=== PATIENT | female | born 1980 | race Caucasian/White ===

== ENCOUNTER 2024-12-14 20:30 | Observation (INO) | payer MEDICAID, SELFPAY ==
[2024-12-14 20:31] VITALS: BP 222/116; PULSE 112; RESP 24; TEMP 36.4; O2SAT 99; BMI 48.9
[2024-12-14 20:44] VITALS: O2SAT 98
--- NOTE | 2024-12-14 20:44 | EKG12_ITS ---
Test Reason : CP ADMIT Blood Pressure : */* mmHG Vent. Rate : 88 BPM Atrial Rate : 88 BPM P-R Int : 128 ms QRS Dur : 82 ms QT Int : 388 ms P-R-T Axes : 55 12 20 degrees QTcB Int : 469 ms Normal sinus rhythm Normal ECG Confirmed by VARUN PALACIOS, SUE ([id number]), film and video editor ARRON SALAS ([id number]) on 12/15/2024 8:29:03 AM Referred By: Confirmed By: SUE BOND MD
[2024-12-14 21:04] VITALS: BP 204/120; PULSE 107; RESP 35; O2SAT 98
[2024-12-14 21:05] LABS: Absolute Lymphocyte Count 2.71 X10^3/uL (0.83-4.51); Absolute Neutrophil Count 7.7 X10^3/uL (2.0-7.7); Basophil# 0.09 X10^3/uL; Basophil% 0.8 % (0-1); Eosinophil# 0.06 X10^3/uL; Eosinophils% 0.5 % (0-5); Hematocrit 43.5 % (37-47); Hemoglobin 14.9 g/dL (12.0-15.0); Lymphocyte # 2.71 X10^3/ul (0.83-4.51); Lymphocyte % 24.3 % (19-41); Mean Corp Hgb Conc 34.3 g/dL (32-36); Mean Corpuscular Hgb 29.3 pg (27.0-32.0); Mean Corpuscular Volume 85.6 fL (81-99); Monocyte# 0.56 X10^3/uL; NRBC Flagged by Analyzer 0 % (0-5); Neutrophil # 7.66 X10^3/uL (2.7-7.7); Neutrophil % 68.9 % (47-70); Platelet Count 264 K/mm3 (150-450); RBC Distribution Width CV 13.5 % (11.6-14.6); RBC Distribution Width SD 41.9 fl (35.1-43.9); Red Blood Count 5.08 M/mm3 (4.2-5.4); White Blood Count 11.1 K/mm3 (4.4-11.0)
--- NOTE | 2024-12-14 21:11 | RAD_ITS ---
PROCEDURE: CHEST PA AND LATERAL 12/14/2024 REASON FOR EXAM: CHEST PAIN TECHNIQUE: CHEST PA AND LATERAL COMPARISON: None FINDINGS: No focal consolidations. No pleural effusion or pneumothorax. Cardiac silhouette is within normal limits in size. No acute fractures. RAD/Chest PA and Lateral IMPRESSION: No focal consolidations. Reading Location: [id number]
[2024-12-14 21:45] LABS: Anion Gap 14 (5-15); BUN 10 mg/dL (4-19); BUN/Creat Ratio 13.7 RATIO (10-20); Carbon Dioxide 21.3 mmol/L (21.0-32.0); Chloride 94 mmol/L (98-108); Creatinine, Serum 0.71 mg/dL (0.70-1.20); EST Glomerular Filtration Rate 108 (>60); Glucose 532 mg/dL (70-99); Potassium 4.2 mmol/L (3.3-5.1); Pro- Brain NATRIURETIC PEPTIDE < 36 pg/mL (<=450); Sodium Level 130 mmol/L (133-145); Troponin T High Sensitivity < 6 ng/L (<=14)
[2024-12-14 22:00] VITALS: BP 167/103; PULSE 104; RESP 32; O2SAT 95
--- NOTE | 2024-12-14 22:20 | CM.ED ---
Social work Reason for referral: no PCP Referral source: case find SW recognized patient's lack of PCP and need for resources. SW entered patient's room, introducing self and role at [facility]. Patient confirmed not having a PCP due to just moving back into the area and receiving names of doctors in [place]. Patient gladly accepted resources of PCPs within [place] and stated willingness to reach out. Patient denied further needs at this time. Sherrie Thomas, WOOD ROUTER, WATER TAXI CAPTAIN
[2024-12-14] MEDS: Insulin Lispro 100 UNIT/ML INSULN.PEN 15 UNIT SC (22:23)
--- NOTE | 2024-12-14 22:43 | EX.ED.DYSGE1 ---
HPI History of Present Illness Chief Complaint: Chest Pain Narrative Narrative: Patient is a 44-year-old female with past medical history of prediabetes, hypertension who presents to the emergency department chief complaint of chest pain. Patient states that she has had chest pain that has been progressive worsening for the last 3 days. States that her pain is worse with exertion and gets better with rest. Patient states that she has been out of her blood pressure medication for several months according to triage this was 10 months and this is secondary to insurance reasons. Patient denies any recent sick contacts denies any recent travel history denies any history of blood clots. [facility] Medical History Prediabetes Hypertension Home Medications ?Medication ?Instructions ?Recorded ?Last Taken ?Type NK 12/14/24 Unknown History Allergy/AdvReac Type Severity Reaction Status Date / Time No Known Allergies Allergy Verified 12/14/24 20:32 Family History no significant family his Social History Smoking Status: Never smoker ROS ROS ED ROS Narrative Constitutional: Denies headache, lightness, dizziness, fevers, chills Eyes: Denies change in vision double vision blurry vision Cardiovascular: Claims chest pain as noted above denies palpitations Respiratory: Denies coughing wheezing shortness of breath Abdomen: Denies abdominal pain nausea vomit diarrhea : Denies urinary symptoms Neurological: Denies numbness, wheeze, tingling Musculoskeletal: Denies back pain Skin: Denies rashes or lesions EXAM Physical Exam Narrative Exam Narrative: General: Patient lying in bed rest comfortably did not appear to be acute distress Head: Atraumatic, normocephalic Eyes: PERRL bilaterally, EOMI bilateral, no conjunctival injection noted Neck: Supple, trach midline Cardiovascular: Patient tachycardic with regular rhythm no murmurs gallops rubs noted Respiratory: There are auscultation bilaterally Abdomen: Soft, nondistended, no tenderness to palpation Extremities: +5/5 strength noted in the bilateral upper and lower EXTR, radial pulses +2/4 in the bilateral extremities, no pedal edema on exam Neurological: Commands and that she was at [facility] year is 2024 Skin: Warm, dry, intact no rashes or lesions noted Const Vital Signs: 12/14/24 20:31 12/14/24 20:44 12/14/24 21:03 Temperature 97.5 F L Temperature Source Temporal Pulse Rate 112 H Respiratory Rate 24 H Respiratory Effort Short of Breath Blood Pressure 222/116 H Blood Pressure Mean 151 Pulse Ox 99 98 Oxygen Delivery Method Room Air Room Air 12/14/24 21:04 12/14/24 22:00 12/14/24 23:00 Temperature Temperature Source Pulse Rate 107 H 104 H 105 H Respiratory Rate 35 H 32 H 35 H Respiratory Effort Blood Pressure 204/120 H 167/103 H 140/96 H Blood Pressure Mean 148 124 110 Pulse Ox 98 95 97 Oxygen Delivery Method Room Air Room Air 12/14/24 23:13 Temperature Temperature Source Pulse Rate Respiratory Rate Respiratory Effort Blood Pressure 140/96 H Blood Pressure Mean Pulse Ox Oxygen Delivery Method MDM MDM MDM Narrative Medical decision making narrative: Patient is a 44-year-old female who presented to the emergency department chief complaint chest pain. On the differential diagnose includes but limited to stable angina, ACS, pneumonia, pneumothorax, hypertensive emergency, pulmonary embolism. Once workup is obtained reviewed she will be reevaluated. Patient CBC was reviewed which showed white blood count 11,000, hemoglobin 14.9, platelet count of 264. Patient sodium is 130, potassium normal 4.2, creatinine was 0.71. Patient's glucose was 532 she will be given 15 units of subcutaneous insulin, troponin was less than 6, delta troponin pending, proBNP was less than 36. Patient's EKG was reviewed showed sinus tachycardia with a rate of 109 beats per minutes. Patient's chest x-ray reviewed by myself and by radiology showed no acute cardiopulmonary processes. Given the patient's abnormal vital signs with tachycardia and tachypnea with a largely unremarkable workup will add on a D-dimer as well. Patient case will be signed out to overnight provider to follow-up on results and make ultimate disposition see addendum for further details. Lab Data Labs: Laboratory Results - last 24 hr 12/14/24 20:58 WBC 11.1 H RBC 5.08 Hgb 14.9 Hct 43.5 MCV 85.6 MCH 29.3 MCHC 34.3 RDW Std Deviation 41.9 RDW Coeff of [place] 13.5 Plt Count 264 MPV 10.0 Immature Gran % (Auto) 0.500 Neut % (Auto) 68.9 Lymph % (Auto) 24.3 [place] % (Auto) 5.0 Eos % (Auto) 0.5 Baso % (Auto) 0.8 Absolute Neuts (auto) 7.7 Absolute Lymphs (auto) 2.71 Nucleated RBC % 0 Sodium 130 L Potassium 4.2 Chloride 94 L Carbon Dioxide 21.3 Anion Gap 14 BUN 10 Creatinine 0.71 Estim Creat Clear Calc 139.80 Est GFR (MDRD) Non-Af 108 BUN/Creatinine Ratio 13.7 Glucose 532 H* Calcium 9.0 Troponin T High Sens < 6 NT pro BNP II < 36 Radiography Diagnostic Testing: Clinical Impression(s) from Imaging Studies Chest X-Ray 12/14/24 21:11 IMPRESSION: No focal consolidations. Reading Location: [facility] Discharge Plan Triage Chief Complaint: Chest Pain ED Provider: Richard Dan Dx/Rx/DC Orders Prescriptions: No Action NK Primary Care Provider: Care Physician,No Primary Referrals: Care Physician,No Primary [Primary Care Provider] - Print Language: Kyrgyz
[2024-12-14 23:00] VITALS: BP 140/96; PULSE 105; RESP 35; O2SAT 97
[2024-12-14 23:13] VITALS: BP 140/96
[2024-12-14] MEDS: Nitroglycerin SL (ED/IMG/CATH) 0.4 MG TABLET SL (23:13)
[2024-12-14 23:36] LABS: D-Dimer Quantitative (DVT/PE) 0.27 FEU/ug/m (0.27-0.49)
[2024-12-14] MEDS: 0.9% Normal Saline (1000mL) 1,000 ML 999 ML IV (23:50)
[2024-12-14 23:51] LABS: Troponin T High Sens 2 HR < 6 ng/L (<=14)
[2024-12-15] VITALS (8 sets, daily range): BP systolic 132–164; BP diastolic 77–94; PULSE 78–103; RESP 16–35; TEMP 36.5–36.6; O2SAT 93–99; BMI 49.1
[2024-12-15 00:37] LABS: Bedside Glucose 345 mg/dL (74-106)
--- NOTE | 2024-12-15 01:09 | PCM.HP.STD ---
[facility] - General General Date of Admission: 12/15/24 Date of Service: 12/15/24 Chief Complaint: Chest Pain and Elevated Blood Pressure. HPI Narrative JACOB CELIS, is a 44 F with a past medical history of essential hypertension; currently untreated, DM-2; uncontrolled with hyperglycemia and morbid obesity; with BMI of 49 this admission who presents to [facility] ER complaining of chest pain and elevated blood pressure. Ms. Celis reports her symptoms began ~3 days prior to admission with chest pain that began with exertion and improved with rest. She states she ran out of her blood pressure medication ~10 months ago due to insurance reasons - but she states she now has insurance. She also informed the ER physician that she has not seen her doctor in approximately 8 months. She denies any recent sick contacts, significant travel history or history of blood clots. There was no reported fever, chills, changes in vision, discharge from eyes, shortness of breath, cough, wheezing, abdominal pain, nausea, vomiting, diarrhea, constipation, dysuria, hematuria, headache, paresthesias, focal neurologic deficits or rash. In the ER she was noted to have a highly elevated blood pressure of 222/116 mmHg present on admission consistent with suspected Hypertensive Emergency complicated by complaints of Chest Pain; made worse with exertion that improved after sublingual nitroglycerin compounded by Hyperglycemia of 532 mg/dL present on admission consistent with uncontrolled DM-2 and she was then admitted to the PCU under observation status for ongoing care for stay that is expected to be less than 2 midnights. [facility] Medical History Prediabetes Hypertension Home Medications ?Medication ?Instructions ?Recorded ?Last Taken ?Type NK 12/14/24 Unknown History Allergy/AdvReac Type Severity Reaction Status Date / Time No Known Allergies Allergy Verified 12/14/24 20:32 Family History no significant family his Social History Smoking Status: Never smoker ROS ROS Narrative Review of Systems: Constitutional: Patient denies fever or chills. Eyes: Patient denies changes in vision or discharge from eyes. ENT: Patient denies runny nose, sore throat or ear pain. Resp: Patient denies shortness of breath, cough or wheezing. CV: Patient admits to chest pain that is substernal and nonradiating. She also admits to elevated blood pressure as per HPI. She denies palpitations, heart racing or lower extremity edema. GI: Patient denies abdominal pain, nausea, vomiting, diarrhea or constipation. : Patient denies dysuria, hematuria or urinary frequency. MSK: Patient denies arthralgias or myalgias. Skin: Patient denies rash, abscess, wounds or jaundice. Psych: Patient denies symptoms of uncontrolled depression or anxiety. Neuro: Patient denies headache, paresthesias or focal neurologic deficits. Allergy: Patient denies lip swelling, tongue swelling or urticaria. Hematology: Patient denies easy bleeding or easy bruisability. Endocrinology: Patient admits to hyperglycemia with polyuria and polydipsia but she denies polyphagia or heat/cold intolerance. 14 point ROS otherwise negative except for positives noted above in HPI. Vital Signs Vital Signs Vital Signs: 12/14/24 20:31 12/14/24 20:44 12/14/24 21:03 Temperature 97.5 F L Temperature Source Temporal Pulse Rate 112 H Respiratory Rate 24 H Respiratory Effort Short of Breath Blood Pressure 222/116 H Blood Pressure Mean 151 Pulse Ox 99 98 Oxygen Delivery Method Room Air Room Air 12/14/24 21:04 12/14/24 22:00 12/14/24 23:00 Temperature Temperature Source Pulse Rate 107 H 104 H 105 H Respiratory Rate 35 H 32 H 35 H Respiratory Effort Blood Pressure 204/120 H 167/103 H 140/96 H Blood Pressure Mean 148 124 110 Pulse Ox 98 95 97 Oxygen Delivery Method Room Air Room Air 12/14/24 23:13 12/15/24 00:00 12/15/24 00:00 Temperature Temperature Source Pulse Rate 94 102 H Respiratory Rate 29 H 35 H Respiratory Effort Blood Pressure 140/96 H 132/77 H 132/77 H Blood Pressure Mean 90 95 Pulse Ox 94 96 Oxygen Delivery Method Room Air 12/15/24 00:49 12/15/24 01:00 Temperature 97.8 F Temperature Source Pulse Rate 103 H 102 H Respiratory Rate 30 H 35 H Respiratory Effort Blood Pressure 143/93 H 150/86 H Blood Pressure Mean 109 107 Pulse Ox 97 97 Oxygen Delivery Method Weight Weight: 294 lb 3.2 oz Body Mass Index (BMI) 48.9 Physical Exam Const alert, oriented x3, no apparent distress and healthy appearing Constitutional Narrative: Patient is morbidly obese. General Appearance: cooperative HEENT normocephalic, head/scalp atraumatic, hearing grossly normal bilaterally and moist oral mucous membranes HEENT Narrative: Patient has several missing teeth including both central incisors, lateral incisor, canine and 1st and 2nd premolars of the Right maxilla. Eyes PERRL, EOMs intact bilaterally and conjunctivae normal Neck no lymphadenopathy and supple Resp normal respiratory effort, no retractions, no use of accessory muscles and clear to auscultation bilaterally Cardio regular rate and regular rhythm GI normal to inspection, nondistended, normoactive bowel sounds, soft to palpation, non-tender and non-distended GI Narrative: Morbidly obese. Extremity normal to inspection, full ROM and no clubbing, cyanosis or edema Skin Skin Narrative: Patient has evidence of rash, abscess, wounds or jaundice. Neuro oriented x3, CN's II-XII intact bilaterally, moves all extremities and no focal motor deficits Sensorium / Orientation: awake, alert, oriented to person, oriented to place and oriented to time Speech: speech normal Psych affect normal Results Medical Records Data Attestation: I reviewed the patient's medical records Lab / Micro Data Attestation: I reviewed the patient's lab results. 12/14/24 20:58 12/14/24 20:58 Labs: Laboratory Results - last 24 hr 12/14/24 20:58: WBC 11.1 H, RBC 5.08, Hgb 14.9, Hct 43.5, MCV 85.6, MCH 29.3, MCHC 34.3, RDW Std Deviation 41.9, RDW Coeff of [place] 13.5, Plt Count 264, MPV 10.0, Immature Gran % (Auto) 0.500, Neut % (Auto) 68.9, Lymph % (Auto) 24.3, [place] % (Auto) 5.0, Eos % (Auto) 0.5, Baso % (Auto) 0.8, Absolute Neuts (auto) 7.7, Absolute Lymphs (auto) 2.71, Nucleated RBC % 0, Sodium 130 L, Potassium 4.2, Chloride 94 L, Carbon Dioxide 21.3, Anion Gap 14, BUN 10, Creatinine 0.71, Estim Creat Clear Calc 139.80, Est GFR (MDRD) Non-Af 108, BUN/Creatinine Ratio 13.7, Glucose 532 H*, Calcium 9.0, Troponin T High Sens < 6, NT pro BNP II < 36 12/14/24 23:15: D-Dimer Quant (PE/DVT) 0.27, Troponin T Hi Sens 2 Hr < 6 12/15/24 00:19: POC Glucose 345 H Imaging Radiology Impression Chest X-Ray 12/14/24 21:11 IMPRESSION: No focal consolidations. Reading Location: [facility] Assessment & Plan Assessment/Plan (1) Hypertensive emergency without congestive heart failure: (2) Chest pain on exertion: (3) Hyperglycemia due to type 2 diabetes mellitus: QUALIFIERS: Diabetes mellitus buttermaker continuous churn insulin use: without buttermaker continuous churn use Qualified Code(s): E11.65 - Type 2 diabetes mellitus with hyperglycemia (4) Medical non-compliance: (5) Morbid obesity with BMI of 45.0-49.9, adult: PLAN: Plan 1. Highly elevated blood pressure of 222/116 mmHg present on admission consistent with suspected Hypertensive Emergency - Admit to PCU under observation status. Blood pressure in the ~150 mmHg systolic range after SL NTG. Give hydralazine IV prn for systolic blood pressure > 160 mmHg. 2. Chest Pain made worse with exertion that improved after sublingual nitroglycerin complicating #1 - Serialize troponin. Check Lexiscan NST to evaluate for ischemia. Check echocardiogram to evaluate LVEF. D-dimer in normal range at 0.27 present on admission. 3. Hyperglycemia of 532 mg/dL present on admission consistent with uncontrolled DM-2 compounding #1 & #2 - Check HgbA1c to confirm suspicion. ADA/cardiac diet after NST. FSBS q. AC/HS plus SSI. Finally, we will consult clinical dietitian sees patient on rounds in a.m. to help augment diabetic education and insulin training with help appreciated in advance. 4. Medical noncompliance adding to the medical complexity of #1 - #3 - Patient will be encouraged take her medications keep her follow-up appointments as recommended. We will consult case management to help with discharge planning and also to help patient obtain her medications to prevent serial readmission without appreciated in advance. 5. Morbid (class III) Obesity; with BMI of 49 this admission adding to the burden of disease outlined from #1 - #4 - Weight loss will be recommended. Check TSH. This complicates her case and may hamper recovery. 6. DVT prophylaxis - Enoxaparin 40 mg sq BID. Total time: Approximately (but not less than) 70 minutes. Charges/Coding Visit Charges OBSV E&M: 39039 Observ/hosp same date L2
[2024-12-15 01:25] LABS: Troponin T High Sens 4 HR < 6 ng/L (<=14)
--- NOTE | 2024-12-15 01:38 | ECHOD_ITS ---
Reason For Study Reason For Study: CHEST PAIN Procedure This was a 2D Doppler, Color Flow transthoracic echocardiogram. Exam performed in department. Left Ventricle Normal LV size. Left ventricular systolic function is normal. The left ventricular ejection fraction is 60 %. No regional wall motion abnormalities noted. Right Ventricle Normal RV size. Normal systolic function. Atria The left and right atria are normal. Normal right atrium. Mitral Valve Normal mitral valve. Tricuspid Valve Normal tricuspid valve. Mild (1+) tricuspid valve insufficiency. Pulmonary artery systolic pressure is 30 mmHg. Aortic Valve The aortic valve is not well visualized. Pulmonic Valve Normal pulmonic valve. Great Vessels Normal aortic root. The pulmonary artery is normal size. Inferior vena cava collapse with respiration. Pericardium/Pleural No pericardial effusion. MMode/2D Measurements & Calculations LVIDd: 4.4 cm IVSd: 0.90 cm Ao root diam: 3.2 cm LVIDs: 3.2 cm LVPWd: 0.91 cm RVDd: 3.5 cm FS: 27.8 % LAV(MOD-bp): 36.2 ml LVAd ap4: 30.4 cm2 SV(MOD-sp4): 56.8 ml LAV(MOD-bp) Indexed: 15.5 ml/m2 LVLd ap4: 8.0 cm SI(MOD-sp4): 24.4 ml/m2 LAV(MOD-sp2): 34.5 ml EDV(MOD-sp4): 94.9 ml LAV(MOD-sp4): 36.6 ml EDV(sp4-el): 97.8 ml LVAs ap4: 16.6 cm2 LVLs ap4: 6.3 cm ESV(MOD-sp4): 38.0 ml ESV(sp4-el): 37.1 ml EF(MOD-sp4): 59.9 % EF(sp4-el): 62.1 % SV(sp4-el): 60.7 ml LA A4 area: 15.4 cm2 LA dimension(2D): 3.9 cm RA A4 area: 12.7 cm2 TAPSE: 1.9 cm Time Measurements MV dec time: 0.23 sec Doppler Measurements & Calculations MV E max omega: 92.5 cm/sec Lat Peak E' Omega: 14.5 cm/sec Med Peak E' Omega: 12.7 cm/sec MV A max omega: 76.4 cm/sec E/E' lat: 6.4 E/E' med: 7.3 MV E/A: 1.2 Ao V2 max: 173.9 cm/sec LV V1 max: 139.0 cm/sec PA V2 max: 128.4 cm/sec Ao max P.1 mmHg LV V1 max P.7 mmHg TR max omega: 261.0 cm/sec TR max P.2 mmHg ECHO/Echo Complete Interpretation Summary Normal LV size. Left ventricular systolic function is normal. The left ventricular ejection fraction is 60 %. Pulmonary artery systolic pressure is 30 mmHg. Ordering Physician: Martín Kilgore Performed By: Peggy Noel RDCS
[2024-12-15 03:08] LABS: Hemoglobin A1c 11.6 % (<=5.6)
--- NOTE | 2024-12-15 03:15 | EKG12_ITS ---
Test Reason : CP Blood Pressure : */* mmHG Vent. Rate : 109 BPM Atrial Rate : 109 BPM P-R Int : 118 ms QRS Dur : 82 ms QT Int : 344 ms P-R-T Axes : 50 7 15 degrees QTcB Int : 463 ms Sinus tachycardia Right atrial enlargement Minimal voltage criteria for LVH, may be normal variant ( R in aVL ) Borderline ECG No previous ECGs available Confirmed by VARUN PALACIOS, SUE ([id number]), editor in chief newspaper LINA FRITZ ([id number]) on 12/16/2024 5:36:59 AM Referred By: TB Confirmed By: SUE BOND MD
[2024-12-15] MEDS: Aspirin 81 MG TAB.CHEW 324 MG PO (03:49)
[2024-12-15] MEDS: 0.9% Saline Lock 10 ML Syringe IV (03:54)
[2024-12-15] MEDS: Insulin Lispro 100 UNIT/ML INSULN.PEN SC ×2 (06:52→11:39)
[2024-12-15 07:13] LABS: Bedside Glucose 313 mg/dL (74-106)
[2024-12-15 08:48] LABS: Cholesterol 246 mg/dL (<=200); High Density Lipoprotein 44 mg/dL; Low Density Lipoprotein Calc. 156 mg/dL; Triglycerides 229 mg/dL; Very Low Density Lipoprotein 46 mg/dL (5-40); cholesterol:hdl ratio screen 5.55
--- NOTE | 2024-12-15 11:50 | PCM.DC ---
Discharge Instructions Diet Discharge Diet: Low fat / Low cholesterol, 1600 Calorie Control Diet and Carb Control Diet DC O2, CPAP, BIPAP needs Home O2 Discharge instructions: No Dressing / Incision Discharge Activity: Return to Normal Activity Dressing / Incision Call your doctor if you observe: Fever of 101 or Higher, Shortness of breath, Dizziness, Fainting spells, Swelling in the ankles, Chest pain and Increased palpitations (irregular heartbeat) Follow Up Care Test Results: Test results from this visit will be discussed in further detail at your follow-up appointment, if applicable. Discharge Plan Admission Admit Date/Time: 12/15/24 01:31 Attending Provider: Seun Cullen Primary Care Provider: Care Physician,No Primary Consulting Providers: Martín Kilgore Discharge Orders/Prescriptions Prescriptions: New metformin 500 mg Tablet Extended Release 24 Hr 500 mg PO BID 30 Days Qty: 60 0RF losartan 50 mg tablet 50 mg PO DAILY Qty: 30 0RF atorvastatin [Lipitor] 20 mg tablet 20 mg PO DAILY Qty: 30 0RF Referrals / Follow Up: Care Physician,No Primary [Primary Care Provider] - Raffy Bonds DO [Med Staff - Meters Superintendent] - Within 1 Week Disposition Disposition (needs filled in before D/C Order can be placed): Home, Self Care
[2024-12-15 12:43] LABS: Bedside Glucose 300 mg/dL (74-106)
--- NOTE | 2024-12-15 12:55 | STRESSREP ---
Stress Test Report Pharmacologic myocardial perfusion stress test. 44-year-old lady with a history of chest pain Resting EKG demonstrates sinus tachycardia with a rate of 104 bpm. Resting blood pressure is 144/98 mmHg. 0.4 mg of regadenoson was infused per usual protocol followed by rapid intravenous saline flush injection. Continuous EKG monitoring was performed. The maximum heart rate was 116 bpm which was 65% of max impacted heart rate the maximum workload was 1 metabolic equivalent. At rest there were no ST or T wave changes noted to suggest ischemia and at peak infusion nonspecific ST changes were noted which did not meet the criteria for ischemia. No clinical angina is noted. The final blood pressure was 140/100 mmHg. Myocardial perfusion protocol. 15 mCi of technetium 99m sestamibi was injected at rest. 0.4 mg of regadenoson was infused per usual protocol. At peak infusion 44.8 mCi of technetium 99m sestamibi was injected stress images were obtained stress and rest images were reconstructed and compared in the short axis vertical long and horizontal long axis. Gated images were also obtained. Perfusion SPECT analysis: Review of the stress images demonstrate normal uptake of tracer noted in all areas of the myocardium. The resting images similar demonstrated normal uptake of tracer noted in all areas of the myocardium. No areas of reversibility are noted to suggest ischemia and no previous infarct is noted. Gated SPECT analysis: The gated ejection fraction is 70%. Conclusion: Normal pharmacologic myocardial perfusion stress test. Preserved ejection fraction.
--- NOTE | 2024-12-15 15:03 | CASEMGMT ---
Patient has order for discharge. RN CM into discuss needs at discharge. Patient needs glucometer at discharge. Patient denies further need or consider. Patient had no further questions or concerns. Script received for glucometer and placed in discharge packet.
--- NOTE | 2024-12-15 17:05 | DS.PCM_ITS ---
Providers Date of Admission: 12/15/24 Primary Care Physician: No Primary Care Phys Reason For Visit: HYPERTENSIVE EMERGENCY CHEST PAIN WITH EXERTION Diagnosis Discharge Diagnosis (1) Hypertensive emergency without congestive heart failure: Status: Acute Code(s): I16.1 - Hypertensive emergency (2) Chest pain on exertion: Status: Acute Code(s): R07.9 - Chest pain, unspecified (3) Hyperglycemia due to type 2 diabetes mellitus: Status: Acute Code(s): E11.65 - Type 2 diabetes mellitus with hyperglycemia Qualifiers: Diabetes mellitus fci insulin use: without termite control service representative use Q ualified Code(s): E11.65 - Type 2 diabetes mellitus with hyperglycemia (4) Medical non-compliance: Status: Acute Code(s): Z91.199 - Patient's noncompliance with other medical treatment and regimen due to unspecified reason (5) Morbid obesity with BMI of 45.0-49.9, adult: Status: Acute Code(s): E66.01 - Morbid (severe) obesity due to excess calories; Z68.42 - Body mass index [BMI] 45.0-49.9, adult Medications at Discharge Home Medications atorvastatin 20 mg tablet (Lipitor) 20 mg PO DAILY #30 tabs 12/15/24 losartan 50 mg tablet 50 mg PO DAILY #30 tabs 12/15/24 metformin 500 mg tablet,extended release 24 hr 500 mg PO BID 30 days #60 tabs 12/15/24 Hospital Course Operations None Procedures 2-D Echocardiogram and Nuclear stress test Summary of Care Provided Minutes Spent on Discharge: 32 Hospital Course: Per HPI: JACOB CELIS, is a 44 F with a past medical history of essential hypertension; currently untreated, DM-2; uncontrolled with hyperglycemia and morbid obesity; with BMI of 49 this admission who presents to [facility] ER complaining of chest pain and elevated blood pressure. Ms. Celis reports her symptoms began ~3 days prior to admission with chest pain that began with exertion and improved with rest. She states she ran out of her blood pressure medication ~10 months ago due to insurance reasons - but she states she now has insurance. She also informed the ER physician that she has not seen her doctor in approximately 8 months. She denies any recent sick contacts, significant travel history or history of blood clots. There was no reported fever, chills, changes in vision, discharge from eyes, shortness of breath, cough, wheezing, abdominal pain, nausea, vomiting, diarrhea, constipation, dysuria, hematuria, headache, paresthesias, focal neurologic deficits or rash. In the ER she was noted to have a highly elevated blood pressure of 222/116 mmHg present on admission consistent with suspected Hypertensive Emergency complicated by complaints of Chest Pain; made worse with exertion that improved after sublingual nitroglycerin compounded by Hyperglycemia of 532 mg/dL present on admission consistent with uncontrolled DM-2 and she was then admitted to the PCU under observation status for ongoing care for stay that is expected to be less than 2 midnights. Hospital Course: 1. Hypertensive urgency with chest pain/type 2 diabetes?41-year-old female presented to the hospital with hypertension and chest pain. She was concerned because of the chest pain when she found that her blood pressure was in the 200s which presented to the hospital. No signs of emergency as she has no evidence of endorgan damage. Initially elected to give her lisinopril however she has a history of a rash to lisinopril therefore we transition to losartan 50 mg. Stress test and echocardiogram are unremarkable and normal, EF was 60% with PASP of 30 mmHg and the stress test was nonischemic. She was also found to have an A1c of 11 and states that she used to be on multiple diabetic medications however she discontinued these when she lost Medicaid coverage because she makes too much but she was not making enough to afford her medications over the month. Given that her lipid panel was also elevated will start her on Lipitor 20 mg p.o. daily as well as metformin 500 mg extended release twice daily and I will have her follow-up with her primary care doctor as an outpatient. I discussed with her that all 3 medications that I gave her are on the $[address] [facility]. She will likely need more diabetic medication however I am afraid that by overloading her on discharge with pills that it we will just exacerbate noncompliant tendencies. I recommend she follow-up with the PCP in 3 to 5 days. Blood pressure on discharge was 142/89 and her blood sugar on discharge was 300 and she did receive insulin coverage. Physical Exam Narrative General: Alert, Oriented x3, Cooperative, No apparent distress, morbidly obese HEENT: Atraumatic, PERRLA, EOMI, Normocephalic Oral: Moist Mucosa Neck: Supple, No JVD Lungs: Clear to auscultation, Normal air movement, No rhonchi, No wheeze, No rales Cardiovascular: Regular rate, Regular Rhythm, Normal S1, Normal S2, No murmurs Abdomen: Soft, Non Tender, Non-Distended, No Hepato-splenomegaly Extremities: No edema, Capillary Refill Less than 3 Seconds Skin: No rashes, No breakdown Musculoskeletal: No Tenderness to Palpation of Joints or Extremities Neurological: No focal neurological deficits, Motor Exam 5/5 strength throughout, Sensory exam intact to light touch and pain Psych/Mental Status: Normal Affect, Appropriate Weight / BMI Weight Weight: 295 lb 3.183 oz Body Mass Index (BMI) 49.1 ABG / Lab / Microbiology Data 12/14/24 20:58 12/14/24 20:58 Laboratory: Laboratory Results - last 24 hr 12/14/24 20:58: WBC 11.1 H, RBC 5.08, Hgb 14.9, Hct 43.5, MCV 85.6, MCH 29.3, MCHC 34.3, RDW Std Deviation 41.9, RDW Coeff of [place] 13.5, Plt Count 264, MPV 10.0, Immature Gran % (Auto) 0.500, Neut % (Auto) 68.9, Lymph % (Auto) 24.3, Bulloch % (Auto) 5.0, Eos % (Auto) 0.5, Baso % (Auto) 0.8, Absolute Neuts (auto) 7.7, Absolute Lymphs (auto) 2.71, Nucleated RBC % 0, Sodium 130 L, Potassium 4.2, Chloride 94 L, Carbon Dioxide 21.3, Anion Gap 14, BUN 10, Creatinine 0.71, Estim Creat Clear Calc 139.80, Est GFR (MDRD) Non-Af 108, BUN/Creatinine Ratio 13.7, Glucose 532 H*, Hemoglobin A1c 11.6 H, Calcium 9.0, Troponin T High Sens < 6, NT pro BNP II < 36 12/14/24 23:15: D-Dimer Quant (PE/DVT) 0.27, Troponin T Hi Sens 2 Hr < 6 12/15/24 00:19: POC Glucose 345 H 12/15/24 01:03: Troponin T Hi Sens 4Hr < 6, TSH 2.130 12/15/24 01:54: Triglycerides 229 H, Cholesterol 246 H, LDL Cholesterol, Calc 156, VLDL Cholesterol 46 H, HDL Cholesterol 44, Cholesterol/HDL Ratio 5.55 12/15/24 06:45: POC Glucose 313 H 12/15/24 11:36: POC Glucose 300 H Radiography Diagnostic Testing: Radiology Impression Chest X-Ray 12/14/24 21:11 IMPRESSION: No focal consolidations. Reading Location: [facility] Echocardiogram 12/15/24 01:38 Interpretation Summary Normal LV size. Left ventricular systolic function is normal. The left ventricular ejection fraction is 60 %. Pulmonary artery systolic pressure is 30 mmHg. Ordering Physician: Martín Kilgore Performed By: Peggy Noel RDCS D/C Instructions Discharge Diet: Low fat / Low cholesterol, 1600 Calorie Control Diet and Carb Control Diet Call your doctor if you observe: Fever of 101 or Higher, Shortness of breath, Dizziness, Fainting spells, Swelling in the ankles, Chest pain and Increased palpitations (irregular heartbeat) DC O2, CPAP, BIPAP Needs Home O2 Discharge instructions: No Meaningful Use Info Meaningful Use Meaningful Use Diagnoses (Choose all that apply): None applicable Ischemic Stroke Statin Dosing Therapy Reference: STATIN DOSE THERAPY REFERENCE: * Patients > 75 years receive moderate or high dose statin therapy. * Patients 75 years or YOUNGER should receive HIGH intensity statin dose unless contraindicated. You will be required to document reason for non-treatment if statin daily dose does not meet guidelines. HIGH DOSE STATIN THERAPY DAILY Atorvastatin > than or = to 40 mg Rosuvastatin > than or = to 20 mg Amlodipine + Atorvastatin > than or = to 2.5/40 mg Ezetimibe + Simvastatin 10/80 mg Simvastatin 80mg Discharge Plan Admission Admit Date/Time: 12/15/24 01:31 Attending Provider: Seun Cullen Primary Care Provider: Care Physician,No Primary Consulting Providers: Martín Kilgore Instructions Forms: Work Excuse, Work / School Excuse Discharge Orders/Prescriptions Prescriptions: New metformin 500 mg Tablet Extended Release 24 Hr 500 mg PO BID 30 Days Qty: 60 0RF losartan 50 mg tablet 50 mg PO DAILY Qty: 30 0RF atorvastatin [Lipitor] 20 mg tablet 20 mg PO DAILY Qty: 30 0RF Referrals / Follow Up: Raffy Bonds DO [Med Staff - Materials Supervisor] - Within 1 Week Care Physician,No Primary [Primary Care Provider] - Disposition Disposition (needs filled in before D/C Order can be placed): Home, Self Care Charges/Coding Visit Charges Inpatient E&M: 34311 Disch Hosp >30min
== END 2024-12-15 11:52 | disposition home or self-care (01) ==
LOC: ED 21:49 → PCU 12-15 02:50
PROVIDERS: Admitting Provider Internal Medicine; Emergency Provider Emergency Medicine; Visit Provider Family Medicine
DX: I16.1 Hypertensive emergency (principal); E66.01 Morbid (severe) obesity due to excess calories; Z68.42 Body mass index [BMI] 45.0-49.9, adult; E11.65 Type 2 diabetes mellitus with hyperglycemia; I10 Essential (primary) hypertension; Z91.199 Patient's noncompliance with other medical treatment and regimen due to unspecified reason; R07.89 Other chest pain; I07.1 Rheumatic tricuspid insufficiency; R00.0 Tachycardia, unspecified
CPT/HCPCS: 71046; 78452; 80048; 80061; 82962; 83036; 83880; 84443; 84484; 85025; 85379; 93005; 93017; 93306; 96360; 99221; 99285; A9500; A4216; G0378; J2785

== ENCOUNTER 2025-02-19 12:27 | Emergency (ER) | payer MEDICAID, SELFPAY ==
[2025-02-19 12:29] VITALS: BP 157/89; PULSE 86; RESP 18; TEMP 36.6; O2SAT 99; BMI 49.1
--- NOTE | 2025-02-19 12:45 | EDS_ITS ---
HPI History of Present Illness Chief Complaint: Lower Extremity Injury Informant: patient Narrative Narrative: 44-year-old female with diabetic neuropathy both of her feet states that the painful numbness in both of her feet is worse today to the point where she can barely stand. She woke up this way this morning. She has had neuropathic pain and numbness in her feet for maybe a couple of months and as a result was found out that she has a diabetic and is now on medication. She denies any injuries that she knows of. The pain radiates up the back of her legs to her calves on both sides. She denies any swelling. No history of DVT, pain similar in both sides simultaneously. Denies any dyspnea, fevers or chills, redness that she has noticed. Prior similar symptoms: Yes PFSH PFSH Medical History Prediabetes Hypertension Home Medications ?Medication ?Instructions ?Recorded ?Last Taken ?Type atorvastatin 20 mg tablet (Lipitor) 20 mg PO DAILY #30 tabs 12/15/24 Unknown Rx losartan 50 mg tablet 50 mg PO DAILY #30 tabs 11/28 02/21 Unknown Rx metformin 500 mg tablet,extended 500 mg PO BID 30 days #60 tabs 12/15/24 Unknown Rx release 24 hr tramadol 50 mg tablet 50 mg PO Q6H PRN pain 2 days #8 02/19/25 Unknown Rx tabs Allergy/AdvReac Type Severity Reaction Status Date / Time No Known Allergies Allergy Verified 12/14/24 20:32 Family History no significant family his Social History Smoking Status: Never smoker ROS ROS ED Constitutional Constitutional ED: Denies chills or fever(s) Cardiovascular Cardiovascular: Denies chest pain Respiratory/Chest Respiratory/Chest: Denies dyspnea Gastrointestinal Gastrointestinal: Denies abdominal pain, nausea or vomiting Musculoskeletal Musculoskeletal: Reports extremity pain; Denies neck pain Integumentary Denies Abrasions, rash or wounds Neurologic Neurologic: Reports paresthesias RLE and LLE; Denies weakness EXAM Physical Exam Const Vital Signs: 02/19/25 12:29 Temperature 98 F Temperature Source Oral Pulse Rate 86 Respiratory Rate 18 Blood Pressure 157/89 H Blood Pressure Mean 111 Pulse Ox 99 Oxygen Delivery Method Room Air Positive well nourished and well developed General Appearance ED: well developed and NAD HEENT Reports moist mucous membranes Eyes Eyes Narrative: Disconjugate gaze Neck full ROM and supple Resp normal respiratory effort GI GI Narrative: Obese Back/Spine normal ROM and normal to inspection Extremity normal to inspection and full ROM Extremity Narrative: Mild tenderness superficial palpation of the skin plantar aspect which is normal-appearing both feet. Tenderness and symptoms are symmetric. She has tenderness in the dorsal left midfoot but not on the right. It is normal on inspection. Full range of motion in ankles and knees without difficulty, reflexes are abnormal downgoing toes. Both of her calf muscles are mildly tender distally, Achilles appear to be intact. All compartments are soft and nondistended. Pulses are intact both feet. Brisk cap refill all toes bilaterally. Neuro oriented x3, no focal motor deficits and no sensory deficits noted Neuro Narrative: No clonus Sensorium / Orientation: alert Deep Tendon Reflexes: Rt Patellar (L4): 2+, Lt Patellar (L4): 2+, Rt Ankle (S1): 2+ and Lt Ankle (S1): 2+ Deep Tendon Reflexes Back: Rt Patellar (L4): 2+, Lt Patellar (L4): 2+, Rt Ankle (S1): 2+ and Lt Ankle (S1): 2+ Plantar Reflex: Downgoing: bilateral Psych mental status grossly normal and thought process normal Skin no wounds Rashes: no rashes MDM MDM MDM Narrative Medical decision making narrative: Patient states she is already on gabapentin. I discussed with her that reasonable to obtain x-rays of both feet given her acute pain to rule out stress fractures or other injury, I see no evidence of an infection or any other obvious problem here, she does not have compartment syndrome on my clinical evaluation, and her symptoms are simultaneously symmetric bilaterally, making DVT very unlikely especially since she has no objective findings suggestive of that, nor risk factors. I discussed all that with her, she states that she mainly is expecting that all of this is going to put her on disability and she wanted to have her symptoms documented. Three-view x-ray series of each foot, both negative on my interpretation for anything acute. Radiology in agreement. Patient will be prescribed a few tramadol to take when she gets home as she is driving. Continue gabapentin follow-up. Radiography Diagnostic Testing: Clinical Impression(s) from Imaging Studies Foot X-Ray 02/19/25 12:47 IMPRESSION: No acute osseous abnormalities. Reading Location: [facility] Foot X-Ray 02/19/25 12:47 IMPRESSION: No acute osseous abnormalities. Reading Location: [facility] Discharge Plan Triage Chief Complaint: Lower Extremity Injury ED Provider: Eduardo Granados Dx/Rx/DC Orders Clinical Impression: Bilateral foot pain, Diabetic peripheral neuropathy Instructions: Treating Peripheral Neuropathy Prescriptions: New tramadol 50 mg tablet 50 mg PO Q6H PRN (Reason: pain) 2 Days Qty: 8 0RF No Action metformin 500 mg Tablet Extended Release 24 Hr 500 mg PO BID 30 Days Qty: 60 0RF losartan 50 mg tablet 50 mg PO DAILY Qty: 30 0RF atorvastatin [Lipitor] 20 mg tablet 20 mg PO DAILY Qty: 30 0RF Primary Care Provider: Allison Soto Referrals: Allison Soto BENCH TECHNICIAN-C [Primary Care Provider] - 3-5 Days if not improving Print Language: Albanian Disposition Disposition: Home, Self Care
--- NOTE | 2025-02-19 12:47 | RAD_ITS ---
PROCEDURE: FOOT MIN 3 VIEWS 02/19/2025 REASON FOR EXAM: PAIN, ?INJURY TECHNIQUE: FOOT MIN 3 VIEWS Laterality: Right COMPARISON: None. FINDINGS: Bones: No acute bony abnormalities. Joints: No dislocations. Soft tissues: Unremarkable. RAD/Foot min 3 Views IMPRESSION: No acute osseous abnormalities. Reading Location: [id number]
--- NOTE | 2025-02-19 12:47 | RAD_ITS ---
PROCEDURE: FOOT MIN 3 VIEWS 02/19/2025 REASON FOR EXAM: PAIN, ? INJURY TECHNIQUE: FOOT MIN 3 VIEWS Laterality: Left COMPARISON: None FINDINGS: Bones: No acute bony abnormalities. Joints: Unremarkable. Soft tissues: No soft tissue abnormalities. Other: RAD/Foot min 3 Views IMPRESSION: No acute osseous abnormalities. Reading Location: [id number]
--- OUTSIDE RECORDS SUMMARY | 2025-02-19 13:00 | XMS RPT_ITS | CCD ---
Author Organization [facility] Care Team Providers Care Curriculum Advisory Teacher Name Role Phone Alexander Bocanegra Unavailable Unavailable Juliet Nix Unavailable Unavailable Post, Sangeetha Unavailable Unavailable Marlene Hui Unavailable Unavailable Cercone, Martín Unavailable Unavailable Randhawa, Geraldo Unavailable Unavailable Randhawa, Geraldo Unavailable Unavailable Beth, Deandre Unavailable Unavailable Artemio, Kenyon Unavailable Unavailable Bc Gannon Unavailable Unavailable Andronic, Sofia Unavailable Unavailable Zia, Oneil Unavailable Unavailable Murty, Roe Unavailable Unavailable Sydnee, Geraldo Unavailable Unavailable Marlene Hui Primary Care Provider [phone] Marlene Hui Primary Care Provider Dedrick Weston Unavailable UnavaSteph Abbott Unavailable Unavailable Steph Bautista Unavailable Unavailable Marlene Hui Unavailable Unavailable Phoenix Irving Unavailable Unavailable Chi Sandhu T Unavailable Unavaila ble Dedrick Weston Unavailable Unav ailable Steph Bautista Unavailable Unavailabl e Loewit, Alva Unavailable Unavailable Marlene Hui Primary Care Provider Steph Bautista Unavailable Unavailable Unavailable Marlene Hui DO Primary Care Provider Melly Rosario Unavailable Lois Alberts Unavailable Marlene Hui DO Primary Care Provider Melly Rosario MD Primary Care Provider [phone] Unavailable Unavailable Melly Rosario MD Primary Care Provider DEDRICK WESTON Referring Unavailable Dr. Leeann Mcwilliams Attending Unavailabl e Jamie Cheres, Dedrick Referring Unavai lable Jamie Chersuzy, Dedrick Attending Unavai lable Taliwal, Dr. Abreu Referring Unavailable Taliwal, Dr. Abreu Attending Unavailable Taliwal , [facility] Primary Care Provider Taliwal , [facility] Primary Care Provider Taliwaquiles PALACIOS, Lois Unavailable Aristeo PALACIOS, Lois Unavailable Taliwal, Dr. Abreu Attending Unavailable Taliwal, Dr. Abreu Attending Unavailable Taliwal, Dr. Abreu Referring Unavailable Jamie Cheres, Dr. Dedrick Osborne Referring Unavailable Dearing Cheres, Dr. Dedrick Osborne Attending Unavailable Taliwal, Dr. Abreu Attending Unavailable Taliwal, Dr. Abreu Referring Unavailable Taliwal, Dr. Abreu Attending Unavailable Taliwal, Dr. Abreu Referring Unavailable Taliwal , [facility] Primary Care Provider TALLAMARALAKIKOLOIS Referring Unavailable TALIWAL, LOIS Primary Care Unavailable MTALAKIKOLOIS Attending Unavailable TALIWAL, LOIS Primary Care Unavailable LOIS ALBERTS Attending Unavailable TALIWAL, LOIS Referring Unavailable TALIWAL, LOIS Primary Care Unavailable TALIWALAKIKOLOIS Attending Unavailable TALIWAL, LOIS Primary Care Unavailable TALIWALAKIKOLOIS Attending Unavailable TALIWAL, LOIS Primary Care Unavailable Steph Villalba MD Primary Care Provider TALIWAL, LOIS Primary Care Unavailable TALIWAL, LOIS Primary Care Unavailable Erwin Dominguez MD Unavailable RANDOLPH VILLALBA Attending Unavailable TALIWAL, LOIS Referring Unavailable RICHIE LEGER Attending Unavailable STEPH VILLALBA Referring Unavailable RICHIE LEGER Attending Unavailable RICHIE LEGER Attending Unavailable STEPH VILLALBA Referring Unavailable GUTIERREZ, MADELAINE Referring Unavailable TALIWAL, LOIS Primary Care Unavailable GLENN LR Referring Unavailable TALIWAL, LOIS Primary Care Unavailable ERWIN DOMINGUEZ Attending Unavailable ERWIN DOMINGUEZ Referring Unavailable TALIWAL, LOIS Primary Care Unavailable GUTIERREZ, MADELAINE Referring Unavailable TALIWAL, LOIS Primary Care Unavailable GLENN LR Attending Unavailable TALIWAL, LOIS Primary Care Unavailable GUTIERREZ, MADELAINE Attending Unavailable TALIWAL, LOIS Primary Care Unavailable GLENN GARRETT Attending Unavailable TALIWAL, LOIS Primary Care Unavailable ERWIN DOMINGUEZ Attending Unavailable TALIWAL, LOIS Primary Care Unavailable Taliwal V, Butch Primary Care Provider DEBBIE CORDOVA Referring Unavailable TALIWAL, BUTCH Primary Care Unavailable TALIWAL, BUTCH Primary Care Unavailable MELLY ROSARIO Primary Care Unavailable Ni CAVAZOS, Dr. Ramos Emergency Provider [phone] Care Physician, No Primary Primary Care Provider Unavailable Kilgore DO, Dr. Resendiz Admit Provider Unavail able de Iggy CAVAZOS, Dr. Resendiz Attending Provider Unav ailable Kilgore DO, Dr. Resendiz Other Provider Unavail able Alyse PALACIOS, Dr. Seun Watt Attending Provider Tania PALACIOS, Dr. Camilo Attending Provider [phone] Care Physician, No Primary Primary Care Unava ilable Ton Marin Attending Unavailable Martín Kilgore Admitting Unavailable Care Physician, No Primary Primary Care Unava ilable Martín Kilgore Attending Unavailable Martín Kilgore Consulting Unavailable Seun Cullen Attending Unavailable Care Physician, No Primary Primary Care Unava ilable Martín Kilgore Consulting Unavailable Martín Kilgore Admitting Unavailable Allergies Allergy Classification Reported Allergen(s) Allergy Type Date of Onset Reaction(s) Facility (20 sources) Onions Allergy to substance (finding) [facility] Work Phone: (20 sources) Lisinopril; Translations: [LISINOPRIL] Drug Allergy 2 Cough -[facility] Work Phone: (15 sources) semaglutide; Translations: [Rybelsus TABS] Drug Allergy 3 Unknown -[facility] Work Phone: (11 sources) SITagliptin; Translations: [Januvia TABS] Drug Allergy 3 Unknown [facility] (10 sources) Onion extract; Translations: [ONION] Drug Allergy 3 Unknown [facility] Work Phone: (3 sources) SITagliptin; Translations: [SITAGLIPTIN] Drug Allergy 3 [facility] 1 Repository (3 sources) SEMAGLUTIDE; Translations: [SEMAGLUTIDE] Propensity to adverse reactions to drug (disorder) 3 [facility] 1 Repository (14 sources) Onion extract Drug Allergy 3 [facility] (4 sources) atorvastatin Drug Allergy 4 [facility] (2 sources) atorvastatin Drug Allergy 4 [facility] Medications Current Medications Medication Drug Class(es) Dates Sig (Normalized) Sig (Original) acetaminophen 325 mg / butalbital 50 mg / caffeine 40 mg oral capsule (17 sources) Barbiturate, Central Nervous System Stimulant, Methylxanthine Start: 02-03-2020 End: 03-07-2021 take 1-2 capsules by mouth every four hours as needed Butalbital-APAP- Caffeine 50-325-40 MG Oral Capsule TAKE 1 TO 2 CAPSULES EVERY 4 HOURS NEEDED Quantity: 36 Refills: 0 Ordered: 02-Mar-2020 Steph Natarajan MD Start : 03-Feb-2020 End : 07-Mar-2021 Complete Start: 02-03-2020 take 1 capsule by mo [facility] once daily as needed Adabosktpu-ACRI-Xnhljpvy 50-325-40 MG Oral Capsule TAKE 1 CAPSULE DAILY as needed Refills: 0 Start : 03-Feb-2020 Active Start: 01-29-2020 take 1 tablet by fay every six hours as needed for headache ldfznzzndo-gnwynzqntwqyc-xlqfvkmt (FIORICET, ESGIC) 50-325-40 MG per tablet Take 1 tablet by mouth every 6 hours as needed for Headaches 30 tablet 0 01/29/2020 Active acetaminophen 325 mg / HYDROcodone bitartrate 5 mg oral tablet (6 sources) Opioid Agonist Start: 08-29-2023 End: 09-03-2023 take 1 tablet by mouth every six hours as needed for pain HYDROcodone-acetaminophen (Rainelle) 5-325 MG tablet Indications: Ureteral stone with hydronephrosis Take 1 tablet by mouth every 6 hours as needed (pain) for up to 5 days. 20 tablet 0 08/29/2023 09/03/2023 Active albuterol 0.83 mg/ml inhalation solution (20 sources) beta2-Adrene rgic Agonist Start: 02-27-2021 albuterol (PROVENTIL) nebulizer solution 2.5 mg take 1-2 puff(s) by inhalation every four to six hours as needed albuterol 90 mcg/actuation inhaler INHAL E 1 TO 2 PUFFS EVERY 4 TO 6 HOURS NEEDED. 0 Active take 1-2 puff(s) by inhalation every four to six hours as needed Albuterol Sulfate HFA 108 (90 Base) MCG/ ACT Inhalation Aerosol Solution INHALE 1 TO 2 PUFFS EVERY 4 TO 6 HOURS NEEDED. Quantity: 3 Refills: 0 Ordered: 27-Sep-2021 Lois Alberts MD Active take 1-2 puff(s) by inhalation every four to six hours as needed Albuterol Sulfate HFA 108 (90 Base) MCG/ ACT Inhalation Aerosol Solution INHALE 1 TO 2 PUFFS EVERY 4 TO 6 HOURS NEEDED. Quantity: 3 Refills: 0 Ordered: 27-Sep-2021 Lois Alberts MD Active take 1-2 puff(s) by inhalation every four to six hours as needed Albuterol Sulfate HFA 108 (90 Base) MCG/ ACT Inhalation Aerosol Solution INHALE 1 TO 2 PUFFS EVERY 4 TO 6 HOURS NEEDED. Quantity: 1 Refills: 2 Steph Villalba MD Active 8.5 GM Inhaler Ventolin HFA 108 (90 Base) MCG/ACT Inhalation Aerosol Solution Refills: 0 Active Albuterol Sulfat e (PROAIR HFA IN) Inhale into the lungs 0 Active allopurinol 100 mg oral tablet (20 sources) Xanthine Oxidase Inhibitor Start: 07-25-2022 End: 04-02-2023 take 1 tablet by mouth in the morning allopurinol (Zyloprim) 100 MG tablet Take 100 mg by mouth in the morning. 07/25/2022 Active atorvastatin 20 mg oral tablet (20 sources) HMG-CoA Reductase Inhibitor Start: 12-15-2024 take 1 tablet by mouth once daily Atorvastatin (Lipitor) 20 mg tablet Active 20 mg PO DAILY December 15, 2024 12:00am Start: 09-18-2020 take 1 tablet by fay th once daily atorvastatin (Lipitor) 20 MG tablet Take 20 mg by mouth daily. 10/08/2022 Active Comment on above: Take 20 mg by mouth daily at bedtime. azithromycin 250 mg oral tablet (5 sources) Macrolide Antimicrobial Start: 06-04-2024 End: 06-09-2024 azithromycin (Zithromax Z-Kristin) 250 MG tablet Take 1 tablet (250 mg) by mouth daily for 5 days. Take 500 mg day 1 and then 250 mg day 2 through 5 6 tablet 06/04/2024 06/09/2024 Active Start: 06-04-2024 End: 06-04-2024 take 1 capsule by mouth once 500 mg, Oral, Once, On Fr i 06/04/24 at 0435, For 1 dose, Suspected Indication (Select all that apply): Pneumonia (CAP) Start: 07-03-2023 End: 07-08-2023 azithromycin (Zithromax) 250 mg tablet Indications: Acute cough , SOB (shortness of breath) Take 2 tablets (500 mg) by mouth once daily for 1 day, THEN 1 tablet (250 mg) once daily for 4 days. Take 2 tabs (500 mg) by mouth today, than 1 daily for 4 days.. 6 tablet 0 07/03/2023 07/08/2023 Active benzonatate 100 mg oral capsule (3 sources) Non-narcotic Antitussive Start: 02-19-2024 End: 02-29-2024 take 2 capsules by mouth every eight hours as needed for cough and cough benzonatate (TESSALON PERLE) 100 mg capsule Indications: Acute cough Take 2 capsules by mouth three times a day as needed for up to 10 days. 60 capsule 02/19/2024 02/29/2024 Active Start: 04-29-2022 End: 02-19-2024 take 1 capsule by mouth three times daily as needed benzonatate (TESSALON PERLE) 100 mg capsule Indications: URI with cough and congestion Take 1 capsule by mouth three times daily as needed. 30 capsule 04/29/2022 02/19/2024 Discontinued brompheniramine maleate 0.4 mg/ml / dextromethorphan hydrobromide 2 mg/ml / pseudoephedrine hydrochloride 6 mg/ml oral solution (3 sources) alpha-Adrenergic Agonist, Uncompetitive H-aizlps-E-aspartate Receptor Antagonist, Sigma-1 Agonist Start: 06-21-2023 take 5-10 mL by mouth four times daily as needed Fqqnehcopozfzme-Axvknfdwr-YM (BROMFED DM) 2-30-10 mg/5 mL syrup Indications: Bronchitis Take 5-10 mL by mouth four times a day as needed. 118 mL 06/21/2023 Active Start: 05-29-2021 Pseudoeph-Brom phen-DM 30-2-10 MG/5ML Oral Syrup Quantity: 240 Refills: 0 Ordered: 29-May-2021 DO Start : 29-May-2021 Complete 60 actuat budesonide 0.16 mg/actuat / formoterol fumarate 0.0045 mg/actuat metered dose inhaler (20 sources) Corticosteroid, beta2-Adrenergic Agonist take 2 puff(s) by inhalation once daily budesonide-formoterol (Symbicort) 160-4.5 MCG/ACT inhaler Inhale 2 puffs daily. Active take 2 puff(s) by mouth twice da kedar Symbicort 160-4.5 MCG/ACT Inhalation Aerosol INHALE 2 PUFFS TWICE DAILY. RINSE MOUTH AFTER USE. Quantity: 1 Refills: 1 Ordered: 30-Oct-2021 Lois Alberts MD Active take 2 puff(s) by mouth twice da kedar Symbicort 80-4.5 MCG/ACT Inhalation Aerosol INHALE TWO PUFFS BY MOUTH TWO TIMES A DAY. RINSE MOUTH AFTER USE. Quantity: 3 Refills: 1 Ordered: 27-Sep-2021 Lois Alberts MD Active take 2 puff(s) by mouth twice da kedar Symbicort 80-4.5 MCG/ACT Inhalation Aerosol INHALE TWO PUFFS BY MOUTH TWO TIMES A DAY. RINSE MOUTH AFTER USE. Quantity: 3 Refills: 1 Steph Villalba MD Active 10.2 GM Inhaler Symbicort 80-4.5 MCG/ACT Inhalation Aerosol Refills: 0 Active 120 actuat budesonide 0.16 mg/actuat / formoterol fumarate 0.0048 mg/actuat / glycopyrrolate 0.009 mg/actuat metered dose inhaler (3 sources) Corticosteroid, beta2-Adrenergic Agonist Start: 07-03-2023 take 2 puff(s) by inhalation twice daily ifmcbcnpma-dalmdbib-lnulkbxrex (Breztri Aerosphere) 160-9-4.8 mcg/actuation HFA aerosol inhaler Indications: Acute cough , SOB (shortness of breath) Inhale 2 puffs 2 times a day. 10.7 g 0 07/03/2023 Active Budesonide-Form oterol Fumarate (SYMBICORT IN) (7 sources) Budesonide-Formo terol Fumarate (SYMBICORT IN) Inhale into the lungs 0 Active busPIRone hydrochloride 10 mg oral tablet (20 sources) Start: 03-06-2023 take 1 tablet by mouth twice daily busPIRone (Buspar) 10 MG tablet Take 10 mg by mouth 2 times daily. 04/07/2023 Active Start: 05-23-2020 End: 04-02-2023 take 1 tablet by mouth twice daily busPIRone (BUSPAR) 5 mg tablet Take 5 mg by mouth twice daily. 01/21/2021 Active take 2 tablets by mo [facility] in the morning busPIRone (Buspar) 5 MG tablet Take 10 mg by mouth in the morning and 10 mg before bedtime. 0 Active Comment on above: Take 5 mg by mouth t wice daily. cariprazine 1.5 mg oral capsule (20 sources) Atypical Antipsychotic Start: 1 VRAYLAR 1.5 mg capsule 02/15/2021 Active carvedilol 3.125 mg oral tablet (20 sources) alpha-Adrenergic Juan C, beta-Adrenergic Juan C Start: take 1 tablet by mouth twice daily at mealtime carvedilol (COREG) 3.125 mg tablet Take 3.125 mg by mouth twice daily with meals. 02/02/2021 Active take 1 tablet by fay th twice daily at mealtime carvedilol (COREG) 3.125 MG tablet Take 3.125 mg by mouth 2 times daily (with meals) 0 Active Comment on above: Take 3.125 mg by fay th twice daily with meals. cephalexin 500 mg oral capsule (6 sources) Cephalosporin Antibacterial Start: End: cephalexin (Keflex) 500 MG capsule Take 1 capsule (500 mg) by mouth in the morning and 1 capsule (500 mg) at noon and 1 capsule (500 mg) in the evening and 1 capsule (500 mg) before bedtime. Do all this for 5 days. 20 capsule 0 08/29/2023 09/03/2023 Active cholecalciferol 0.05 mg oral capsule (20 sources) Vitamin D Start: 023 take 1 capsule by mouth once daily cholecalciferol (Vitamin D-3) 50 MCG (2000 UT) capsule Take 1 capsule by mouth daily. 10/08/2022 Active Start: 10-29-2021 End: 04-02-2023 take 1 capsule by mouth once daily cholecalciferol (Vitamin D3) 50 mcg (2,000 unit) capsule Indications: Vitamin D deficiency take 1 capsule by mouth once daily 90 capsule 1 10/08/2022 04/02/2023 Discontinued (Reorder) take 1 tablet by fay th once daily vitamin D (CHOLECALCIFEROL) 1000 UNIT TABS tablet Take 1,000 Units by mouth daily 0 Active take 1 tablet by fay th every week Vitamin D-3 125 MCG (5000 UT) Oral Tablet TAKE 1 TABLET Weekly Refills: 0 Active 24 hr dapagliflozin 10 mg / metFORMIN hydrochloride 500 mg extended release oral tablet (20 sources) Biguanide, Sodium-Glucose Cotransporter 2 Inhibitor Start: 07-25-2022 End: 01-06-2023 take 1 tablet by mouth in the morning dapagliflozin-metFORMIN ER (Xigduo XR) 10-500 MG Take 1 tablet by mouth in the morning. 07/25/2022 Active Start: 07-25-2022 End: 09-29-2023 take 1 tablet by mouth once daily dapaglifloz propaned-metformin (Xigduo XR) 10-500 mg Indications: type 2 diabetes mellitus Take 1 tablet by mouth once daily. 90 tablet 1 04/02/2023 07/03/2023 Discontinued (Therapy completed) diclofenac sodium 75 mg delayed release oral tablet (12 sources) Nonsteroidal Anti-inflammatory Drug Start: 08-29-2023 take 1 tablet by mouth twice daily as needed for pain diclofenac (Voltaren) 75 MG EC tablet Take 1 tablet (75 mg) by mouth 2 times daily as needed (pain). Do not crush, chew, or split. 28 tablet 08/29/2023 Active 1 ml erenumab-aooe 70 mg/ml auto-injector (6 sources) Start: 08-12-2023 inject 1 mL by subcutaneous injection once erenumab (Aimovig) 70 MG/ML injection Indications: Migraine with aura and without status migrainosus, not intractable (CMS/HCC) Inject 1 mL (70 mg) under the skin every 28 (twenty-eight) days 1 each 08/12/2023 Active Start: 08-12-2023 inject 1 mL by subcu taneous injection once erenumab (Aimovig) 70 MG/ML injection Indications: Migraine with aura and without status migrainosus, not intractable (CMS/HCC) Inject 1 mL (70 mg) under the skin every 28 (twenty-eight) days 1 each 1 08/12/2023 Active Start: 08-12-2023 inject 1 mL by subcu taneous injection once erenumab (Aimovig) 70 MG/ML injection Indications: Migraine with aura and without status migrainosus, not intractable (CMS/HCC) Inject 1 mL (70 mg) under the skin every 28 (twenty-eight) days 1 each 1 08/12/2023 Active Start: 08-04-2023 End: 08-12-2023 inject 1 mL by subcutaneous injection once erenumab (Aimovig) 70 MG/ML injection Indications: Migraine with aura and without status migrainosus, not intractable (CMS/HCC) Inject 1 mL (70 mg) under the skin every 28 (twenty-eight) days 1 each 1 08/04/2023 08/12/2023 Discontinued ergocalciferol 1.25 mg oral capsule (20 sources) Provitamin D2 Compound Start: 11-06-2020 take 1 capsule by mouth every week VITAMIN D2 1,250 mcg (50,000 unit) capsule Take 1 capsule by mouth one time a week. 02/02/2021 Active Start: 11-06-2020 End: 06-06-2022 take 1 capsule by mouth once daily Vitamin D (Ergocalciferol) 50 MCG (2000 UT) Oral Capsule TAKE 1 CAPSULE Daily Quantity: 30 Refills: 0 Ordered: 23-Apr-2022 Liya Chamberlain DO Start : 06-Nov-2020 End : 06-Jun-2022 Complete Vitamin D2 TABS 1.25 mg (5000 units) once a week Refills: 0 Active Comment on above: Take 1 capsule by mo [facility] one time a week. gabapentin 100 mg oral capsule (20 sources) Anti-epileptic Agent Start: 09-27-2021 End: 04-02-2023 take 1 capsule by mouth in the morning, then take 1 capsule by mouth in the evening, then take 1 capsule by mouth in the morning, then take 3 capsules by mouth in the evening gabapentin (Neurontin) 100 MG capsule Take 1 capsule by mouth in the morning and 1 capsule in the evening. 1 in the AM, 3 in the PM. 09/27/2021 Active Start: 09-27-2021 take 1 capsule by mo [facility] once daily Gabapentin 300 MG Oral Capsule TAKE 1 CAPSULE Daily Quantity: 90 Refills: 0 Ordered: 06-Jun-2022 Lois Alberts MD Start : 27-Sep-2021 Active hydroCHLOROthiazide 12.5 mg / valsartan 160 mg oral tablet (20 sources) Thiazide Diuretic, Angiotensin 2 Receptor Juan C Start: 12-25-2021 take 1 tablet by mouth in the morning valsartan-hydroCHLOROthiazide (Diovan-HCT) 160-12.5 MG tablet Take 1 tablet by mouth in the morning. 12/25/2021 Active Start: 12-25-2021 End: 04-02-2023 take 1 tablet by mouth once daily valsartan-hydrochlorothiazide (Diovan-HC T) 160-12.5 mg tablet Indications: HTN (hypertension), benign Take 1 tablet by mouth once daily. 90 tablet 1 04/02/2023 Active hydrOXYzine pamoate 25 mg oral capsule (20 sources) Antihistamine Start: 08-01-2020 take 1 capsule by mouth once daily in the morning, then take 2 capsules by mouth once daily in the evening hydrOXYzine pamoate (VISTARIL) 25 mg capsule take 1 capsule by mouth every morning and take 2 capsules by mouth every evening 02/02/2021 Active Start: 02-03-2020 [facility] then take 2 tablets by mouth once daily in the evening hydrOXYzine HCl - 25 MG Oral Tablet Take 1 tablet every AM and 2 qpm Quantity: 270 Refills: 1 Steph Villalba MD Start : 03-Feb-2020 Active Start: 02-03-2020 take 1 tablet by fay th every eight hours as needed hydrOXYzine HCl - 25 MG Oral Tablet Take 1 tablet every 8 hours as needed Refills: 0 Start : 03-Feb-2020 Active take 1 capsule by mo [facility] twice daily hydrOXYzine (VISTARIL) 25 MG capsule Take 25 mg by mouth 2 times daily 0 Active Comment on above: take 1 capsule by mo [facility] every morning and take 2 capsules by mouth every evening ibuprofen 800 mg oral tablet (20 sources) Nonsteroidal Anti-inflammatory Drug Start: 06-28-2020 take 1 tablet by mouth every eight hours as needed ibuprofen (MOTRIN) 800 mg tablet Take 800 mg by mouth three times daily as needed. 02/02/2021 Active Start: 06-28-2020 take 1 tablet by fay th twice daily for pain Ibuprofen 800 MG Oral Tablet 1 po BID for back pain Quantity: 60 Refills: 5 Ordered: 07-Mar-2021 Melly Rosario MD Start : 28-Jun-2020 Active Start: 04-01-2019 End: 11-16-2019 take 1 tablet by mouth every six hours as needed for pain ibuprofen (ADVIL;MOTRIN) 600 MG tablet Take 1 tablet by mouth every 6 hours as needed for Pain 30 tablet 1 04/01/2019 11/16/2019 Discontinued take 1 tablet by fay three times daily as needed Ibuprofen 800 MG Oral Tablet TAKE 1 TABLET THREE TIMES A DAY NEEDED Quantity: 90 Refills: 1 Nicholas PALACIOS, Steph Active End: 11-16-2019 ibuprofen (ADVIL;MOTRIN) 100 MG/5ML suspension Take by mouth every 4 hours as needed for Fever 0 11/16/2019 Discontinued Comment on above: Take 800 mg by mouth three times daily as needed. loperamide hydrochloride 2 mg oral capsule (3 sources) Opioid Agonist Start: 2 take 1 capsule by mouth every six hours as needed for diarrhea and diarrhea loperamide (IMODIUM A-D) 2 mg cap(s) Indications: Diarrhea, unspecified type Take 1 capsule by mouth four times daily as needed. 30 capsule 04/16/2022 Active Comment on above: Take 1 capsule by mo [facility] four times daily as needed. loratadine 10 mg oral tablet (20 sources) Start: 3 take 1 tablet by mouth once daily loratadine (Claritin) 10 MG tablet Take 10 mg by mouth daily. 04/03/2023 Active Start: 02-03-2020 End: 04-02-2023 take 1 tablet by mouth once daily loratadine (CLARITIN) 10 mg tablet Take 10 mg by mouth once daily. 01/06/2021 Active Comment on above: Take 10 mg by mouth once daily. losartan potassium 50 mg oral tablet (1 source) Angiotensin 2 Receptor Juan C Start: 5 take 1 tablet by mouth once daily Losartan 50 mg tablet Active 50 mg PO DAILY December 15, 2024 12:00am meloxicam 15 mg oral tablet (20 sources) Nonsteroidal Anti-inflammatory Drug Start: 3 End: 3 take 1 tablet by mouth once daily at mealtime meloxicam (Mobic) 15 mg tablet Take 1 tablet (15 mg) by mouth once daily. TAKE WITH FOOD AND 8 OZ OF WATER 90 tablet 0 10/08/2022 12/30/2022 Discontinued (Therapy completed) Start: 09-27-2021 take 1 tablet by fay th once daily at mealtime Meloxicam 15 MG Oral Tablet take 1 tablet by mouth once daily TAKE WITH FOOD AND 8 OZ OF WATER Quantity: 30 Refills: 0 Ordered: 31-Oct-2021 Lois Alberts MD Start : 27-Sep-2021 Active 24 hr metFORMIN hydrochloride 500 mg extended release oral tablet (19 sources) Biguanide Start: 12-15-2024 take 1 tablet by mouth twice daily Metformin 500 mg Tablet Extended Release 24 Hr Active 500 mg PO TWICE A DAY 60 December 15, 2024 12:00am Start: 12-25-2021 take 1 tablet by fay th once daily metFORMIN HCl ER 500 MG Oral Tablet Extended Release 24 Hour take 1 tablet by mouth once daily as directed Quantity: 90 Refills: 0 Ordered: 06-Jun-2022 Lois Alberts MD Start : 25-Dec-2021 Active methylPREDNISolone (1 source) Corticosteroid Start: 07-03-2023 End: 07-10-2023 methylPREDNISolone (Medrol Dospak) 4 mg tablets Indications: Acute cough , SOB (shortness of breath) Take as directed on package. 21 tablet 0 07/03/2023 07/10/2023 Active 24 hr metoprolol succinate 100 mg extended release oral tablet (20 sources) beta-Adrenergic Juan C Start: 10-08-2022 take 1 tablet by mouth every twenty-fou r hours in the morning metoprolol succinate XL (Toprol-XL) 100 MG 24 hr tablet Take 100 mg by mouth in the morning. 10/08/2022 Active Start: 01-24-2022 End: 04-02-2023 take 1 tablet by mouth once daily metoprolol succinate XL (Toprol-XL) 100 mg 24 hr tablet Indications: HTN (hypertension), benign Take 1 tablet (100 mg) by mouth once daily. 90 tablet 1 04/02/2023 Active Start: 01-24-2022 take 1 tablet by fay th once daily Metoprolol Succinate ER 50 MG Oral Tablet Extended Release 24 Hour TAKE 1 TABLET EVERY DAY Quantity: 90 Refills: 0 Ordered: 21-Mar-2022 Lois Alberts MD Start : 24-Jan-2022 Active Start: 01-24-2022 take 1 tablet by fay th once daily Metoprolol Succinate ER 25 MG Oral Tablet Extended Release 24 Hour TAKE 1 TABLET BY MOUTH EVERY DAY Quantity: 30 Refills: 1 Ordered: 24-Jan-2022 Lois Alberts MD Start : 24-Jan-2022 Active montelukast 10 mg oral tablet (20 sources) Leukotriene Receptor Antagonist Start: 09-18-2020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 Reference Range Facility 12 Lead EKGon 12-15-2024 12 Lead EKG [facility] Cardiovascular Services [address] [place] [address] 12 Lead EKG 12/14/242040 MR#: [id number] Acct: [id number] Name: JACOB CELIS Rep #: [id number] : 1980 44 From: Ton Marin MD Attending Dr: Dr. Seun Cullen MD Status : DIS JERI Ordering Dr: Martín Kilgore DO Date: 12/15/24 Location: [facility] Sex: F C Admitted: 12/15/24 Test Reason : CP Blood Pressure : */* mmHG Vent. Rate : 109 BPM Atrial Rate : 109 BPM P-R Int : 118 ms QRS Dur : 82 ms QT Int : 344 ms P-R-T Axes : 50 7 15 degrees QTcB Int : 463 ms Sinus tachycardia Right atrial enlargement Minimal voltage criteria for LVH, may be normal variant ( R in aVL ) Borderline ECG No previous ECGs available Confirmed by TON MARIN MD ([id number]), editor city LINA FRITZ ([id number]) on 12/16/2024 5:36:59 AM Referred By: TB Confirmed By: TON MARIN MD 12/16/24 0537 Date Ton Marin MD CC: Dr. Martín Kilgore DO; Dr. Seun Cullen MD; No Primary Care Physician Signed Normal [facility] Bedside Glucoseon 12-15-2024 FINGERSTICK GLU 300 mg/dL High 74-106 [facility] Comment on above: Result Comment: RAYMOND DALTON OF PATIENT CARE PER NURSING PROTOCOL Performed By: #### L 501.080 #### [facility] [address] [place], [address] FINGERSTICK GLU 313 mg/dL High 74-106 [facility] Comment on above: Result Comment: RAYMOND GEMENT OF PATIENT CARE PER NURSING PROTOCOL Performed By: #### L 501.080 ####[facility] [address] [place], [address] FINGERSTICK GLU 345 mg/dL High 74-106 [facility] Comment on above: Result Comment: RAYMOND GEMENT OF PATIENT CARE PER NURSING PROTOCOL Performed By: #### L 501.080 ####[facility] [address] [place], [address] Calculated very low density lipoprotein (VLDL) cholesterol measurementOrdered By: Martín Parkinson on 12-15-2024 Calculated very low density lipoprotein (VLDL) cholesterol measurement 46 mg/dL High 5-40 [facility] Cardiovascular stress test r eportOrdered By: Ton Marin on 12-15-2024 Study report [facility] Cardiovascular Services [address] [place] [address] MR#: [id number] Acct: [id number] Name: JACOB CELIS Rep #: [id number] : 1980 44 From: Ton Marin MD Primary Care: Care Physician,No Primary Status: ADM JERI Referring Dr: Sex: F C Stress Test Report Pharmacologic myocardial perfusion stress test. 44-year-old lady with a history of chest pain Resting EKG demonstrates sinus tachycardia with a rate of 104 bpm. Resting blood pressure is 144/98 mmHg. 0.4 mg of regadenoson was infused per usual protocol followed by rapid intravenous saline flush injection. Continuous EKG monitoring was performed. The maximum heart rate was 116 bpm which was 65% of max impacted heart rate the maximum workload was 1 metabolic equivalent. At rest there were no ST or T wave changes noted to suggest ischemia and at peak infusion nonspecific ST changes were noted which did not meet the criteria for ischemia. No clinical angina is noted. The final blood pressure was 140/100 mmHg. Myocardial perfusion protocol. 15 mCi of technetium 99m sestamibi was injected at rest. 0.4 mg of regadenoson was infused per usual protocol. At peak infusion 44.8 mCi of technetium 99m sestamibi was injected stress images were obtained stress and rest images were reconstructed and compared in the short axis vertical long and horizontal long axis. Gated images were also obtained. Perfusion SPECT analysis: Review of the stress images demonstrate normal uptake of tracer noted in all areas of the myocardium. The resting images similar demonstrated normal uptake of tracer noted in all areas of the myocardium. No areas of reversibility are noted to suggest ischemia and no previous infarct is noted. Gated SPECT analysis: The gated ejection fraction is 70%. Conclusion: Normal pharmacologic myocardial perfusion stress test. Preserved ejection fraction. 12/15/24 1256 Date _ Ton Marin MD CC: Dr. Martín Kilgore DO; Dr. Seun Cullen MD; Dr. Richard Dan DO; No Primary Care Physician ~ Date Dictated: 12/15/24 1255 Date Transcribed: 12/15/241254 Mobile Ui/Ux Designer: CO Signed [facility] Work Phone: Discharge Instructionon 11-28 Discharge Instruction [facility] Medical Records Department [address] [place] [address] Instructions for Home/Discharge Instructions 12/15/24 1150 MR#: [id number] Acct: [id number] Name: JACOB CELIS Rep #: [id number] : 1980 44 From: Seun Cullen MD PCP: Care Physician,No Primary Status:ADM JERI Discharge Instructions Diet Discharge Diet: Low fat / Low cholesterol, 1600 Calorie Control Diet and Carb Control Diet DC O2, CPAP, BIPAP needs Home O2 Discharge instructions: No Dressing / Incision Discharge Activity: Return to Normal Activity Dressing / Incision Call your doctor if you observe: Fever of 101 or Higher, Shortness of breath, Dizziness, Fainting spells, Swelling in the ankles, Chest pain and Increased palpitations (irregular heartbeat) Follow Up Care Test Results: Test results from this visit will be discussed in further detail at your follow-up appointment, if applicable. Discharge Plan Admission Admit Date/Time: 12/15/24 01:31 Attending Provider: Seun Cullen Primary Care Provider: Sonido Physician,No Primary Consulting Providers: Martín Kilgore Discharge Orders/Prescriptions Prescriptions: New metformin 500 mg Tablet Extended Release 24 Hr 500 mg PO BID 30 Days Qty: 60 0RF losartan 50 mg tablet 50 mg PO DAILY Qty: 30 0RF atorvastatin [Lipitor] 20 mg tablet 20 mg PO DAILY Qty: 30 0RF Referrals / Follow Up: Care Physician,No Primary [Primary Care Provider] - Marlene Bonds DO [Med Staff - Sanitation Director] - Within 1 Week Disposition Disposition (needs filled in before D/C Order can be placed): Home, Self Care 12/15/24 1443 Seun Cullen MD CC: Dr. Martín Kilgore DO; No Primary Care Physician Signed Normal [facility] Echo Completeon 12-15-2024 Echo Complete [facility] Cardiovascular Services [address] [place] [address] Echo Complete 12/15/24 1030 MR#: [id number] Acct: [id number] Name: JACOB CELIS Rep #: [id number] : 1980 44 From: Ton Marin MD Attending Dr: Dr. Seun Cullen MD Status : ADM JERI Ordering Dr: Martín Kilgore DO Date: 12/15/24 Location: [facility] Sex: F C Admitted: 12/15/24 Reason For Study Reason For Study: CHEST PAIN Procedure This was a 2D Doppler, Color Flow transthoracic echocardiogram. Exam performed in department. Left Ventricle Normal LV size. Left ventricular systolic function is normal. The left ventricular ejection fraction is 60 %. No regional wall motion abnormalities noted. Right Ventricle Normal RV size. Normal systolic function. Atria The left and right atria are normal. Normal right atrium. Mitral Valve Normal mitral valve. Tricuspid Valve Normal tricuspid valve. Mild (1+) tricuspid valve insufficiency. Pulmonary artery systolic pressure is 30 mmHg. Aortic Valve The aortic valve is not well visualized. Pulmonic Valve Normal pulmonic valve. Great Vessels Normal aortic root. The pulmonary artery is normal size. Inferior vena cava collapse with respiration. Pericardium/Pleural No pericardial effusion. MMode/2D Measurements Calculations LVIDd: 4.4 cm IVSd: 0.90 cm Ao root diam: 3.2 cm LVIDs: 3.2 cm LVPWd: 0.91 cm RVDd: 3.5 cm FS: 27.8 % _ LAV(MOD-bp): 36.2 ml LVAd ap4: 30.4 cm2 SV(MOD-sp4): 56.8 ml LAV(MOD-bp) Indexed: 15.5 ml/m2 LVLd ap4: 8.0 cm SI(MOD-sp4): 24.4 ml/m2 LAV(MOD-sp2): 34.5 ml EDV(MOD-sp4): 94.9 ml LAV(MOD-sp4): 36.6 ml EDV(sp4-el): 97.8 ml LVAs ap4: 16.6 cm2 LVLs ap4: 6.3 cm ESV(MOD-sp4): 38.0 ml ESV(sp4-el): 37.1 ml EF(MOD-sp4): 59.9 % EF(sp4-el): 62.1 % _ SV(sp4-el): 60.7 ml LA A4 area: 15.4 cm2 LA dimension(2D): 3.9 cm _ RA A4 area: 12.7 cm2 TAPSE: 1.9 cm Time Measurements MV dec time: 0.23 sec Doppler Measurements Calculations MV E max asia: 92.5 cm/sec Lat Peak E' Asia: 14.5 cm/sec Med Peak E' Asia: 12.7 cm/sec MV A max asia: 76.4 cm/sec E/E' lat: 6.4 E/E' med: 7.3 MV E/A: 1.2 _ Ao V2 max: 173.9 cm/sec LV V1 max: 139.0 cm/sec PA V2 max: 128.4 cm/sec Ao max P.1 mmHg LV V1 max P.7 mmHg _ TR max asia: 261.0 cm/sec TR max P.2 mmHg ECHO/Echo Complete Interpretation Summary Normal LV size. Left ventricular systolic function is normal. The left ventricular ejection fraction is 60 %. Pulmonary artery systolic pressure is 30 mmHg. Ordering Physician: Martín Kilgore Performed By: Peggy Noel RDCS 12/15/24 1124 Date Ton Marin MD CC: Dr. Martín Kilgore DO; Dr. Seun Cullen MD; No Primary Care Physician Date Dictated: 12/15/24 1030 Date Transcribed: 12/15/24 1124 Mobile Ui/Ux Designer: Signed Normal [facility] Echocardiogram study reportO rdered By: Ton Marin on 12-15-2024 Study report [facility] Cardiovascular Services [address] [place] [address] Echo Complete 12/15/24 1030 MR#: [id number] Acct: [id number] Name: JACOB CELIS Rep #:[id number] : 1980 44 From: Ton Boss Attending Dr: Dr. Seun Cullen MD Status: ADM JERI Ordering Dr: Martín Kilgore DO Date: 12/15/24 Location: [facility] Sex: F C Admitted: 12/15/24 Reason For Study Reason For Study: CHEST PAIN Procedure This was a 2D Doppler, Color Flow transthoracic echocardiogram. Exam performed in department. Left Ventricle Normal LV size. Left ventricular systolic function is normal. The left ventricular ejection fraction is 60 %. No regional wall motion abnormalities noted. Right Ventricle Normal RV size. Normal systolic function. Atria The left and right atria are normal. Normal right atrium. Mitral Valve Normal mitral valve. Tricuspid Valve Normal tricuspid valve. Mild (1+) tricuspid valve insufficiency. Pulmonary artery systolic pressure is 30 mmHg. Aortic Valve The aortic valve is not well visualized. Pulmonic Valve Normal pulmonic valve. Great Vessels Normal aortic root. The pulmonary artery is normal size. Inferior vena cava collapse with respiration. Pericardium/Pleural No pericardial effusion. MMode/2D Measurements & Calculations LVIDd: 4.4 cm IVSd: 0.90 cm Ao root diam: 3.2 cm LVIDs: 3.2 cm LVPWd: 0.91 cm RVDd: 3.5 cm FS: 27.8 % LAV(MOD-bp): 36.2 ml LVAd ap4: 30.4 cm2 SV(MOD-sp4): 56.8 ml LAV(MOD-bp) Indexed: 15.5 ml/m2 LVLd ap4: 8.0 cm SI(MOD-sp4): 24.4 ml/m2 LAV(MOD-sp2): 34.5 ml EDV(MOD-sp4): 94.9 ml LAV(MOD-sp4): 36.6 ml EDV(sp4-el): 97.8 ml LVAs ap4: 16.6 cm2 LVLs ap4: 6.3 cm ESV(MOD-sp4): 38.0 ml ESV(sp4-el): 37.1 ml EF(MOD-sp4): 59.9 % EF(sp4-el): 62.1 % _ SV(sp4-el): 60.7 ml LA A4 area: 15.4 cm2 LA dimension(2D): 3.9 cm _ RA A4 area: 12.7 cm2 TAPSE: 1.9 cm Time Measurements MV dec time: 0.23 sec Doppler Measurements & Calculations MV E max asia: 92.5 cm/sec Lat Peak E' Asia: 14.5 cm/sec Med Peak E' Asia: 12.7 cm/sec MV A max asia: 76.4 cm/sec E/E' lat: 6.4 E/E' med: 7.3 MV E/A: 1.2 Ao V2 max: 173.9 cm/sec LV V1 max: 139.0 cm/sec PA V2 max: 128.4 cm/sec Ao max P.1 mmHg LV V1 max P.7 mmHg TR max asia: 261.0 cm/sec TR max P.2 mmHg ECHO/Echo Complete Interpretation Summary Normal LV size. Left ventricular systolic function is normal. The left ventricular ejection fraction is 60 %. Pulmonary artery systolic pressure is 30 mmHg. Ordering Physician: Martín Kilgore Performed By: Peggy Noel RDCS 12/15/24 1124 Date _ Ton Marin MD CC: Dr. Martín Kilgore DO; Dr. Seun Cullen MD; No Primary Care Physician ~ Date Dictated: 12/15/24 1030 Date Transcribed: 12/15/24 112 Mobile Ui/Ux Designer: Signed [facility] Work Phone: Electrocardiogram reportOrde red By: Ton Marin on 12-15-2024 EKG study [facility] Cardiovascular Services [address] [place] [address] 12 Lead EKG 12/15/24 0341 MR#: [id number] Acct: [id number] Name: JACOB CELIS Rep #:[id number] : 1980 44 From: Ton Marin MD Attending Dr: Dr. Seun Cullen MD Status: ADM JERI Ordering Dr: Richard Dan DO Date: Location: [facility] Sex: F C Admitted: 12/15/24 Test Reason : CP ADMIT Blood Pressure : */* mmHG Vent. Rate : 88 BPM Atrial Rate : 88 BPM P-R Int : 128 ms QRS Dur : 82 ms QT Int : 388 ms P-R-T Axes : 55 12 20 degrees QTcB Int : 469 ms Normal sinus rhythm Normal ECG Confirmed by TANIA PALACIOS, TON ([id number]), editor city ARRON SALAS ([id number]) on 12/15/2024 8:29:03 AM Referred By: Confirmed By: TON MARIN MD 12/15/24 0829 Date _ Ton Marin MD CC: Dr. Seun Cullen MD; Dr. Richard Dan DO; No Primary Care Physician ~ Signed [facility] Work Phone: Glucose measurement at [facility] deOrdered By: Seun Cullen on 12-15-2024 Glucose [Mass/Vol] 300 mg/dL High 74-106 [facility] Comment on above: MANAGEMENT OF PATIEN T CARE PER NURSING PROTOCOL Glucose measurement at [facility] deOrdered By: Richard Dan on 12-15-2024 Glucose [Mass/Vol] 345 mg/dL High 74-106 [facility] Comment on above: MANAGEMENT OF PATIEN T CARE PER NURSING PROTOCOL H AND P Exam - Hospitaliston 12-15-2024 H&P Exam - Hospitalist [facility] Medical Records Department [address] [place] [address] H P Exam - Hospitalist 12/15/24 0109 MR#: [id number] Acct: [id number] Name: JACOB CELIS Rep #: [id number] : 1980 44 From: Martín Kilgore DO PCP: Care Physician,No Primary Status:ADM JERI Location: [place] [address] HPI - General General Date of Admission: 12/15/24 Date of Service: 12/15/24 Chief Complaint: Chest Pain and Elevated Blood Pressure. HPI Narrative JACOB CELIS, is a 44 F with a past medical history of essential hypertension; currently untreated, DM-2; uncontrolled with hyperglycemia and morbid obesity; with BMI of 49 this admission who presents to [facility] ER complaining of chest pain and elevated blood pressure. Ms. Celis reports her symptoms began 3 days prior to admission with chest pain that began with exertion and improved with rest. She states she ran out of her blood pressure medication 10 months ago due to insurance reasons - but she states she now has insurance. She also informed the ER physician that she has not seen her doctor in approximately 8 months. She denies any recent sick contacts, significant travel history or history of blood clots. There was no reported fever, chills, changes in vision, discharge from eyes, shortness of breath, cough, wheezing, abdominal pain, nausea, vomiting, diarrhea, constipation, dysuria, hematuria, headache, paresthesias, focal neurologic deficits or rash. In the ER she was noted to have a highly elevated blood pressure of 222/116 mmHg present on admission consistent with suspected Hypertensive Emergency complicated by complaints of Chest Pain; made worse with exertion that improved after sublingual nitroglycerin compounded by Hyperglycemia of 532 mg/dL present on admission consistent with uncontrolled DM-2 and she was then admitted to the PCU under observation status for ongoing care for stay that is expected to be less than 2 midnights. [facility] Medical History Prediabetes Hypertension Home Medications ???Medication ???Instructions ???Recorded ???Last Taken ???Type NK 12/14/24 Unknown History Allergy/AdvReac Type Severity Reaction Status Date / Time No Known Allergies Allergy Verified 12/14/24 20:32 Family History no significant family his Social History Smoking Status: Never smoker ROS ROS Narrative Review of Systems: Constitutional: Patient denies fever or chills. Eyes: Patient denies changes in vision or discharge from eyes. ENT: Patient denies runny nose, sore throat or ear pain. Resp: Patient denies shortness of breath, cough or wheezing. CV: Patient admits to chest pain that is substernal and nonradiating. She also admits to elevated blood pressure as per HPI. She denies palpitations, heart racing or lower extremity edema. GI: Patient denies abdominal pain, nausea, vomiting, diarrhea or constipation. : Patient denies dysuria, hematuria or urinary frequency. MSK: Patient denies arthralgias or myalgias. Skin: Patient denies rash, abscess, wounds or jaundice. Psych: Patient denies symptoms of uncontrolled depression or anxiety. Neuro: Patient denies headache, paresthesias or focal neurologic deficits. Allergy: Patient denies lip swelling, tongue swelling or urticaria. Hematology: Patient denies easy bleeding or easy bruisability. Endocrinology: Patient admits to hyperglycemia with polyuria and polydipsia but she denies polyphagia or heat/cold intolerance. 14 point ROS otherwise negative except for positives noted above in HPI. Vital Signs Vital Signs Vital Signs: 12/14/24 20:31 12/14/24 20:44 12/14/24 21:03 Temperature 97.5 F L Temperature Source Temporal Pulse Rate 112 H Respiratory Rate 24 H Respiratory Effort Short of Breath Blood Pressure 222/116 H Blood Pressure Mean 151 Pulse Ox 99 98 Oxygen Delivery Method Room Air Room Air 12/14/24 21:04 12/14/24 22:00 12/14/24 23:00 Temperature Temperature Source Pulse Rate 107 H 104 H 105 H Respiratory Rate 35 H 32 H 35 H Respiratory Effort Blood Pressure 204/120 H 167/103 H 140/96 H Blood Pressure Mean 148 124 110 Pulse Ox 98 95 97 Oxygen Delivery Method Room Air Room Air 12/14/24 23:13 12/15/24 00:00 12/15/24 00:00 Temperature Temperature Source Pulse Rate 94 102 H Respiratory Rate 29 H 35 H Respiratory Effort Blood Pressure 140/96 H 132/77 H 132/77 H Blood Pressure Mean 90 95 Pulse Ox 94 96 Oxygen Delivery Method Room Air 12/15/24 00:49 12/15/24 01:00 Temperature 97.8 F Temperature Source Pulse Rate 103 H 102 H Respiratory Rate 30 H 35 H Respiratory Effort Blood Pre (more content not included)... Normal [facility] Hemoglobin A1con 12-15-2024 HbA1c (Bld) [Mass fraction] 11.6 % High <=5.6 [facility] Comment on above: Result Comment: Norm al < 5.7 % Prediabetic 5.7 - 6.4 % Diabetic >or= 6.5 % Please note range changes. Performed By: #### L 505.5000, L501.4253, L501.2820 #### [facility] [address] [place], [address] L499.0043on 12-15-2024 Trop T High Sen < 6 Normal <=14 [facility] Comment on above: Performed By: #### L 499.0043 ####[facility] [address] [place], [place], [id number] LDL calc ser/plasOrdered By: Martín Parkinson on 12-15-2024 Cholesterol in LDL [Mass/Vol] 156 mg/dL [facility] Comment on above: Zfcjmytwrf=287-544 m g/dL & Higher Pcvm=170 mg/dL or greater Lipid Profileon 12-15-2024 CHOL:HDL 5.55 Normal [facility] Comment on above: Performed By: #### L 500.4100 #### [facility] [address] [place], [place], [id number] (525) Cholesterol [Mass/Vol] 246 mg/dL High <=200 [facility] Comment on above: Result Comment: Chol esterol level, Desirable <200 mg/dL Borderline high cholesterol 200-239 mg/dL High cholesterol >=240 mg/dL Recommendations of the NCEP Adult Treatment Panel for the following risk-cutoff thresholds for the [place] population. Performed By: #### L 500.4100 #### [facility] [address] [place], [place], [id number] (697) Cholesterol in HDL [Mass/Vol] 44 mg/dL Normal [facility] Comment on above: Result Comment: Linda onal Cholesterol Education Program (NCEP) guidelines: <40 mg/dL: Low HDL-cholesterol (major risk factor for CHD) >= 60 mg/dL: High HDL-cholesterol (negative risk factor for CHD) HDL-cholesterol is affected by a number of factors, e.g. smoking, exercise, hormones, sex and age. Performed By: #### L 500.4100 #### [facility] [address] [place], [address] Cholesterol in LDL [Mass/Vol] 156 mg/dL Normal [facility] Comment on above: Result Comment: Bord nklevy=497-211 mg/dL Higher Mlfz=221 mg/dL or greater Performed By: #### L 500.4100 #### [facility] [address] [place], [place], [id number] (091) Cholesterol in VLDL [Mass/Vol] 46 mg/dL High 5-40 [facility] Comment on above: Performed By: #### L 500.4100 #### [facility] [address] [place], [place], [address] Triglyceride [Mass/Vol] 229 mg/dL High [facility] Comment on above: Result Comment: The drugs N-Acetylcysteine and Metamizole may falsely depress this assay. Normal range: <150 mg/dL Borderline High: 150-199 mg/dL High: 200-499 mg/dL Very High: >500 mg/dL Performed By: #### L 500.4100 #### [facility] [address] [place], [place], [address] Screening total cholesterol/ high density lipoprotein (HDL) cholesterol ratioOrdered By: Martín Parkinson on 12-15-2024 Cholesterol.total/Cho lesterol in HDL [Mass ratio] 5.55 {ratio} [facility] Serum or plasma cholesterol in HDL measurement (mass/volume)Ordered By: Martín Parkinson on 12-15-2024 Cholesterol in HDL [Mass/Vol] 44 mg/dL >40 [facility] Comment on above: National Cholesterol Education Program (NCEP) guidelines:<40 mg/dL: Low HDL-cholesterol (major risk factor for CHD)>= 60 mg/dL: High HDL-cholesterol (negative risk factor for CHD)HDL-cholesterol is affected by a number of factors, e.g. smoking, exercise, hormones, sex and age. Serum or plasma cholesterol measurement (mass/volume)Ordered By: Martín Parkinson on 12-15-2024 Cholesterol [Mass/Vol] 246 mg/dL High <201 [facility] Comment on above: Cholesterol level, D esirable <200 mg/dLBorderline high cholesterol 200-239 mg/dLHigh cholesterol >=240 mg/dLRecommendations of the NCEP Adult Treatment Panel for the following risk-cutoff thresholds for the [place] population. Stress Reporton 12-15-2024 Stress Report [facility] Cardiovascular Services [address] [place] [address] MR#: [id number] Acct: [id number] Name: VIMALJACOBADRIEN ARMSTRONG Rep #: [id number] : 1980 44 From: Ton Marin MD Primary Care: Care Physician,No Primary Status: ADM JERI Referring Dr: Sex: F C Stress Test Report Pharmacologic myocardial perfusion stress test. 44-year-old lady with a history of chest pain Resting EKG demonstrates sinus tachycardia with a rate of 104 bpm. Resting blood pressure is 144/98 mmHg. 0.4 mg of regadenoson was infused per usual protocol followed by rapid intravenous saline flush injection. Continuous EKG monitoring was performed. The maximum heart rate was 116 bpm which was 65% of max impacted heart rate the maximum workload was 1 metabolic equivalent. At rest there were no ST or T wave changes noted to suggest ischemia and at peak infusion nonspecific ST changes were noted which did not meet the criteria for ischemia. No clinical angina is noted. The final blood pressure was 140/100 mmHg. Myocardial perfusion protocol. 15 mCi of technetium 99m sestamibi was injected at rest. 0.4 mg of regadenoson was infused per usual protocol. At peak infusion 44.8 mCi of technetium 99m sestamibi was injected stress images were obtained stress and rest images were reconstructed and compared in the short axis vertical long and horizontal long axis. Gated images were also obtained. Perfusion SPECT analysis: Review of the stress images demonstrate normal uptake of tracer noted in all areas of the myocardium. The resting images similar demonstrated normal uptake of tracer noted in all areas of the myocardium. No areas of reversibility are noted to suggest ischemia and no previous infarct is noted. Gated SPECT analysis: The gated ejection fraction is 70%. Conclusion: Normal pharmacologic myocardial perfusion stress test. Preserved ejection fraction. 12/15/24 1256 Date Ton Marin MD CC: Dr. Martín Kilgore DO; Dr. Seun Cullen MD; Dr. Richard Dan DO; No Primary Care Physician Date Dictated: 12/15/24 1255 Date Transcribed: 12/15/241254 Mobile Ui/Ux Designer: [place] Signed Normal [facility] TSH DL <= 0.005 mIU/L QnOrde red By: Martín Parkinson on 12-15-2024 TSH Qn 2.130 uIU/mL 0.300-4.200 [facility] Thyroid Stim Hormone (TSH)on 12-15-2024 TSH 2.130 uIU/mL Normal 0.300-4.200 [facility] Comment on above: Performed By: #### L 505.5000, L501.9985, L501.9520 #### [facility] [address] [place], [place], [id number] Triglycerides measurementOrd ered By: Martín Iggy on 12-15-2024 Triglyceride [Mass/Vol] 229 mg/dL High <199 [facility] Comment on above: The drugs N-Acetylcy steine and Metamizole may falsely depress this assay. Normal range: <150 mg/dLBorderline High: 150-199 mg/dLHigh: 200-499 mg/dLVery High: >500 mg/dL Troponin T.cardiac [Mass/vol ume] in Serum or Plasma by High sensitivity methodOrdered By: Richard Dan on 12-15-2024 Troponin T.cardiac High sensitivity method [Mass/Vol] < 6 ng/L <14 [facility] Urine Drug Screen (VISTA)on 12-15-2024 AMPHETAMINES Normal <1000 ng/mL [facility] Comment on above: Result Comment: GAIL ENT DISCHARGED. SPECIMEN NOT RECEIVED. Performed By: #### L 505.5000, L501.9985, L501.9520 #### [facility] [address] [place], [place], [id number] BARBITIURATES Normal < 200 ng/mL [facility] Comment on above: Result Comment: GAIL ENT DISCHARGED. SPECIMEN NOT RECEIVED. Performed By: #### L 505.5000, L501.9985, L501.9520 #### [facility] [address] [place], [place], [id number] BENZODIAZIPINE Normal < 200 ng/mL [facility] Comment on above: Result Comment: GAIL ENT DISCHARGED. SPECIMEN NOT RECEIVED. Performed By: #### L 505.5000, L501.9985, L501.9520 #### [facility] [address] [place], [address] BUP Ur Drug Scr Normal < 200 ng/mL [facility] Comment on above: Result Comment: GAIL ENT DISCHARGED. SPECIMEN NOT RECEIVED. Performed By: #### L 505.5000, L501.9985, L501.9520 #### [facility] [address] [place], [address] COCAINE Normal < 300 ng/mL [facility] Comment on above: Result Comment: GAIL ENT DISCHARGED. SPECIMEN NOT RECEIVED. Performed By: #### L 505.5000, L501.9985, L501.9520 #### [facility] [address] [place], [address] Fentanyl Normal [facility] Comment on above: Result Comment: GAIL ENT DISCHARGED. SPECIMEN NOT RECEIVED. Performed By: #### L 505.5000, L501.9985, L501.9520 #### [facility] [address] [place], [address] METHADONE Normal < 300 ng/mL [facility] Comment on above: Result Comment: GAIL ENT DISCHARGED. SPECIMEN NOT RECEIVED. Performed By: #### L 505.5000, L501.9985, L501.9520 #### [facility] [address] [place], [address] OPIATES Normal < 300 ng/mL [facility] Comment on above: Result Comment: GAIL ENT DISCHARGED. SPECIMEN NOT RECEIVED. Performed By: #### L 505.5000, L501.9985, L501.9520 #### [facility] [address] [place], [address] OXYCODONE Normal < 100 ng/mL [facility] Comment on above: Result Comment: GAIL ENT DISCHARGED. SPECIMEN NOT RECEIVED. Performed By: #### L 505.5000, L501.9985, L501.9520 #### [facility] [address] [place], [address] PCP Normal < 25 ng/mL [facility] Comment on above: Result Comment: GAIL ENT DISCHARGED. SPECIMEN NOT RECEIVED. Performed By: #### L 505.5000, L501.9985, L501.9520 #### [facility] [address] [place], [address] THC Normal < 50 ng/mL [facility] Comment on above: Result Comment: GAIL ENT DISCHARGED. SPECIMEN NOT RECEIVED. Performed By: #### L 505.5000, L501.9985, L501.9520 #### [facility] [address] [place], [address] 12 Lead EKGon 12-14-2024 12 Lead EKG [facility] Cardiovascular Services [address] [place] [address] 12 Lead EKG 12/15/24 0341 MR#: [id number] Acct: [id number] Name: JACOB CELIS Rep #: [id number] : 1980 44 From: Ton Marin MD Attending Dr: Dr. Seun Cullen MD Status : ADM JERI Ordering Dr: Richard Dan DO Date: 12/14/24 Location: [facility] Sex: F C Admitted: 12/15/24 Test Reason : CP ADMIT Blood Pressure : */* mmHG Vent. Rate : 88 BPM Atrial Rate : 88 BPM P-R Int : 128 ms QRS Dur : 82 ms QT Int : 388 ms P-R-T Axes : 55 12 20 degrees QTcB Int : 469 ms Normal sinus rhythm Normal ECG Confirmed by TANIA PALACIOS, TON ([id number]), editor city ARRON SALAS ([id number]) on 12/15/2024 8:29:03 AM Referred By: Confirmed By: TON MARIN MD 12/15/24 0829 Date Ton Marin MD CC: Dr. Seun Cullen MD; Dr. Richard Dan DO; No Primary Care Physician Signed Normal [facility] Absolute lymphocyte countOrd ered By: Richard Dan on 12-14-2024 Lymphocytes Auto (Unsp spec) [#/Vol] 2.71 10*3/uL 0.83-4.51 [facility] Absolute neutrophil countOrd ered By: Richard Dan on 12-14-2024 Neutrophils (Bld) [#/Vol] 7.7 10*3/uL 2.0-7.7 [facility] Anion gap in Serum or Plasma Ordered By: Richard Dan on 12-14-2024 Anion gap [Moles/Vol] 14 mmol/L 5-15 [facility] Automated lymphocyte count a s percentage of total leukocytesOrdered By: Richard Dan on 12-14-2024 Lymphocytes/100 WBC Auto (Unsp spec) 24.3 % 19-41 [facility] BUN/creatinine ratioOrdered By: Richard Dan on 12-14-2024 Urea nitrogen/Creatinine [Mass ratio] 13.7 mg/mg 10- [facility] Basic Metabolic Profile (BMP )on 12-14-2024 BUN/CRE 13.7 RATIO Normal - [facility] Comment on above: Performed By: #### L 503.7505, L500.2500, L501.4021, L100.0100 ####[facility] [address] [place], [address] Calcium [Mass/Vol] 9.0 mg/dL Normal 7.6-11.0 [facility] Comment on above: Performed By: #### L 503.7505, L500.2500, L501.4021, L100.0100 ####[facility] [address] [place], [address] Chloride [Moles/Vol] 94 mmol/L Low 98-108 [facility] Comment on above: Performed By: #### L 503.7505, L500.2500, L501.4021, L100.0100 ####[facility] [address] [place], [address] CO2 [Moles/Vol] 21.3 mmol/L Normal 21.0-32.0 [facility] Comment on above: Performed By: #### L 503.7505, L500.2500, L501.4021, L100.0100 ####[facility] [address] [place], [address] Creatinine [Mass/Vol] 0.71 mg/dL Normal 0.70-1.20 [facility] Comment on above: Performed By: #### L 503.7505, L500.2500, L501.4021, L100.0100 ####[facility] [address] [place], [address] ECRCL 139.80 ml/min Normal 50-250 [facility] Comment on above: Performed By: #### L 503.7505, L500.2500, L501.4021, L100.0100 ####[facility] [address] [place], [address] GAP 14 Normal 5-15 [facility] Comment on above: Performed By: #### L 503.7505, L500.2500, L501.4021, L100.0100 ####[facility] [address] [place], [address] GFR/1.73 sq M.predicted among non-blacks MDRD (S/P/Bld) [Vol rate/Area] 108 mL/min/{1.73_m2} Normal >60 [facility] Comment on above: Result Comment: mL/m in/1.73m2 CKD-EPI Creatinine Equation (2020) Performed By: #### L 503.7505, L500.2500, L501.4021, L100.0100 ####[facility] [address] [place], [address] Glucose [Mass/Vol] 532 mg/dL Invalid Interpretation Code 70-99 [facility] Comment on above: Result Comment: Crit ical Result(s) Called at 0945: by:??NBURNS TO MMARTIAN Results read back by same. Performed By: #### L 503.7505, L500.2500, L501.4021, L100.0100 ####[facility] [address] [place], [address] Potassium [Moles/Vol] 4.2 mmol/L Normal 3.3-5.1 [facility] Comment on above: Result Comment: Hemo lysis present, Results??could be affected. ?? Performed By: #### L 503.7505, L500.2500, L501.4021, L100.0100 ####[facility] [address] [place], [address] Sodium [Moles/Vol] 130 mmol/L Low 133-145 [facility] Comment on above: Performed By: #### L 503.7505, L500.2500, L501.4021, L100.0100 ####[facility] [address] [place], [address] Urea nitrogen [Mass/Vol] 10 mg/dL Normal 4-19 [facility] Comment on above: Performed By: #### L 503.7505, L500.2500, L501.4021, L100.0100 ####[facility] [address] [place], [address] Basophil percentageOrdered B y: Richard Dan on 12-14-2024 Basophils/100 WBC (Bld) 0.8 % 0-1 [facility] CBC W/Diff, Automatedon 11-28 Absolute Lymph 2.71 X10 3/uL Normal 0.83-4.51 [facility] Comment on above: Performed By: #### L 503.7505, L500.2500, L501.4021, L100.0100 ####[facility] [address] [place], [address] Absolute Neut 7.7 X10 3/uL Normal 2.0-7.7 [facility] Comment on above: Performed By: #### L 503.7505, L500.2500, L501.4021, L100.0100 ####[facility] [address] [place], [address] Basophils/100 WBC (Bld) 0.8 % Normal 0-1 [facility] Comment on above: Performed By: #### L 503.7505, L500.2500, L501.4021, L100.0100 ####[facility] [address] [place], [address] Eosinophils/100 WBC (Bld) 0.5 % Normal 0-5 [facility] Comment on above: Performed By: #### L 503.7505, L500.2500, L501.4021, L100.0100 ####[facility] [address] [place], [address] Erythrocyte distribution width (RBC) [Ratio] 13.5 % Normal 11.6-14.6 [facility] Comment on above: Performed By: #### L 503.7505, L500.2500, L501.4021, L100.0100 ####[facility] [address] [place], [address] Hematocrit (Bld) [Volume fraction] 43.5 % Normal 37-47 [facility] Comment on above: Performed By: #### L 503.7505, L500.2500, L501.4021, L100.0100 ####[facility] [address] [place], [address] Hemoglobin (Bld) [Mass/Vol] 14.9 g/dL Normal 12.0-15.0 [facility] Comment on above: Performed By: #### L 503.7505, L500.2500, L501.4021, L100.0100 ####[facility] [address] [place], [address] IG% 0.500 Normal 0.0-0.9 [facility] Comment on above: Result Comment: IG% - Immature Granulocytes (promyelocytes, myelocytes and metamyelocytes) > 1% indicates that a LEFT SHIFT is Present. Performed By: #### L 503.7505, L500.2500, L501.4021, L100.0100 ####[facility] [address] [place], [address] Lymphocytes/100 WBC (Bld) 24.3 % Normal 19-41 [facility] Comment on above: Performed By: #### L 503.7505, L500.2500, L501.4021, L100.0100 ####[facility] [address] [place], [address] MCH (RBC) [Entitic mass] 29.3 pg Normal 27.0-32.0 [facility] Comment on above: Performed By: #### L 503.7505, L500.2500, L501.4021, L100.0100 ####[facility] [address] [place], [address] MCHC (RBC) [Mass/Vol] 34.3 g/dL Normal 32-36 [facility] Comment on above: Performed By: #### L 503.7505, L500.2500, L501.4021, L100.0100 ####[facility] [address] [place], [address] MCV (RBC) [Entitic vol] 85.6 fL Normal 81-99 [facility] Comment on above: Performed By: #### L 503.7505, L500.2500, L501.4021, L100.0100 ####[facility] [address] [place], [address] Monocytes/100 WBC (Bld) 5.0 % Normal 0-10 [facility] Comment on above: Performed By: #### L 503.7505, L500.2500, L501.4021, L100.0100 ####[facility] [address] [place], [address] Neutrophils/100 WBC (Bld) 68.9 % Normal 47-70 [facility] Comment on above: Performed By: #### L 503.7505, L500.2500, L501.4021, L100.0100 ####[facility] [address] [place], [address] Nucleated RBC (Bld) [#/Vol] 0 10*3/uL Normal 0-5 [facility] Comment on above: Performed By: #### L 503.7505, L500.2500, L501.4021, L100.0100 ####[facility] [address] [place], [address] Platelet mean volume (Bld) [Entitic vol] 10.0 fL Normal 6.2-12.0 [facility] Comment on above: Performed By: #### L 503.7505, L500.2500, L501.4021, L100.0100 ####[facility] [address] [place], [address] Platelets (Bld) [#/Vol] 264 10*3/uL Normal 150-450 [facility] Comment on above: Performed By: #### L 503.7505, L500.2500, L501.4021, L100.0100 ####[facility] [address] [place], [address] RBC (Bld) [#/Vol] 5.08 10*6/uL Normal 4.2-5.4 [facility] Comment on above: Performed By: #### L 503.7505, L500.2500, L501.4021, L100.0100 ####[facility] [address] [place], [address] RDW SD 41.9 fl Normal 35.1-43.9 [facility] Comment on above: Performed By: #### L 503.7505, L500.2500, L501.4021, L100.0100 ####[facility] [address] [place], [address] WBC (Bld) [#/Vol] 11.1 10*3/uL High 4.4-11.0 [facility] Comment on above: Performed By: #### L 503.7505, L500.2500, L501.4021, L100.0100 ####[facility] [address] [place], [address] Carbon dioxide, total [Moles /volume] in Central venous bloodOrdered By: Richard Dan on 12-14-2024 CO2 [Moles/Vol] 21.3 mmol/L 21.0-32.0 [facility] Chest PA and Lateralon 12-14 Chest PA and Lateral [facility] Imaging Services [address] [place] [address] Chest PA and Lateral MR#: [id number] Acct: [id number] Name: JACOB CELIS Rep #: [id number] : 1980 F 44 From: Kayleen Boss PCP: Care Physician,No Primary Status: [facility] ER Study: Chest PA and Lateral Date of Exam: 12/14/24 Exam# [id number] Ordering Dr: Richard Dan DO PROCEDURE: CHEST PA AND LATERAL 12/14/2024 REASON FOR EXAM: CHEST PAIN TECHNIQUE: CHEST PA AND LATERAL COMPARISON: None FINDINGS: No focal consolidations. No pleural effusion or pneumothorax. Cardiac silhouette is within normal limits in size. No acute fractures. RAD/Chest PA and Lateral IMPRESSION: No focal consolidations. Reading Location: [id number] CC: Dr. Richard Dan DO; No Primary Care Physician Mobile Ui/Ux Designer: Signed Normal [facility] Chloride assayOrdered By: Pito Dan on 12-14-2024 Chloride [Moles/Vol] 94 mmol/L Low 98-108 [facility] D-Dimer Quantitative (DVT/PE )on 12-14-2024 D-DIMER QUANT 0.27 FEU/ug/m Normal 0.27-0.49 [facility] Comment on above: Result Comment: NORM AL D-Dimer level (<0.50) indicates no DVT or PE. Performed By: #### L 300.8000 #### [facility] [address] [facility] [place], [address] Emergency Department Summary on 12-14-2024 Emergency Department Summary [facility] Medical Records Department [address] [place] [address] Emergency Department Summary 12/14/24 MR#: [id number] Acct: [id number] Name: JACOB CELIS Rep #: [id number] : 1980 44 From: Richard Dan DO PCP: Care Physician,No Primary Status:REG ER Location: ED ADDENDUM by Dr. Marian Arriaga DO on 12/15/24 at 0215 Patient signed out to me pending delta high-sensitivity troponin and D-dimer. Patient's vital signs improved on the emergency room. She did receive 1 sublingual nitroglycerin with resolution of her chest pain. Delta high-sensitivity troponin continues to be negative and her D-dimer is normal so low suspicion for PE. She did walk to the bathroom and states her chest pain returned a little bit but then when she sat back down that resolved. Given her hyperglycemia, hypertension upon arrival and exertional chest pain relieved with rest/nitroglycerin I do think she would benefit from admission. Case discussed with hospitalist, Dr. Cooper for admission. Patient agreeable. 12/15/24214 Cosigner Signature (if applicable): cc: No Primary Care Physician * Signed ADDENDUM by Dr. Richard Dan DO on 12/14/24 at 2331 Went back and reevaluate the patient after nitroglycerin and she states that this significantly helped her chest pain. 12/14/24 2331 Cosigner Signature (if applicable): cc: No Primary Care Physician * Signed HPI History of Present Illness Chief Complaint: Chest Pain Narrative Narrative: Patient is a 44-year-old female with past medical history of prediabetes, hypertension who presents to the emergency department chief complaint of chest pain. Patient states that she has had chest pain that has been progressive worsening for the last 3 days. States that her pain is worse with exertion and gets better with rest. Patient states that she has been out of her blood pressure medication for several months according to triage this was 10 months and this is secondary to insurance reasons. Patient denies any recent sick contacts denies any recent travel history denies any history of blood clots. [facility] Medical History Prediabetes Hypertension Home Medications ???Medication ???Instructions ???Recorded ???Last Taken ???Type NK 12/14/24 Unknown History Allergy/AdvReac Type Severity Reaction Status Date / Time No Known Allergies Allergy Verified 12/14/24 20:32 Family History no significant family his Social History Smoking Status: Never smoker ROS ROS ED ROS Narrative Constitutional: Denies headache, lightness, dizziness, fevers, chills Eyes: Denies change in vision double vision blurry vision Cardiovascular: Claims chest pain as noted above denies palpitations Respiratory: Denies coughing wheezing shortness of breath Abdomen: Denies abdominal pain nausea vomit diarrhea : Denies urinary symptoms Neurological: Denies numbness, wheeze, tingling Musculoskeletal: Denies back pain Skin: Denies rashes or lesions EXAM Physical Exam Narrative Exam Narrative: General: Patient lying in bed rest comfortably did not appear to be acute distress Head: Atraumatic, normocephalic Eyes: PERRL bilaterally, EOMI bilateral, no conjunctival injection noted Neck: Supple, trach midline Cardiovascular: Patient tachycardic with regular rhythm no murmurs gallops rubs noted Respiratory: There are auscultation bilaterally Abdomen: Soft, nondistended, no tenderness to palpation Extremities: +5/5 strength noted in the bilateral upper and lower EXTR, radial pulses +2/4 in the bilateral extremities, no pedal edema on exam Neurological: Commands and that she was at [facility] year is 2024 Skin: Warm, dry, intact no rashes or lesions noted Const Vital Signs: 12/14/24 20:31 12/14/24 20:44 12/14/24 21:03 Temperature 97.5 F L Temperature Source Temporal Pulse Rate 112 H Respiratory Rate 24 H Respiratory Effort Short of Breath Blood Pressure 222/116 H Blood Pressure Mean 151 Pulse Ox 99 98 Oxygen Delivery Method Room Air Room Air 12/14/24 21:04 12/14/24 22:00 12/14/24 23:00 Temperature Temperature Source Pulse Rate 107 H 104 H 105 H Respiratory Rate 35 H 32 H 35 H Respiratory Effort Blood Pressure 204/120 H 167/103 H 140/96 H Blood Pressure Mean 148 124 110 Pulse Ox 98 95 97 Oxygen Delivery Method Room Air Room Air 12/14/24 23:13 Temperature Temperature Source Pulse Rate Respiratory Rate Respiratory Effort Blood Pressure 140/96 H Blood Pressure Mean Pulse Ox Oxygen Delivery Method MDM MDM MDM Narrative Medical decision making narrativ (more content not included)... Normal [facility] Eosinophil percentageOrdered By: Richard Dan on 12-14-2024 Eosinophils/100 WBC (Bld) 0.5 % 0-5 [facility] Erythrocyte distribution wid th ratioOrdered By: Richard Dan on 12-14-2024 Erythrocyte distribution width (RBC) [Ratio] 13.5 % 11.6-14.6 [facility] Erythrocyte distribution wid th standard deviationOrdered By: Richard Dan on 12-14-2024 Erythrocyte distribution width (RBC) [Ratio] 41.9 fl 35.1-43.9 [facility] Glomerular filtration rate ( GFR) estimation/1.73 sq m using serum, plasma, or whole bOrdered By: Richard Dan on 12-14-2024 GFR/1.73 sq M.predicted among non-blacks MDRD (S/P/Bld) [Vol rate/Area] 108 mL/min/{1.73_m2} >60 [facility] Comment on above: mL/min/1.73m2 CKD-EP I Creatinine Equation (2020) Hematocrit Auto (Bld) [Volum e fraction]Ordered By: Richard Dan on 12-14-2024 Hematocrit (Bld) [Volume fraction] 43.5 % 37-47 [facility] Hemoglobin A1c percentageOrd ered By: Martín Parkinson on 12-14-2024 HbA1c (Bld) [Mass fraction] 11.6 % High <5.7 [facility] Comment on above: Normal < 5.7 % Predi abetic 5.7 - 6.4 % Diabetic >or= 6.5 % Please note range changes. Hemoglobin measurementOrdere d By: Richard Dan on 12-14-2024 Hemoglobin (Bld) [Mass/Vol] 14.9 g/dL 12.0-15.0 [facility] Immature granulocytes/100 WB C Auto (Bld)Ordered By: Richard Dan on 12-14-2024 Immature granulocytes/100 WBC (Bld) 0.500 % 0.0-0.9 [facility] Comment on above: IG% - Immature Granu locytes (promyelocytes, myelocytes and metamyelocytes) > 1% indicates that a LEFT SHIFT is Present. L499.0042on 12-14-2024 Trop T High Sen < 6 Normal <=14 [facility] Comment on above: Performed By: #### L 499.0042 #### [facility] [address] [place], [address] L501.4021on 12-14-2024 Trop T High Sen < 6 Normal <=14 [facility] Comment on above: Performed By: #### L 503.7505, L500.2500, L501.4021, L100.0100 ####[facility] [address] [place], [address] L503.7505on 12-14-2024 proBNP < 36 Normal <=450 [facility] Comment on above: Result Comment: Hear t Failure Unlikely: < 300 pg/mL Heart Failure Likely < 50 Years: > 450 pg/mL 50-75 Years: > 900 pg/mL >75 Years: > 1800 pg/mL Performed By: #### L 503.7505, L500.2500, L501.4021, L100.0100 ####[facility] [address] [place], [address] MCV (mean corpuscular volume ) determinationOrdered By: Richard Dan on 12-14-2024 MCV (RBC) [Entitic vol] 85.6 fL 81-99 [facility] Mean corpuscular hemoglobin (MCH) determinationOrdered By: Richard Dan on 12-14-2024 MCH (RBC) [Entitic mass] 29.3 pg 27.0-32.0 [facility] Mean corpuscular hemoglobin concentration (MCHC) determinationOrdered By: Richard Dan on 12-14-2024 MCHC (RBC) [Mass/Vol] 34.3 g/dL 32-36 [facility] Mean platelet volume determi nationOrdered By: Richard Dan on 12-14-2024 Platelet mean volume (Bld) [Entitic vol] 10.0 fL 6.2-12.0 [facility] Monocyte percentageOrdered B y: Richard Dan on 12-14-2024 Monocytes/100 WBC (Bld) 5.0 % 0-10 [facility] Natriuretic peptide.B prohor gaetano N-Terminal [Mass/volume] in Serum or PlasmaOrdered By: Richard Dan on 12-14-2024 Natriuretic peptide.B prohormone N-Terminal [Mass/Vol] < 36 pg/mL <450 [facility] Comment on above: Heart Failure Unlike ly: < 300 pg/mLHeart Failure Likely< 50 Years: > 450 pg/mL50-75 Years: > 900 pg/mL>75 Years: > 1800 pg/mL Neutrophil percentageOrdered By: Richard Dan on 12-14-2024 Neutrophils/100 WBC (Bld) 68.9 % 47-70 [facility] Nucleated red blood cell per centageOrdered By: Richard Dan on 12-14-2024 Nucleated RBC/100 WBC (Bld) [Ratio] 0 % 0-5 [facility] Platelet countOrdered By: Pito Dan on 12-14-2024 Platelets (Bld) [#/Vol] 264 10*3/uL 150-450 [facility] Potassium measurement (mass/ volume)Ordered By: Richard Dan on 12-14-2024 Potassium (Unsp spec) [Mass/Vol] 4.2 mmol/L 3.3-5.1 [facility] Comment on above: Hemolysis present, R esults could be affected. RBC Auto (Bld) [#/Vol]Ordere d By: Richard Dan on 12-14-2024 RBC (Bld) [#/Vol] 5.08 10*6/uL 4.2-5.4 [facility] Serum creatinine measurement (mass/volume)Ordered By: Richard Dan on 12-14-2024 Creatinine [Mass/Vol] 0.71 mg/dL 0.70-1.20 [facility] Serum glucose measurement (m ass/volume)Ordered By: Richard Dan on 12-14-2024 Glucose [Mass/Vol] 532 mg/dL High 70-99 [facility] Comment on above: Critical Result(s) C alled at 0945: by: [facility] Results read back by same. Serum or plasma calcium leonid urement (mass/volume)Ordered By: Richard Dan on 12-14-2024 Calcium [Mass/Vol] 9.0 mg/dL 7.6-11.0 [facility] Serum or plasma urea nitroge n measurement (mass/volume)Ordered By: Richard Dan on 12-14-2024 Urea nitrogen [Mass/Vol] 10 mg/dL 4-19 [facility] Sodium levelOrdered By: Flex Dan on 12-14-2024 Sodium [Moles/Vol] 130 mmol/L Low 133-145 [facility] Troponin T.cardiac [Mass/vol ume] in Serum or Plasma by High sensitivity methodOrdered By: Richard Dan on 12-14-2024 Troponin T.cardiac High sensitivity method [Mass/Vol] < 6 ng/L <14 [facility] Troponin T.cardiac High sensitivity method [Mass/Vol] < 6 ng/L <14 [facility] White blood cell (WBC) count Ordered By: Richard Dan on 12-14-2024 WBC (Bld) [#/Vol] 11.1 10*3/uL High 4.4-11.0 [facility] CNOVon 02-19-2024 CNOV Office Visit (UCWSTR ) -------- JACOB CELIS ([id number]) 1980 F Date Time Provider Department 02/19/24 3:30 PM DEBBIE CORDOVA [facility] During your visit today, we recorded the following information about you: Temperature Pulse Respiration Blood pressure 100.3 degrees 120/minute 24/minute 143/99 Weight 134.9 kg Debbie Cordova, [employer].[facility] 02/19/2024 4:37 PM Signed Subjective Cough Associated symptoms include chills, headaches, sore throat and myalgias. Jacob Celis is a 43 year old female who presents with cough and chest congestion for the past 10 days and yesterday developed fever, chills, body aches and headache. She has been taking Delsym and Tylenol severe cold and flu. She has been having burning in her chest with coughing. She denies any known sick contacts. Review of Systems Constitutional: Positive for chills, fever and malaise/fatigue. HENT: Positive for congestion and sore throat. Respiratory: Positive for cough and sputum production. Cardiovascular: Negative. Gastrointestinal: Negative for abdominal pain, diarrhea, nausea and vomiting. Musculoskeletal: Positive for myalgias. Neurological: Positive for headaches. BP 143/99 Pulse 120 Temp 37.9 ?C (100.3 ?F) Resp 24 Wt 134.9 kg (297 lb 6.4 oz) SpO2 97% BMI 49.49 kg/m? PAST MEDICAL HISTORY No date: Asthma No date: Bipolar 1 disorder ([facility]) No date: CHF (congestive heart failure) ([facility]) No date: Depression No date: GERD (gastroesophageal reflux disease) No date: HTN (hypertension) No date: Thyroid cancer ([facility]) PAST SURGICAL HISTORY 2019: THYROIDECTOMY TOTAL/COMPLETE ALLERGIES Lisinopril MEDICATIONS spironolactone (ALDACTONE) 25 mg tablet Take 25 mg by mouth once daily. topiramate (TOPAMAX) 50 mg tablet Take 50 mg by mouth twice daily. omeprazole (PRILOSEC) 20 mg capsule Take 20 mg by mouth once daily. atorvastatin (LIPITOR) 20 mg tablet Take 20 mg by mouth daily at bedtime. orphenadrine ER (NORFLEX) 100 mg tablet Take 100 mg by mouth twice daily as needed. busPIRone (BUSPAR) 5 mg tablet Take 5 mg by mouth twice daily. VRAYLAR 1.5 mg capsule VITAMIN D2 1,250 mcg (50,000 unit) capsule Take 1 capsule by mouth one time a week. loratadine (CLARITIN) 10 mg tablet Take 10 mg by mouth once daily. hydrOXYzine pamoate (VISTARIL) 25 mg capsule take 1 capsule by mouth every morning and take 2 capsules by mouth every evening carvedilol (COREG) 3.125 mg tablet Take 3.125 mg by mouth twice daily with meals. montelukast (SINGULAIR) 10 mg tablet Take 10 mg by mouth daily at bedtime. rOPINIRole (REQUIP) 0.5 mg tablet take 1 tablet by mouth 1 TO 3 HOURS BEFORE BEDTIME Brompheniramine-Pseudoep h-DM (BROMFED DM) 2-30-10 mg/5 mL syrup Take 5-10 mL by mouth four times a day as needed. (Patient not taking: Reported on 02/19/2024) benzonatate (TESSALON PERLE) 100 mg capsule Take 1 capsule by mouth three times daily as needed. (Patient not taking: Reported on 02/19/2024) loperamide (IMODIUM A-D) 2 mg cap(s) Take 1 capsule by mouth four times daily as needed. (Patient not taking: Reported on 02/19/2024) ibuprofen (MOTRIN) 800 mg tablet Take 800 mg by mouth three times daily as needed. (Patient not taking: Reported on 02/19/2024) FAMILY HISTORY Problem Relation Age of Onset Colon Cancer No Family History Social History Tobacco Use Smoking status: Never Smokeless tobacco: Never Vaping Use Vaping status: Never Used Substance Use Topics Alcohol use: Never Drug use: Never Objective Physical Exam Vitals and nursing note reviewed. Constitutional: General: She is not in acute distress. Appearance: Normal appearance. She is obese. HENT: Nose: Nose normal. Mouth/Throat: Mouth: Mucous membranes are moist. Pharynx: Oropharynx is clear. Uvula midline. No oropharyngeal exudate or posterior oropharyngeal erythema. Cardiovascular: Rate and Rhythm: Normal rate and regular rhythm. Heart sounds: Normal heart sounds. Pulmonary: Effort: Pulmonary effort is normal. No respiratory distress. Breath sounds: Normal breath sounds. No wheezing or rales. Musculoskeletal: Cervical back: Neck supple. Lymphadenopathy: Cervical: No cervical adenopathy. Skin: General: Skin is warm and dry. Findings: No erythema or rash. Neurological: Mental Status: She is alert. ASSESSMENT/PLAN: 1. Acute cough - ICD9: 786.2, ICD10: R05.1 (primary diagnosis) - XR CHEST 2V FRONTAL/LAT RESULT: Lines, tubes, and devices: None. Lungs and pleura: Low lung volumes. No consolidation. No pleural effusion or pneumothorax. Cardiomediastinal silhouette: Normal cardiomediastinal silhouette. Bones and soft tissues: Unremarkable. IMPRESSION: Low lung volumes. No acute radiographic abnormality. Mobile Ui/Ux Designer: MIGUEL Transcribe Date/Time: Feb 19 2024 4:23P Dictated by : BLAINE MURRIETA, DO - BENZONATATE 100 MG CAPSULE (more content not included)... Normal [facility] COVID AND INFLUENZA A/B AND RSV NAAT, ROUTINEon 02-19-2024 SARS-CoV-2 (COVID-19) RNA JOSE+probe Ql (Unsp spec) COVID 19 RESULT: Detected The method used is RT-PCR or an equivalent NAAT method. Reference Range (the expected result in uninfected individuals): Not detected INFLUENZA A PCR: Not detected INFLUENZA B PCR: Not detected RSV PCR: Not detected Abnormal [facility] Comment on above: Performed By: #### C VFLRS #### [facility] CLIA [id number] [address] [place] [address] [place] XR CHEST 2V FRONTAL/LATon XR CHEST 2V FRONTAL/LAT * * *Final Report* * * DATE OF EXAM: Feb 19 2024 4:22PM WOX 5291 - XR CHEST 2V FRONTAL/LAT / PROCEDURE REASON: Acute cough * * * * Physician Interpretation * * * * EXAMINATION: CHEST RADIOGRAPH (2 VIEW FRONTAL and LATERAL) PATIENT/TECHNOLOGIST PROVIDED HISTORY: Acute cough CLINICAL HISTORY: 43 years old Female with Acute cough MQ: XC2_6 EXAM DATE/TIME: 02/19/2024 4:22 PM COMPARISON: No relevant prior studies available. RESULT: Lines, tubes, and devices: None. Lungs and pleura: Low lung volumes. No consolidation. No pleural effusion or pneumothorax. Cardiomediastinal silhouette: Normal cardiomediastinal silhouette. Bones and soft tissues: Unremarkable. IMPRESSION: Low lung volumes. No acute radiographic abnormality. Mobile Ui/Ux Designer: MIGUEL Transcribe Date/Time: Feb 19 2024 4:23P Dictated by : BLAINE MURRIETA DO This examination was interpreted and the report reviewed and electronically signed by: BLAINE MURRIETA DO on Feb 19 2024 4:24PM EST [id number] Normal [facility] XR Chest PA and Lateralon IMPRESSION: Low lung volumes. No acute radiographic abnormality. Mobile Ui/Ux Designer: MIGUEL Transcribe Date/Time: Feb 19 2024 4:23P Dictated by : BLAINE MURRIETA DO This examination was interpreted and the report reviewed and electronically signed by: BLAINE MURRIETA DO on Feb 19 2024 4:24PM EST DIVISION OF RADIOLOGY * * *Final Report* * * DATE OF EXAM: Feb 19 2024 4:22PM WOX 5291 - XR CHEST 2V FRONTAL/LAT / PROCEDURE REASON: Acute cough * * * * Physician Interpretation * * * * EXAMINATION: CHEST RADIOGRAPH (2 VIEW FRONTAL & LATERAL) PATIENT/TECHNOLOGIST PROVIDED HISTORY: Acute cough CLINICAL HISTORY: 43 years old Female with Acute cough MQ: XC2_6 EXAM DATE/TIME: 02/19/2024 4:22 PM COMPARISON: No relevant prior studies available. RESULT: Lines, tubes, and devices: None. Lungs and pleura: Low lung volumes. No consolidation. No pleural effusion or pneumothorax. Cardiomediastinal silhouette: Normal cardiomediastinal silhouette. Bones and soft tissues: Unremarkable. DIVISION OF RADIOLOGY Provider, [facility] Bret [facility] - 02/19/2024 * * *Final Report* * * DATE OF EXAM: Feb 19 2024 4:22PM WOX 5291 - XR CHEST 2V FRONTAL/LAT / PROCEDURE REASON: Acute cough * * * * Physician Interpretation * * * * EXAMINATION: CHEST RADIOGRAPH (2 VIEW FRONTAL & LATERAL) PATIENT/TECHNOLOGIST PROVIDED HISTORY: Acute cough CLINICAL HISTORY: 43 years old Female with Acute cough MQ: XC2_6 EXAM DATE/TIME: 02/19/2024 4:22 PM COMPARISON: No relevant prior studies available. RESULT: Lines, tubes, and devices: None. Lungs and pleura: Low lung volumes. No consolidation. No pleural effusion or pneumothorax. Cardiomediastinal silhouette: Normal cardiomediastinal silhouette. Bones and soft tissues: Unremarkable. IMPRESSION IMPRESSION: Low lung volumes. No acute radiographic abnormality. Mobile Ui/Ux Designer: MIGUEL Transcribe Date/Time: Feb 19 2024 4:23P Dictated by : BLAINE MURRIETA DO This examination was interpreted and the report reviewed and electronically signed by: BLAINE MURRIETA DO on Feb 19 2024 4:24PM EST [facility] Radiology Study observation (narrative) [facility] XR Chest PA and LateralOrder ed By: Ccf Provider on 02-19-2024 [facility] 36on 02-05-2024 36 LVM that upcoming appointment will need to be canceled or rescheduled if she would like to be seen. Previously did not want to follow up. Appointment canceled. Notified patient to call office if she would like to reschedule. Normal [facility] 36on 11-21-2023 36 Patient given Wilbert rashid's message verbatim. Patient verbalized understanding and have no further questions or concerns at this time. Normal [facility] 36 Patient was supposed to have US / KUB for follow-up of kidney stones. If she does not wish to proceed with imaging that would be within her right. Normal [facility] 36on 11-20-2023 36 We have been unable to reach your patient to schedule their testing. Test Name: US retroperitoneum and XR of abdomen 1st Attempt: 10/14/23, cancelled 2nd Attempt: 11/15/23, via Exec message 3rd Attempt: 11/20/23, spoke with patient and she is not longer having symptoms since the stone passed and declines test. She will call office to make sure she does not need it. Patient is also declining the XR of the abdomen Normal [facility] MR BRAIN WO IV CONTRASTon MR BRAIN WO IV CONTRAST Interpreted By: Eric Harper, STUDY: MR BRAIN WO IV CONTRAST; 09/03/2023 8:37 am INDICATION: Signs/Symptoms:MIGRAINE. COMPARISON: None. ACCESSION NUMBER(S): [id number] ORDERING CLINICIAN: RICHIE LEGER TECHNIQUE: The brain was studied in the sagittal, axial and coronal planes utilizing FLAIR, T1 and T2 weighted images. FINDINGS: There is a normal-size ventricular system. There is no evidence of intracranial mass or extra-axial collection. The skull base, paranasal sinuses and orbital structures are unremarkable. Diffusion weighted images and associated ADC maps of the brain were unremarkable. There is no evidence of diffusion restriction to suggest the presence of acute infarction. Gradient echo T2 weighted images fail to demonstrate hemosiderin deposition or other evidence of hemorrhage. There are abundant dural plaques with calcification. IMPRESSION: * There is no evidence of mass, infarction or hemorrhage. MACRO: none Signed by: Eric Harper 09/03/2023 8:40 AM Dictation workstation: [id number] [facility] MR Brain WO contraston 09-02 * There is no eviden ce of mass, infarction or hemorrhage. MACRO: none Signed by: Eric Harper 09/03/2023 8:40 AM Dictation workstation: [id number] [facility] Interpreted By: Eric Harper, STUDY: MR BRAIN WO IV CONTRAST; 09/03/2023 8:37 am INDICATION: Signs/Symptoms:MIGRAINE. COMPARISON: None. ACCESSION NUMBER(S): [id number] ORDERING CLINICIAN: RICHIE LEGER TECHNIQUE: The brain was studied in the sagittal, axial and coronal planes utilizing FLAIR, T1 and T2 weighted images. FINDINGS: There is a normal-size ventricular system. There is no evidence of intracranial mass or extra-axial collection. The skull base, paranasal sinuses and orbital structures are unremarkable. Diffusion weighted images and associated ADC maps of the brain were unremarkable. There is no evidence of diffusion restriction to suggest the presence of acute infarction. Gradient echo T2 weighted images fail to demonstrate hemosiderin deposition or other evidence of hemorrhage. There are abundant dural plaques with calcification. MMODAL Eric Harper MD - 09/03/2023 Interpreted By: Eric Harper, STUDY: MR BRAIN WO IV CONTRAST; 09/03/2023 8:37 am INDICATION: Signs/Symptoms:MIGRAINE. COMPARISON: None. ACCESSION NUMBER(S): [id number] ORDERING CLINICIAN: RICHIE LEGER TECHNIQUE: The brain was studied in the sagittal, axial and coronal planes utilizing FLAIR, T1 and T2 weighted images. FINDINGS: There is a normal-size ventricular system. There is no evidence of intracranial mass or extra-axial collection. The skull base, paranasal sinuses and orbital structures are unremarkable. Diffusion weighted images and associated ADC maps of the brain were unremarkable. There is no evidence of diffusion restriction to suggest the presence of acute infarction. Gradient echo T2 weighted images fail to demonstrate hemosiderin deposition or other evidence of hemorrhage. There are abundant dural plaques with calcification. IMPRESSION: * There is no evidence of mass, infarction or hemorrhage. MACRO: none Signed by: Eric Harper 09/03/2023 8:40 AM Dictation workstation: [id number] [facility] Work Phone: Radiology Study observation (narrative) [facility] Work Phone: MR Brain WO contrastOrdered By: Eric Harper on 09-03-2023 [facility] Work Phone: Office Visiton 09-02-2023 Follow-up visit [id number] Jacob Celis 1980 F Date Provider Department Center 09/02/2023 [id number] DOMINGUEZ [facility] None No family history on file Level of Service:44654 [place] OFFICE/OUTPATIENT NEW MODERATE MDM 45 MINUTES Reason for Visit and Comments: New Patient [542] - Ureteral stone with hydronephrosis-US and CT prior Feels that the stone might have passed Normal [facility] Progress Noteon 09-02-2023 Progress Note Juan Antonio Davila 09/02/2023 at 5:21 PM UROLOGY INITIAL OFFICE VISIT PATIENT NAME: Jacob Celis DATE OF : 1980 TODAY'S DATE: 09/02/2023 Chief Complaint: Chief Complaint Patient presents with New Patient Ureteral stone with hydronephrosis-US and CT prior Feels that the stone might have passed HPI Ms. Celis is a 42 y.o. female who presents with left flank pain. In er ct with 2mm left uvj stone This is first stone === 08/29/23 === CT ABDOMEN PELVIS WO IV CONTRAST - Impression - Mild left hydronephrosis secondary to a 2 mm distal ureteral calculus. Hepatic steatosis. Report Dictated on Electronically Signed By: Fer Moraes MD Electronically Signed Date/Time: 08/29/2023 10:12 AM EST 08/29/23 Ua-neg nitritie no heme or wbc Review of Systems Constitutional: Negative for unexpected weight change. HENT: Negative for ear pain and trouble swallowing. Eyes: Negative for pain and discharge. Respiratory: Negative for shortness of breath and wheezing. Cardiovascular: Negative for chest pain and palpitations. Gastrointestinal: Negative for anal bleeding and rectal pain. Endocrine: Negative for cold intolerance and heat intolerance. Genitourinary: See HPI Skin: Negative for rash. Neurological: Negative for tremors and weakness. Psychiatric/Behavioral: Negative for suicidal ideas. The patient is not hyperactive. Past Medical History: Past Medical History: Diagnosis Date Anxiety Asthma Bipolar 1 disorder (HCC) CHF (congestive heart failure) (HCC) Depression GERD (gastroesophageal reflux disease) Hyperlipidemia Hypertension Insomnia Restless leg syndrome Seasonal allergies Thyroid cancer (HCC) Thyroid disease Past Surgical History: Past Surgical History: Procedure Laterality Date THYROIDECTOMY TONSILLECTOMY (HISTORICAL) Current Medications: Prior to Admission medications Medication Sig Start Date End Date Taking? Authorizing Provider allopurinol (Zyloprim) 100 MG tablet Take 100 mg by mouth in the morning. 07/25/22 Yes Historical Provider, atorvastatin (Lipitor) 20 MG tablet Take 20 mg by mouth daily. 10/08/22 Yes Historical Provider, budesonide-formoterol (Symbicort) 160-4.5 MCG/ACT inhaler Inhale 2 puffs daily. Yes Historical Provider, busPIRone (Buspar) 10 MG tablet Take 10 mg by mouth 2 times daily. 04/07/23 Yes Historical Provider, Cariprazine HCl 1.5 MG capsule Take 1.5 capsules by mouth Nightly. Yes Historical Provider, cephalexin (Keflex) 500 MG capsule Take 1 capsule (500 mg) by mouth in the morning and 1 capsule (500 mg) at noon and 1 capsule (500 mg) in the evening and 1 capsule (500 mg) before bedtime. Do all this for 5 days. 08/29/23 09/03/23 Yes Madelaine Gutierrez MD cholecalciferol (Vitamin D-3) 50 MCG (1999 UT) capsule Take 1 capsule by mouth daily. 10/08/22 Yes Historical Provider, diclofenac (Voltaren) 75 MG EC tablet Take 1 tablet (75 mg) by mouth 2 times daily as needed (pain). Do not crush, chew, or split. 08/29/23 Yes Madelaine Gutierrez MD gabapentin (Neurontin) 100 MG capsule Take 1 capsule by mouth in the morning and 1 capsule in the evening. 1 in the AM, 3 in the PM. 09/27/21 Yes Historical Provider, HYDROcodone-acetaminophe n (Rainelle) 5-325 MG tablet Take 1 tablet by mouth every 6 hours as needed (pain) for up to 5 days. 08/29/23 09/03/23 Yes Madelaine Gutierrez MD loratadine (Claritin) 10 MG tablet Take 10 mg by mouth daily. 04/03/23 Yes Historical Provider, metoprolol succinate XL (Toprol-XL) 100 MG 24 hr tablet Take 100 mg by mouth in the morning. 10/08/22 Yes Historical Provider, montelukast (Singulair) 10 MG tablet Take 10 mg by mouth daily. 10/08/22 Yes Historical Provider, montelukast (Singulair) 10 MG tablet Take 10 mg by mouth. Yes Historical Provider, promethazine (Phenergan) 25 MG tablet Take 1 tablet (25 mg) by mouth every 6 hours as needed for nausea or vomiting. 08/29/23 Yes Madelaine Gutierrez MD Rimegepant Sulfate (Nurtec) 75 MG tablet dispersible Take 1 tablet daily as needed for onset of migraine. Max 1 dose in 24 hours orally as directed for 30 days 01/28/23 Yes Historical Provider, topiramate 50 MG tablet Take 50 mg by mouth in the morning and 50 mg in the evening. 10/08/22 Yes Historical Provider, valsartan-hydroCHLOROthi azide (Diovan-HCT) 160-12.5 MG tablet Take 1 tablet by mouth in the morning. 12/25/21 Yes Historical Provider, dapagliflozin-metFORMIN ER (Xigduo XR) 10-500 MG Take 1 tablet by mouth in the morning. 07/25/22 01/06/23 Historical Provider, Allergies: Lisinopril and Onion Social History: Social History Socioeconomic History Marital status: Spouse name: Not on file Number of children: Not on file Years of education: Not on file Highest education level: Not on file Occupational History Not on file Tobacco Use Smoking status: Never Smokeless tobacco: Never Vaping Use Vaping Use: Never used (more content not included)... Normal [facility] COMPLETE URINALYSISon 2023 AMORPHOUS URATES (#/HPF) IN URINE Moderate Abnormal Negative [facility] Comment on above: Performed By: #### L [id number] ####Communication Equipment Repairer: STEPH MCFADDEN ([id number])[facility] (SWRLAB)[address] [place] [address] [place] BACTERIA (#/HPF) IN URINE Few Abnormal Negative [facility] Comment on above: Performed By: #### L [id number] ####Communication Equipment Repairer: STEPH MCFADDEN ([id number])[facility] (SWRLAB)[address] [place] [address] [place] BILIRUBIN, TOTAL PRESENCE IN URINE Negative Normal Negative [facility] Comment on above: Performed By: #### L [id number] ####Communication Equipment Repairer: STEPH MCFADDEN ([id number])[facility] (SWRLAB)[address] Clarity (U) Extra Turbid Abnormal Clear [facility] Comment on above: Performed By: #### L [id number] ####Communication Equipment Repairer: STEPH MCFADDEN ([id number])[facility] (SWRLAB)[address] [place] [address] [place] Color (U) Bath Abnormal Lt. Yellow [facility] Comment on above: Performed By: #### L [id number] ####Communication Equipment Repairer: STEPH MCFADDEN ([id number])[facility] (SWRLAB)[address] [place] [address] [place] GLUCOSE (MG/DL) IN URINE Normal Normal Normal (<70) [facility] Comment on above: Performed By: #### L [id number] ####Communication Equipment Repairer: STEPH MCFADDEN ([id number])[facility] JACOME RITTMAN (SWRLAB)[address] HEMOGLOBIN PRESENCE IN URINE 0.03 mg/dL Abnormal Negative [facility] Comment on above: Performed By: #### L [id number] ####Communication Equipment Repairer: STEPH MCFADDEN ([id number])[facility] JACOME [place]ITTMAN (SWRLAB)[address] [place] [address] Ketones Ql (U) Negative Normal Negative [facility] Comment on above: Performed By: #### L [id number] ####Communication Equipment Repairer: STEPH MCFADDEN ([id number])[facility] JACOME [place] (SWRLAB)[address] [place] [address] LEUKOCYTE ESTERASE PRESENCE IN URINE BY TEST STRIP Negative Normal Negative [facility] Comment on above: Performed By: #### L [id number] ####Communication Equipment Repairer: STEPH MCFADDEN ([id number])[facility] JACOME [place] (SWRLAB)[address] [place] [address] NITRITE PRESENCE IN URINE Negative Normal Negative [facility] Comment on above: Performed By: #### L [id number] ####Communication Equipment Repairer: STEPH MCFADDEN ([id number])[facility] JACOME [place]TM[place] (SWRLAB)[address] [place] [address] pH (U) 5.0 [pH] Normal 5.0-8.0 [facility] Comment on above: Performed By: #### L [id number] ####Communication Equipment Repairer: STEPH MCFADDEN ([id number])[facility] [place] (SWRLAB)[address] [place] [address] Protein (U) [Mass/Vol] 100 mg/dL Abnormal Negative [facility] Comment on above: Performed By: #### L [id number] ####Communication Equipment Repairer: STEPH MCFADDEN ([id number])[facility] JACOME [place] (SWRLAB)[address] [place] [address] [place] RBC (#/HPF) IN URINE SEDIMENT 0-2 Normal 0-2 [facility] Comment on above: Performed By: #### L [id number] ####Communication Equipment Repairer: STEPH MCFADDEN ([id number])[facility] [place]ACOME [place] (SWRLAB)[address] [place] [address] Specific gravity (U) [Rel density] 1.033 High 1.005-1.030 [facility] Comment on above: Performed By: #### L [id number] ####Communication Equipment Repairer: STEPH MCFADDEN ([id number])[facility] [place] (SWRLAB)[address] [place] [address] SQUAMOUS EPITHELIAL CELLS (#/HPF) IN URINE SEDIMENT 0-2 Normal 3-5 [facility] Comment on above: Performed By: #### L [id number] ####Communication Equipment Repairer: STEPH MCFADDEN ([id number])[facility] [place]ACOME [place]TM[place] (SWRLAB)[address] [place] [address] UROBILINOGEN (MG/DL) IN URINE 2 mg/dL Abnormal Normal (0-1) [facility] Comment on above: Performed By: #### L [id number] ####Communication Equipment Repairer: STEPH MCFADDEN ([id number])[facility] (SWRLAB)[address] [place] [address] VOLUME OF URINE 8-12 mL Normal [facility] Comment on above: Performed By: #### L [id number] ####Communication Equipment Repairer: STEPH MCFADDEN ([id number])[facility] UHI RITTMAN (SWRLAB)[address] [place] [address] [place] WBC (LEUKOCYTE) (#/HPF) IN URINE SEDIMENT 0-2 Normal 0-5 [facility] Comment on above: Performed By: #### L [id number] ####Communication Equipment Repairer: STEPH MCFADDEN ([id number])[facility] ([facility])[address] [place] [address] CT ABDOMEN PEL[facility] ABDOMEN PELVIS WO IV CONTRAST Patient Name: JACOB CELIS : 1980 [facility]#: [id number] Exam Date/Time: 08/29/2023 09:58 Procedure: CT ABDOMEN PELVIS WO IV CONTRAST Ordering Provider: GUTIERREZ NISHIT Reason For Exam: Abdominal pain, acute, nonlocalized EXAMINATION: CT ABDOMEN PELVIS WO IV CONTRAST CLINICAL HISTORY: Abdominal pain, acute, nonlocalized COMPARISON: None TECHNIQUE: CT of the abdomen and pelvis without contrast. Dose reduction was employed with automated exposure control. FINDINGS: Included images of the lower thorax: No focal lung consolidation or pleural effusion. Hepatobiliary: The liver parenchyma has low attenuation consistent with hepatic steatosis. No focal suspicious hepatic lesion is present. There is no biliary dilatation. Pancreas: Unremarkable Spleen: Unremarkable Adrenal Glands: Unremarkable Kidneys and ureters: 2 mm calculus in the left distal ureter (series 2, image 132, with mild left hydronephrosis. No right nephrolithiasis or hydronephrosis. Abdominal vasculature: Unremarkable GI tract: No evidence of obstruction. The appendix is normal. Few colonic diverticuli. Peritoneum and retroperitoneum: No free fluid or free air is noted. Lymph Nodes: No abdominal lymphadenopathy is evident. Pelvis: 2.3 cm right ovarian cyst. This is a physiologic finding and no follow-up is needed. Visualized musculoskeletal structures: No acute fracture or destructive osseous lesion is identified. IMPRESSION: Mild left hydronephrosis secondary to a 2 mm distal ureteral calculus. Hepatic steatosis. Report Dictated on Electronically Signed By: Fer Moraes MD Electronically Signed Date/Time: 08/29/2023 10:12 AM EST C/o sudden onset of left flank pain with radiation to left lower belly about 3 hours ago. Also with vomiting. No dysuria or diarrhea.DENIES Normal [facility] CT Abdomen WO contraston Mild left hydronephrosis secondary to a 2 mm distal ureteral calculus. Hepatic steatosis. Report Dictated on Electronically Signed By: Fer Moraes MD Electronically Signed Date/Time: 08/29/2023 10:12 AM EST [facility] Patient Name: JACOB CELIS : 1980 Exam Date/Time: 08/29/2023 09:58 Procedure: CT ABDOMEN PELVIS WO IV CONTRAST Ordering Provider: GUTIERREZ NISHIT Reason For Exam: Abdominal pain, acute, nonlocalized EXAMINATION: CT ABDOMEN PELVIS WO IV CONTRAST CLINICAL HISTORY: Abdominal pain, acute, nonlocalized COMPARISON: None TECHNIQUE: CT of the abdomen and pelvis without contrast. Dose reduction was employed with automated exposure control. FINDINGS: Included images of the lower thorax: No focal lung consolidation or pleural effusion. Hepatobiliary: The liver parenchyma has low attenuation consistent with hepatic steatosis. No focal suspicious hepatic lesion is present. There is no biliary dilatation. Pancreas: Unremarkable Spleen: Unremarkable Adrenal Glands: Unremarkable Kidneys and ureters: 2 mm calculus in the left distal ureter (series 2, image 132, with mild left hydronephrosis. No right nephrolithiasis or hydronephrosis. Abdominal vasculature: Unremarkable GI tract: No evidence of obstruction. The appendix is normal. Few colonic diverticuli. Peritoneum and retroperitoneum: No free fluid or free air is noted. Lymph Nodes: No abdominal lymphadenopathy is evident. Pelvis: 2.3 cm right ovarian cyst. This is a physiologic finding and no follow-up is needed. Visualized musculoskeletal structures: No acute fracture or destructive osseous lesion is identified. [facility] Fer Moraes M D - 08/29/2023 Patient Name: JACOB CELIS : 1980 Exam Date/Time: 08/29/2023 09:58 Procedure: CT ABDOMEN PELVIS WO IV CONTRAST Ordering Provider: GUTIERREZ NISHIT Reason For Exam: Abdominal pain, acute, nonlocalized EXAMINATION: CT ABDOMEN PELVIS WO IV CONTRAST CLINICAL HISTORY: Abdominal pain, acute, nonlocalized COMPARISON: None TECHNIQUE: CT of the abdomen and pelvis without contrast. Dose reduction was employed with automated exposure control. FINDINGS: Included images of the lower thorax: No focal lung consolidation or pleural effusion. Hepatobiliary: The liver parenchyma has low attenuation consistent with hepatic steatosis. No focal suspicious hepatic lesion is present. There is no biliary dilatation. Pancreas: Unremarkable Spleen: Unremarkable Adrenal Glands: Unremarkable Kidneys and ureters: 2 mm calculus in the left distal ureter (series 2, image 132, with mild left hydronephrosis. No right nephrolithiasis or hydronephrosis. Abdominal vasculature: Unremarkable GI tract: No evidence of obstruction. The appendix is normal. Few colonic diverticuli. Peritoneum and retroperitoneum: No free fluid or free air is noted. Lymph Nodes: No abdominal lymphadenopathy is evident. Pelvis: 2.3 cm right ovarian cyst. This is a physiologic finding and no follow-up is needed. Visualized musculoskeletal structures: No acute fracture or destructive osseous lesion is identified. IMPRESSION: Mild left hydronephrosis secondary to a 2 mm distal ureteral calculus. Hepatic steatosis. Report Dictated on Electronically Signed By: Fer Moraes MD Electronically Signed Date/Time: 08/29/2023 10:12 AM EST [facility] Abdomen WO contrastOrdere d By: Fer Moraes on 08-29-2023 [facility] Work Phone: ED Nursing Noteon 08-29-2023 ED Nursing Note To radiology via [facility] aware that patient has had sedating meds. Pt appears more comfortable but still with pain of 10. Mirna Arce RN 08/29/23 0935 Normal [facility] ED Nursing Note States has not had a period in 14 years and has had a tubal ligation and ablation and states could not be . Physician aware and okay to send to radiology. Pt aware that urine specimen needed and bedside commode in room. Pt up to BSC, feels like has to move bowels. Mirna Arce RN 08/29/23 0981 Normal [facility] ED Nursing Note To room 6 via EMS. C /o sudden onset of left flank pain with radiation to left lower belly about 3 hours ago. Also with vomiting. No dysuria or diarrhea. Restless in bed and moaning Normal [facility] ED Provider Noteon 03-01-202 4 ED Provider Note EMERGENCY DEPARTMENT ENCOUNTER Pt Name: Jacob Celis Birthdate 1980 Date of evaluation: 08/29/2023 CHIEF COMPLAINT Chief Complaint Patient presents with Flank Pain HISTORY OF PRESENT ILLNESS HPI Jacob Celis is a 42 y.o. female who presents to the emergency department with left sided abdominal pain, she was at work when symptoms started pain is constant worsened. Associate nausea vomiting. No diarrhea no constipation no difficulty urinating no fever. No alcohol use recently. She has not taken any medications for relief. Pain gets worse with palpation. REVIEW OF SYSTEMS Review of Systems There is no problem list on file for this patient. CURRENT MEDICATIONS Previous Medications ALLOPURINOL (ZYLOPRIM) 100 MG TABLET Take 100 mg by mouth in the morning. ATORVASTATIN (LIPITOR) 20 MG TABLET Take 20 mg by mouth daily. BUDESONIDE-FORMOTEROL (SYMBICORT) 160-4.5 MCG/ACT INHALER Inhale 2 puffs daily. BUSPIRONE (BUSPAR) 10 MG TABLET Take 10 mg by mouth 2 times daily. CARIPRAZINE HCL 1.5 MG CAPSULE Take 1.5 capsules by mouth Nightly. CHOLECALCIFEROL (VITAMIN D-3) 50 MCG (2000 UT) CAPSULE Take 1 capsule by mouth daily. DAPAGLIFLOZIN-METFORMIN ER (XIGDUO XR) 10-500 MG Take 1 tablet by mouth in the morning. GABAPENTIN (NEURONTIN) 100 MG CAPSULE Take 1 capsule by mouth in the morning and 1 capsule in the evening. 1 in the AM, 3 in the PM. LORATADINE (CLARITIN) 10 MG TABLET Take 10 mg by mouth daily. METOPROLOL SUCCINATE XL (TOPROL-XL) 100 MG 24 HR TABLET Take 100 mg by mouth in the morning. MONTELUKAST (SINGULAIR) 10 MG TABLET Take 10 mg by mouth daily. MONTELUKAST (SINGULAIR) 10 MG TABLET Take 10 mg by mouth. RIMEGEPANT SULFATE (NURTEC) 75 MG TABLET DISPERSIBLE Take 1 tablet daily as needed for onset of migraine. Max 1 dose in 24 hours orally as directed for 30 days TOPIRAMATE 50 MG TABLET Take 50 mg by mouth in the morning and 50 mg in the evening. VALSARTAN-HYDROCHLOROTHI AZIDE (DIOVAN-HCT) 160-12.5 MG TABLET Take 1 tablet by mouth in the morning. ALLERGIES Lisinopril and Onion FAMILY HISTORY No family history on file. SOCIAL HISTORY Social History Socioeconomic History Marital status: Tobacco Use Smoking status: Never Smokeless tobacco: Never Vaping Use Vaping Use: Never used Substance and Sexual Activity Alcohol use: Not Currently Drug use: Never Social Determinants of Health Tobacco Use: Low Risk (08/29/2023) Patient History Smoking Tobacco Use: Never Smokeless Tobacco Use: Never Passive Exposure: Not on file Alcohol Use: Not At Risk (07/24/2023) AUDIT-C Frequency of Alcohol Consumption: Never Average Number of Drinks: Patient does not drink Frequency of Binge Drinking: Never Financial Resource Strain: Not on file Food Insecurity: Not on file Transportation Needs: Not on file Physical Activity: Not on file Stress: Not on file Social Connections: Not on file Intimate Partner Violence: Not on file Depression: Not on file Housing Stability: Not on file Utilities: Not on file PHYSICAL EXAM Vitals: 08/29/23 0911 BP: (!) 196/110 Pulse: 85 Resp: 18 Temp: 36.7 ?C (98.1 ?F) TempSrc: Oral SpO2: 100% Weight: (!) 137 kg (301 lb) Height: 1.651 m (5' 5) Physical Exam Vitals and nursing note reviewed. Constitutional: General: She is in acute distress. Appearance: She is obese. She is not toxic-appearing. Abdominal: General: Bowel sounds are decreased. Palpations: Abdomen is soft. Tenderness: There is abdominal tenderness in the epigastric area, left upper quadrant and left lower quadrant. There is left CVA tenderness. There is no guarding or rebound. Hernia: No hernia is present. Neurological: Mental Status: She is alert. Psychiatric: Attention and Perception: Perception normal. She is inattentive. Mood and Affect: Mood is anxious. SCREENINGS Medical decision making Medical Decision Making Problems Addressed: Ureteral stone with hydronephrosis: complicated acute illness or injury Amount and/or Complexity of Data Reviewed Labs: ordered. Radiology: ordered. Risk Prescription drug management. DIAGNOSTIC RESULTS Procedures/EKG: Physician EKG interpretation can be found in [facility] if done RADIOLOGY (Per Emergency Physician): Interpretation per the Radiologist below, if available at the time of this note: US pelvis transvaginal Final Result Very limited examination. Nabothian cysts in the cervix but no other abnormality appreciated. Ovaries are not identified Report Dictated on Electronically Signed By: Jaime Nix MD Electronically Signed Date/Time: 08/29/2023 10:[address] abdomen pelvis wo IV contrast Final Result Mild left hydronephrosis secondary to a 2 mm distal ureteral calculus. Hepatic steatosis. Report Dictated on Electronically Signed By: Fer Moraes MD Electronically Signed (more content not included)... Normal [facility] HCG QUALITATIVE URINEon Beta HCG ( test) Ql (U) Negative Normal Negative [facility] Comment on above: Result Comment: Plea se note: Very dilute urine specimens, as indicated by a low specific gravity, may not contain assisted sales representative levels of hCG. If is still suspected, a first morning urine specimen should be collected 48 hours later and tested. ORDER COMMENTS: is the most common reason for HCG in urine, although choriocarcinoma, hydatidiform mole, and certain nontrophoblastic malignancies also result in detectable urinary HCG levels. Sensitivity = 20mIU/mL. Performed By: #### L [id number] #### Communication Equipment Repairer: STEPH MCFADDEN ([id number]) [facility] ([facility]) [address] [place] [address] Laboratory - Chemistry and C hemistry - challengeOrdered By: Arabella Oakley on 08-29-2023 Beta HCG ( test) Ql Negative Negative [facility] Comment on above: Please note: Very di lute urine specimens, as indicated by a low specific gravity, may not contain assisted sales representative levels of hCG. If is still suspected, a first morning urine specimen should be collected 48 hours later and tested. Beta HCG ( test) Ql (U) is the most common reason for HCG in urine, although choriocarcinoma, hydatidiform mole, and certain nontrophoblastic malignancies also result in detectable urinary HCG levels. Sensitivity = 20mIU/mL. [facility] No Panel InformationOrdered By: Arabella Oakley on 08-29-2023 [facility] US PELVIS TRANSVAGINALon US PELVIS TRANSVAGINAL Patient Name: JACOB CELIS : 1980 Exam Date/Time: 08/29/2023 10:23 Procedure: US PELVIS TRANSVAGINAL Ordering Provider: GUTIERREZ NISHIT Reason For Exam: lower abdominal pain ULTRASOUND PELVIS: CLINICAL INDICATION: pelvic pain LMP: 14 years ago COMPARISON: CT from earlier today TECHNIQUE: Transvaginal evaluation of the pelvis including color flow and spectral Doppler imaging FINDINGS: Exam quality: Somewhat limited evaluation due to patient positioning and patient body habitus. Uterus: Orientation: Anteverted Size: 9.7 x 3.9 x approximately 5 cm cm Endometrium: 0.5 cm Mass: none Cervix: Several nabothian cysts measuring less than 1 cm Ovaries are not readily identified. Free fluid: None IMPRESSION: Very limited examination. Nabothian cysts in the cervix but no other abnormality appreciated. Ovaries are not identified Report Dictated on Electronically Signed By: Jaime Nix MD Electronically Signed Date/Time: 08/29/2023 10:31 AM [facility] US Pelvis transvaginalon Very limited examination. Nabothian cysts in the cervix but no other abnormality appreciated. Ovaries are not identified Report Dictated on Electronically Signed By: Jaime Nix MD Electronically Signed Date/Time: 08/29/2023 10:31 AM [facility] Patient Name: JACOB CELIS : 1980 Exam Date/Time: 08/29/2023 10:23 Procedure: US PELVIS TRANSVAGINAL Ordering Provider: GUTIERERZ NISHIT Reason For Exam: lower abdominal pain ULTRASOUND PELVIS: CLINICAL INDICATION: pelvic pain LMP: 14 years ago COMPARISON: CT from earlier today TECHNIQUE: Transvaginal evaluation of the pelvis including color flow and spectral Doppler imaging FINDINGS: Exam quality: Somewhat limited evaluation due to patient positioning and patient body habitus. Uterus: Orientation: Anteverted Size: 9.7 x 3.9 x approximately 5 cm cm Endometrium: 0.5 cm Mass: none Cervix: Several nabothian cysts measuring less than 1 cm Ovaries are not readily identified. Free fluid: None [facility] Jaime Nix MD - 08/29/2023 [facility] 1980 [id number] Exam Date/Time: 08/29/2023 10:23 Procedure: US PELVIS TRANSVAGINAL Ordering Provider: GUTIERREZ NISHIT Reason For Exam: lower abdominal pain ULTRASOUND PELVIS: CLINICAL INDICATION: pelvic pain LMP: 14 years ago COMPARISON: CT from earlier today TECHNIQUE: Transvaginal evaluation of the pelvis including color flow and spectral Doppler imaging FINDINGS: Exam quality: Somewhat limited evaluation due to patient positioning and patient body habitus. Uterus: Orientation: Anteverted Size: 9.7 x 3.9 x approximately 5 cm cm Endometrium: 0.5 cm Mass: none Cervix: Several nabothian cysts measuring less than 1 cm Ovaries are not readily identified. Free fluid: None IMPRESSION: Very limited examination. Nabothian cysts in the cervix but no other abnormality appreciated. Ovaries are not identified Report Dictated on Electronically Signed By: Jaime Nix MD Electronically Signed Date/Time: 08/29/2023 10:31 AM EST [facility] Radiology Study observation (narrative) [facility] US Pelvis transvaginalOrdere d By: Jaime Nix on 08-29-2023 [facility] Work Phone: Urinalysis complete panel (U )on 08-29-2023 Amorphous Urates, Urine Moderate Abnormal Negative /HPF [facility] Bacteria LM.HPF (Urine sed) [#/Area] Few Abnormal Negative /HPF [facility] Bilirubin Ql (U) Negative Negative mg/dL [facility] Clarity (U) Extra Turbid Abnormal Clear [facility] Color (U) Bath Abnormal Lt. Yellow [facility] Epithelial cells.squamous LM.HPF (Urine sed) [#/Area[facility] Glucose Ql (U) Normal Normal (<70) mg/dL [facility] Hemoglobin Ql (U) 0.03 mg/dL Abnormal Negative [facility] Interpretation and review of laboratory results Abnormal [facility] Ketones (U) [Mass/Vol] Negative Negative mg/dL [facility] Leukocyte esterase Test strip Ql (U) Negative Negative Ric/uL [facility] Nitrite Ql (U) Negative Negative [facility] pH (U) 5.0 [pH] 5.0 - 8.0 pH [facility] Protein (U) [Mass/Vol] 100 mg/dL Abnormal Negative [facility] RBC LM.HPF (Urine sed) [#/Area] 0-2 [facility] Specific gravity (U) [Rel density] 1.033 High 1.005 - 1.030 [facility] Urobilinogen (U) [Mass/Vol] 2 mg/dL Abnormal Normal (0-1) [facility] Volume, Urine 8-12 mL [facility] h WBC LM.HPF (Urine sed) [#/Area] 0-2 [facility] ED Nursing Noteon 07-24-2023 ED Nursing Note Pt to ER with compla int of migraine headache since 1:30pm today. Pt has hx of migraines and is seeing a neurologist for these. States she took her medications as prescribed and got no relief. Called her neurologist who advised pt to go to ER for treatment. Pt states she is light sensitive and has no appetite. Pt states she rested, lay in a dark room , took meds without relief. Pt ambulatory on arrival with steady gait. Alert and oriented x 4. Skin warm and dry. Respirations even and unlabored. Call light in reach Normal [facility] ED Provider Noteon ED Provider Note EMERGENCY DEPARTMENT ENCOUNTER Pt Name: Jacob Celis Birthdate 1980 Date of evaluation: 07/24/2023 ED Provider: Glenn Garrett DO CHIEF COMPLAINT Chief Complaint Patient presents with Migraine HISTORY OF PRESENT ILLNESS (Location/Symptom, Timing/Onset, Context/Setting, Quality, Duration, Modifying Factors, Severity) Note limiting factors. I wore appropriate PPE for the entirety of this encounter. HPI Jacob Celis is a 42 y.o. female who presents to the emergency department with a headache. Has a history of migraines and says that this is the same quality as her usual migraines but is more intense than usual. Took her rescue medications about 30 minutes after onset without much relief. Symptoms started at 130 and reached their peak at about 4:00. No fever or confusion. No numbness or weakness in the arms or legs. No other complaints. She does have photophobia which is typical for her. No nausea or vomiting. Nursing Notes were reviewed. REVIEW OF SYSTEMS All systems reviewed and negative except as noted above. PAST MEDICAL HISTORY Past Medical History: Diagnosis Date Anxiety Asthma Bipolar 1 disorder (HCC) CHF (congestive heart failure) (HCC) Depression GERD (gastroesophageal reflux disease) Hyperlipidemia Hypertension Insomnia Restless leg syndrome Seasonal allergies Thyroid cancer (HCC) Thyroid disease SURGICAL HISTORY Past Surgical History: Procedure Laterality Date THYROIDECTOMY TONSILLECTOMY (HISTORICAL) CURRENT MEDICATIONS Previous Medications ALLOPURINOL (ZYLOPRIM) 100 MG TABLET Take 100 mg by mouth in the morning. ATORVASTATIN (LIPITOR) 20 MG TABLET Take 20 mg by mouth daily. BUDESONIDE-FORMOTEROL (SYMBICORT) 160-4.5 MCG/ACT INHALER Inhale 2 puffs daily. BUSPIRONE (BUSPAR) 10 MG TABLET Take 10 mg by mouth 2 times daily. CARIPRAZINE HCL 1.5 MG CAPSULE Take 1.5 capsules by mouth Nightly. CHOLECALCIFEROL (VITAMIN D-3) 50 MCG (1999 UT) CAPSULE Take 1 capsule by mouth daily. DAPAGLIFLOZIN-METFORMIN ER (XIGDUO XR) 10-500 MG Take 1 tablet by mouth in the morning. GABAPENTIN (NEURONTIN) 100 MG CAPSULE Take 1 capsule by mouth in the morning and 1 capsule in the evening. 1 in the AM, 3 in the PM. LORATADINE (CLARITIN) 10 MG TABLET Take 10 mg by mouth daily. METOPROLOL SUCCINATE XL (TOPROL-XL) 100 MG 24 HR TABLET Take 100 mg by mouth in the morning. MONTELUKAST (SINGULAIR) 10 MG TABLET Take 10 mg by mouth daily. MONTELUKAST (SINGULAIR) 10 MG TABLET Take 10 mg by mouth. RIMEGEPANT SULFATE (NURTEC) 75 MG TABLET DISPERSIBLE Take 1 tablet daily as needed for onset of migraine. Max 1 dose in 24 hours orally as directed for 30 days TOPIRAMATE 50 MG TABLET Take 50 mg by mouth in the morning and 50 mg in the evening. VALSARTAN-HYDROCHLOROTHI AZIDE (DIOVAN-HCT) 160-12.5 MG TABLET Take 1 tablet by mouth in the morning. ALLERGIES Lisinopril and Onion FAMILY HISTORY No family history on file. SOCIAL HISTORY Social History Socioeconomic History Marital status: Tobacco Use Smoking status: Never Smokeless tobacco: Never Vaping Use Vaping Use: Never used Substance and Sexual Activity Alcohol use: Never Drug use: Never PHYSICAL EXAM ED Triage Vitals [07/24/232041] Temp Heart Rate Resp BP 36.8 ?C (98.2 ?F) 87 16 (!) 146/98 SpO2 Temp Source Heart Rate Source Patient Position 98 % Oral Monitor Sitting BP Location FiO2 (%) Right arm -- General: Well-developed, well-nourished patient lying in bed in a darkened room who appears non-toxic. Head: Atraumatic, normocephalic. Neck: Supple, no meningismus. Eyes: Sclera anicteric. ENT: Mucous membranes moist. Heart: Normal rate. Lungs: Normal respiratory pattern without conversational dyspnea or respiratory distress. Abdomen: Soft, non-tender, non-distended, no guarding or peritoneal signs. Neurologic: Awake and alert, normal speech and mental status. Moves all extremities with 5 out of 5 strength. Light touch sensation intact and symmetrical x4. No focal deficits or lateralizing signs. Psychiatric: Mood and affect appropriate. Skin: Warm and dry, no appreciable rash. Musculoskeletal: No peripheral edema. No signs of DVT. DIAGNOSTIC RESULTS/EMERGENCY DEPARTMENT COURSE and DIFFERENTIAL DIAGNOSIS/MDM: Vitals: Vitals: 07/24/232041 BP: (!) 146/98 BP Location: Right arm Patient Position: Sitting Pulse: 87 Resp: 16 Temp: 36.8 ?C (98.2 ?F) TempSrc: Oral SpO2: 98% Weight: (!) 137 kg (301 lb) Height: 1.626 m (5' 4) Medical Decision Making Problems Addressed: Other migraine without status migrainosus, not intractable: complicated acute illness or injury Risk OTC drugs. Prescription drug management. Medications provided in the ED included those listed below. She had about a 50% reduction in pain these medications. I offered her more medication but she declined, is at a place that she feels like she can tole (more content not included)... Normal [facility] FLUAV and FLUBV RNA JOSE+prob e Nom (Unsp spec)on 07-03-2023 FLUAV RNA JOSE+probe Ql (Resp) Not detected Normal Not Detected [facility] Comment on above: Order Comment: This assay is an in vitro diagnostic multiplex nucleic acid amplification test for the detection and discrimination of Influenza A & B from nasopharyngeal specimens, and has been validated for use at [facility]. Negative results do not preclude Influenza A/B infections, and should not be used as the sole basis for diagnosis, treatment, or other management decisions. If Influenza A/B and RSV PCR results are negative, testing for Parainfluenza virus, Adenovirus and Metapneumovirus is routinely performed for [facility] pediatric oncology and intensive care inpatients, and is available on other patients by placing an add-on request. Performed By: #### [id number] #### SERGIO Joya ([id number]) [facility] [facility] ([facility]) [address] [place], [place] [id number] FLUBV RNA JOSE+probe Ql (Resp) Not detected Normal Not Detected [facility] Amb[facility] Comment on above: Order Comment: This assay is an in vitro diagnostic multiplex nucleic acid amplification test for the detection and discrimination of Influenza A & B from nasopharyngeal specimens, and has been validated for use at [facility]. Negative results do not preclude Influenza A/B infections, and should not be used as the sole basis for diagnosis, treatment, or other management decisions. If Influenza A/B and RSV PCR results are negative, testing for Parainfluenza virus, Adenovirus and Metapneumovirus is routinely performed for [facility] pediatric oncology and intensive care inpatients, and is available on other patients by placing an add-on request. Performed By: #### [id number] #### SERGIO Joya ([id number]) [facility] ([facility]) [address] [place] [id number] Respiratory syncytial virus RNAon 07-03-2023 RSV RNA JOSE+probe Ql (Resp) Not detected Normal Not Detected [facility] Comment on above: Order Comment: This assay is an FDA-cleared, in vitro diagnostic nucleic acid amplification test for the detection of RSV from nasopharyngeal specimens, and has been validated for use at [facility]. Negative results do not preclude RSV infections, and should not be used as the sole basis for diagnosis, treatment, or other management decisions. If Influenza A/B and RSV PCR results are negative, testing for Parainfluenza virus, Adenovirus and Metapneumovirus is routinely performed for pediatric oncology and intensive care inpatients at [facility], and is available on other patients by placing an add-on request. Performed By: #### [id number] #### SERGIO Joya ([id number]) [facility] ([facility]) [address] [place] [id number] SARS-CoV-2 (COVID-19) RNA NA A+probe Ql (Resp)on 07-03-2023 SARS-CoV-2 (COVID-19) ORF1ab region JOSE+probe Ql (Resp) Not detected Normal Not Detected [facility] Comment on above: Order Comment: This assay has received FDA Emergency Use Authorization (EUA) and is only authorized for the duration of time that circumstances exist to justify the authorization of the emergency use of in vitro diagnostic tests for the detection of SARS-CoV-2 virus and/or diagnosis of COVID-19 infection under section 564(b)(1) of the Act, 21 U.S.C. 360bbb-3(b)(1). This assay is an in vitro diagnostic nucleic acid amplification test for the qualitative detection of SARS-CoV-2 from nasopharyngeal specimens and has been validated for use at [facility]. Negative results do not preclude COVID-19 infections and should not be used as the sole basis for diagnosis, treatment, or other management decisions. Performed By: #### [id number] #### SERGIO Joay ([id number]) [facility] ([facility]) [address] [place] [id number] XR CHEST 2 VIEWSon XR CHEST 2 VIEWS Interpreted By: Lai Sanchez, STUDY: XR CHEST 2 VIEWS; 07/03/2023 4:02 pm INDICATION: Signs/Symptoms:cough. COMPARISON: March 12, 2021 chest radiographs ACCESSION NUMBER(S): [id number] ORDERING CLINICIAN: LOIS ALBERTS FINDINGS: LIFE SUPPORT DEVICES: None CARDIOMEDIASTINAL SILHOUETTE: Cardiomediastinal silhouette is normal in size and configuration. LUNGS: Lungs are clear. ABDOMEN: No remarkable upper abdominal findings. BONES: No acute osseous changes. IMPRESSION: 1. No evidence of acute cardiopulmonary process. Signed by: Lai Sanchez 07/03/2023 5:07 PM Dictation workstation: [id number] [facility] CNOVon 06-21-2023 CNOV Office Visit ([facility]ALK[place] ) -------- JACOB CELIS ([id number]) 1980 F Date Time Provider Department 06/21/23 8:25 AM KRZYSZTOF MORENO During your visit today, we recorded the following information about you: Temperature Pulse Respiration Blood pressure 99.1 degrees 128/minute 18/minute 148/92 Weight Height 136.8 kg 1.651 m Krzysztof Moreon PA-C 06/21/2023 9:13 AM Signed Subjective Jacob Celis is a 42 year old female with a past medical history of bipolar disorder and GERD who [facility] evaluation of fever, nasal congestion, sore throat, cough, and wheezing x 5 days. Patient states that she did have vomiting but it has resolved. She denies any known exposure to COVID-19, influenza, or RSV. She states that she has been taking DayQuil and NyQuil with minimal relief. She states that she had a negative home COVID-19 test when her symptoms started. Review of Systems Constitutional: Positive for fever. Negative for chills and diaphoresis. HENT: Positive for congestion and sore throat. Negative for ear pain. Eyes: Negative for discharge and redness. Respiratory: Positive for cough and wheezing. Skin: Negative for rash and wound. Neurological: Negative for weakness and headaches. All other systems reviewed and are negative. Objective BP 148/92 (BP Site: Right Arm, BP Position: Sitting, BP Cuff Size: Regular Adult) Pulse (!) 128 Temp 37.3 ?C (99.1 ?F) (Right Tympanic) Resp 18 Ht 165.1 cm (5' 5) Wt (!) 136.8 kg (301 lb 9.4 oz) SpO2 95% BMI 50.19 kg/m? Physical Exam Vitals reviewed. Constitutional: General: She is not in acute distress. Appearance: Normal appearance. She is normal weight. She is not ill-appearing or toxic-appearing. Comments: The patient appears to be non-toxic, in no acute distress, and resting comfortably on the table. HENT: Head: Normocephalic and atraumatic. Right Ear: Tympanic membrane, ear canal and external ear normal. Left Ear: Tympanic membrane, ear canal and external ear normal. Eyes: Extraocular Movements: Extraocular movements intact. Cardiovascular: Rate and Rhythm: Normal rate and regular rhythm. Heart sounds: Normal heart sounds. No murmur heard. No friction rub. No gallop. Pulmonary: Effort: Pulmonary effort is normal. No respiratory distress. Breath sounds: No wheezing. Musculoskeletal: General: Normal range of motion. Cervical back: Normal range of motion. Skin: General: Skin is warm and dry. Findings: No erythema or rash. Neurological: General: No focal deficit present. Mental Status: She is alert and oriented to person, place, and time. Mental status is at baseline. Psychiatric: Mood and Affect: Mood normal. Behavior: Behavior normal. Thought Content: Thought content normal. Assessment and Plan Lungs are clear to auscultation bilaterally. Suspect patient symptoms are due to bronchitis. Patient counseled regarding suspected diagnosis and given prescriptions for prednisone and Bromfed. Advised to follow-up with her primary care provider as needed for any new or worsening symptoms. ASSESSMENT/PLAN: 1. Bronchitis - ICD9: 490, ICD10: J40 (primary diagnosis) - PREDNISONE 20 MG TABLET - BROMPHENIRAMINE-PSEUDOEP HEDRINE-DM 2 MG-30 MG-10 MG/5 ML ORAL SYRUP 2. Sore throat - ICD9: 462, ICD10: J02.9 - Rapid Strep negative in the office today - STREP A MOLECULAR (POC) 3. Wheezing - ICD9: 786.07, ICD10: R06.2 4. Acute cough - ICD9: 786.2, ICD10: R05.1 Medical Decision Making: Problems: Low: Acute, uncomplicated illness or injury Risk: Minimal: Minimal risk from testing/treatment Moderate: Drug management Medical Decision Making Level: 3 - Low I spent a total of 20 minutes on the date of the service which included preparing to see the patient, [id number]-[id number] patient care, completing clinical documentation, performing a medically appropriate examination, counseling and educating the patient/family/caregiver , and ordering medications, tests, or procedures. TREY Haney Ariana P, PA-C 06/21/2023 9:07 AM Signed [facility] PATIENT INFO BRONCHITIS OVERVIEW Bronchitis develops when there is swelling and irritation of the bronchi, the large tubes that carry air to the lungs. There are two types of bronchitis: acute (sudden onset) and chronic (long-standing). Acute bronchitis often occurs with a viral infection, such as the common cold, and is sometimes called a chest cold. The most common symptom of acute bronchitis is a nagging cough. Treatment of acute bronchitis usually involves treating the symptoms, such as sore throat and congestion. Antibiotics do not help to eliminate acute bronchitis caused by a virus. Antiviral agents are useful in some cases of acute bronchitis due to influenza, but there are antiviral agents for other forms of viral bronchitis. (more content not included)... Normal [facility] ED Nursing Noteon 05-05-2023 ED Nursing Note Pt ambulatory to ED3 with c/o left hand injury. the pt tripped on a sidewalk and fell with hand outstretched. She hit her head with no LOC. Pt also reports abrasion to left knee. Pain is base of left thumb into hand, and this morning while holding onto the steering wheel pain radiated into her wrist and forearm. Pain at present is rated 4/10; increases to 7/10 when clenching her hand. Pt is A&Ox3, respirations even and unlabored, skin warm and dry, no distress noted. MSP's intact to LUE. Normal [facility] ED Provider Noteon ED Provider Note EMERGENCY DEPARTMENT ENCOUNTER Pt Name: Jacob Celis Birthdate 1980 Date of evaluation: 05/05/2023 ED Provider: Glenn Lr MD CHIEF COMPLAINT Chief Complaint Patient presents with Hand Injury HISTORY OF PRESENT ILLNESS (Location/Symptom, Timing/Onset, Context/Setting, Quality, Duration, Modifying Factors, Severity) Note limiting factors. I wore appropriate PPE for the entirety of this encounter. HPI Jacob Celis is a 42 y.o. who presents to the emergency department with chief complaint of left hand injury. Patient had a mechanical trip and fall this last 5 days ago she fell on her outstretched left hand and has pain to the left volar proximal hand area. She is right-handed. 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 Denies any pain elsewhere. She states she scraped her left forehead but did not lose consciousness she is not on blood thinners and she is feeling normal otherwise not confused. She states she also scraped her left knee but has been ambulating without difficulty on the left lower extremity. She did ice it on and Friday and took some Motrin and the swelling is gone down but not the pain. Nursing Notes were reviewed. Limitations to history: None Outside historians: None REVIEW OF SYSTEMS Review of Systems Constitutional: Negative for chills and fever. HENT: Negative for ear pain and sore throat. Eyes: Negative for pain and visual disturbance. Respiratory: Negative for cough and shortness of breath. Cardiovascular: Negative for chest pain and palpitations. Gastrointestinal: Negative for abdominal pain and vomiting. Genitourinary: Negative for dysuria and hematuria. Musculoskeletal: Positive for arthralgias and joint swelling. Negative for back pain. Skin: Negative for color change and rash. Neurological: Negative for seizures and syncope. All other systems reviewed and are negative. Pertinent positives and negatives as per HPI. PAST MEDICAL HISTORY Past Medical History: Diagnosis Date Anxiety Asthma Bipolar 1 disorder ([facility]) CHF (congestive heart failure) ([facility]) Depression GERD (gastroesophageal reflux disease) Hyperlipidemia Hypertension Insomnia Restless leg syndrome Seasonal allergies Thyroid cancer ([facility]) Thyroid disease SURGICAL HISTORY Past Surgical History: Procedure Laterality Date THYROIDECTOMY TONSILLECTOMY (HISTORICAL) CURRENT MEDICATIONS Previous Medications ALLOPURINOL (ZYLOPRIM) 100 MG TABLET Take 100 mg by mouth in the morning. ATORVASTATIN (LIPITOR) 20 MG TABLET Take 20 mg by mouth daily. BUDESONIDE-FORMOTEROL (SYMBICORT) 160-4.5 MCG/ACT INHALER Inhale 2 puffs daily. BUSPIRONE (BUSPAR) 10 MG TABLET Take 10 mg by mouth 2 times daily. CARIPRAZINE HCL 1.5 MG CAPSULE Take 1.5 capsules by mouth Nightly. CHOLECALCIFEROL (VITAMIN D-3) 50 MCG (1999) CAPSULE Take 1 capsule by mouth daily. DAPAGLIFLOZIN-METFORMIN ER (XIGDUO XR) 10-500 MG Take 1 tablet by mouth in the morning. GABAPENTIN (NEURONTIN) 100 MG CAPSULE Take 1 capsule by mouth in the morning and 1 capsule in the evening. 1 in the AM, 3 in the PM. LORATADINE (CLARITIN) 10 MG TABLET Take 10 mg by mouth daily. METOPROLOL SUCCINATE XL (TOPROL-XL) 100 MG 24 HR TABLET Take 100 mg by mouth in the morning. MONTELUKAST (SINGULAIR) 10 MG TABLET Take 10 mg by mouth daily. TOPIRAMATE 50 MG TABLET Take 50 mg by mouth in the morning and 50 mg in the evening. VALSARTAN-HYDROCHLOROTHI AZIDE (DIOVAN-HCT) 160-12.5 MG TABLET Take 1 tablet by mouth in the morning. ALLERGIES Patient has no known allergies. FAMILY HISTORY No family history on file. SOCIAL HISTORY Social History Socioeconomic History Marital status: Tobacco Use Smoking status: Never Smokeless tobacco: Never Substance and Sexual Activity Alcohol use: Never Drug use: Never SCREENINGS PHYSICAL EXAM ED Triage Vitals Temp Pulse Resp BP -- -- -- -- SpO2 Temp src Heart Rate Source Patient Position -- -- -- -- BP Location FiO2 (%) -- -- Physical Exam Vitals and nursing note reviewed. Constitutional: General: She is not in acute distress. Appearance: She is well-developed. She is not ill-appearing. HENT: Head: Normocephalic and atraumatic. Eyes: Conjunctiva/sclera: Conjunctivae normal. Cardiovascular: Rate and Rhythm: Normal rate. Pulmonary: Effort: Pulmonary effort is normal. No respiratory distress. Abdominal: Palpations: Abdomen is soft. Tenderness: There is no abdominal tenderness. Musculoskeletal: General: No swelling. Left wrist: No tenderness, bony tenderness or snuff box tenderness. Normal range of motion. Left hand: Swelling, tenderness and bony tenderness present. No deformity or lacerations. Normal range of motion. Normal strength. Normal sensation. There is no disruption of two-point discrimination. Normal capillary refill. Marija (more content not included)... Normal [facility] XR Hand - left 3 Viewson No acute osseous abnormality. Report Dictated on Electronically Signed By: Sherrie Graves MD Electronically Signed Date/Time: 05/05/2023 8:32 AM [facility] Name[facility] 1980 [id number] Exam Date/Time: 05/05/2023 08:06 Procedure: XR HAND 3+ VIEWS LEFT Ordering Provider: LR MICHAEL Reason For Exam: pain over proximal volar hand/thenar eminence s/p foosh LEFT HAND: CLINICAL INDICATION: pain over proximal volar hand/thenar eminence s/p foosh TECHNIQUE: PA, Lat, and oblique COMPARISON: None. FINDINGS: There is no acute fracture or dislocation. No significant arthritic change is identified. No worrisome osseous lesion is identified. There is no significant soft tissue abnormality. [facility] Sherrie Graves M D - 05/05/2023 Patient Name: JACOB CELIS : 1980 [id number] Exam Date/Time: 05/05/2023 08:06 Procedure: XR HAND 3+ VIEWS LEFT Ordering Provider: LR MICHAEL Reason For Exam: pain over proximal volar hand/thenar eminence s/p foosh LEFT HAND: CLINICAL INDICATION: pain over proximal volar hand/thenar eminence s/p foosh TECHNIQUE: PA, Lat, and oblique COMPARISON: None. FINDINGS: There is no acute fracture or dislocation. No significant arthritic change is identified. No worrisome osseous lesion is identified. There is no significant soft tissue abnormality. IMPRESSION: No acute osseous abnormality. Report Dictated on Electronically Signed By: Sherrie Graves MD Electronically Signed Date/Time: 05/05/2023 8:32 AM EST [facility] Radiology Study observation (narrative) [facility] XR Hand - left 3 ViewsOrdere d By: Sherrie Graves on 05-05-2023 [employer] Work Phone: POCT glycosylated hemoglobin (Hb A1C) manually resultedon 04-02-2023 Interpretation and review of laboratory results Abnormal [facility] Work Phone: POC HEMOGLOBIN A1c 6.4 % 4.2 - 6.5 % [facility] Work Phone: [facility] Work Phone: Follow Up (Endocrinology)on 02-03-2023 Follow Up (Endocrinology) Diagnoses/Problems Assessed Left thyroid nodule (241.0) (E04.1) Controlled type 2 diabetes mellitus with hyperglycemia, without long-term current use of insulin (250.80,790.29) (E11.65) Orders Controlled type 2 diabetes mellitus with hyperglycemia, without long-term current use of insulin [employer]; Status:Active; Requested for:[id number]; Perform:[employer];Ordered; For:Controlled type 2 diabetes mellitus with hyperglycemia, without long-term current use of insulin; Ordered By:Dedrick Weston; Left thyroid nodule Ultrasound Thyroid; Status:Hold For - Scheduling; Requested for:[id number]; Perform: [facility]iology Services Imaging; Due:04May2023;Ordered; For:Left thyroid nodule; Ordered By:Dedrick Weston; Radiologist to Determine Optimal Study : Y What are the patient's signs and symptoms? : Thyroid nodules Patient Discussion/Summary Thank you for choosing [facility] for your health care needs. If you have any questions, concerns or medical needs, please feel free to contact our office at . Please ensure you complete your blood work one week before the next scheduled appointment. Would not recommend GLP-1 agonist given history of papillary thyroid cancer To obtain a thyroid ultrasound For follow up in 12 months; will call with results Provider Impressions 42 year old female presents for follow up. She underwent a right lobectomy. She was found to have a 2.5cm focus of papillary thyroid cancer. Her most recent thyroid ultrasound from January 2022 revealed a TIRADS-4 1cm left nodule. FNAB was obtained on April 17, 2022. Cytology revealed a benign follicular nodule. She has been biochemically euthyroid. Recommendations: Would not recommend GLP-1 agonist given history of papillary thyroid cancer To obtain a thyroid ultrasound For follow up in 12 months; will call with results Chief Complaint A telephone visit (audio only) between the patient (at the originating site) and the provider (at the distant site) was utilized to provide this telehealth service. Verbal consent was requested and obtained from JACOB CELIS on this date, 02/03/2023 08:30 AM , for a telehealth visit. Routine follow up on :f/u appt thyroid nodule Last labs/testin12/30/2022 [facility] Requested refills:none Patient concerns:patient interested in ozempic flu shot: History of Present IllnessMsChristian Celis is a 42-year-old female who presents for follow up. The patient states that she was discovered to have a palpable thyroid nodule on routine examination by her primary care physician. She had a thyroid ultrasound which revealed a 2 cm lesion on the right side. This led to a biopsy that revealed a follicular lesion of unknown significance. The patient underwent a right lobectomy. Surgical pathology revealed papillary thyroid cancer measuring 2.5 cm. Thyroid function tests were obtained on December 30, 2022 which revealed a TSH of 3.16. The patient had a thyroid ultrasound on January 08, 2021 which revealed: RIGHT LOBE: The right lobe of the thyroid is surgically absent. There is no abnormal mass in the surgical bed. LEFT LOBE: The left lobe of the thyroid measures 5.2 cm x 1.9 cm x 2.0 cm. The left lobe of the thyroid is heterogeneous in echotexture and demonstrates two nodules. Within the lower thyroid lobe there is a nodule with the following features: Size: 9.2 x 5.4 x 7.6 mm Composition: Solid or almost completely solid (2) Echogenicity: Hypoechoic (2) Shape: Kirsg-[id number]-wtvj (0) Margin: Ill-defined (0) Echogenic Foci: None or Large comet-tail artifacts (0) The total score of this nodule is 4 corresponding to a TI-RADS category 4; Moderately suspicious. FNA is recommended if >1.5cm, Follow up if >1.0cm in 1, 2, 3, and 5 years.. Within the mid thyroid lobe there is a nodule with the following features: Size: 12.4 x 6.6 x 8.6 mm, similar in size compared to prior accounting for differences in measuring technique. Composition: Solid or almost completely solid (2) Echogenicity: Hyperechoic or isoechoic (1) Shape: Nzejq-hjpo-fybh (0) Margin: Ill-defined (0) Echogenic Foci: None or Large comet-tail artifacts (0) The total score of this nodule is 3 corresponding to a TI-RADS category 3; Mildly suspicious. FNA is recommended if >2.5cm, Follow up if >1.5cm in 1, 3, and 5 years.. ISMUS: The isthmus measures approximately 3.1 mm and is homogeneous in echotexture.. There is a 10.3 x 5.5 x 8.9 mm hypoechoic nodule, questionably increased in size compared to prior (previously measuring 6.1 x 4.3 x 6.9 mm). Composition: Solid or almost completely solid (2) Echogenicity: Hyperechoic or isoechoic (1) Shape: Iewkj-fdlg-edzd (0) Margin: Ill-defined (0) Echogenic Foci: None or Large comet-tail artifacts (0) The total score of this nodule is 3 corresponding to a TI-RADS category 3; Mildly suspicious. FNA is recommended if >2.5cm, Follow up if >1.5cm in (more content not included)... Normal [facility] CBC AND DIFFERENTIALon 12-30 % AUTOMATED IMMATURE GRAN 0.8 % Normal 0.0 - 0.9 [facility] Comment on above: Result Comment: Kassandra ture Granulocyte Count (IG) includes promyelocytes, myelocytes and metamyelocytes but does not include bands. Percent differential counts (%) should be interpreted in the context of the absolute cell counts (cells/L). Performed By: #### C BCDF #### [facility] [address] [place] [address] Basophils (Bld) [#/Vol] 0.07 10*3/uL Normal 0.00 - 0.10 [facility] Comment on above: Performed By: #### C BCDF #### [facility] [address] [place] [address] Basophils/100 WBC (Bld) 0.7 % Normal 0.0 - 2.0 [facility] Comment on above: Performed By: #### C BCDF #### [facility] [address] [place] [address] Eosinophils (Bld) [#/Vol] 0.07 10*3/uL Normal 0.00 - 0.70 [facility] Comment on above: Performed By: #### C BCDF #### [facility] [address] [place] [address] Eosinophils/100 WBC (Bld) 0.7 % Normal 0.0 - 6.0 [facility] Comment on above: Performed By: #### C BCDF #### [facility] [address] [place] [address] Erythrocyte distribution width (RBC) [Ratio] 15.0 % High 11.5 - 14.5 [facility] Comment on above: Performed By: #### C BCDF #### [facility] [address] [place] [address] Hematocrit (Bld) [Volume fraction] 46.3 % High 36.0 - 46.0 [facility] Comment on above: Performed By: #### C BCDF #### [facility] [address] [place] [address] Hemoglobin (Bld) [Mass/Vol] 14.1 g/dL Normal 12.0 - 16.0 [facility] Comment on above: Performed By: #### C BCDF #### [facility] [address] [place] [address] Lymphocytes (Bld) [#/Vol] 2.92 10*3/uL Normal 1.20 - 4.80 [facility] Comment on above: Performed By: #### C BCDF #### [facility] [address] [place] [address] Lymphocytes/100 WBC (Bld) 28.0 % Normal 13.0 - 44.0 [facility] Comment on above: Performed By: #### C BCDF #### [facility] [address] [place] [address] MCHC (RBC) [Mass/Vol] 30.5 g/dL Low 32.0 - 36.0 [facility] Comment on above: Performed By: #### C BCDF #### [facility] [address] [place] [address] MCV (RBC) [Entitic vol] 91 fL Normal 80 - 100 [facility] Comment on above: Performed By: #### C BCDF #### [facility] [place] [address] [place] [address] Monocytes (Bld) [#/Vol] 0.67 10*3/uL Normal 0.10 - 1.00 [facility] Comment on above: Performed By: #### C BCDF #### [facility] [address] [place] [address] Monocytes/100 WBC (Bld) 6.4 % Normal 2.0 - 10.0 [facility] Comment on above: Performed By: #### C BCDF #### [facility] [address] [place] [address] Neutrophils (Bld) [#/Vol] 6.62 10*3/uL Normal 1.20 - 7.70 [facility] Comment on above: Performed By: #### C BCDF #### [facility] [place] [address] [place] [address] Neutrophils/100 WBC (Bld) 63.4 % Normal 40.0 - 80.0 [facility] Comment on above: Performed By: #### C BCDF #### [facility] [place] [address] [place] [address] NUCLEATED RBC 0.0 /100 WBC Normal 0.0-0.0 [facility] Comment on above: Performed By: #### C BCDF #### [facility] [address] [place] [address] Platelets (Bld) [#/Vol] 297 10*3/uL Normal 150 - 450 [facility] Comment on above: Performed By: #### C BCDF #### [facility] [place] [address] [place] [address] RBC 5.11 x10E12/L Normal 4.00 - 5.20 [facility] Comment on above: Performed By: #### C BCDF #### [facility] [address] [place] [address] WBC (Bld) [#/Vol] 10.4 10*3/uL Normal 4.4 - 11.3 [facility] [place] Comment on above: Performed By: #### C BCDF #### [facility] [address] [place] [address] COMPREHENSIVE PANELon 2022 Albumin [Mass/Vol] 3.9 g/dL Normal 3.4 - 5.0 [facility] Comment on above: Performed By: #### U CANDY #### [facility] [place] [address] [place] [address] ALP [Catalytic activity/Vol] 102 U/L Normal 33 - 110 [facility] Comment on above: Performed By: #### U CANDY #### [facility] [place] [address] [place] [address] ALT [Catalytic activity/Vol] 33 U/L Normal 7 - 45 [facility] Comment on above: Result Comment: Gail ents treated with Sulfasalazine may generate falsely decreased results for ALT. Performed By: #### U CANDY #### [facility] [place] [address] [place] [address] Anion gap [Moles/Vol] 11 mmol/L Normal 10 - 20 [facility] Comment on above: Performed By: #### U CANDY #### [facility] [place] [address] [place] [address] AST [Catalytic activity/Vol] 27 U/L Normal 9 - 39 [facility] Comment on above: Performed By: #### U CANDY #### [facility] [place] [address] [place] [address] Bilirubin [Mass/Vol] 0.4 mg/dL Normal 0.0 - 1.2 [facility] Comment on above: Performed By: #### U CANDY #### [facility] [place] [address] [place] [address] Calcium [Mass/Vol] 9.3 mg/dL Normal 8.6 - 10.6 [facility] Comment on above: Performed By: #### U CANDY #### [facility] [place] [address] [place] [address] Chloride [Moles/Vol] 104 mmol/L Normal 98 - 107 [facility] Comment on above: Performed By: #### U CANDY #### [facility] [address] [place] [address] Creatinine [Mass/Vol] 0.63 mg/dL Normal 0.50 - 1.05 [facility] Comment on above: Performed By: #### U CANDY #### [facility] [place] [address] [place] [address] eGFR FEMALE >90 Normal >90 [facility] Comment on above: Result Comment: CALC ULATIONS OF ESTIMATED GFR ARE PERFORMED USING THE 2020 CKD-EPI STUDY REFIT EQUATION WITHOUT THE RACE VARIABLE FOR THE IDMS-TRACEABLE CREATININE METHODS. https://jasn.asnjournals.org/content//ASN.100988 7054 Performed By: #### U CANDY #### [facility] [place] [address] [place] [address] Glucose [Mass/Vol] 92 mg/dL Normal 74 - 99 [facility] Comment on above: Performed By: #### U CANDY #### [facility] [place] [address] [place] [address] HCO3 (Bld) [Moles/Vol] 29 mmol/L Normal 21 - 32 [facility] Comment on above: Performed By: #### U CANDY #### [facility] [place] [address] [place] [address] Potassium [Moles/Vol] 4.1 mmol/L Normal 3.5 - 5.3 [facility] Comment on above: Performed By: #### U CANDY #### [facility] [place] [address] [place] [address] Protein [Mass/Vol] 7.4 g/dL Normal 6.4 - 8.2 [facility] Comment on above: Performed By: #### U CANDY #### [facility] [address] [place] [address] Sodium [Moles/Vol] 140 mmol/L Normal 136 - 145 [facility] Comment on above: Performed By: #### U CANDY #### [facility] [address] [place] [address] Urea nitrogen [Mass/Vol] 13 mg/dL Normal 6 - 23 [facility] Comment on above: Performed By: #### U CANDY #### [facility] [address] [place] [address] HEPATITIS C ABon 12-30-2022 HEPATITIS C AB Non-Reactive Normal NONREACTIVE [facility] Comment on above: Result Comment: Resu lts from patients taking biotin supplements or receiving high-dose biotin therapy should be interpreted with caution due to possible interference with this test. Providers may contact their local laboratory for further information. Performed By: #### U CANDY #### [facility] [address] [place] [address] HIV 1/2 ANTIGEN/ANTIBODY SCR EEN WITH REFLEX TO CONFIRMATIONon 12-30-2022 HIV 1/2 AG/AB SCREEN Non-Reactive Normal NONREACTIVE [facility] Comment on above: Result Comment: HIV Ag/Ab screen is performed using the Siemens LocalGuiding HIV Ag/Ab Combo assay which detects the presence of HIV p24 antigen as well as antibodies to HIV-1 (Group M and O) and HIV-2. . No laboratory evidence of HIV infection. If acute HIV infection is suspected, consider testing for HIV RNA by PCR (viral load). Performed By: #### U CANDY #### [place] [address] [place] [address] INSULINon 12-30-2022 INSULIN 85 uIU/mL High 3 - 25 [facility] Comment on above: Result Comment: Refe rence values apply to fasting specimens. Performed By: #### U CANDY #### [facility] [address] [place] [address] LIPID PANEL (CORONARY RISK 2 )on 12-30-2022 Cholesterol [Mass/Vol] 205 mg/dL High 0 - 199 [facility] Comment on above: Result Comment: . AGE DESIRABLE BORDERLINE HIGH HIGH 0-19 Y 0 - 169 170 - 199 >/= 200 20-24 Y 0 - 189 190 - 224 >/= 225 >24 Y 0 - 199 200 - 239 >/= 240 All ranges are based on fasting samples. Specific therapeutic targets will vary based on patient-specific cardiac risk. . Pediatric guidelines reference:Pediatrics 2011, 128(S5). Adult guidelines reference: NCEP ATPIII Guidelines, DEANNE 2001, 258:2486-97 . Venipuncture immediately after or during the administration of Metamizole may lead to falsely low results. Testing should be performed immediately prior to Metamizole dosing. Performed By: #### U CANDY #### [facility] [address] [place] [address] Cholesterol in HDL [Mass/Vol] 55.8 mg/dL Normal [facility] Comment on above: Result Comment: . AGE VERY LOW LOW NORMAL HIGH 0-19 Y < 35 < 40 40-45 ---- 20-24 Y ---- < 40 >45 ---- >24 Y ---- < 40 40-60 >60 . Performed By: #### U CANDY #### [facility] [place] [address] [place] [address] Cholesterol in LDL [Mass/Vol] 125 mg/dL High 0 - 99 [facility] Comment on above: Result Comment: . NEAR BORD AGE DESIRABLE OPTIMAL HIGH HIGH VERY HIGH 0-19 Y 0 - 109 --- 110-129 >/= 130 ---- 20-24 Y 0 - 119 --- 120-159 >/= 160 ---- >24 Y 0 - 99 100-129 130-159 160-189 >/=190 . Performed By: #### U CANDY #### [facility] [address] [place] [address] Cholesterol in VLDL [Mass/Vol] 24 mg/dL Normal 0 - 40 [facility] Comment on above: Performed By: #### U CANDY #### [facility] [address] [place] [address] Cholesterol.total/Cho lesterol in HDL [Mass ratio] 3.7 {ratio} Normal [facility] Comment on above: Result Comment: REF VALUES DESIRABLE < 3.4 HIGH RISK > 5.0 Performed By: #### U CANDY #### [facility] [address] [place] [address] Triglyceride [Mass/Vol] 122 mg/dL Normal 0 - 149 [facility] Comment on above: Result Comment: . AGE DESIRABLE BORDERLINE HIGH HIGH VERY HIGH 0 D-90 D 19 - 174 ---- ---- ---- 91 D- 9 Y 0 - 74 75 - 99 >/= 100 ---- 10-19 Y 0 - 89 90 - 129 >/= 130 ---- 20-24 Y 0 - 114 115 - 149 >/= 150 ---- >24 Y 0 - 149 150 - 199 200- 499 >/= 500 . Venipuncture immediately after or during the administration of Metamizole may lead to falsely low results. Testing should be performed immediately prior to Metamizole dosing. Performed By: #### U CANDY #### [facility] [place] [address] [place] [address] MAGNESIUMon 12-30-2022 Magnesium [Mass/Vol] 1.89 mg/dL Normal 1.60 - 2.40 [facility] Comment on above: Performed By: #### M G #### [facility] [place] [address] [address] [place], [place] POCT glycosylated hemoglobin (Hb A1C) manually resultedon 12-30-2022 Interpretation and review of laboratory results Abnormal [facility] Work Phone: POC HEMOGLOBIN A1c 6.6 % Abnormal 4.2 - 6.5 % [facility] Work Phone: [facility] Work Phone: TSH WITH REFLEX TO FREE T4 I F ABNORMALon 12-30-2022 TSH Qn 3.16 m[IU]/L Normal 0.44 - 3.98 [facility] [place] Comment on above: Result Comment: TSH testing is performed using different testing methodology at [facility] than at other [facility]. Direct result comparisons should only be made within the same method. Performed By: #### T HYDS #### [facility] [address] [place] [address] Lab Specimen Source Normal [facility] [place] Comment on above: Performed By: #### T HYDS #### [facility] [place] [address] [address] [place], [place] Performed By: #### V TDOH #### [facility] [address] [address] [place], [place] Performed By: #### U CANDY #### [facility] [place] [address] [place] [address] URIC ACIDon 12-30-2022 Urate [Mass/Vol] 4.4 mg/dL Normal 2.3 - 6.7 [facility] Comment on above: Result Comment: Jazmyn puncture immediately after or during the administration of Metamizole may lead to falsely low results. Testing should be performed immediately prior to Metamizole dosing. Performed By: #### U CANDY #### [facility] [place] [address] [place] [address] VITAMIN B12on 12-30-2022 Cobalamin (Vitamin B12) [Mass/Vol] 422 pg/mL Normal 211 - 911 [facility] Comment on above: Performed By: #### U CANDY #### [facility] [place] [address] [place] [address] VITAMIN D, 25-HYDROXYon 07- VITAMIN D, 25-HYDROXY 26 ng/mL Abnormal [facility] Comment on above: Result Comment: . DEFICIENCY: < 20 NG/ML INSUFFICIENCY: 20-29 NG/ML SUFFICIENCY: 30-100 NG/ML THIS ASSAY ACCURATELY QUANTIFIES THE SUM OF VITAMIN D3, 25-HYDROXY AND VIT D2,25-HYDROXY. Performed By: #### V TDOH #### [facility] [place] [address] [place] [address] Cult, Urineon 07-25-2022 Bacteria identified Cx Nom (U) -[facility] Work Phone: 19-49 Yearson 07-25-2022 19-49 Years Diagnoses/Problems Health Maintenance/Risks Encounter for preventive health examination (V70.0) (Z00.00) Assessed HTN (hypertension), benign (401.1) (I10) GERD (gastroesophageal reflux disease) (530.81) (K21.9) Generalized anxiety disorder (300.02) (F41.1) Morbid obesity with BMI of 50.0-59.9, adult (278.01,V85.43) (E66.01,Z68.43) IZABELA on CPAP (327.23,V46.8) (G47.33,Z99.89) Bipolar depression (296.50) (F31.9) Carcinoma of thyroid (193) (C73) h/o partial thyroidectomy , Right Removed. Chronic back pain (724.5,338.29) (M54.9,G89.29) Controlled type 2 diabetes mellitus with hyperglycemia, without long-term current use of insulin (250.80,790.29) (E11.65) Encounter for screening mammogram for breast cancer (V76.12) (Z12.31) Migraine headache (346.90) (G43.909) Seasonal allergies (477.9) (J30.2) Vitamin D deficiency (268.9) (E55.9) Drug-induced gout, unspecified chronicity, unspecified site (274.9,E980.5) (M10.20) Vitamin B12 deficiency (266.2) (E53.8) Hyperlipidemia (272.4) (E78.5) Mild intermittent asthma without complication (493.90) (J45.20) Orders Chronic back pain Renew: Gabapentin 100 MG Oral Capsule; TAKE 1 CAPSULE IN THE MORNING AND 3 CAPSULES IN THE EVENING Rx By: Lois Alberts; Dispense: 30 Days ; #:120 Capsule; Refill: 0;For: Chronic back pain; BRIAN = N; Verified Transmission to [address]; Last Updated By: [employer]; 07/25/2022 8:58:06 AM IO UA (automated w/o microscopy); Status:Complete; Done: 25Jul2022 09:53AM Performed:In Office; Due:23Oct2022;Ordered; For:Chronic back pain; Ordered By:Lois Alberts; Continue: Meloxicam 15 MG Oral Tablet; take 1 tablet by mouth once daily TAKE WITH FOOD AND 8 OZ OF WATER Rx By: Lois Alberts; Dispense: 30 Days ; #:30 Tablet; Refill: 0;For: Chronic back pain; BRIAN = N; Sent To: [address] Controlled type 2 diabetes mellitus with hyperglycemia, without long-term current use of insulin Start: Xigduo XR 10-500 MG Oral Tablet Extended Release 24 Hour; Take 1 tablet daily Rx By: Lois Alberts; Dispense: 30 Days ; #:30 Tablet; Refill: 0;For: Controlled type 2 diabetes mellitus with hyperglycemia, without long-term current use of insulin; BRIAN = N; Verified Transmission to [address]; Last Updated By: [employer]; 07/25/2022 9:09:33 AM IO Microalbumin, Urine Quantitative; Status:Complete; Done: 25Jul2022 09:52AM Performed:In Office; Due:23Oct2022;Ordered; For:Controlled type 2 diabetes mellitus with hyperglycemia, without long-term current use of insulin; Ordered By:Lois Alberts; Drug-induced gout, unspecified chronicity, unspecified site Start: Allopurinol 100 MG Oral Tablet; take 1 tablet by mouth once daily Rx By: Lois Alberts; Dispense: 30 Days ; #:30 Tablet; Refill: 2;For: Drug-induced gout, unspecified chronicity, unspecified site; BRIAN = N; Verified Transmission to [address]; Last Updated By: System, [employer]; 07/25/2022 9:14:23 AM Complete Blood Count + Differential; Status:Active; Requested for:08Aug2022; Perform:Lab Services - Lab To Draw (Blood Test); Due:06Nov2022;Ordered; For:Drug-induced gout, unspecified chronicity, unspecified site; Ordered By:Lois Alberts; Comprehensive Metabolic Panel; Status:Active; Requested for:08Aug2022; Perform:Lab Services - Lab To Draw (Blood Test); Due:06Nov2022;Ordered; For:Drug-induced gout, unspecified chronicity, unspecified site; Ordered By:Lois Alberts; Uric Acid, Serum; Status:Active; Requested for:08Aug2022; Perform:Lab Services - Lab To Draw (Blood Test); Due:06Nov2022;Ordered; For:Drug-induced gout, unspecified chronicity, unspecified site; Ordered By:Lois Alberts; Encounter for screening mammogram for breast cancer Mamm - Screening Mammogram w/ Tomosynthesis; Status:Hold For - Scheduling; Requested for:25Jul2022; Perform: Radiology Services Imaging; Due:23Oct2022;Ordered; For:Encounter for screening mammogram for breast cancer; Ordered By:Lois Alberts; Radiologist to Determine Optimal Study : Y What are the patient's signs and symptoms ? : Annual Screening Mammogram BMI Above Normal Follow-up Visit Outpatient Follow-up Status: Complete Done: 25Jul2022 Ordered;For: Encounter for screening mammogram for breast cancer; Ordered By: Lois Alberts Performed: Due: 23Oct2022 HTN (hypertension), benign Renew: Metoprolol Succinate ER 100 MG Oral Tablet Extended Release 24 Hour; TAKE 1 TABLET BY MOUTH EVERY DAY Rx By: Lois Alberts; Dispense: 90 Days ; #:90 Tablet; Refill: 0;For: HTN (hypertension), benign; BRIAN = N; Verified Transmission to [address]; Last Updated By: System, [employer]; 07/25/2022 9:09:35 AM IO EKG Electrocardiogram- 12 Lead; Status:Complete; Done: 25Jul2022 Perform:In Office; Due:23Oct2022;Ordered; For:HTN (hypertension), benign; Ordered By:Lois Alberts; Renew: Valsartan-hydroCHLOROthi azide 160-12.5 MG Oral Tablet; TAKE 1 TABLET ONCE DAILY Rx By: Lois Alberts; Dispense: 90 Days ; #:90 T (more content not included)... Normal [employer] Microalbumin, Urine Quant itativeon 07-25-2022 Albumin Ql (U) 10 mg/L [facility] [employer] Work Phone: Albumin/Creatinine DL <= 20 mg/L (U) [Mass ratio] <30 mg/g Normal [facility] Work Phone: Creatinine (U) [Mass/Vol] 100 mg/dL [facility] Work Phone: IO UA (automated w/o microsc opy)on 07-25-2022 Protein (U) [Mass/Vol] Negative [facility] [employer] Work Phone: IO UA (automated w/o microscopy) Negative [facility] [employer] Work Phone: IO UA (automated w/o microscopy) Normal (0.2-1.0 mg/dl) [facility] Work Phone: IO UA (automated w/o microscopy) 5.0 1 [facility] [employer] Work Phone: IO UA (automated w/o microscopy) Trace [facility] Work Phone: IO UA (automated w/o microscopy) 1.020 1 [facility] Work Phone: IO UA (automated w/o microscopy) Clear [facility] Work Phone: IO UA (automated w/o microscopy) Yellow [facility] Work Phone: Tobacco Screening.on 023 Adult depression screening assessment No [facility] Work Phone: Fall risk assessment a) No falls within the last year [facility] Work Phone: Tobacco use status CPHS b) No -[facility] Work Phone: URINE CULTURE,BACTERIALon URINE CULTURE,BACTERIAL PATIENT: JACOB CELIS LOCATION: [facility] [place] BILL#: [id number] : 80 AGE: SEX: F ORDERED BY: LOIS ALBERTS SOURCE: URINE COLLECTED: 07/25/22 10:40 ANTIBIOTICS AT [facility].: RECEIVED : 07/26/22 01:49 SITE: Unspecified R E S U L T S URINE CULTURE,BACTERIAL FINAL 07/27/22 08:25 NO SIGNIFICANT GROWTH. Normal [facility] Comment on above: Performed By: #### U [facility] #### [facility] [place] [address] [place] [address] CBC AND DIFFERENTIALon 07-22 % AUTOMATED IMMATURE GRAN 0.6 % Normal 0.0 - 0.9 [facility] Comment on above: Result Comment: Kassandra ture Granulocyte Count (IG) includes promyelocytes, myelocytes and metamyelocytes but does not include bands. Percent differential counts (%) should be interpreted in the context of the absolute cell counts (cells/L). Performed By: #### U CANDY #### [facility] [place] [address] [place] [address] Basophils (Bld) [#/Vol] 0.10 10*3/uL Normal 0.00 - 0.10 [facility] Comment on above: Performed By: #### U CANDY #### [facility] [place] [address] [place] [address] Basophils/100 WBC (Bld) 0.8 % Normal 0.0 - 2.0 [facility] Comment on above: Performed By: #### U CANDY #### [facility] [place] [address] [place] [address] Eosinophils (Bld) [#/Vol] 0.09 10*3/uL Normal 0.00 - 0.70 [facility] Comment on above: Performed By: #### U CANDY #### [facility] [place] [address] [place] [address] Eosinophils/100 WBC (Bld) 0.7 % Normal 0.0 - 6.0 [facility] Comment on above: Performed By: #### U CANDY #### [facility] [place] [address] [place] [address] Erythrocyte distribution width (RBC) [Ratio] 14.6 % High 11.5 - 14.5 [facility] Comment on above: Performed By: #### U CANDY #### [facility] [place] [address] [place] [address] Hematocrit (Bld) [Volume fraction] 40.0 % Normal 36.0 - 46.0 [facility] Comment on above: Performed By: #### U CANDY #### [facility] [place] [address] [place] [address] Hemoglobin (Bld) [Mass/Vol] 12.8 g/dL Normal 12.0 - 16.0 [facility] Comment on above: Performed By: #### U CANDY #### [facility] [place] [address] [place] [address] Lymphocytes (Bld) [#/Vol] 3.34 10*3/uL Normal 1.20 - 4.80 [facility] Comment on above: Performed By: #### U CANDY #### [facility] [address] [place] [address] Lymphocytes/100 WBC (Bld) 25.1 % Normal 13.0 - 44.0 [facility] Comment on above: Performed By: #### U CANDY #### [facility] [place] [address] [place] [address] MCHC (RBC) [Mass/Vol] 32.0 g/dL Normal 32.0 - 36.0 [facility] Comment on above: Performed By: #### U CANDY #### [facility] [address] [place] [address] MCV (RBC) [Entitic vol] 91 fL Normal 80 - 100 [facility] Comment on above: Performed By: #### U CANDY #### [facility] [place] [address] [place] [address] Monocytes (Bld) [#/Vol] 0.69 10*3/uL Normal 0.10 - 1.00 [facility] Comment on above: Performed By: #### U CANDY #### [facility] [address] [place] [address] Monocytes/100 WBC (Bld) 5.2 % Normal 2.0 - 10.0 [facility] Comment on above: Performed By: #### U CANDY #### [facility] [place] [address] [place] [address] Neutrophils (Bld) [#/Vol] 9.00 10*3/uL High 1.20 - 7.70 [facility] Comment on above: Performed By: #### U CANDY #### [facility] [address] [place] [address] Neutrophils/100 WBC (Bld) 67.6 % Normal 40.0 - 80.0 [facility] Comment on above: Performed By: #### U CANDY #### [facility] [address] [place] [address] NUCLEATED RBC 0.0 /100 WBC Normal 0.0-0.0 [facility] Comment on above: Performed By: #### U CANDY #### [facility] [place] [address] [place] [address] Platelets (Bld) [#/Vol] 294 10*3/uL Normal 150 - 450 [facility] Comment on above: Performed By: #### U CANDY #### [facility] [address] [place] [address] RBC 4.39 x10E12/L Normal 4.00 - 5.20 [facility] Comment on above: Performed By: #### U CANDY #### [facility] [address] [place] [address] WBC (Bld) [#/Vol] 13.3 10*3/uL High 4.4 - 11.3 [facility] [place] Comment on above: Performed By: #### U CANDY #### [facility] [address] [place] [address] COMPREHENSIVE PANELon 2022 Albumin [Mass/Vol] 3.9 g/dL Normal 3.4 - 5.0 [facility] Comment on above: Performed By: #### U RINC #### [facility] [address] [place] [address] ALP [Catalytic activity/Vol] 108 U/L Normal 33 - 110 [facility] Comment on above: Performed By: #### U RINC #### [facility] [address] [place] [address] ALT [Catalytic activity/Vol] 18 U/L Normal 7 - 45 [facility] Comment on above: Result Comment: Gail ents treated with Sulfasalazine may generate falsely decreased results for ALT. Performed By: #### U RINC #### [facility] [address] [place] [address] Anion gap [Moles/Vol] 14 mmol/L Normal 10 - 20 [facility] Comment on above: Performed By: #### U RINC #### [facility] [address] [place] [address] AST [Catalytic activity/Vol] 16 U/L Normal 9 - 39 [facility] Comment on above: Performed By: #### U RINC #### [facility] [address] [place] [address] Bilirubin [Mass/Vol] 0.4 mg/dL Normal 0.0 - 1.2 [facility] Comment on above: Performed By: #### U RINC #### [facility] [address] [place] [address] Calcium [Mass/Vol] 9.0 mg/dL Normal 8.6 - 10.6 [facility] Comment on above: Performed By: #### U RINC #### [facility] [address] [place] [address] Chloride [Moles/Vol] 104 mmol/L Normal 98 - 107 [facility] Comment on above: Performed By: #### U RINC #### [facility] [address] [place] [address] Creatinine [Mass/Vol] 0.80 mg/dL Normal 0.50 - 1.05 [facility] Comment on above: Performed By: #### U RINC #### [facility] [address] [place] [address] eGFR FEMALE >90 Normal >90 [facility] Comment on above: Result Comment: CALC ULATIONS OF ESTIMATED GFR ARE PERFORMED USING THE 2020 CKD-EPI STUDY REFIT EQUATION WITHOUT THE RACE VARIABLE FOR THE IDMS-TRACEABLE CREATININE METHODS. https://jasn.asnjournals.org/content/early//ASN.960701 4109 Performed By: #### U RINC #### [facility] [address] [place] [address] Glucose [Mass/Vol] 99 mg/dL Normal 74 - 99 [facility] Comment on above: Performed By: #### U RINC #### [facility] [address] [place] [address] HCO3 (Bld) [Moles/Vol] 27 mmol/L Normal 21 - 32 [facility] Comment on above: Performed By: #### U RINC #### [facility] [address] [place] [address] Potassium [Moles/Vol] 3.9 mmol/L Normal 3.5 - 5.3 [facility] Comment on above: Performed By: #### U RINC #### [facility] [address] [place] [address] Protein [Mass/Vol] 7.0 g/dL Normal 6.4 - 8.2 [facility] Comment on above: Performed By: #### U RINC #### [facility] [address] [place] [address] Sodium [Moles/Vol] 141 mmol/L Normal 136 - 145 [facility] Comment on above: Performed By: #### U RINC #### [facility] [address] [place] [address] Urea nitrogen [Mass/Vol] 17 mg/dL Normal 6 - 23 [facility] Comment on above: Performed By: #### U RINC #### [facility] [address] [place] [address] Complete Blood Count + Diffe rentialon 07-22-2022 Basophils/100 WBC (Bld) 0.8 % 0.0 - 2.0 [facility] Work Phone: Erythrocyte distribution width (RBC) [Ratio] 14.6 % above high threshold See Below [facility] Work Phone: Comment on above: Reference Range: 11. 5 - 14.5 Hematocrit (Bld) [Volume fraction] 40.0 % See Below [facility] Work Phone: Comment on above: Reference Range: 36. 0 - 46.0 Hemoglobin (Bld) [Mass/Vol] 12.8 g/dL See Below [facility] Work Phone: Comment on above: Reference Range: 12. 0 - 16.0 Lymphocytes/100 WBC (Bld) 25.1 % See Below [facility] Work Phone: Comment on above: Reference Range: 13. 0 - 44.0 MCHC (RBC) [Mass/Vol] 32.0 g/dL See Below [facility] Work Phone: Comment on above: Reference Range: 32. 0 - 36.0 MCV (RBC) [Entitic vol] 91 fL 80 - 100 [facility] Work Phone: Monocytes/100 WBC (Bld) 5.2 % 2.0 - 10.0 [facility] Work Phone: Neutrophils/100 WBC (Bld) 67.6 % See Below [facility] Work Phone: Comment on above: Reference Range: 40. 0 - 80.0 Platelets (Bld) [#/Vol] 294 10*3/uL 150 - 450 [facility] Work Phone: RBC (Bld) [#/Vol] 4.39 {x10E12/L} See Below [facility] Work Phone: Comment on above: Reference Range: 4.0 0 - 5.20 WBC (Bld) [#/Vol] 13.3 10*3/uL above high threshold 4.4 - 11.3 [facility] Work Phone: Complete Blood Count + Differential 0.10 {x10E9/L} See Below [facility] Work Phone: Comment on above: Reference Range: 0.0 0 - 0.10 Complete Blood Count + Differential 0.09 {x10E9/L} See Below [facility] Work Phone: Comment on above: Reference Range: 0.0 0 - 0.70 Complete Blood Count + Differential 0.69 {x10E9/L} See Below [facility] Work Phone: Comment on above: Reference Range: 0.1 0 - 1.00 Complete Blood Count + Differential 3.34 {x10E9/L} See Below [facility] Work Phone: Comment on above: Reference Range: 1.2 0 - 4.80 Complete Blood Count + Differential 9.00 {x10E9/L} above high threshold See Below [facility] Work Phone: Comment on above: Reference Range: 1.2 0 - 7.70 Complete Blood Count + Differential 0.7 % 0.0 - 6.0 [facility] [employer] Work Phone: Complete Blood Count + Differential 0.6 % 0.0 - 0.9 [facility] Work Phone: Comment on above: Immature Granulocyte Count (IG) includes promyelocytes, myelocytes and metamyelocytes but does not include bands. Percent differential counts (%) should be interpreted in the context of the absolute cell counts (cells/L). Complete Blood Count + Differential 0.0 {/100_WBC} 0.0-0.0 [facility] Work Phone: FOLATE, SERUMon 07-22-2022 Folate [Mass/Vol] 3.7 ng/mL Abnormal >5.0 [facility] Comment on above: Result Comment: Low <3.4 Borderline 3.4-5.0 Normal >5.0 . Biotin interference may cause falsely elevated results. Patients taking a Biotin dose of up to 5 mg/day should refrain from taking Biotin for 24 hours before sample collection. Providers may contact their local laboratory for further information. Performed By: #### U [facility] #### [facility] [address] [place] [address] Folate, Serumon 07-22-2022 Folate [Mass/Vol] 3.7 ng/mL Abnormal >5.0 [facility] [employer] Work Phone: Comment on above: Low <3.4Borderline 3 .4-5.0Normal >5.0. Biotin interference may cause falsely elevated results. Patients taking a Biotin dose of up to 5 mg/day should refrain from taking Biotin for 24 hours before sample collection. Providers may contact their local laboratory for further information. HEMOGLOBIN A1Con 07-22-2022 Glucose [Mass/Vol] 134 mg/dL Normal [facility] Comment on above: Performed By: #### H BA1E #### [facility] [address] [place] [address] HbA1c (Bld) [Mass fraction] 6.3 % Abnormal [facility] Comment on above: Result Comment: Diag nosis of Diabetes-Adults Non-Diabetic: < or = 5.6% Increased risk for developing diabetes: 5.7-6.4% Diagnostic of diabetes: > or = 6.5% . Monitoring of Diabetes Age (y) Therapeutic Goal (%) Adults: >18 <7.0 Pediatrics: 13-18 <7.5 7-12 <8.0 0- 6 7.5-8.5 [place] [employer]. Diabetes Care 33(S1), Jun 2009. Performed By: #### H BA1E #### [facility] [address] [place] [address] Hemoglobin A1Con 07-22-2022 Glucose [Mass/Vol] 134 mg/dL [facility] Work Phone: HbA1c (Bld) [Mass fraction] 6.3 % Abnormal [facility] Work Phone: Comment on above: Diagnosis of Diabete s-Adults Non-Diabetic: < or = 5.6% Increased risk for developing diabetes: 5.7-6.4% Diagnostic of diabetes: > or = 6.5%. Monitoring of Diabetes Age (y) Therapeutic Goal (%) Adults: >18 <7.0 Pediatrics: 13-18 <7.5 7-12 <8.0 0- 6 7.5-8.5 [place] [employer]. Diabetes Care 33(S1), Jun 2009. INSULIN, FASTINGon 3 INSULIN, FASTING 41 uIU/mL High 3 - 25 [facility] Comment on above: Performed By: #### U CANDY #### [facility] [address] [place] [address] Insulin, Fastingon 3 Insulin post fast Qn 41 {uIU/mL} above high threshold 3 - 25 -[facility] miguel a Work Phone: LIPID PANEL (CORONARY RISK 2 )on 07-22-2022 Cholesterol [Mass/Vol] 169 mg/dL Normal 0 - 199 [facility] Comment on above: Result Comment: . AGE DESIRABLE BORDERLINE HIGH HIGH 0-19 Y 0 - 169 170 - 199 >/= 200 20-24 Y 0 - 189 190 - 224 >/= 225 >24 Y 0 - 199 200 - 239 >/= 240 All ranges are based on fasting samples. Specific therapeutic targets will vary based on patient-specific cardiac risk. . Pediatric guidelines reference:Pediatrics 2011, 128(S5). Adult guidelines reference: NCEP ATPIII Guidelines, DEANNE 2001, 258:2486-97 . Venipuncture immediately after or during the administration of Metamizole may lead to falsely low results. Testing should be performed immediately prior to Metamizole dosing. Performed By: #### L IPID #### [facility] [address] [place] [address] Cholesterol in HDL [Mass/Vol] 59.1 mg/dL Normal [facility] Comment on above: Result Comment: . AGE VERY LOW LOW NORMAL HIGH 0-19 Y < 35 < 40 40-45 ---- 20-24 Y ---- < 40 >45 ---- >24 Y ---- < 40 40-60 >60 . Performed By: #### L IPID #### [facility] [address] [place] [address] Cholesterol in LDL [Mass/Vol] 92 mg/dL Normal 0 - 99 [facility] Comment on above: Result Comment: . NEAR BORD AGE DESIRABLE OPTIMAL HIGH HIGH VERY HIGH 0-19 Y 0 - 109 --- 110-129 >/= 130 ---- 20-24 Y 0 - 119 --- 120-159 >/= 160 ---- >24 Y 0 - 99 100-129 130-159 160-189 >/=190 . Performed By: #### L IPID #### [facility] [address] [place] [address] Cholesterol in VLDL [Mass/Vol] 18 mg/dL Normal 0 - 40 [facility] Comment on above: Performed By: #### L IPID #### [facility] [address] [place] [address] Cholesterol.total/Cho lesterol in HDL [Mass ratio] 2.9 {ratio} Normal [facility] Comment on above: Result Comment: REF VALUES DESIRABLE < 3.4 HIGH RISK > 5.0 Performed By: #### L IPID #### [facility] [address] [place] [address] Triglyceride [Mass/Vol] 89 mg/dL Normal 0 - 149 [facility] Comment on above: Result Comment: . AGE DESIRABLE BORDERLINE HIGH HIGH VERY HIGH 0 D-90 D 19 - 174 ---- ---- ---- 91 D- 9 Y 0 - 74 75 - 99 >/= 100 ---- 10-19 Y 0 - 89 90 - 129 >/= 130 ---- 20-24 Y 0 - 114 115 - 149 >/= 150 ---- >24 Y 0 - 149 150 - 199 200- 499 >/= 500 . Venipuncture immediately after or during the administration of Metamizole may lead to falsely low results. Testing should be performed immediately prior to Metamizole dosing. Performed By: #### L IPID #### [facility] [address] [place] [address] Laboratory - Chemistry and C hemistry - challengeon 07-22-2022 Albumin BCP dye [Mass/Vol] 3.9 g/dL 3.4 - 5.0 [email or web address] Work Phone: ALP [Catalytic activity/Vol] 108 U/L 33 - 110 [email or web address] Work Phone: ALT With P-5'-P [Catalytic activity/Vol] 18 U/L 7 - 45 [email or web address] Work Phone: Comment on above: Patients treated wit h Sulfasalazine may generate falsely decreased results for ALT. Anion gap [Moles/Vol] 14 mmol/L 10 - 20 [facility] Work Phone: AST With P-5'-P [Catalytic activity/Vol] 16 U/L 9 - 39 [facility] Work Phone: Bilirubin [Mass/Vol] 0.4 mg/dL 0.0 - 1.2 -[facility] n Work Phone: Calcium [Mass/Vol] 9.0 mg/dL 8.6 - 10.6 -Tristen archibald [facility] Work Phone: Chloride [Moles/Vol] 104 mmol/L 98 - 107 -[facility] Work Phone: CO2 [Moles/Vol] 27 mmol/L 21 - 32 [facility] Work Phone: Creatinine [Mass/Vol] 0.80 mg/dL See Below [facility] Work Phone: Comment on above: Reference Range: 0.5 0 - 1.05 Glucose [Mass/Vol] 99 mg/dL 74 - 99 [facility] Work Phone: Potassium [Moles/Vol] 3.9 mmol/L 3.5 - 5.3 [facility] Work Phone: Protein [Mass/Vol] 7.0 g/dL 6.4 - 8.2 [facility] Work Phone: Sodium [Moles/Vol] 141 mmol/L 136 - 145 [facility] Work Phone: Urea nitrogen [Mass/Vol] 17 mg/dL 6 - 23 [facility] Work Phone: Lipid Panelon 07-22-2022 Cholesterol [Mass/Vol] 169 mg/dL 0 - 199 [facility] Work Phone: Comment on above: . AGE DESIRABLE BORD EDIL HIGH HIGH 0-19 Y 0 - 169 170 - 199 >/= 200 20-24 Y 0 - 189 190 - 224 >/= 225 >24 Y 0 - 199 200 - 239 >/= 240 All ranges are based on fasting samples. Specific therapeutic targets will vary based on patient-specific cardiac risk.. Pediatric guidelines reference:Pediatrics 2011, 128(S5). Adult guidelines reference: NCEP ATPIII Guidelines, DEANNE 2001, 258:2486-97. Venipuncture immediately after or during the administration of Metamizole may lead to falsely low results. Testing should be performed immediately prior to Metamizole dosing. Cholesterol in HDL [Mass/Vol] 59.1 mg/dL [employer] Work Phone: Comment on above: . AGE VERY LOW LOW N ORMAL HIGH 0-19 Y < 35 < 40 40-45 ---- 20- 24 Y ---- < 40 >45 ---- >24 Y ---- < 40 40-60 >60. Cholesterol in LDL [Mass/Vol] 92 mg/dL 0 - 99 [employer] Work Phone: Comment on above: . NEAR BORD AGE ROBIN RABLE OPTIMAL HIGH HIGH VERY HIGH 0-19 Y 0 - 109 --- 110-129 >/= 130 ---- 20-24 Y 0 - 119 --- 120-159 >/= 160 ---- >24 Y 0 - 99 100-129 130-159 160-189 >/=190. Cholesterol.total/Cho lesterol in HDL [Mass ratio] 2.9 {ratio} [employer] Work Phone: Comment on above: REF VALUESDESIRABLE < 3.4HIGH RISK > 5.0 Triglyceride [Mass/Vol] 89 mg/dL 0 - 149 [employer] Work Phone: Comment on above: . AGE DESIRABLE BORD EDIL HIGH HIGH VERY HIGH 0 D-90 D 19 - 174 ---- ---- ----91 D- 9 Y 0 - 74 75 - 99 >/= 100 ---- 10-19 Y 0 - 89 90 - 129 >/= 130 ---- 20-24 Y 0 - 114 115 - 149 >/= 150 ---- >24 Y 0 - 149 150 - 199 200- 499 >/= 500. Venipuncture immediately after or during the administration of Metamizole may lead to falsely low results. Testing should be performed immediately prior to Metamizole dosing. Lipid Panel 18 mg/dL 0 - 40 [email or web address] Work Phone: No Panel Informationon 07-22 >90 >90 [email or web address] Work Phone: Comment on above: CALCULATIONS OF JAVIER MATED GFR ARE PERFORMED USING THE 2020 CKD-EPI STUDY REFIT EQUATION WITHOUT THE RACE VARIABLE FOR THE IDMS-TRACEABLE CREATININE METHODS.https://jasn.asnjournals.org/content/early/ N.1873169059 PROLACTINon 07-22-2022 PROLACTIN 10.8 ug/L Normal 3.0 - 20.0 [facility] Comment on above: Performed By: #### U CANDY #### [facility] [address] [place] [address] [place], [place] Prolactin, Serumon Prolactin [Mass/Vol] 10.8 ug/L 3.0 - 20.0 [email or web address] Work Phone: TSHon 07-22-2022 TSH Qn 3.31 m[IU]/L Normal 0.44 - 3.98 [facility] [place] Comment on above: Result Comment: TSH testing is performed using different testing methodology at [facility] than at other [facility]. Direct result comparisons should only be made within the same method. Performed By: #### T SH2 #### [facility] [address] [place], [place] TSH - Thyroid Stimulating Ho rmone, Serumon 07-22-2022 TSH Qn 3.31 m[IU]/L See Below [facility] [employer] Work Phone: Comment on above: Reference Range: 0.4 4 - 3.98 TSH testing is performed using different testing methodology at [facility] than at other [facility]. Direct result comparisons should only be made within the same method. URIC ACIDon 07-22-2022 Urate [Mass/Vol] 7.1 mg/dL High 2.3 - 6.7 [facility] Comment on above: Result Comment: Jazmyn puncture immediately after or during the administration of Metamizole may lead to falsely low results. Testing should be performed immediately prior to Metamizole dosing. Performed By: #### U CANDY #### [facility] [address] [address] Uric Acid, Serumon 3 Urate [Mass/Vol] 7.1 mg/dL above high threshold 2.3 - 6.7 [facility] Work Phone: Comment on above: Venipuncture immedia tely after or during the administration of Metamizole may lead to falsely low results. Testing should be performed immediately prior to Metamizole dosing. VITAMIN B12on 07-22-2022 Cobalamin (Vitamin B12) [Mass/Vol] 354 pg/mL Normal 211 - 911 [facility] Comment on above: Performed By: #### U RINC #### [facility] [address] [place] [address] Vitamin B12, Serumon 023 Cobalamin (Vitamin B12) [Mass/Vol] 354 pg/mL 211 - 911 [facility] Work Phone: Office Visit (Family Medicin e)on 06-06-2022 Follow-up visit Diagnoses/Problems Generalized anxiety disorder (300.02) (F41.1) GERD (gastroesophageal reflux disease) (530.81) (K21.9) HTN (hypertension), benign (401.1) (I10) Hyperlipidemia (272.4) (E78.5) Migraine headache (346.90) (G43.909) Mild intermittent asthma without complication (493.90) (J45.20) Morbid obesity with BMI of 50.0-59.9, adult (278.01,V85.43) (E66.01,Z68.43) IZABELA on CPAP (327.23,V46.8) (G47.33,Z99.89) Insomnia, persistent (307.42) (G47.00) Shift Work (second shift) Orders Chronic back pain Renew: Gabapentin 300 MG Oral Capsule (Neurontin); TAKE 1 CAPSULE Daily Continue: Meloxicam 15 MG Oral Tablet; take 1 tablet by mouth once daily TAKE WITH FOOD AND 8 OZ OF WATER HTN (hypertension), benign Changed: From Metoprolol Succinate ER 50 MG Oral Tablet Extended Release 24 Hour TAKE 1 TABLET EVERY DAY To Metoprolol Succinate ER 100 MG Oral Tablet Extended Release 24 Hour TAKE 1 TABLET BY MOUTH EVERY DAY Renew: Valsartan-hydroCHLOROthi azide 160-12.5 MG Oral Tablet; TAKE 1 TABLET ONCE DAILY Hyperlipidemia Renew: Atorvastatin Calcium 20 MG Oral Tablet; take 1 tablet by mouth at bedtime Metabolic syndrome Changed: From metFORMIN HCl ER 500 MG Oral Tablet Extended Release 24 Hour TAKE 1 TABLET DAILY DIRECTED To metFORMIN HCl ER 500 MG Oral Tablet Extended Release 24 Hour take 1 tablet by mouth once daily as directed Migraine headache Continue: Topiramate 50 MG Oral Tablet; TAKE 1 TABLET TWICE DAILY Mild intermittent asthma without complication Renew: Montelukast Sodium 10 MG Oral Tablet (Singulair); TAKE 1 TABLET BY MOUTH EVERY NIGHT AT BEDTIME Continue: Albuterol Sulfate HFA 108 (90 Base) MCG/ACT Inhalation Aerosol Solution (ProAir HFA); INHALE 1 TO 2 PUFFS EVERY 4 TO 6 HOURS NEEDED Restless legs syndrome (RLS) Continue: rOPINIRole HCl - 1 MG Oral Tablet; take 1 tablet by mouth at bedtime Seasonal allergies Continue: Loratadine 10 MG Oral Tablet; Take 1 tablet daily Vitamin D deficiency Renew: RA Vitamin D-3 50 MCG (1999 UT) Oral Capsule; take 1 capsule by mouth once daily Unlinked Continue: busPIRone HCl - 5 MG Oral Tablet; Take 1 tablet twice daily Continue: Nurtec 75 MG Oral Tablet Disintegrating Continue: Vraylar 1.5 MG Oral Capsule Patient Discussion/Summary continue all medications Refills sent in Increase Metoprolol XR 100 mg daily F/U in 1 month for a PE F/B prior to ov. You have high cholesterol. (hyperlipidemia). This increases your risk for cardiovascular disease.(Heart attack/stroke/circulatio n); Continue any prescribed and advised OTC medications, in addition, as reminder:; For high LDL (>130) use blueberries 1 cup daily; Plant Stanol dose 950mg twice daily (may need to find online source for this dose), and ; Metamucil/psyllium fiber 7 grams daily.; ; For high Triglycerides:; Fish oil (start at 2000-3000mg daily); ; You should exercise 30 minutes daily. ; ; Your nutrition plan needs to emphasizes vegetables, fruits, and lean meat. I recommend the Mediterranean Diet ; Please find this link to helpful information about lowering your cholesterol: http://www.aafp.org/afp/ /p1103.html; it is important to control BP for risk reduction of stroke, heart attack, kidney damage, and circulatory problems from clogged arteries; BP goal is <140/90. check your BP at least weekly and If your BP is above this goal on repeated measurements, please contact me so we can make treatment adjustments.; Nutritional plans I recommend include the Meditteranean Diet and The DASH diet.; Please engage in aerobic exercise 30min daily.; Depression What is depression?; When doctors talk about depression, they mean the medical illness called major depression. Someone who has major depression has symptoms nearly every day, all day, for 2 weeks or longer. There is also a minor form of depression that causes less severe symptoms. Both kinds of depression have the same causes and treatment.; Depression can affect people of all ages and is different for every person. A person who has depression can?t control his or her feelings. If you or your child, teen, or older relative is depressed, it?s not his or her fault. Women are twice as likely as men to experience depression. The reason for this is unknown, but changes in a woman's hormone levels may be related to depression. What are the symptoms of depression?; The symptoms of depression are different for every person. You may have one or many of the symptoms listed below. Your symptoms may include only emotional or only physical symptoms, or both.; Emotional symptoms Crying easily or for no reason ; Feeling guilty or worthless ; Feeling restless, irritated, and easily annoyed ; Feeling sad, numb, or hopeless ; Losing interest or pleasure in things you used to enjoy (including sex) ; Thinking about or suicide; Physical symptoms Changes in appetite (eating more than usual, or eating less than usual) ; (more content not included)... Normal [facility] No Panel [facility]on 04-17 [facility]: [facility] Patient Name JACOB CELIS Date of Procedure: 04/17/2022 Date Reported: 04/18/2022 Date Received: 04/17/2022 Date of / Sex 1980 (Age: 41) / F Race: WHITE Submitting Physician: LEEANN MCWILLIAMS MD Attending Physician: DEDRICK MOSHER MD Other External # FINAL CYTOLOGICAL INTERPRETATION A. FINE NEEDLE ASPIRATION OF THYROID - LEFT LOBE (MIDPORTION) NODULE: - NO MALIGNANT CELLS IDENTIFIED. - CYTOLOGIC FINDINGS CONSISTENT WITH A BENIGN FOLLICULAR NODULE. Note: The benign follicular nodule (BFN) encompasses a group of benign lesions with similar cytologic findings that are classified histologically as nodules in nodular goiter, hyperplastic (adenomatoid) nodules, colloid nodules, nodules in Graves' disease, and a subset of follicular adenomas. The distinction among these different histologic entities is not possible by FNA, but this is of little importance because they are all benign and can be managed in a similar, conservative manner. This case has been evaluated using direct smears and concentrated (ThinPrep) preparations. All slides showed similar findings. [place] [facility] Implied Risk of Malignancy and Recommended Clinical Management Diagnostic category Risk of Malignancy Usual management Nondiagnostic/Unsatisfac tory - Repeat FNA with ultrasound guidance Benign 0-3% Clinical Follow-up Atypia of undetermined significance 5-15% Repeat FNA or Follicular lesion of US Follicular neoplasm/suspicious for 15-30% Surgical lobectomy follicular neoplasm Suspicious for malignancy 60-75% Near total thyroidectomy/lobectomy Malignant 97-99% Near total thyroidectomy Slide(s) initially screened by a Eng[employer] Block at [facility], [address] [place] [id number] Electronically Signed Out By JULIET IDOP M.D. By the signature on this report, the individual or group listed as making the Final Interpretation/Diagnosis certifies that they have reviewed this case. Slide(s) initially screened by a Engraver Block at [facility] Diagnostic interpretation performed at [facility] [address] [place] [address] Clinical History 1.5 cm diameter dominant hypoechoic nodule?midportion left lobe of thyroid History of right hemithyroidectomy for papillary carcinoma (2019) Source of Specimen A: FINE NEEDLE ASPIRATION OF THYROID - LEFT LOBE (MIDPORTION) NODULE Specimen Submitted as: A: FINE NEEDLE ASPIRATION OF THYROID - LEFT LOBE (MIDPORTION) NODULE Pap non-wedding coordinator ThinPrep slide, Pap stain Non-Medical Examiner, Pap stain Non-Medical Examiner, Pap stain Non-Medical Examiner, Pap stain Non-Medical Examiner, Diff-Quik stain Non-Medical Examiner, Diff-Quik stain Non-Medical Examiner, Diff-Quik stain Non-Medical Examiner, Diff-Quik stain Non-Medical Examiner Gross Description A. FINE NEEDLE ASPIRATION OF THYROID - LEFT LOBE (MIDPORTION) NODULE: RECEIVED 8 DIRECT SMEARS (4 AIR-DRIED AND 4 SPRAY-FIXED) AND 30 cc OF BLOOD-TINGED NEEDLE RINSE IN CYTOLYT WITH PARTICLES. [facility] Department of Pathology [address] [place] [address] Normal [place] Radiologyon 04-17-2022 US Guidance for fine needle aspiration of Thyroid gland Normal [facility] Work Phone: US BIOPSY THYROIDon 04-17-20 US BIOPSY THYROID Patient Name: JACOB CELIS STUDY: US BIOPSY THYROID; 04/17/2022 2:58 pm INDICATION: Left thyroid nodule E04.1: Left thyroid nodule. COMPARISON: Diagnostic ultrasound dated February 11, 2022 ACCESSION NUMBER(S): [id number] ORDERING CLINICIAN: DEDRICK LEONARD TECHNIQUE: INTERVENTIONALIST(S): Leeann Mcwilliams MD CONSENT: The patient/patient's POA/next of kin was informed of the nature of the proposed procedure. The purposes, alternatives, risks, and benefits were explained and discussed. All questions were answered and consent was obtained. SEDATION: Lidocaine was administered for local anesthesia. No IV sedation was given TIME OUT: A time out was performed immediately prior to procedure start with the interventional team, correctly identifying the patient name, date of , MRN, procedure, anatomy (including marking of site and side), patient position, procedure consent form, relevant laboratory and imaging test results, antibiotic administration, safety precautions, and procedure-specific equipment needs. COMPLICATIONS: No immediate adverse events identified. FINDINGS: The patient was placed in the supine position with the neck in an extended position. Ultrasound of the thyroid was performed and demonstrated a dominant, hypoechoic nodule in the midportion of the left lobe. The nodule in the left lobe of the thyroid was selected for biopsy. The patient was prepped and draped in normal sterile fashion. Subcutaneous lidocaine was utilized for local anesthesia. Subsequently, four passes were made into the previously mentioned nodule(s) using 25 gauge spinal needles under direct ultrasound guidance. Images document the tip of the needle within the nodule(s). Slides were prepared and sent to pathology for evaluation. There were no immediate complications. IMPRESSION: Uneventful ultrasound-guided fine-needle aspiration biopsy of left lobe thyroid nodule, as detailed above. I performed the procedure and dictated this report. Performed and dictated at [facility]. 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 Generalized anxiety disorder (300.02) (F41.1) GERD (gastroesophageal reflux disease) (530.81) (K21.9) HTN (hypertension), benign (401.1) (I10) Hyperlipidemia (272.4) (E78.5) Metabolic syndrome (277.7) (E88.81) Migraine headache (346.90) (G43.909) Mild intermittent asthma without complication (493.90) (J45.20) Morbid obesity with BMI of 45.0-49.9, adult (278.01,V85.42) (E66.01,Z68.42) IZABELA on CPAP (327.23,V46.8) (G47.33,Z99.89) Pre-diabetes (790.29) (R73.03) Restless legs syndrome (RLS) (333.94) (G25.81) Seasonal allergies (477.9) (J30.2) Chronic back pain (724.5,338.29) (M54.9,G89.29) Orders Chronic back pain Changed: From Gabapentin 300 MG Oral Capsule take 1 capsule by mouth at bedtime To Gabapentin 300 MG Oral Capsule (Neurontin) TAKE 1 CAPSULE Daily Uric Acid, Serum; Status:Active; Requested for:21Mar2022; Continue: Meloxicam 15 MG Oral Tablet; take 1 tablet by mouth once daily TAKE WITH FOOD AND 8 OZ OF WATER HTN (hypertension), benign Renew: Metoprolol Succinate ER 50 MG Oral Tablet Extended Release 24 Hour; TAKE 1 TABLET EVERY DAY Continue: Valsartan-hydroCHLOROthi azide 160-12.5 MG Oral Tablet; TAKE 1 TABLET ONCE DAILY Hyperlipidemia Continue: Atorvastatin Calcium 20 MG Oral Tablet; take 1 tablet by mouth at bedtime Metabolic syndrome Continue: metFORMIN HCl ER 500 MG Oral Tablet Extended Release 24 Hour; TAKE 1 TABLET DAILY DIRECTED Migraine headache Continue: Topiramate 50 MG Oral Tablet; TAKE 1 TABLET TWICE DAILY Mild intermittent asthma without complication Continue: Albuterol Sulfate HFA 108 (90 Base) MCG/ACT Inhalation Aerosol Solution (ProAir HFA); INHALE 1 TO 2 PUFFS EVERY 4 TO 6 HOURS NEEDED Continue: Montelukast Sodium 10 MG Oral Tablet (Singulair); TAKE 1 TABLET BY MOUTH EVERY NIGHT AT BEDTIME Morbid obesity with BMI of 45.0-49.9, adult Insulin, Fasting; Status:Active; Requested for:21Mar2022; Morbid obesity with body mass index (BMI) of 45.0 to 49.9 in adult BMI Above Normal Follow-up Visit Outpatient Follow-up Status: Complete Done: 21Mar2022 Pre-diabetes Complete Blood Count + Differential; Status:Active; Requested for:21Mar2022; Comprehensive Metabolic Panel; Status:Active; Requested for:21Mar2022; Hemoglobin A1C; Status:Active; Requested for:21Mar2022; Lipid Panel; Status:Active; Requested for:21Mar2022; Vitamin B12, Serum; Status:Active; Requested for:21Mar2022; Restless legs syndrome (RLS) Continue: rOPINIRole HCl - 1 MG Oral Tablet; take 1 tablet by mouth at bedtime Seasonal allergies Continue: Loratadine 10 MG Oral Tablet; Take 1 tablet daily Vitamin D deficiency Continue: RA Vitamin D-3 50 MCG (1999 UT) Oral Capsule; take 1 capsule by mouth once daily Continue: Vitamin D (Ergocalciferol) 50 MCG (2000 UT) Oral Capsule; TAKE 1 CAPSULE Daily Unlinked Continue: busPIRone HCl - 5 MG Oral Tablet; Take 1 tablet twice daily Continue: Nurtec 75 MG Oral Tablet Disintegrating Continue: Vraylar 1.5 MG Oral Capsule Patient Discussion/Summary continue all medications Refills sent in Increase Metoprolol XR 50 mg daily F/U in 1 month F/B prior to ov. You have high cholesterol. (hyperlipidemia). This increases your risk for cardiovascular disease.(Heart attack/stroke/circulatio n); Continue any prescribed and advised OTC medications, in addition, as reminder:; For high LDL (>130) use blueberries 1 cup daily; Plant Stanol dose 950mg twice daily (may need to find online source for this dose), and ; Metamucil/psyllium fiber 7 grams daily.; ; For high Triglycerides:; Fish oil (start at 2000-3000mg daily); ; You should exercise 30 minutes daily. ; ; Your nutrition plan needs to emphasizes vegetables, fruits, and lean meat. I recommend the Mediterranean Diet ; Please find this link to helpful information about lowering your cholesterol: http://www.aafp.org/afp/ /p1103.html; it is important to control BP for risk reduction of stroke, heart attack, kidney damage, and circulatory problems from clogged arteries; BP goal is <140/90. check your BP at least weekly and If your BP is above this goal on repeated measurements, please contact me so we can make treatment adjustments.; Nutritional plans I recommend include the Meditteranean Diet and The DASH diet.; Please engage in aerobic exercise 30min daily.; Depression What is depression?; When doctors talk about depression, they mean the medical illness called major depression. Someone who has major depression has symptoms nearly every day, all day, for 2 weeks or longer. There is also a minor form of depression that causes less severe symptoms. Both kinds of depression have the same causes and treatment.; Depression can affect people of all ages and is different for every per (more content not included)... Normal [facility] Tobacco Screening.on 022 Adult depression screening assessment No [facility] Work Phone: Fall risk assessment a) No falls within the last year [facility] [employer] Work Phone: Tobacco use status CP b) No [facility] Work Phone: Radiologyon 02-11-2022 US Thyroid gland Normal -Endoc rinol 5151tuan Work Phone: Laboratory - Chemistry and C hemistry - challengeon 02-01-2022 TSH Qn 2.68 m[IU]/L See Below [facility]-Endocrino l [employer] brittany Work Phone: Comment on above: Reference Range: 0.4 4 - 3.98 TSH testing is performed using different testing methodology at [facility] than at other [facility]. Direct result comparisons should only be made within the same method. LMPon 01-01-2022 Last menstrual period start date n/a [facility] [place] Work Phone: Antithyroid Perox. Abon 05- TPO Ab Qn [IU]/mL [facility] [employer] Work Phone: Comment on above: Negative: <=60 U/mLP ositive: >60 U/mL Insulin, Fastingon 2 Insulin post fast Qn 107 {uIU/mL} above high threshold 3 - 25 [facility] [employer] Work Phone: C Reactive Protein, Serumon 09-27-2021 CRP [Mass/Vol] 1.50 mg/dL Abnormal [facility] [employer] Work Phone: Comment on above: REF VALUE< 1.00 Complete Blood Count + Diffe rentialon 09-27-2021 Basophils/100 WBC (Bld) 0.8 % 0.0 - 2.0 [facility] [employer] Work Phone: Erythrocyte distribution width (RBC) [Ratio] 14.4 % See Below [facility] Work Phone: Comment on above: Reference Range: 11. 5 - 14.5 Hematocrit (Bld) [Volume fraction] 42.5 % See Below [facility] Work Phone: Comment on above: Reference Range: 36. 0 - 46.0 Hemoglobin (Bld) [Mass/Vol] 13.9 g/dL See Below [facility] Work Phone: Comment on above: Reference Range: 12. 0 - 16.0 Lymphocytes/100 WBC (Bld) 31.7 % See Below [facility] Work Phone: Comment on above: Reference Range: 13. 0 - 44.0 MCHC (RBC) [Mass/Vol] 32.7 g/dL See Below [facility] Work Phone: Comment on above: Reference Range: 32. 0 - 36.0 MCV (RBC) [Entitic vol] 87 fL 80 - 100 [facility] Work Phone: Monocytes/100 WBC (Bld) 7.4 % 2.0 - 10.0 [facility] Work Phone: Neutrophils/100 WBC (Bld) 59.2 % See Below [facility] Work Phone: Comment on above: Reference Range: 40. 0 - 80.0 Platelets (Bld) [#/Vol] 275 10*3/uL 150 - 450 [facility] Work Phone: RBC (Bld) [#/Vol] 4.87 {x10E12/L} See Below [facility] Work Phone: Comment on above: Reference Range: 4.0 0 - 5.20 WBC (Bld) [#/Vol] 9.1 10*3/uL 4.4 - 11.3 [facility] Work Phone: Complete Blood Count + Differential 0.07 {x10E9/L} See Below [facility] Work Phone: Comment on above: Reference Range: 0.0 0 - 0.10 Complete Blood Count + Differential 0.05 {x10E9/L} See Below [facility] Work Phone: Comment on above: Reference Range: 0.0 0 - 0.70 Complete Blood Count + Differential 0.67 {x10E9/L} See Below [facility] Work Phone: Comment on above: Reference Range: 0.1 0 - 1.00 Complete Blood Count + Differential 2.87 {x10E9/L} See Below [facility] Work Phone: Comment on above: Reference Range: 1.2 0 - 4.80 Complete Blood Count + Differential 5.37 {x10E9/L} See Below [facility] Work Phone: Comment on above: Reference Range: 1.2 0 - 7.70 Complete Blood Count + Differential 0.6 % 0.0 - 6.0 [facility] Work Phone: Complete Blood Count + Differential 0.3 % 0.0 - 0.9 [facility] Work Phone: Comment on above: Immature Granulocyte Count (IG) includes promyelocytes, myelocytes and metamyelocytes but does not include bands. Percent differential counts (%) should be interpreted in the context of the absolute cell counts (cells/L). Complete Blood Count + Differential 0.0 {/100_WBC} 0.0-0.0 [facility] Work Phone: Hemoglobin A1Con 09-27-2021 Glucose [Mass/Vol] 111 mg/dL [facility] Work Phone: HbA1c (Bld) [Mass fraction] 5.5 % [facility] Work Phone: Comment on above: Diagnosis of Diabete s-Adults Non-Diabetic: < or = 5.6% Increased risk for developing diabetes: 5.7-6.4% Diagnostic of diabetes: > or = 6.5%. Monitoring of Diabetes Age (y) Therapeutic Goal (%) Adults: >18 <7.0 Pediatrics: 13-18 <7.5 7-12 <8.0 0- 6 7.5-8.5 [place] [employer]. Diabetes Care 33(S1), Jun 2009. Laboratory - Chemistry and C hemistry - challengeon 09-27-2021 Albumin BCP dye [Mass/Vol] 3.9 g/dL 3.4 - 5.0 [facility] Work Phone: ALP [Catalytic activity/Vol] 103 U/L 33 - 110 [facility] Work Phone: ALT With P-5'-P [Catalytic activity/Vol] 20 U/L 7 - 45 [facility] Work Phone: Comment on above: Patients treated wit h Sulfasalazine may generate falsely decreased results for ALT. Anion gap [Moles/Vol] 14 mmol/L 10 - 20 [facility] Work Phone: AST With P-5'-P [Catalytic activity/Vol] 14 U/L 9 - 39 [facility] Work Phone: Bilirubin [Mass/Vol] 0.6 mg/dL 0.0 - 1.2 [facility] [employer] Work Phone: Calcium [Mass/Vol] 9.3 mg/dL 8.6 - 10.6 [facility] Work Phone: Chloride [Moles/Vol] 107 mmol/L 98 - 107 Nikolay montanez [facility] Work Phone: CO2 [Moles/Vol] 23 mmol/L 21 - 32 [facility] Work Phone: Creatinine [Mass/Vol] 0.57 mg/dL See Below [facility] Work Phone: Comment on above: Reference Range: 0.5 0 - 1.05 Glucose [Mass/Vol] 90 mg/dL 74 - 99 [facility] Work Phone: Potassium [Moles/Vol] 4.1 mmol/L 3.5 - 5.3 [facility] Work Phone: Protein [Mass/Vol] 7.0 g/dL 6.4 - 8.2 [facility] Work Phone: Sodium [Moles/Vol] 140 mmol/L 136 - 145 [facility] Work Phone: Urea nitrogen [Mass/Vol] 14 mg/dL 6 - 23 [facility] Work Phone: Lipid Panelon 09-27-2021 Cholesterol [Mass/Vol] 165 mg/dL 0 - 199 [facility] Work Phone: Comment on above: . AGE DESIRABLE BORD EDIL HIGH HIGH 0-19 Y 0 - 169 170 - 199 >/= 200 20-24 Y 0 - 189 190 - 224 >/= 225 >24 Y 0 - 199 200 - 239 >/= 240 All ranges are based on fasting samples. Specific therapeutic targets will vary based on patient-specific cardiac risk.. Pediatric guidelines reference:Pediatrics 2011, 128(S5). Adult guidelines reference: NCEP ATPIII Guidelines, DEANNE 2001, 258:2486-97. Venipuncture immediately after or during the administration of Metamizole may lead to falsely low results. Testing should be performed immediately prior to Metamizole dosing. Cholesterol in HDL [Mass/Vol] 51.9 mg/dL [facility] Work Phone: Comment on above: . AGE VERY LOW LOW N ORMAL HIGH 0-19 Y < 35 < 40 40-45 ---- 20- 24 Y ---- < 40 >45 ---- >24 Y ---- < 40 40-60 >60. Cholesterol in LDL [Mass/Vol] 89 mg/dL 0 - 99 [facility] [employer] Work Phone: Comment on above: . NEAR BORD AGE ROBIN RABLE OPTIMAL HIGH HIGH VERY HIGH 0-19 Y 0 - 109 --- 110-129 >/= 130 ---- 20-24 Y 0 - 119 --- 120-159 >/= 160 ---- >24 Y 0 - 99 100-129 130-159 160-189 >/=190. Cholesterol.total/Cho lesterol in HDL [Mass ratio] 3.2 {ratio} [facility] [employer] Work Phone: Comment on above: REF VALUESDESIRABLE < 3.4HIGH RISK > 5.0 Triglyceride [Mass/Vol] 121 mg/dL 0 - 149 [facility] Work Phone: Comment on above: . AGE DESIRABLE BORD EDIL HIGH HIGH VERY HIGH 0 D-90 D 19 - 174 ---- ---- ----91 D- 9 Y 0 - 74 75 - 99 >/= 100 ---- 10-19 Y 0 - 89 90 - 129 >/= 130 ---- 20-24 Y 0 - 114 115 - 149 >/= 150 ---- >24 Y 0 - 149 150 - 199 200- 499 >/= 500. Venipuncture immediately after or during the administration of Metamizole may lead to falsely low results. Testing should be performed immediately prior to Metamizole dosing. Lipid Panel 24 mg/dL 0 - 40 [facility] Work Phone: No Panel Informationon 09-27 >90 >90 [facility] Work Phone: Comment on above: CALCULATIONS OF JAVIER MATED GFR ARE PERFORMED USING THE 2020 CKD-EPI STUDY REFIT EQUATION WITHOUT THE RACE VARIABLE FOR THE IDMS-TRACEABLE CREATININE METHODS.https://jasn.asnjournals.org/content/early// N.5281697351 Sedimentation Rate, Erythroc yteon 09-27-2021 ESR (Bld) [Velocity] 34 mm/h above high threshold 0 - 20 [facility] Work Phone: T3 - Free Triiodothyronine, Serumon 09-27-2021 Free T3 [Mass/Vol] 3.1 pg/mL 2.3 - 4.2 [facility] Work Phone: TSH - Thyroid Stimulating Ho rmone, Serumon 09-27-2021 TSH Qn 1.65 m[IU]/L See Below [facility] Work Phone: Comment on above: Reference Range: 0.4 4 - 3.98 TSH testing is performed using different testing methodology at [facility] than at other [facility]. Direct result comparisons should only be made within the same method. Vitamin B12, Serumon 022 Cobalamin (Vitamin B12) [Mass/Vol] 339 pg/mL 211 - 911 [facility] Work Phone: Vitamin D 25-Hydroxyon 09-27 25-hydroxyvitamin D3 [Mass/Vol] 42 ng/mL [facility] Work Phone: Comment on above: .DEFICIENCY: < 20 NG /MLINSUFFICIENCY: 20-29 NG/MLSUFFICIENCY: 30-100 NG/MLTHIS ASSAY ACCURATELY QUANTIFIES THE SUM OFVITAMIN D3, 25-HYDROXY AND VIT D2,25-HYDROXY. IO Microalbumin, Urine Quant itativeon 06-28-2021 Albumin Ql (U) 30 mg/L [facility] Work Phone: Albumin/Creatinine DL <= 20 mg/L (U) [Mass ratio] < 30 mg/g Normal [facility] Work Phone: Creatinine (U) [Mass/Vol] 300 mg/dL [facility] Work Phone: Complete Blood Count + Diffe rential 03-12-2021 Basophils/100 WBC (Bld) 0.5 % 0.0 - 2.0 [facility] Work Phone: Erythrocyte distribution width (RBC) [Ratio] 14.5 % See Below [facility] Work Phone: Comment on above: Reference Range: 11. 5 - 14.5 Hematocrit (Bld) [Volume fraction] 44.1 % See Below [facility] Work Phone: Comment on above: Reference Range: 36. 0 - 46.0 Hemoglobin (Bld) [Mass/Vol] 13.6 g/dL See Below [facility] Work Phone: Comment on above: Reference Range: 12. 0 - 16.0 Lymphocytes/100 WBC (Bld) 22.0 % See Below [facility] Work Phone: Comment on above: Reference Range: 13. 0 - 44.0 MCHC (RBC) [Mass/Vol] 30.8 g/dL below low threshold See Below [facility] Work Phone: Comment on above: Reference Range: 32. 0 - 36.0 MCV (RBC) [Entitic vol] 90 fL 80 - 100 [facility] Work Phone: Monocytes/100 WBC (Bld) 6.2 % 2.0 - 10.0 [facility] Work Phone: Neutrophils/100 WBC (Bld) 70.0 % See Below [facility] Work Phone: Comment on above: Reference Range: 40. 0 - 80.0 Platelets (Bld) [#/Vol] 263 10*3/uL 150 - 450 [facility] Work Phone: RBC (Bld) [#/Vol] 4.91 {x10E12/L} See Below [facility] Work Phone: Comment on above: Reference Range: 4.0 0 - 5.20 WBC (Bld) [#/Vol] 12.9 10*3/uL above high threshold 4.4 - 11.3 [facility] Work Phone: Complete Blood Count + Differential 0.06 {x10E9/L} See Below [facility] Work Phone: Comment on above: Reference Range: 0.0 0 - 0.10 Complete Blood Count + Differential 0.10 {x10E9/L} See Below [facility] Work Phone: Comment on above: Reference Range: 0.0 0 - 0.70 Complete Blood Count + Differential 0.80 {x10E9/L} See Below [facility] Work Phone: Comment on above: Reference Range: 0.1 0 - 1.00 Complete Blood Count + Differential 2.83 {x10E9/L} See Below [facility] Work Phone: Comment on above: Reference Range: 1.2 0 - 4.80 Complete Blood Count + Differential 9.00 {x10E9/L} above high threshold See Below [facility] Work Phone: Comment on above: Reference Range: 1.2 0 - 7.70 Complete Blood Count + Differential 0.8 % 0.0 - 6.0 [facility] Work Phone: Complete Blood Count + Differential 0.5 % 0.0 - 0.9 [facility] Work Phone: Comment on above: Immature Granulocyte Count (IG) includes promyelocytes, myelocytes and metamyelocytes but does not include bands. Percent differential counts (%) should be interpreted in the context of the absolute cell counts (cells/L). Complete Blood Count + Differential 0.0 {/100_WBC} 0.0-0.0 [facility] Work Phone: Hemoglobin A1Con 03-12-2021 Glucose [Mass/Vol] 117 mg/dL [facility] Work Phone: HbA1c (Bld) [Mass fraction] 5.7 % Abnormal [facility] Phone: Comment on above: Diagnosis of Diabete s-Adults Non-Diabetic: < or = 5.6% Increased risk for developing diabetes: 5.7-6.4% Diagnostic of diabetes: > or = 6.5%. Monitoring of Diabetes Age (y) Therapeutic Goal (%) Adults: >18 <7.0 Pediatrics: 13-18 <7.5 7-12 <8.0 0- 6 7.5-8.5 [place] [employer]. Diabetes Care 33(S1), Jun 2009. Laboratory - Chemistry and C hemistry - challengeon 03-12-2021 Albumin BCP dye [Mass/Vol] 4.0 g/dL 3.4 - 5.0 [facility] Work Phone: ALP [Catalytic activity/Vol] 118 U/L above high threshold 33 - 110 [facility] Work Phone: ALT With P-5'-P [Catalytic activity/Vol] 18 U/L 7 - 45 [facility] Work Phone: Comment on above: Patients treated wit h Sulfasalazine may generate falsely decreased results for ALT. Anion gap [Moles/Vol] 13 mmol/L 10 - 20 [facility] Work Phone: AST With P-5'-P [Catalytic activity/Vol] 15 U/L 9 - 39 [facility] Work Phone: Bilirubin [Mass/Vol] 0.6 mg/dL 0.0 - 1.2 [facility] Work Phone: Calcium [Mass/Vol] 9.2 mg/dL 8.6 - 10.6 [facility] Work Phone: Chloride [Moles/Vol] 105 mmol/L 98 - 107 [facility] Work Phone: CO2 [Moles/Vol] 24 mmol/L 21 - 32 [facility] Work Phone: Creatinine [Mass/Vol] 0.68 mg/dL See Below [facility] Work Phone: Comment on above: Reference Range: 0.5 0 - 1.05 Glucose [Mass/Vol] 90 mg/dL 74 - 99 [facility] Work Phone: Potassium [Moles/Vol] 3.9 mmol/L 3.5 - 5.3 [facility] Work Phone: Protein [Mass/Vol] 6.9 g/dL 6.4 - 8.2 [facility] Work Phone: Sodium [Moles/Vol] 138 mmol/L 136 - 145 [facility] Work Phone: Urea nitrogen [Mass/Vol] 14 mg/dL 6 - 23 [facility] Work Phone: Lipid Panelon 03-12-2021 Cholesterol [Mass/Vol] 168 mg/dL 0 - 199 [facility] Work Phone: Comment on above: . AGE DESIRABLE BORD EDIL HIGH HIGH 0-19 Y 0 - 169 170 - 199 >/= 200 20-24 Y 0 - 189 190 - 224 >/= 225 >24 Y 0 - 199 200 - 239 >/= 240 All ranges are based on fasting samples. Specific therapeutic targets will vary based on patient-specific cardiac risk.. Pediatric guidelines reference:Pediatrics 2011, 128(S5). Adult guidelines reference: NCEP ATPIII Guidelines, DEANNE 2001, 258:2486-97. Venipuncture immediately after or during the administration of Metamizole may lead to falsely low results. Testing should be performed immediately prior to Metamizole dosing. Cholesterol in HDL [Mass/Vol] 45.8 mg/dL [facility] Work Phone: Comment on above: . AGE VERY LOW LOW N ORMAL HIGH 0-19 Y < 35 < 40 40-45 ---- 20- 24 Y ---- < 40 >45 ---- >24 Y ---- < 40 40-60 >60. Cholesterol in LDL [Mass/Vol] 100 mg/dL above high threshold 0 - 99 [facility] Work Phone: Comment on above: . NEAR BORD AGE ROBIN RABLE OPTIMAL HIGH HIGH VERY HIGH 0-19 Y 0 - 109 --- 110-129 >/= 130 ---- 20-24 Y 0 - 119 --- 120-159 >/= 160 ---- >24 Y 0 - 99 100-129 130-159 160-189 >/=190. Cholesterol.total/Cho lesterol in HDL [Mass ratio] 3.7 {ratio} [facility] Work Phone: Comment on above: REF VALUESDESIRABLE < 3.4HIGH RISK > 5.0 Triglyceride [Mass/Vol] 112 mg/dL 0 - 149 [facility] [employer] Phone: Comment on above: . AGE DESIRABLE BORD EDIL HIGH HIGH VERY HIGH 0 D-90 D 19 - 174 ---- ---- ----91 D- 9 Y 0 - 74 75 - 99 >/= 100 ---- 10-19 Y 0 - 89 90 - 129 >/= 130 ---- 20-24 Y 0 - 114 115 - 149 >/= 150 ---- >24 Y 0 - 149 150 - 199 200- 499 >/= 500. Venipuncture immediately after or during the administration of Metamizole may lead to falsely low results. Testing should be performed immediately prior to Metamizole dosing. Lipid Panel 22 mg/dL 0 - 40 [facility] Work Phone: Mamm - Screening Mammogram w / Tomosynthesison 03-12-2021 MG Breast Screening Normal [facility] Work Phone: No Panel Informationon 03-12 >60 >60 [facility] Work Phone: Comment on above: CALCULATIONS OF JAVIER MATED GFR ARE PERFORMED USING THE MDRD STUDY EQUATION FOR THE IDMS-TRACEABLE CREATININE METHODS. CLIN CHEM 2007;53:[id number] Radiologyon 03-12-2021 XR Chest 2 Views Normal [facility] Work Phone: Vitamin D 25-Hydroxyon 03-12 25-hydroxyvitamin D3 [Mass/Vol] 48 ng/mL [facility] Work Phone: Comment on above: .DEFICIENCY: < 20 NG /MLINSUFFICIENCY: 20-29 NG/MLSUFFICIENCY: 30-100 NG/MLTHIS ASSAY ACCURATELY QUANTIFIES THE SUM OFVITAMIN D3, 25-HYDROXY AND VIT D2,25-HYDROXY. Tobacco Screening.on 021 Tobacco use status CPHS b) No [facility] Work Phone: CR Chest Portableon 02-29-20 21 CR Chest Portable Patient Name: JACOB CELIS Diagnostic Radiology ACCESSION EXAM DATE/TIME PROCEDURE ORDERING PROVIDER [id number] 02/27/2021 23:57 EDT CR Chest Portable MD BRENDA, MARLENE D CPT code 78293 Reason For Exam (CR Chest Portable) cough sob Report CHEST - PORTABLE: CLINICAL INDICATION: Cough and shortness of breath TECHNIQUE: Portable AP COMPARISON: 10/02/2020 FINDINGS/IMPRESSION: Lines, tubes, and devices: None Cardiomediastinal silhouette: Heart size is within normal limits. Lungs/Pleura: No consolidation, pleural effusions, or pneumothorax. Borderline pulmonary vascular congestion. Osseous structures/soft tissues: Degenerative spondylosis in the visualized spine. No soft tissue abnormality is detected. Report Dictated on Final Dictating Physician: MD VANDA, SHERLEY Signed Date and Time: 02/28/2021 1:06 am Signed by: MD VANDA, SHERLEY Transcribed Date and Time: 02/28/2021 1:07 Normal [facility] [id number] 02-28-2021 SARS-CoV-2 (COVID-19) RNA JOSE+probe Ql (Unsp spec) SARS-CoV-2 --> Status: F Not Detected. Expected Result: Not Detected _ Real-time, RT-PCR performed on the [employer] System by the [facility] Microbiology Service. Negative results do not preclude SARS-CoV-2 infection and should not be used as the sole basis for treatment or other patient management decisions. This assay was developed by [employer] and distributed under an Emergency Use Authorization (EUA) granted by the FDA for the qualitative detection of SARS-CoV-2 nucleic acid. Expected Result: Not Detected _ Real-time, RT-PCR performed on the [employer] System by the [facility] Microbiology Service. Negative results do not preclude SARS-CoV-2 infection and should not be used as the sole basis for treatment or other patient management decisions. This assay was developed by [employer] and distributed under an Emergency Use Authorization (EUA) granted by the FDA for the qualitative detection of SARS-CoV-2 nucleic acid. Normal [facility] Comment on above: Performed By: #### C OVID #### [address] [id number] XR CHEST PORTABLEOrdered By: Marlene Gomez on 02-28-2021 Patient Name: JACOB CELIS Diagnostic Radiology ACCESSION EXAM DATE/TIME PROCEDURE ORDERING PROVIDER [id number] 02/27/2021 23:57 EDT CR Chest Portable MD BRENDA, MARLENE Boss CPT code 09018 Reason For Exam (CR Chest Portable) cough sob Report CHEST - PORTABLE: CLINICAL INDICATION: Cough and shortness of breath TECHNIQUE: Portable AP COMPARISON: 10/02/2020 FINDINGS/IMPRESSION: Lines, tubes, and devices: None Cardiomediastinal silhouette: Heart size is within normal limits. Lungs/Pleura: No consolidation, pleural effusions, or pneumothorax. Borderline pulmonary vascular congestion. Osseous structures/soft tissues: Degenerative spondylosis in the visualized spine. No soft tissue abnormality is detected. Report Dictated on --- Final --- Dictating Physician: MD DC VLADIMIR Signed Date and Time: 02/28/2021 1:06 am Signed by: MD DC VLADIMIR Transcribed Date and Time: 02/28/2021 1:07 [facility] Work Phone: Ag, [facility] Incoming Radiology Results From [facility] - 02/28/2021 1:07 AM EDT Patient Name: JACOB CELIS Diagnostic Radiology ACCESSION EXAM DATE/TIME PROCEDURE ORDERING PROVIDER [id number] 02/27/2021 23:57 EDT CR Chest Portable MD BRENDA, MARLENE Boss CPT code 35821 Reason For Exam (CR Chest Portable) cough sob Report CHEST - PORTABLE: CLINICAL INDICATION: Cough and shortness of breath TECHNIQUE: Portable AP COMPARISON: 10/02/2020 FINDINGS/IMPRESSION: Lines, tubes, and devices: None Cardiomediastinal silhouette: Heart size is within normal limits. Lungs/Pleura: No consolidation, pleural effusions, or pneumothorax. Borderline pulmonary vascular congestion. Osseous structures/soft tissues: Degenerative spondylosis in the visualized spine. No soft tissue abnormality is detected. Report Dictated on --- Final --- Dictating Physician: MD DC VLADIMIR Signed Date and Time: 02/28/2021 1:06 am Signed by: MD DC VLADIMIR Transcribed Date and Time: 02/28/2021 1:07 [facility] Work Phone: [facility] Work Phone: Laboratory - Chemistry and C hemistry - challengeon 02-01-2021 TSH Qn 1.56 m[IU]/L See Below [facility] Work Phone: Comment on above: Reference Range: 0.4 4 - 3.98 TSH testing is performed using different testing methodology at [facility] than at other system hospitals. Direct result comparisons should only be made within the same method. Radiologyon 01-08-2021 US Thyroid gland Normal [facility] Work Phone: Tobacco Screening.on 021 Tobacco use status CPHS b) No [facility] Work Phone: Tobacco Screening. Large [facility] Work Phone: CR Chest 1 View Frontalon CR Chest 1 View Frontal Patient Name: JACOB CELIS Diagnostic Radiology ACCESSION EXAM DATE/TIME PROCEDURE ORDERING PROVIDER [id number] 10/02/2020 11:14 EDT CR Chest 1 View Frontal ALEXEY GLENN CPT code 42119 Reason For Exam (CR Chest 1 View Frontal) physical Report Indication: Physical exam. PA view of the chest. Inspiratory level is shallow. No areas of consolidation. No pleural effusions or edema. Heart shadow is within normal limits. IMPRESSION: No acute intrathoracic process. Report Dictated on Final Dictating Physician: MD POLANCO LAURA Signed Date and Time: 10/02/2020 2:53 pm Signed by: MD POLANCO LAURA Transcribed Date and Time: 10/02/2020 2:54 Normal [facility] XR CHEST 1 VWon 10-02-2020 Patient Name: JACOB CELIS Diagnostic Radiology ACCESSION EXAM DATE/TIME PROCEDURE ORDERING PROVIDER [id number] 10/02/2020 11:14 EDT CR Chest 1 View Frontal ALEXEY GLENN CPT code 49106 Reason For Exam (CR Chest 1 View Frontal) physical Report Indication: Physical exam. PA view of the chest. Inspiratory level is shallow. No areas of consolidation. No pleural effusions or edema. Heart shadow is within normal limits. IMPRESSION: No acute intrathoracic process. Report Dictated on --- Final --- Dictating Physician: MD POLANCO LAURA Signed Date and Time: 10/02/2020 2:53 pm Signed by: MD POLANCO LAURA Transcribed Date and Time: 10/02/2020 2:54 [facility] Work Phone: [facility], [facility] Incoming Radiology Results From [facility] - 10/02/2020 2:54 PM EDT Patient Name: JACOB CELIS Diagnostic Radiology ACCESSION EXAM DATE/TIME PROCEDURE ORDERING PROVIDER [id number] 10/02/2020 11:14 EDT CR Chest 1 View Frontal GLENN BLACKBURN CPT code 76524 Reason For Exam (CR Chest 1 View Frontal) physical Report Indication: Physical exam. PA view of the chest. Inspiratory level is shallow. No areas of consolidation. No pleural effusions or edema. Heart shadow is within normal limits. IMPRESSION: No acute intrathoracic process. Report Dictated on --- Final --- Dictating Physician: MD POLANCO LAURA Signed Date and Time: 10/02/2020 2:53 pm Signed by: MD POLANCO LAURA Transcribed Date and Time: 10/02/2020 2:54 [facility] Work Phone: Coronavirus 2019 RNA by PCR, Screening Asymptomticon 04-08-2020 Coronavirus 2019 RNA by PCR, Screening Asymptomtic NOT DETECTED See Below [facility] Work Phone: Comment on above: SOURCE: Nasal, Nasop haryngealReference Range: Not DetectedThis assay is designed to detect the N, ORF1ab and/or S genes of SARS-CoV-2 via nucleic acid amplification. A Negative (NOT DETECTED) result does not preclude 2019-nCoV infection since the adequacy of sample collection and/or low viral burden may result in presence of viral nucleic acids below the clinical sensitivity of this test method. Negative (NOT DETECTED) result should not be used as the sole basis for treatment or other patient management decisions. Rather negative results should be combined with clinical observations, patient history, and epidemiological information to make patient management decisions.Fact sheet for providers: https://www.fda.gov/media/040299/downloadFact sheet for patients: https://www.fda.gov/media/150757/downloadThis test has received FDA Emergency Use Authorization (EUA) and has been verified by [facility] ([facility]). This test is only authorized for the duration of time that circumstances exist to justify the authorization of the emergency use of in vitro diagnostic tests for the detection of SARS-CoV-2 virus and/or diagnosis of COVID-19 infection under section 564(b)(1) of the Act, 21 U.S.C. 360bbb-3(b)(1), unless the authorization is terminated or revoked sooner. [facility] is certified under CLIA-88 as qualified to perform high complexity testing. Testing is performed in the [facility] laboratories located at [address] [place] [address]. Add On Lab Teston 03-16-2020 Sodium [Moles/Vol] Accepted [place] Comment on above: Specimen available & acceptable for analysis. Test Performed by [facility], [facility] [address] , [address] Basic Metabolic Panelon 02-28 Anion gap [Moles/Vol] 10 mmol/L [place] Calcium [Mass/Vol] 9.2 mg/dL 8.4 - 10. 4 mg/dL [place] Chloride [Moles/Vol] 102 mmol/L 98 - 10 7 mmol/L [place] CO2 [Moles/Vol] 28 mmol/L 22 - 30 mmol/L [place] Creatinine [Mass/Vol] 0.64 mg/dL 0.52 - 1.25 mg/dL [place] EGFR IF NonAfrican [place] >90.0 >60 mL/min [place] Comment on above: KDIGO guidelines pro vide the following GFR categories: Stage GFR(ml/min/1.73 m2) Terms G1 >=90 Normal or high G2 60-89 Mildly decreased* G3a 45-59 Mildly to moderately decreased G3b 30-44 Moderately to severely decreased G4 15-29 Severely decreased G5 <15 Kidney failure *Relative to young adult level. In the absence of evidence of kidney damage, neither GFR category G1 nor G2 fulfill the criteria for CKD. The CKD-EPI equation is validated in individuals 18 years of age and older. Currently the best equation for estimating glomerular filtration rate (GFR) from serum creatinine in children is the Bedside Alexander equation. It is less accurate in patients with extremes of muscle mass, restriction of dietary protein, ingestion of creatine, extra-renal metabolism of creatinine, or treatment with medications that affect renal tubular creatinine secretion. GFR/1.73 sq M predicted among blacks MDRD (S/P/Bld) [Vol rate/Area] mL/min/{1.73_m2} >60 mL/min [place] Glucose [Mass/Vol] 99 mg/dL 70 - 100 mg/dL [place] Interpretation and review of laboratory results Abnormal [place] Potassium [Moles/Vol] 3.5 mmol/L 3.5 - 5.1 mmol/L [place] Sodium [Moles/Vol] 140 mmol/L 135 - 145 mmol/L [place] Urea nitrogen [Mass/Vol] 21 mg/dL High 7 - 20 mg/dL [place] Test Performed by [facility], [address] , [address] HCG Qualitative, Serumon hCG Qual Negative m[IU]/mL [place] Comment on above: Reference Range: NEG ATIVE Effective 10/05/2019, the reference interval for the qualitative test has been updated. This test detects hCG at concentrations of 10 mIU/mL or greater in serum. Test Performed by [facility], [address] , [address] Hemogram (CBC) w/Auto Diffon 03-16-2020 Absolute Baso # 0.1 10*3/uL 0 - 0.2 10*3/uL [place] Absolute Neut # 7.8 10*3/uL High 1.8 - 7 10*3/uL [place] Basophils/100 WBC (Bld) 0.7 % 0 - 2 % [place] Eosinophils (Bld) [#/Vol] 0.1 10*3/uL 0 - 0.5 10*3/uL [place] Eosinophils/100 WBC (Bld) 1.0 % 1 - 6 % [place] Erythrocyte distribution width (RBC) [Ratio] 13.4 % 11.5 - 14.5 % [place] Granulocytes/100 WBC (Bld) 68.1 % 40 - 80 % [place] Hematocrit (Bld) [Volume fraction] 38.8 % 35 - 47 % [place] Hemoglobin (Bld) [Mass/Vol] 13.5 g/dL 11.7 - 16 g/dL [place] Interpretation and review of laboratory results Abnormal [place] Lymphocytes (Bld) [#/Vol] 2.7 10*3/uL 1 - 4.3 10*3/uL [place] Lymphocytes/100 WBC (Bld) 23.9 % 20 - 40 % [place] MCH (RBC) [Entitic mass] 29.7 pg 26 - 34 pg [place] MCHC (RBC) [Mass/Vol] 34.6 % 32 - 36 % [place] MCV (RBC) [Entitic vol] 85.9 fL 79 - 98 fL [place] Monocytes (Bld) [#/Vol] 0.7 10*3/uL 0 - 0.8 10*3/uL [place] Monocytes/100 WBC (Bld) 6.3 % 2 - 10 % [place] Platelet mean volume (Bld) [Entitic vol] 7.3 fL Low 7.4 - 10.4 fL [place] Platelets (Bld) [#/Vol] 332 10*3/uL 140 - 440 10*3/uL [place] RBC (Bld) [#/Vol] 4.52 10*6/uL 3.8 - 5.2 10*6/uL [place] WBC (Bld) [#/Vol] 11.5 10*3/uL High 3.6 - 10.7 10*3/uL [place] Test Performed by [facility], [address] , [address] Urinalysison 03-16-2020 Appearance (U) Turbid Abnormal Clear NA [place] Comment on above: . Bacteria, UA Moderate (6-50) Abnormal Negative /[HPF] [place] Comment on above: . Bilirubin Urine Negative Negative mg/dL [place] Comment on above: . Color (U) YELLOW Lt. Yellow NA [place] Comment on above: . Glucose, Ur 30 mg/dL Normal (<70) [place] Comment on above: . Interpretation and review of laboratory results Abnormal [place] Ketones Ql (U) Trace Abnormal Negative mg/dL [place] Comment on above: . LEUKOCYTES, UA 25 Abnormal Negative Ric/uL [place] Comment on above: . Mucous Threads Many Abnormal Negative /[LPF] [place] Comment on above: . Nitrite, Urine Negative Negative NA [place] Comment on above: . Occult Blood,Urine Negative Negative mg/dL [place] Comment on above: . pH (U) 6.0 [pH] [place] Comment on above: . Protein (U) [Mass/Vol] 20 mg/dL Abnormal Negative [place] Comment on above: . RBC (U) [#/Vol] 3-5 Abnormal 0 - 2 /[HPF] [place] Comment on above: . Specific [place], Urine >1.030 Abnormal [place] Comment on above: . Squam Epithel, UA 26-50 Abnormal 3 - 5 /[HPF] [place] Comment on above: . Urobilinogen, Urine 2 mg/dL Abnormal Normal (0-1) [place] Comment on above: . Volume 8-12 ml [place] Comment on above: . WBC, UA 6-10 Abnormal 0 - 5 /[HPF] [place], [place] Comment on above: . Test Performed by [facility], [address] , [address] Comprehensive Metabolic Pane tomeka 02-16-2020 Albumin [Mass/Vol] 4.2 g/dL 3.5 - 5 g/dL [place] ALP [Catalytic activity/Vol] 117 U/L 38 - 126 U/L [place] ALT [Catalytic activity/Vol] 28 U/L 0 - 34 U/L [place] Comment on above: The ALT test is perf ormed by an updated assay method. Please note that the reference intervals have been changed and are now sex specific. Anion gap [Moles/Vol] 10 mmol/L [place] AST [Catalytic activity/Vol] 27 U/L 15 - 46 U/L [place] Bilirubin Ql (U) 0.3 mg/dL 0.2 - 1.3 mg/dL [place] Calcium [Mass/Vol] 9.0 mg/dL 8.4 - 10. 4 mg/dL [place] Chloride [Moles/Vol] 105 mmol/L 98 - 10 7 mmol/L [place] CO2 [Moles/Vol] 25 mmol/L 22 - 30 mmol/L [place] Creatinine [Mass/Vol] 0.62 mg/dL 0.52 - 1.25 mg/dL [place] EGFR IF NonAfrican [place] >90.0 >60 mL/min [place] Comment on above: KDIGO guidelines pro vide the following GFR categories: Stage GFR(ml/min/1.73 m2) Terms G1 >=90 Normal or high G2 60-89 Mildly decreased* G3a 45-59 Mildly to moderately decreased G3b 30-44 Moderately to severely decreased G4 15-29 Severely decreased G5 <15 Kidney failure *Relative to young adult level. In the absence of evidence of kidney damage, neither GFR category G1 nor G2 fulfill the criteria for CKD. The CKD-EPI equation is validated in individuals 18 years of age and older. Currently the best equation for estimating glomerular filtration rate (GFR) from serum creatinine in children is the Bedside Alexander equation. It is less accurate in patients with extremes of muscle mass, restriction of dietary protein, ingestion of creatine, extra-renal metabolism of creatinine, or treatment with medications that affect renal tubular creatinine secretion. GFR/1.73 sq M predicted among blacks MDRD (S/P/Bld) [Vol rate/Area] mL/min/{1.73_m2} >60 mL/min [place] Glucose [Mass/Vol] 101 mg/dL High 70 - 100 mg/dL [place] Interpretation and review of laboratory results Abnormal [place] Potassium [Moles/Vol] 3.6 mmol/L 3.5 - 5.1 mmol/L [place] Protein [Mass/Vol] 7.6 g/dL 6.3 - 8.2 g/dL [place] Sodium [Moles/Vol] 140 mmol/L 135 - 145 mmol/L [place] Urea nitrogen [Mass/Vol] 17 mg/dL 7 - 20 mg/dL [place] Test Performed by [facility], [address] , [address] Hemogram (CBC) w/Auto Diffon 02-16-2020 Absolute Baso # 0.1 10*3/uL 0 - 0.2 10*3/uL [place] Absolute Neut # 8.5 10*3/uL High 1.8 - 7 10*3/uL [place] Basophils/100 WBC (Bld) 0.7 % 0 - 2 % [place] Eosinophils (Bld) [#/Vol] 0.1 10*3/uL 0 - 0.5 10*3/uL [place] Eosinophils/100 WBC (Bld) 1.1 % 1 - 6 % [place] Erythrocyte distribution width (RBC) [Ratio] 13.6 % 11.5 - 14.5 % [place] Granulocytes/100 WBC (Bld) 68.8 % 40 - 80 % [place] Hematocrit (Bld) [Volume fraction] 40.0 % 35 - 47 % [place] Hemoglobin (Bld) [Mass/Vol] 13.8 g/dL 11.7 - 16 g/dL [place] Interpretation and review of laboratory results Abnormal [place] Lymphocytes (Bld) [#/Vol] 2.9 10*3/uL 1 - 4.3 10*3/uL [place] Lymphocytes/100 WBC (Bld) 23.3 % 20 - 40 % [place] MCH (RBC) [Entitic mass] 29.7 pg 26 - 34 pg [place] MCHC (RBC) [Mass/Vol] 34.5 % 32 - 36 % [place] MCV (RBC) [Entitic vol] 86.2 fL 79 - 98 fL [place] Monocytes (Bld) [#/Vol] 0.8 10*3/uL 0 - 0.8 10*3/uL [place] Monocytes/100 WBC (Bld) 6.1 % 2 - 10 % [place] Platelet mean volume (Bld) [Entitic vol] 7.3 fL Low 7.4 - 10.4 fL [place] Platelets (Bld) [#/Vol] 320 10*3/uL 140 - 440 10*3/uL [place] RBC (Bld) [#/Vol] 4.64 10*6/uL 3.8 - 5.2 10*6/uL [place] WBC (Bld) [#/Vol] 12.3 10*3/uL High 3.6 - 10.7 10*3/uL [place] Test Performed by [facility], [address] [place] [address]. [address] Cortisol A.M.on 02-14-2020 Cortisol [Mass or Moles/volume] in Serum or Plasma --AM peak specimen 6.5 ug/dL 5.0 - 20.0 -Endocrinol [facility] Work Phone: Hematologyon 02-14-2020 Hematocrit (Bld) [Volume fraction] 41.4 % See Below -[facility] Work Phone: Comment on above: Reference Range: 36. 0 - 46.0 Hemoglobin (Bld) [Mass/Vol] 13.5 g/dL See Below [facility] Work Phone: Comment on above: Reference Range: 12. 0 - 16.0 MCV (RBC) [Entitic vol] 90 fL 80 - 100 [facility] Work Phone: Platelets (Bld) [#/Vol] 300 {x10E9/L} 150 - 450 [facility] Work Phone: RBC (Bld) [#/Vol] 4.61 {x10E12/L} See Below [facility] Work Phone: Comment on above: Reference Range: 4.0 0 - 5.20 WBC (Bld) [#/Vol] 10.5 {x10E9/L} 4.4 - 11.3 [facility] Work Phone: Hemoglobin A1Con 02-14-2020 HbA1c (Bld) [Mass fraction] 5.7 % [facility] [place] Phone: Comment on above: Diagnosis of Diabete s-Adults Non-Diabetic: < or = 5.6% Increased risk for developing diabetes: 5.7-6.4% Diagnostic of diabetes: > or = 6.5%. Monitoring of Diabetes Age (y) Therapeutic Goal (%) Adults: >18 <7.0 Pediatrics: 13-18 <7.5 7-12 <8.0 0- 6 7.5-8.5 [place] [employer]. Diabetes Care 33(S1), Jun 2009. HbA1c (Bld) [Mass fraction] 117 {MG/DL} [facility] Work Phone: Lipid Panelon 02-14-2020 Cholesterol [Mass/Vol] 173 mg/dL 0 - 199 [facility] [place] Phone: Comment on above: . AGE DESIRABLE BORD EDIL HIGH HIGH 0-19 Y 0 - 169 170 - 199 >/= 200 20-24 Y 0 - 189 190 - 224 >/= 225 >24 Y 0 - 199 200 - 239 >/= 240 All ranges are based on fasting samples. Specific therapeutic targets will vary based on patient-specific cardiac risk.. Pediatric guidelines reference:Pediatrics 2011, 128(S5). Adult guidelines reference: NCEP ATPIII Guidelines, DEANNE 2001, 258:2486-97. Venipuncture immediately after or during the administration of Metamizole may lead to falsely low results. Testing should be performed immediately prior to Metamizole dosing. Cholesterol in HDL [Mass/Vol] 49.3 mg/dL [facility] Work Phone: Comment on above: . AGE VERY LOW LOW N ORMAL HIGH 0-19 Y < 35 < 40 40-45 ---- 20- 24 Y ---- < 40 >45 ---- >24 Y ---- < 40 40-60 >60. Cholesterol in LDL [Mass/Vol] 111 mg/dL above high threshold 0 - 99 [facility] Work Phone: Comment on above: . NEAR BORD AGE ROBIN RABLE OPTIMAL HIGH HIGH VERY HIGH 0-19 Y 0 - 109 --- 110-129 >/= 130 ---- 20-24 Y 0 - 119 --- 120-159 >/= 160 ---- >24 Y 0 - 99 100-129 130-159 160-189 >/=190. Cholesterol.total/Cho lesterol in HDL [Mass ratio] 3.5 {ratio} [facility] Work Phone: Comment on above: REF VALUESDESIRABLE < 3.4HIGH RISK > 5.0 Triglyceride [Mass/Vol] 66 mg/dL 0 - 149 [facility] Work Phone: Comment on above: . AGE DESIRABLE BORD EDIL HIGH HIGH VERY HIGH 0 D-90 D 19 - 174 ---- ---- ----91 D- 9 Y 0 - 74 75 - 99 >/= 100 ---- 10-19 Y 0 - 89 90 - 129 >/= 130 ---- 20-24 Y 0 - 114 115 - 149 >/= 150 ---- >24 Y 0 - 149 150 - 199 200- 499 >/= 500. Venipuncture immediately after or during the administration of Metamizole may lead to falsely low results. Testing should be performed immediately prior to Metamizole dosing. Lipid Panel 13 mg/dL 0 - 40 [facility] Work Phone: Metabolic Panelon 02-14-2020 ALP [Catalytic activity/Vol] 112 U/L above high threshold 33 - 110 [facility] Work Phone: Anion gap [Moles/Vol] 10 mmol/L 10 - 20 [facility] Work Phone: Bilirubin [Mass/Vol] 0.3 mg/dL 0.0 - 1.2 [facility] Work Phone: Calcium [Mass/Vol] 9.0 mg/dL 8.6 - 10.3 [facility] Work Phone: Chloride [Moles/Vol] 104 mmol/L 98 - 107 [facility] Work Phone: CO2 [Moles/Vol] 29 mmol/L 21 - 32 [facility] Work Phone: Creatinine [Mass/Vol] 0.58 mg/dL See Below [facility] Work Phone: Comment on above: Reference Range: 0.5 0 - 1.05 Glucose [Mass/Vol] 90 mg/dL 74 - 99 [facility] Work Phone: Potassium [Moles/Vol] 3.6 mmol/L 3.5 - 5.3 [facility] Work Phone: Protein [Mass/Vol] 7.5 g/dL 6.4 - 8.2 [facility] Work Phone: Sodium [Moles/Vol] 139 mmol/L 136 - 145 [facility] Work Phone: Urea nitrogen [Mass/Vol] 15 mg/dL 6 - 23 [facility] Work Phone: Otheron 02-14-2020 Albumin BCP dye [Mass/Vol] 4.2 g/dL 3.4 - 5.0 [facility] Work Phone: ALT With P-5'-P [Catalytic activity/Vol] 22 U/L 7 - 45 [facility] Work Phone: Comment on above: Patients treated wit h Sulfasalazine may generate falsely decreased results for ALT. AST With P-5'-P [Catalytic activity/Vol] 16 U/L 9 - 39 [facility] Work Phone: Erythrocyte distribution width (RBC) [Ratio] 13.7 % See Below [facility] Work Phone: Comment on above: Reference Range: 11. 5 - 14.5 MCHC (RBC) [Mass/Vol] 32.6 g/dL See Below [facility] Work Phone: Comment on above: Reference Range: 32. 0 - 36.0 >60 >60 [facility] Work Phone: Comment on above: CALCULATIONS OF JAVIER MATED GFR ARE PERFORMED USING THE MDRD STUDY EQUATION FOR THE IDMS-TRACEABLE CREATININE METHODS. CLIN CHEM 2007;53:766-72 Thyroidon 02-14-2020 TSH Qn 2.88 {mIU/L} See Below [facility] Work Phone: Comment on above: Reference Range: 0.4 4 - 3.98 TSH testing is performed using different testing methodology at [facility] than at other [facility]. Direct result comparisons should only be made within the same method. Otheron 01-18-2020 Thyroid gland Interpreted by: GAMALIEL JOYCE01/18/20 13:18MRN: [id number] Name: JACOB CELIS STUDY:US THYROID; 01/18/2020 9:12 am INDICATION:Partial thyroidectomy; left lobe in situ. COMPARISON:None. ORDERING CLINICIAN:DEDRICK LEONARD TECHNIQUE:Multiple ultrasonographic images of the thyroid gland were obtained.This examination is interpreted at [facility]. FINDINGS:RIGHT LOBE:Status post right thyroid lobectomy. No evidence mass or residualtissue in the surgical bed. LEFT LOBE:The left lobe of the thyroid measures 5.0 cm x 1.7 cm x 2.0 cm. Within the mid/lower thyroid lobe there is a nodule with thefollowing features:Size: 1.2 x 0.9 x 0.9 mm Composition: Solid or almost completely solid (2)Echogenicity: Hyperechoic or isoechoic (1)Shape: [id number] (0)Margin: Ill-defined (0)Echogenic Foci: None or Large comet-tail artifacts (0) The total score of this nodule is 3 corresponding to a TI-RADScategory 3; (3 points) Mildly suspicious. FNA is recommended if>2.5cm, Follow up if >1.5cm in 1, 3, and 5 years.. ISTHMUS:The isthmus measures approximately 3.0 mm and is homogeneous inechotexture. There are a few hypoechoic nodules in the thyroidisthmus, the largest measuring 6.1 x 4.3 x 6.9 mm. CERVICAL LYMPH NODES:There is a right zone 2 lymph node with a fatty hilum measuring 1.9 x0.6 x 1.5 cm, which is likely reactive. IMPRESSION:1. Status post right hemithyroidectomy without any mass2. Small nodules in the isthmus and left lobe of the thyroid asdescribed. The dominant nodule in the left thyroid lobe measures 1.2cm.3. No significant lymphadenopathy. I personally reviewed the images/study and I agree with the findingsas stated. This study was interpreted at [place], [place]. Please note that these statements are based on the recommendations ofthe [place] [employer] published in: Courtney WD, Teewadey SA, Reading CC, et al. MultiinstitutionalAnalys is of Thyroid Nodule Risk Stratification Using the AmericanCollege of Radiology Thyroid Imaging Reporting and Data System. AJRAm J Roentgenol. 2017;:1-11. Kattysler FN et al. ACR Thyroid Imaging, Reporting and Data System(TI-RADS): White Paper of the ACR TI-RADS Committee. J Am CollRadiol. 2017 October; 14(5):587-595. Arriola EJ, Na DG, Dragan JH, Matthew JY, Mayelin JH, Riki SY. US Fine-NeedleAspiration Biopsy for Thyroid Malignancy: Diagnostic Performance ofSeven Society Guidelines Applied to 2000 Thyroid Nodules. Radiology.2018;287(3):89 3-900.Electronically signed by: GAMALIEL JOYCE 01/18/20 13:18 Normal [facility] Work Phone: FREE T3on 09-05-2019 Free T3 [Mass/Vol] 3.7 pg/mL Normal 2.4-4.2 [facility] Comment on above: Result Comment: REFE RENCE INTERVAL: Triiodothyronine, Free (Free T3) Access complete set of age- and/or gender-specific reference intervals for this test in the [facility] ([facility]). Performed by [employer], [address] [place] [id number] [email or web address], Velasquez Maldonado MD, Lab. Director Performed By: #### P ROFLIVER, PROFLIPID #### [facility] [address] [address] BASIC METABOLICon 09-03-2019 ADJUSTED CALCIUM 9.4 MG/DL Normal [facility] Comment on above: Performed By: #### P ROFLIVER, CHEM7, PROFLIPID, TSH #### [facility] [address] [address] Anion gap [Moles/Vol] 9.4 mmol/L Normal 0-16 [facility] Comment on above: Performed By: #### P ROFLIVER, CHEM7, PROFLIPID, TSH #### [facility] [address] [address] Calcium [Mass/Vol] 9.0 mg/dL Normal 8.5-10.1 [facility] Comment on above: Performed By: #### P ROFLIVER, CHEM7, PROFLIPID, TSH #### [facility] [address] [address] Chloride [Moles/Vol] 107 mmol/L Normal 98-107 [facility] Comment on above: Performed By: #### P ROFLIVER, CHEM7, PROFLIPID, TSH #### [facility] [address] [address] Creatinine [Mass/Vol] 0.60 mg/dL Normal 0.55-1.02 [facility] Comment on above: Performed By: #### P ROFLIVER, CHEM7, PROFLIPID, TSH #### [facility] [address] [address] GFR/1.73 sq M predicted among blacks MDRD (S/P/Bld) [Vol rate/Area] mL/min/{1.73_m2} Normal >60 [facility] Comment on above: Performed By: #### P ROFLIVER, CHEM7, PROFLIPID, TSH #### [facility] [address] [address] GFR/1.73 sq M predicted among non-blacks MDRD (S/P/Bld) [Vol rate/Area] mL/min/{1.73_m2} Normal >60 [facility] Comment on above: Result Comment: Aver age GFR for 30-39 years old = 107 ml/min/1.73 sq.m Chronic Kidney Disease - GFR generally <60 ml/min/1.73 sq.m Kidney Failure - GFR generally <15 ml/min/1.73 sq.m Performed By: #### P ROFLIVER, CHEM7, PROFLIPID, TSH #### [facility] [address] [address] Glucose [Mass/Vol] 89 mg/dL Normal 70-110 [facility] Comment on above: Result Comment: Fals kaylyn depressed or falsely elevated results may occur on samples drawn from patients taking Sulfasalazine and Sulfapyridine. ADA Guidelines for Diabetes: Fasting glucose <100 = Normal fasting glucose. Fasting glucose 100-125 = Impaired fasting glucose, also referred to as pre-diabetes. Fasting glucose >125 = Provisional diagnosis of diabetes. Diagnosis must be confirmed by repeat testing on a different day. Performed By: #### P ROFLIVER, CHEM7, PROFLIPID, TSH #### [facility] [address] [address] Potassium [Moles/Vol] 3.4 mmol/L Low 3.5-5.1 [facility] Comment on above: Performed By: #### ZACHERY SNIDER, PROFLIPID, TSH #### [facility] [address] [address] Sodium [Moles/Vol] 140 mmol/L Normal 136-145 [facility] Comment on above: Performed By: #### P ZACHERY DYER, PROFLIPID, TSH #### [facility] [address] [address] TOTAL CO2 27 MMOL/L Normal 21-32 [facility] Comment on above: Result Comment: TCO2 test measures total amount of CO2 in the blood, which occurs mostly in the form of bicarbonate (HCO3). Performed By: #### ZACHERY SNIDER, PROFLIPID, TSH #### [facility] [address] [address] Urea nitrogen [Mass/Vol] 12 mg/dL Normal 7-18 [facility] Comment on above: Performed By: #### ZACHERY SNIDER, PROFLIPID, TSH #### [facility] [address] [address] Urea nitrogen/Creatinine [Mass ratio] 20.0 mg/mg Normal 0-30 [facility] Comment on above: Performed By: #### ZACHERY SNIDER, PROFLIPID, TSH #### [facility] [address] [address] CBC AUTO DIFF (REFLEX MANUAL )on 09-03-2019 Basophils (Bld) [#/Vol] 0.10 x10 3 Normal 0.0-0.2 [facility] Comment on above: Performed By: #### ARABELLA SNIDERID #### [facility] [address] [address] Basophils/100 WBC (Bld) 0.6 % Normal 0.0-1.5 [facility] Comment on above: Performed By: #### P GOMEZ PROFLIPID #### [facility] [address] [address] EOSINOPHIL % 0.9 % Normal 0.0-10.0 [facility] Comment on above: Performed By: #### P GOMEZ PROFLIPID #### [facility] [address] [address] Lymphocytes (Bld) [#/Vol] 2.80 x10 3 Normal 1.0-4.8 [facility] Comment on above: Performed By: #### Dayami DYER PROFLIPID #### [facility] [address] [address] Lymphocytes/100 WBC (Bld) 33.1 % Normal 13.0-47.0 [facility] Comment on above: Performed By: #### Dayami DYER PROFLIPID #### [facility] [address] [address] MCV (RBC) [Entitic vol] 87.6 fl Normal 78-102 [facility] Comment on above: Performed By: #### Dayami DYER PROFLIPID #### [facility] [address] [address] MEAN DOT HGB CONC 34.2 g/dl Normal 31.0-37.0 [facility] Comment on above: Performed By: #### P GOMEZ PROFLIPID #### [facility] [address] [address] MEAN CORPUSCULAR HGB 29.9 pg Normal 26.0-34.0 [facility] Comment on above: Performed By: #### P GOMEZ PROFLIPID #### [facility] [address] [address] Monocytes (Bld) [#/Vol] 0.40 x10 3 Normal 0.0-1.0 [facility] Comment on above: Performed By: #### P ROFLKAI, PROFLIPID #### [facility] [address] [address] Monocytes/100 WBC (Bld) 5.2 % Normal 0.0-10.0 [facility] Comment on above: Performed By: #### P ROFLKAI, PROFLIPID #### [facility] [address] [address] Neutrophils (Bld) [#/Vol] 5.10 x10 3 Normal 1.8-7.7 [facility] Comment on above: Performed By: #### P ROFLKAI, PROFLIPID #### [facility] [address] [address] Neutrophils/100 WBC (Bld) 60.2 % Normal 40.0-80.0 [facility] Comment on above: Performed By: #### P ROFLKAI PROFLIPID #### [facility] [address] [address] Platelet mean volume (Bld) [Entitic vol] 7.5 fl Normal 7.5-10.7 [facility] Comment on above: Performed By: #### P ROFLKAI PROFLIPID #### [facility] [address] [address] Platelets (Bld) [#/Vol] 292 x10 3 Normal 150-350 [facility] Comment on above: Performed By: #### P ROFLKAI PROFLIPID #### [facility] [address] [address] RBC (Bld) [#/Vol] 4.81 x10 6 Normal 4.00-5.20 [facility] Comment on above: Performed By: #### P ROFLKAI, PROFLIPID #### [facility] [address] [address] RED CELL WIDTH 13.7 % Normal 11.5-14.5 [facility] Comment on above: Performed By: #### P ROFLIVER, PROFLIPID #### [facility] [address] [address] TOTAL EO 0.10 x10 3 Normal 0-1.0 [facility] Comment on above: Performed By: #### P RORIVERA, PROFLIPID #### [facility] [address] [address] WBC (Bld) [#/Vol] 8.4 x10 3 Normal 4.5-11.0 [facility] Comment on above: Performed By: #### P GOMEZ PROFLIPID #### [facility] [address] [address] HEMOGLOBIN A1Con 09-03-2019 HbA1c (Bld) [Mass fraction] 5.3 % Normal 4.2-6.3 [facility] Comment on above: Performed By: #### P GOMEZ PROFLIPID #### [facility] [address] [address] HbA1c (Bld) [Mass fraction] 105 mg/dL Normal [facility] Comment on above: Result Comment: The estimated average glucose was calculated using the ADA equation (28.7 x HBA1c)-46.7 . Performed By: #### P GOMEZ PROFLIPID #### [facility] [address] [address] LIPID PANELon 09-03-2019 Cholesterol [Mass/Vol] 174 mg/dL Normal <200 [facility] Comment on above: Performed By: #### P GOMEZ, PROFLIPID #### [facility] [address] [address] Cholesterol in HDL [Mass/Vol] 58.0 mg/dL Normal >40 [facility] Comment on above: Performed By: #### P GOMEZ, PROFLIPID #### [facility] [address] [address] Cholesterol in LDL [Mass/Vol] 98 mg/dL Normal SEE COMMENT [facility] Comment on above: Result Comment: The National Cholesterol Education Program's (NCEP) Adult Treatment Panel III (ATPIII) guidelines for lipids are as follows: LDL Cholesterol - Primary Target of Therapy Target value for LDL is based on overall risk of heart disease: <100 MG/DL Is desirable if clinical atherosclerotic disease or diabetes has been diagnosed. <130 MG/DL Is desirable if 2 or more risk factors are present. Total Cholesterol <200 Desirable 200-239 Borderline High >239 High HDL Cholesterol <40 Low >59 Desirable Serum Triglycerides <150 Normal 150-199 Borderline High 200-499 High >499 Very High The lipid profile should be correlated with the presence of other risk factors for coronary heart disease. Additional information is available at: www.nhlbi.nih.gov/guidelines/cholesterol/index.htm. Performed By: #### P GOMEZ, PROFLIPID #### [facility] [address] [address] Triglyceride [Mass/Vol] 92 mg/dL Normal <150 [facility] Comment on above: Performed By: #### P GOMEZ PROFLIPID #### [facility] [address] [address] LIVER PROFILEon 09-03-2019 Albumin [Mass/Vol] 3.5 g/dL Normal 3.4-5.0 [facility] Comment on above: Performed By: #### P ROFLIVER, CHEM7, PROFLIPID, TSH #### [facility] [address] [address] ALP [Catalytic activity/Vol] 123 U/L High 45-117 [facility] Comment on above: Performed By: #### P ROFLIVER, CHEM7, PROFLIPID, TSH #### [facility] [address] [address] ALT [Catalytic activity/Vol] 32 U/L Normal 13-61 [facility] Comment on above: Result Comment: Fals kaylyn depressed or falsely elevated results may occur on samples drawn from patients taking Sulfasalazine and Sulfapyridine. Performed By: #### P ROFLIVER, CHEM7, PROFLIPID, TSH #### [facility] [address] [address] AST [Catalytic activity/Vol] 16 U/L Normal 15-37 [facility] Comment on above: Result Comment: Fals kaylyn depressed or falsely elevated results may occur on samples drawn from patients taking Sulfasalazine and Sulfapyridine. Performed By: #### P RORIVERA, CHEM7, PROFLIPID, TSH #### [facility] [address] [address] Bilirubin Ql (U) 0.90 MG/DL Normal 0.0-1.0 [facility] Comment on above: Result Comment: Use of this assay is not recommended for patients undergoing treatment with Eltrombopag due to the potential for falsely elevated results. Performed By: #### P GOMEZ, CHEM7, PROFLIPID, TSH #### [facility] [address] [address] Bilirubin.direct [Mass/Vol] 0.20 mg/dL Normal 0.0-0.2 [facility] Comment on above: Performed By: #### P GOMEZ CHEM7, PROFLIPID, TSH #### [facility] [address] [address] Protein [Mass/Vol] 7.9 g/dL Normal 6.4-8.2 [facility] Comment on above: Performed By: #### P GOMEZ CHEM7, PROFLIPID, TSH #### [facility] [address] [address] TSH, 3RD GENERATIONon 2019 TSH, 3RD GENERATION 2.060 uIU/ML Normal 0.358-3.740 [facility] Comment on above: Performed By: #### P GOMEZ PROFLIPID #### [facility] [address] [address] VITAMIN D, 25 HYDROXYon 03-0 VITAMIN D, 25 HYDROXY 35.64 ng/mL Normal 30-100 [facility] Comment on above: Result Comment: Vitamin D Total assay is in alignment with the 25(OH) Vitamin D Reference Measurement Procedure (RMP). This assay is a certified procedure of the CDC Vitamin D Standardization-Certification Program (VDSCP). Performed By: #### P PROF GOMEZLIPID #### [facility] [place] [id number] Basic Metabolic PanelOrdered By: Rico Summers on 07-20-2019 Anion gap [Moles/Vol] 11 mmol/L [facility] Work Phone: Calcium [Mass/Vol] 8.2 mg/dL Low 8.4 - 10. 4 mg/dL [facility] Work Phone: Chloride [Moles/Vol] 103 mmol/L 98 - 10 7 mmol/L [facility] Work Phone: CO2 [Moles/Vol] 25 mmol/L 22 - 30 mmol/L [facility] Work Phone: Creatinine [Mass/Vol] 0.48 mg/dL Low 0.52 - 1.25 mg/dL [facility] Work Phone: EGFR IF NonAfrican [place] >60.0 >60 mL/min [facility] Work Phone: Comment on above: Source- MDRD equatio n with creatinine calibration to IDMS(NKDEP) eGFR not recommended for drug dose adjustment GFR/1.73 sq M.predicted among blacks MDRD (S/P/Bld) [Vol rate/Area] mL/min/{1.73_m2} >60 mL/min [facility] Work Phone: Glucose [Mass/Vol] 129 mg/dL High 70 - 100 mg/dL [facility] Work Phone: Interpretation and review of laboratory results Abnormal [facility] Work Phone: Potassium [Moles/Vol] 3.2 mmol/L Low 3.5 - 5.1 mmol/L [facility] Work Phone: Sodium [Moles/Vol] 139 mmol/L 135 - 145 mmol/L [facility] Work Phone: Urea nitrogen [Mass/Vol] 12 mg/dL 7 - 20 mg/dL [facility] Work Phone: HGC Urine Qual PregOrdered B y: Rico Melina on 07-20-2019 Beta HCG ( test) Ql (U) Negative Negative NA [facility] Work Phone: Comment on above: is the mos t common reason for HCG in urine, although choriocarcinoma, hydatidiform mole, and certain nontropho- blastic malignancies also result in detectable urinary HCG levels. Sensitivity = 20mIU/mL. No Panel InformationOrdered By: Rico Summers on 07-20-2019 Test Performed by [facility], [address] [place] [address] [place] [address] [facility] Work Phone: Rapid influenza A/B antigens Ordered By: Rico Summers on 07-20-2019 INFLUENZA A Not detected Not Detected NA [facility] Work Phone: INFLUENZA B Not detected Not Detected NA [facility] Work Phone: Comment on above: Method: Isothermal n ucleic acid amplification technology. NECKWEon 05-02-2019 NECKWE Name: JACOB CELIS Phys: Juliet Castillo MD : 1980 Age: 38 Sex: F Acct: [id number] Loc: FRI Exam Date: 05/01/2019 Status: REG ER Radiology No: [id number] Unit No: [id number] PH: [phone] Diagnosis: POST OP SWELLING AND DRAINAGE EXAM: [id number] NECK W/CONTRAST Reason For Procedure: SWELLING POST SURGERY PROCEDURE INFORMATION: Exam: CT Neck With Contrast Exam date and time: 05/01/2019 8:47 PM Clinical history: 38 years old, female; Neck pain and painful swallowing; Prior surgery; Surgery date: Post-operative (0-2 days); Surgery type: Part thyroid removed yesterday; Additional info: Swelling post surgery TECHNIQUE: Imaging protocol: Computed tomography images of the neck with intravenous contrast. Radiation optimization: All CT scans at this facility use at least one of these dose optimization techniques: automated exposure control; mA and/or kV adjustment per patient size (includes targeted exams where dose is matched to clinical indication); or iterative reconstruction. Contrast material: [id number]; Contrast volume: 100 ml; Contrast route: 20G; COMPARISON: No relevant prior studies available. FINDINGS: Nasopharynx: Unremarkable. Oropharynx: Unremarkable. No significant tonsillar enlargement. Hypopharynx: Unremarkable Larynx: Unremarkable. Normal epiglottis. Retropharyngeal space: Unremarkable. Submandibular/Parotid glands: Normal. Glands are normal in size. Thyroid: Small amount of fluid and gas within the right directly bed and extending anterior to the left thyroid lobe, compatible with expected post-right thyroidectomy changes. Right thyroid lobe is surgically absent. Lymph nodes: Unremarkable. No lymphadenopathy. Trachea: Visualized trachea is unremarkable. Lungs: Unremarkable as visualized. Bones/joints: Unremarkable. No acute fracture. Soft tissues: Unremarkable. No significant soft tissue swelling. PAGE 1 Signed Report (CONTINUED) Name: JACOB CELIS Phys: Juliet Castillo MD : 1980 Age: 38 Sex: F Acct: [id number] Loc: FRI Exam Date: 05/01/2019 Status: REG ER Radiology No: [id number] Unit No: [id number] PH: [phone] Diagnosis: POST OP SWELLING AND DRAINAGE EXAM: [id number] NECK W/CONTRAST Reason For Procedure: SWELLING POST SURGERY IMPRESSION: Small amount of fluid and gas within the right directly bed and extending anterior to the left thyroid lobe, compatible with expected post right thyroidectomy changes. REPORT SIGNED IN OTHER VENDOR SYSTEM 05/01/2019 Reported By: Goran Voss MD CC: Technologist: JACOB DENNY Transcribed Date/Time: 05/01/2019 ([id number]) Mobile Ui/Ux Designer: ELÍAS Printed Date/Time: 05/01/2019 (4938) PAGE 2 Signed Report Normal [facility] ACT PAR THROMBO TIMEon 05-01 ACT PAR THROMBO TIME 25 SEC Normal 22-33 [facility] Comment on above: Result Comment: THER APEUTIC APTT RANGE: 41-61 SECONDS NEW THERAPEUTIC RANGE EFFECTIVE 08/19/2018 Performed By: #### P TINR, APTT #### [facility] [place] [id number] CBC AUTO DIFF (REFLEX MANUAL )on 05-01-2019 Basophils (Bld) [#/Vol] 0.10 x10 3 Normal 0.0-0.2 [facility] Comment on above: Performed By: #### C BCAD #### [facility] [address] [address] Basophils/100 WBC (Bld) 0.5 % Normal 0.0-1.5 [facility] Comment on above: Performed By: #### C BCAD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 #### Dayami DYER PROFLIPID #### [facility] [address] [address] Bilirubin Ql (U) 0.70 MG/DL Normal 0.0-1.0 [facility] Comment on above: Performed By: #### Dayami DYER PROFLIPID #### [facility] [address] [address] Bilirubin.direct [Mass/Vol] 0.20 mg/dL Normal 0.0-0.2 [facility] Comment on above: Performed By: #### P GOMEZ PROFLIPID #### [facility] [address] [address] Protein [Mass/Vol] 8.1 g/dL Normal 6.4-8.2 [facility] Comment on above: Performed By: #### P GOMEZ PROFLIPID #### [facility] [address] [address] VITAMIN D, 25 HYDROXYon 06- VITAMIN D, 25 HYDROXY 17.20 ng/mL Low 30-100 [address] [facility] Comment on above: Result Comment: Vitamin D Total assay is in alignment with the 25(OH) Vitamin D Reference Measurement Procedure (RMP). This assay is a certified procedure of the CDC Vitamin D Standardization-Certification Program (VDSCP). Performed By: #### V ITD #### [facility] [address] [address] Final Surgical Pathology Rep uri 09-02-2018 Final Surgical Pathology Report . Pathology Reports Accession: Collected Date/Time: Received Date/Time: Pathologist: [id number] 08/31/2018 14:17 EST 09/01/2018 14:17 EST DO MARLENE GONSALEZ Final Surgical Pathology Report DIAGNOSIS: INFLAMED FIBROMA. NO DYSPLASIA OR MALIGNANCY. COMMENT: [facility] [id number] CLINICAL INFORMATION: PERIPHERAL FIBROMA SPECIMEN: A TISSUE- LEFT MAXILLA, TOOTH # 12- 13. GROSS DESCRIPTION: Received in formalin labeled with the patient's name is a 1.7 x 1.5 x 0.6 cm pale to dark aguilera rubbery tissue. What appears to be the margin is inked and the specimen is sectioned to show aguilera, solid cut surfaces. TS -1 Dictated by Lauren SONG ([facility]) MICROSCOPIC DESCRIPTION: Slides reviewed. Electronically Signed by Pathology Report verified by [facility] Electronically signed by MARLENE GONSALEZ DO Sign out Date: 09/02/2018 11:30 Performing Lab: [facility], [address] [place] [address] ([place]) Comment on above: Performed By: #### S PFR #### [place] [address] ANKZain 03-21-2018 ANKR Name: JACOB CELIS Phys: Aury Merritt : 1980 Age: 37 Sex: F Acct: [id number] Loc: Exam Date: 03/20/2018 Status: DEP ER Radiology No: [id number] Unit No: [id number] PH: [phone] Diagnosis: ANKLE TO KNEE PAIN RIGHT FOOT STEPPED WRONG EXAM: [id number] ANKLE RIGHT-MIN 3 VWS Reason For Procedure: fall down flight of steps STUDY: FOOT RIGHT-MIN 3 VWS, ANKLE RIGHT-MIN 3 VWS, KNEE RIGHT 4 VWS OR MORE CLINICAL INDICATION: Pain after fall TECHNIQUE: 4 views right foot, right ankle, and right knee COMPARISON: January 17, 2015 November 19, 2010 FINDINGS: Right knee: Mild medial joint space narrowing. No acute fracture or dislocation. No joint effusion seen. Soft tissues grossly unremarkable. No lytic or blastic lesion. Right ankle: No acute fracture or dislocation seen. Ankle mortise is congruent. Mild lateral soft tissue swelling. Right foot: No acute fracture or dislocation seen. Lisfranc alignment maintained. 5th metatarsal base intact. Mild spurring of the plantar and posterior calcaneus. Soft tissues grossly unremarkable. IMPRESSION: NO ACUTE DISPLACED FRACTURE IDENTIFIED IN THE RIGHT KNEE, ANKLE OR FOOT. MILD SOFT TISSUE SWELLING DESCRIBED. IF PAIN PERSISTS AT ANY SITE, ADDITIONAL IMAGING RECOMMENDED. SITE O PAGE 1 Signed Report (CONTINUED) Name: JACOB CELIS Phys: Aury Merritt : 1980 Age: 37 Sex: F Acct: [id number] Loc: Exam Date: 03/20/2018 Status: DEP ER Radiology No: [id number] Unit No: [id number] PH: [phone] Diagnosis: ANKLE TO KNEE PAIN RIGHT FOOT STEPPED WRONG EXAM: [id number] ANKLE RIGHT-MIN 3 VWS Reason For Procedure: fall down flight of steps REPORT ELECTRONICALLY SIGNED BY: Cuong Rhodes D.O. 03/21/2018 7:47 AM REPORT SIGNED IN OTHER VENDOR SYSTEM 03/21/2018 Reported By: Cuong Rhodes DO CC: Technologist: RT EVITA/Hernan Transcribed Date/Time: 03/21/2018 (0749) Mobile Ui/Ux Designer: BOB Printed Date/Time: 03/21/2018 (0749) PAGE [address] [facility] 03-21-2018 FTR Name: JACOB CELIS Phys: Aury Merritt : 1980 Age: 37 Sex: F Acct: [id number] Loc: Exam Date: 03/20/2018 Status: [facility] ER Radiology No: [id number] Unit No: [id number] PH: [phone] Diagnosis: ANKLE TO KNEE PAIN RIGHT FOOT STEPPED WRONG EXAM: [id number] FOOT RIGHT-MIN 3 VWS Reason For Procedure: fall down flight of steps STUDY: FOOT RIGHT-MIN 3 VWS, ANKLE RIGHT-MIN 3 VWS, KNEE RIGHT 4 VWS OR MORE CLINICAL INDICATION: Pain after fall TECHNIQUE: 4 views right foot, right ankle, and right knee COMPARISON: January 17, 2015 November 19, 2010 FINDINGS: Right knee: Mild medial joint space narrowing. No acute fracture or dislocation. No joint effusion seen. Soft tissues grossly unremarkable. No lytic or blastic lesion. Right ankle: No acute fracture or dislocation seen. Ankle mortise is congruent. Mild lateral soft tissue swelling. Right foot: No acute fracture or dislocation seen. Lisfranc alignment maintained. 5th metatarsal base intact. Mild spurring of the plantar and posterior calcaneus. Soft tissues grossly unremarkable. IMPRESSION: NO ACUTE DISPLACED FRACTURE IDENTIFIED IN THE RIGHT KNEE, ANKLE OR FOOT. MILD SOFT TISSUE SWELLING DESCRIBED. IF PAIN PERSISTS AT ANY SITE, ADDITIONAL IMAGING RECOMMENDED. SITE O PAGE 1 Signed Report (CONTINUED) Name: JACOB CELIS Phys: Aury Merritt : 1980 Age: 37 Sex: F Acct: [id number] Loc: Exam Date: 03/20/2018 Status: [facility] ER Radiology No: [id number] Unit No: [id number] PH: [phone] Diagnosis: ANKLE TO KNEE PAIN RIGHT FOOT STEPPED WRONG EXAM: [id number] FOOT RIGHT-MIN 3 VWS Reason For Procedure: fall down flight of steps REPORT ELECTRONICALLY SIGNED BY: Cuong Rhodes D.O. 03/21/2018 7:47 AM REPORT SIGNED IN OTHER VENDOR SYSTEM 03/21/2018 Reported By: Cuong Rhodes DO CC: Technologist: RT EVITA/Hernan Transcribed Date/Time: 03/21/2018 (0749) Mobile Ui/Ux Designer: BOB Printed Date/Time: 03/21/2018 (0749) PAGE 2 Signed Report Normal [facility] KNEERon 03-21-2018 KNEER Name: JACOB CELIS Phys: Aury Merritt : 1980 Age: 37 Sex: F Acct: [id number] Loc: Exam Date: 03/20/2018 Status: [facility] ER Radiology No: [id number] Unit No: [id number] PH: [phone] Diagnosis: ANKLE TO KNEE PAIN RIGHT FOOT STEPPED WRONG EXAM: [id number] KNEE RIGHT 4 VWS OR MORE Reason For Procedure: fall down flight of steps STUDY: FOOT RIGHT-MIN 3 VWS, ANKLE RIGHT-MIN 3 VWS, KNEE RIGHT 4 VWS OR MORE CLINICAL INDICATION: Pain after fall TECHNIQUE: 4 views right foot, right ankle, and right knee COMPARISON: January 17, 2015 November 19, 2010 FINDINGS: Right knee: Mild medial joint space narrowing. No acute fracture or dislocation. No joint effusion seen. Soft tissues grossly unremarkable. No lytic or blastic lesion. Right ankle: No acute fracture or dislocation seen. Ankle mortise is congruent. Mild lateral soft tissue swelling. Right foot: No acute fracture or dislocation seen. Lisfranc alignment maintained. 5th metatarsal base intact. Mild spurring of the plantar and posterior calcaneus. Soft tissues grossly unremarkable. IMPRESSION: NO ACUTE DISPLACED FRACTURE IDENTIFIED IN THE RIGHT KNEE, ANKLE OR FOOT. MILD SOFT TISSUE SWELLING DESCRIBED. IF PAIN PERSISTS AT ANY SITE, ADDITIONAL IMAGING RECOMMENDED. SITE O PAGE 1 Signed Report (CONTINUED) Name: VIMALJACOB M Phys: Aury Merritt : 1980 Age: 37 Sex: F Acct: [id number] Loc: Exam Date: 03/20/2018 Status: [facility] ER Radiology No: [id number] Unit No: [id number] PH: [phone] Diagnosis: ANKLE TO KNEE PAIN RIGHT FOOT STEPPED WRONG EXAM: [id number] KNEE RIGHT 4 VWS OR MORE Reason For Procedure: fall down flight of steps REPORT ELECTRONICALLY SIGNED BY: Cuong Rhodes D.O. 03/21/2018 7:47 AM REPORT SIGNED IN OTHER VENDOR SYSTEM 03/21/2018 Reported By: Cuong Rhodes DO CC: Technologist: MICHELLE KHAN, RT/Hernan Transcribed Date/Time: 03/21/2018 (0748) Mobile Ui/Ux Designer: BOB Printed Date/Time: 03/21/2018 (0749) PAGE 2 Signed Report Normal [facility] Vital Signs Date Time Vital Sign Value Performing Clinician Facility 12-15-2024 11:37-0400 Diastolic blood pressure 89 mm[Hg] Dr. Richard Dan DO Work Phone: 4(909)033-276918 [place] [address] 12-15-2024 11:37-0400 Heart rate 89 /min Dr. Richard Dan DO Work Phone: 8(731)415-791776 [place] [address] 12-15-2024 11:37-0400 Respiratory rate 16 /min Dr. Richard Dan DO Work Phone: 5(616)337-190376 [place] [address] 12-15-2024 11:37-0400 SaO2% (BldA) [Mass fraction] 99 % Dr. Richard Dan DO Work Phone: 5(724)887-269476 [place] [address] 12-15-2024 11:37-0400 Systolic blood pressure 142 mm[Hg] Dr. Richard Dan DO Work Phone: 8(140)441-916576 [place] [address] 12-15-2024 07:49-0400 Body temperature 97.7 [degF] Dr. Richard Dan DO Work Phone: 9(311)088-294918 [place] [address] 12-15-2024 03:16-0400 Body height 165.[address] Richard Dan DO Work Phone: 9(364)948-496176 [place] [address] 12-15-2024 03:16-0400 Body mass index (BMI) [Ratio] 49.1 kg/m2 Dr. Richard Dan DO Work Phone: 9(736)760-327718 [place] [address] 12-15-2024 03:16-0400 Body weight 133.[address] Richard Dan DO Work Phone: 0(694)555-960618 [place] [address] 12-15-2024 03:00-0400 Diastolic blood pressure 94 mm[Hg] Dr. Richard Dan DO Work Phone: 8(013)285-338618 [place] [address] 12-15-2024 03:00-0400 Heart rate 85 /min Dr. Richard Dan DO Work Phone: 8(099)938-335518 [place] [address] 12-15-2024 03:00-0400 Respiratory rate 30 /min Dr. Richard Dan DO Work Phone: 7(368)898-183818 [place] [address] 12-15-2024 03:00-0400 SaO2% (BldA) [Mass fraction] 93 % Dr. Richard Dan DO Work Phone: [facility] 12-15-2024 03:00-0400 Systolic blood pressure 137 mm[Hg] Dr. Richard Dan DO Work Phone: [facility] 12-15-2024 00:49-0400 Body temperature 97.8 [degF] Dr. Richard Dan DO Work Phone: 4(330)345-292618 [place] [address] 12-14-2024 20:31-0400 Body height 165.[address] Richard Dan DO Work Phone: 3(992)712-950218 [place] [address] 12-14-2024 20:31-0400 Body mass index (BMI) [Ratio] 48.9 kg/m2 Dr. Richard Dan DO Work Phone: [facility] 12-14-2024 20:31-0400 Body weight 133.[address] Richard Dan DO Work Phone: [facility] 06-04-2024 04:29-0500 Heart rate 95 /min Mohsen Soto MD Work Phone: [facility] 06-04-2024 04:29-0500 Respiratory rate 20 /min Mohsen Soto MD Work Phone: [facility] 06-04-2024 04:04-0500 Body height 165.1 cm Mohsen Soto MD Work Phone: [facility] 06-04-2024 04:04-0500 Body mass index (BMI) [Ratio] 35.94 kg/m2 Mohsen Soto MD Work Phone: [facility] 06-04-2024 04:04-0500 Body temperature 98.1 [degF] Mohsen Soto MD Work Phone: [facility] 06-04-2024 04:04-0500 Body weight 97.98 kg Mohsen Soto MD Work Phone: [facility] 06-04-2024 04:04-0500 Diastolic blood pressure 96 mm[Hg] Mohsen Soto MD Work Phone: [facility] 06-04-2024 04:04-0500 SaO2% (BldA) [Mass fraction] 98 % Mohsen Soto MD Work Phone: [facility] 06-04-2024 04:04-0500 Systolic blood pressure 160 mm[Hg] Mohsen Soto MD Work Phone: [facility] 02-19-2024 15:31-0400 Body mass index (BMI) [Ratio] 49.49 kg/m2 Debbie Praisler-Wood HAND WOOD SANDER.POWER PLANT SUPERVISOR Work Phone: [facility] 02-19-2024 15:31-0400 Body temperature 100.29 [degF] Debbie Praisler-Wood HAND WOOD SANDER.POWER PLANT SUPERVISOR Work Phone: [facility] 02-19-2024 15:31-0400 Body weight 134.9 kg Debbie Praisler-Wood HAND WOOD SANDER.POWER PLANT SUPERVISOR Work Phone: [facility] 02-19-2024 15:31-0400 Diastolic blood pressure 99 mm[Hg] Edbbie Praisler-Wood HAND WOOD SANDER.POWER PLANT SUPERVISOR Work Phone: [facility] 02-19-2024 15:31-0400 Heart rate 120 /min Debbie Praisler-Wood HAND WOOD SANDER.POWER PLANT SUPERVISOR Work Phone: [facility] 02-19-2024 15:31-0400 Respiratory rate 24 /min Debbie Praisler-Wood HAND WOOD SANDER.POWER PLANT SUPERVISOR Work Phone: [facility] 02-19-2024 15:31-0400 SaO2% (BldA) [Mass fraction] 97 % Debbie Praisler-Wood HAND WOOD SANDER.POWER PLANT SUPERVISOR Work Phone: [facility] 02-19-2024 15:31-0400 Systolic blood pressure 143 mm[Hg] Debbie Praisler-Wood HAND WOOD SANDER.POWER PLANT SUPERVISOR Work Phone: [facility] 08-29-2023 11:19-0500 Diastolic blood pressure 90 mm[Hg] Madelaine Gutierrez MD Work Phone: [facility] 08-29-2023 11:19-0500 Heart rate 96 /min Madelaine Gutierrez MD Work Phone: [facility] 08-29-2023 11:19-0500 Respiratory rate 14 /min Madelaine Gutierrez MD Work Phone: [facility] 08-29-2023 11:19-0500 SaO2% (BldA) [Mass fraction] 98 % Madelaine Gutierrez MD Work Phone: [facility] 08-29-2023 11:19-0500 Systolic blood pressure 156 mm[Hg] Madelaine Gutierrez MD Work Phone: [facility] 08-29-2023 09:11-0500 Body height 165.1 cm Madelaine Gutierrez MD Work Phone: [facility] 08-29-2023 09:11-0500 Body mass index (BMI) [Ratio] 50.09 kg/m2 Madelaine Gutierrez MD Work Phone: [facility] 08-29-2023 09:11-0500 Body temperature 98.1 [degF] Madelaine Gutierrez MD Work Phone: [facility] 08-29-2023 09:11-0500 Body weight 136.53 kg Madelaine Gutierrez MD Work Phone: [facility] 08-12-2023 08:51-0500 Body height 165.1 cm Richie Leger SAND TECHNICIAN Work Phone: [facility] 08-12-2023 08:51-0500 Body mass index (BMI) [Ratio] 50.17 kg/m2 Richie Weygandt SAND TECHNICIAN Work Phone: [facility] 08-12-2023 08:51-0500 Body weight 136.76 kg Richie Weygandt SAND TECHNICIAN Work Phone: [facility] 08-12-2023 08:51-0500 Diastolic blood pressure 80 mm[Hg] Richie Weluzt SAND TECHNICIAN Work Phone: [facility] 08-12-2023 08:51-0500 Heart rate 100 /min Richie Leger SAND TECHNICIAN Work Phone: [facility] 08-12-2023 08:51-0500 SaO2% (BldA) [Mass fraction] 95 % Richie Leger SAND TECHNICIAN Work Phone: [facility] 08-12-2023 08:51-0500 Systolic blood pressure 124 mm[Hg] Richie Leger SAND TECHNICIAN Work Phone: [facility] 07-24-2023 22:36-0500 Diastolic blood pressure 84 mm[Hg] Glenn Garrett DO Work Phone: [facility] 07-24-2023 22:36-0500 Heart rate 81 /min Glenn Garrett DO Work Phone: [facility] 07-24-2023 22:36-0500 Respiratory rate 16 /min Glenn Garrett DO Work Phone: [facility] 07-24-2023 22:36-0500 SaO2% (BldA) [Mass fraction] 99 % Glenn Garrett DO Work Phone: [facility] 07-24-2023 22:36-0500 Systolic blood pressure 138 mm[Hg] Glenn Ruanoaci DO Work Phone: [facility] 07-24-2023 20:42-0500 Body height 162.6 cm Glenn Garrett DO Work Phone: [facility] 07-24-2023 20:42-0500 Body mass index (BMI) [Ratio] 51.67 kg/m2 Glenn Garrett DO Work Phone: [facility] 07-24-2023 20:42-0500 Body temperature 98.2 [degF] Glenn Gerry DO Work Phone: [facility] 07-24-2023 20:42-0500 Body weight 136.53 kg Glenn Gerry DO Work Phone: [facility] 07-03-2023 14:11-0500 Body mass index (BMI) [Ratio] 50.11 kg/m2 Lois Alberts MD Work Phone: [facility] 07-03-2023 14:11-0500 Body weight 136.59 kg Lois Alberts MD Work Phone: [facility] 07-03-2023 14:11-0500 Diastolic blood pressure 94 mm[Hg] Lois Alberts MD Work Phone: [facility] 07-03-2023 14:11-0500 Heart rate 102 /min Lois Alberts MD Work Phone: [facility] 07-03-2023 14:11-0500 SaO2% (BldA) [Mass fraction] 94 % Lois Alberts MD Work Phone: [facility] 07-03-2023 14:11-0500 Systolic blood pressure 140 mm[Hg] Lois Alberts MD Work Phone: [facility] 05-05-2023 07:40-0500 Body temperature 98.2 [degF] Glenn Lr MD Work Phone: [facility] 05-05-2023 07:40-0500 Diastolic blood pressure 103 mm[Hg] Glenn Lr MD Work Phone: [facility] 05-05-2023 07:40-0500 Heart rate 103 /min Glenn Lr MD Work Phone: [facility] 05-05-2023 07:40-0500 Respiratory rate 16 /min Glenn Lr MD Work Phone: [facility] 05-05-2023 07:40-0500 SaO2% (BldA) [Mass fraction] 95 % Glenn Lr MD Work Phone: [facility] 05-05-2023 07:40-0500 Systolic blood pressure 160 mm[Hg] Glenn Lr MD Work Phone: [facility] 04-02-2023 11:20-0400 Diastolic blood pressure 85 mm[Hg] Lois Alberts MD Work Phone: [facility] 04-02-2023 11:20-0400 Systolic blood pressure 118 mm[Hg] Lois Alberts MD Work Phone: [facility] 04-02-2023 10:42-0400 Body height 165.1 cm Lois Alberts MD Work Phone: [facility] 04-02-2023 10:42-0400 Body mass index (BMI) [Ratio] 50.09 kg/m2 Lois Alberts MD Work Phone: [facility] 04-02-2023 10:42-0400 Body temperature 98.2 [degF] Lois Alberts MD Work Phone: [facility] 04-02-2023 10:42-0400 Body weight 136.53 kg Lois Alberts MD Work Phone: [facility] 04-02-2023 10:42-0400 Heart rate 105 /min Lois Alberts MD Work Phone: [facility] 04-02-2023 10:42-0400 Respiratory rate 16 /min Lois Alberts MD Work Phone: [facility] 04-02-2023 10:42-0400 SaO2% (BldA) [Mass fraction] 97 % Lois Alberts MD Work Phone: [facility] 02-03-2023 08:58-0400 Body mass index (BMI) [Ratio] 49.92 kg/m2 Lois Alberts Work Phone: YX[facility]Hkfxwbgygjtwq[facility]x [facility] Work Phone: 02-03-2023 08:58-0400 Body surface area Derived from formula 2.35 m2 Lois Alberts Work Phone: BT-Iqndidfrpmtcf-Px [place] Work Phone: 02-03-2023 08:58-0400 Body weight 136.08 kg Lois Alberts Work Phone: XQ-Ulbediutqxovu-Wj [place] Work Phone: 12-30-2022 07:46-0400 Body height 165.1 cm Lois Alberts MD Work Phone: [facility] 12-30-2022 07:46-0400 Body mass index (BMI) [Ratio] 50.42 kg/m2 Lois Alberts MD Work Phone: [facility] 12-30-2022 07:46-0400 Body temperature 97.59 [degF] Lois Alberts MD Work Phone: [facility] 12-30-2022 07:46-0400 Body weight 137.44 kg Lois Alberts MD Work Phone: [facility] 12-30-2022 07:46-0400 Diastolic blood pressure 70 mm[Hg] Lois Alberts MD Work Phone: [facility] 12-30-2022 07:46-0400 Heart rate 114 /min Lois Alberts MD Work Phone: [facility] 12-30-2022 07:46-0400 Respiratory rate 16 /min Lois Alberts MD Work Phone: [facility] 12-30-2022 07:46-0400 SaO2% (BldA) [Mass fraction] 96 % Lois Alberts MD Work Phone: [facility] 12-30-2022 07:46-0400 Systolic blood pressure 128 mm[Hg] Lois Alberts MD Work Phone: [facility] 12-04-2022 23:09-0400 Heart rate 98 /min Nicanor Nesheim DO Work Phone: [facility] 12-04-2022 22:51-0400 Body height 165.1 cm Nicanor Nesheim DO Work Phone: [facility] 12-04-2022 22:51-0400 Body mass index (BMI) [Ratio] 50.09 kg/m2 Nicanor Nesheim DO Work Phone: [facility] 12-04-2022 22:51-0400 Body temperature 98.01 [degF] Nicanor Nesheim DO Work Phone: [facility] 12-04-2022 22:51-0400 Body weight 136.53 kg Nicanor Nesheim DO Work Phone: [facility] 12-04-2022 22:51-0400 Diastolic blood pressure 105 mm[Hg] Nicanor Nesheim DO Work Phone: [facility] 12-04-2022 22:51-0400 Respiratory rate 16 /min Nicanor Nesheim DO Work Phone: [facility] 12-04-2022 22:51-0400 SaO2% (BldA) [Mass fraction] 97 % Nicanor Nesheim DO Work Phone: [facility] 12-04-2022 22:51-0400 Systolic blood pressure 159 mm[Hg] Nicanor Nesheim DO Work Phone: [facility] 07-25-2022 08:05-0500 Body height 165.[address] Work Phone: [facility] Work Phone: 07-25-2022 08:05-0500 Body mass index (BMI) [Ratio] 52.09 kg/m2 [facility] Work [facility]: [facility] Work Phone: 07-25-2022 08:05-0500 Body surface area Derived from formula 2.39 m2 [facility] Work Phone: [facility] Work Phone: 07-25-2022 08:05-0500 Body temperature 97.3 [degF] Lois Taliwal Work Phone: [facility] Work Phone: 07-25-2022 08:05-0500 Body weight 141.98 kg Lois Taliwal Work Phone: [facility] Work Phone: 07-25-2022 08:05-0500 Diastolic blood pressure 80 mm[Hg] Lois Taliwal Work Phone: [facility] Work Phone: 07-25-2022 08:05-0500 Heart rate 96 /min Lois Taliwal Work Phone: [facility] Work Phone: 07-25-2022 08:05-0500 Systolic blood pressure 124 mm[Hg] Lois Taliwal Work Phone: [facility] Work Phone: 06-06-2022 08:35-0500 Body height 165.1 cm Lois Taliwal Work Phone: [facility] Work Phone: 06-06-2022 08:35-0500 Body mass index (BMI) [Ratio] 51.59 kg/m2 Lois Taliwal Work Phone: [facility] Work Phone: 06-06-2022 08:35-0500 Body surface area Derived from formula 2.38 m2 Lois Taliwal Work Phone: [facility] Work Phone: 06-06-2022 08:35-0500 Body weight 140.62 kg Lois Taliwal Work Phone: [facility] Work Phone: 06-06-2022 08:35-0500 Diastolic blood pressure 85 mm[Hg] Lois Taliwal Work Phone: [facility] Work Phone: 06-06-2022 08:35-0500 Heart rate 110 /min Lois Taliwal Work Phone: [facility] Work Phone: 06-06-2022 08:35-0500 Systolic blood pressure 127 mm[Hg] Lois Taliwal Work Phone: [facility] Work Phone: 04-16-2022 10:07-0400 Body height 165.1 cm Meghan Ball HAND WOOD SANDER.POWER PLANT SUPERVISOR Work Phone: [facility] 04-16-2022 10:07-0400 Body temperature 97.2 [degF] Meghan Ball HAND WOOD SANDER.POWER PLANT SUPERVISOR Work Phone: [facility] 04-16-2022 10:07-0400 Body weight 142.43 kg Meghan Ball HAND WOOD SANDER.POWER PLANT SUPERVISOR Work Phone: [facility] 04-16-2022 10:07-0400 Diastolic blood pressure 79 mm[Hg] Meghan Ball HAND WOOD SANDER.POWER PLANT SUPERVISOR Work Phone: [facility] 04-16-2022 10:07-0400 Heart rate 85 /min Meghan Ball HAND WOOD SANDER.POWER PLANT SUPERVISOR Work Phone: [facility] 04-16-2022 10:07-0400 Respiratory rate 16 /min Meghan Ball HAND WOOD SANDER.POWER PLANT SUPERVISOR Work Phone: [facility] 04-16-2022 10:07-0400 SaO2% (BldA) [Mass fraction] 98 % Meghan Ball HAND WOOD SANDER.POWER PLANT SUPERVISOR Work Phone: [facility] 04-16-2022 10:07-0400 Systolic blood pressure 151 mm[Hg] Meghan Ball HAND WOOD SANDER.POWER PLANT SUPERVISOR Work Phone: [facility] 03-21-2022 08:56-0400 Body height 165.1 cm Lois Taliwal Work Phone: [facility] Work Phone: 03-21-2022 08:56-0400 Body mass index (BMI) [Ratio] 51.17 kg/m2 Lois Taliwal Work Phone: [facility] Work Phone: 03-21-2022 08:56-0400 Body surface area Derived from formula 2.37 m2 Lois Taliwal Work Phone: [facility] Work Phone: 03-21-2022 08:56-0400 Body temperature 97.2 [degF] Lois Taliwal Work Phone: [facility] Work Phone: 03-21-2022 08:56-0400 Body weight 139.48 kg Lois Taliwal Work Phone: [facility] Work Phone: 03-21-2022 08:56-0400 Diastolic blood pressure 88 mm[Hg] Lois Taliwal Work Phone: [facility] Work Phone: 03-21-2022 08:56-0400 Heart rate 104 /min Lois Taliwal Work Phone: [facility] Work Phone: 03-21-2022 08:56-0400 Respiratory rate 22 /min Lois Taliwal Work Phone: [facility] Work Phone: 03-21-2022 08:56-0400 SaO2% (BldA) [Mass fraction] 97 % Lois BabyWatchiwal Work Phone: [facility] Work Phone: 03-21-2022 08:56-0400 Systolic blood pressure 122 mm[Hg] Lois Taliwal Work Phone: [facility] Work Phone: 02-01-2022 08:18-0400 Body height 165.1 cm Lois Taliwal Work Phone: YB-Adxmknbdknydr-Ts [place] Work Phone: 02-01-2022 08:18-0400 Body mass index (BMI) [Ratio] 50.09 kg/m2 Lois Taliwal Work Phone: [facility]Fqqlgbkfcclpq[facility] Work Phone: 02-01-2022 08:18-0400 Body surface area Derived from formula 2.35 m2 Lois Taliwal Work Phone: SL-Oxqixclonygdr-Zq [facility] Work Phone: 02-01-2022 08:18-0400 Body weight 136.53 kg Lois Taliwal Work Phone: WK-Qshgtrdaplpdm-Ki [place] Work Phone: 02-01-2022 08:18-0400 Diastolic blood pressure 83 mm[Hg] Lois Taliwal Work Phone: JO-Fgmvrnjtqalty-Mc [place] Work Phone: 02-01-2022 08:18-0400 Heart rate 123 /min Lois Taliwal Work Phone: WV-Hsqlauapflyqi-Ov [place] Work Phone: 02-01-2022 08:18-0400 SaO2% (BldA) [Mass fraction] 97 % Lois Taliwal Work Phone: [facility] Work Phone: 02-01-2022 08:18-0400 Systolic blood pressure 112 mm[Hg] Lois Taliwal Work Phone: YO-Uauwkrahwirkp-Yp [place] Work Phone: 01-24-2022 09:50-0400 Body mass index (BMI) [Ratio] 48.59 kg/m2 Lois Taliwal Work Phone: [facility] Work Phone: 01-24-2022 09:50-0400 Body surface area Derived from formula 2.32 m2 Lois Taliwal Work Phone: [facility] Work Phone: 01-24-2022 09:50-0400 Body temperature 97.4 [degF] Lois Taliwal Work Phone: [facility] Work Phone: 01-24-2022 09:50-0400 Body weight 132.45 kg Lois Taliwal Work Phone: [employer] [facility] Work Phone: 01-24-2022 09:50-0400 Diastolic blood pressure 80 mm[Hg] Lois Taliwal Work Phone: [facility] Work Phone: 01-24-2022 09:50-0400 Heart rate 103 /min Lois Taliwal Work Phone: [facility] Work Phone: 01-24-2022 09:50-0400 Systolic blood pressure 128 mm[Hg] Lois Taliwal Work Phone: [facility] Work Phone: 01-01-2022 09:47-0400 Body height 165.1 cm Lois Taliwal Work Phone: [facility] [place] Work Phone: 01-01-2022 09:47-0400 Body mass index (BMI) [Ratio] 48.09 kg/m2 Lois Taliwal Work Phone: [facility] Work Phone: 01-01-2022 09:47-0400 Body surface area Derived from formula 2.31 m2 Lois Taliwal Work Phone: [facility] Work Phone: 01-01-2022 09:47-0400 Body weight 131.09 kg Lois Taliwal Work Phone: [facility] Work Phone: 01-01-2022 09:47-0400 Diastolic blood pressure 84 mm[Hg] Lois Taliwal Work Phone: [facility] Work Phone: 01-01-2022 09:47-0400 Systolic blood pressure 124 mm[Hg] Lois Taliwal Work Phone: [facility] Work Phone: 12-25-2021 09:56-0400 Body height 165.1 cm Lois Taliwal Work Phone: [facility] Work Phone: 12-25-2021 09:56-0400 Body mass index (BMI) [Ratio] 49.26 kg/m2 Lois Taliwal Work Phone: [facility] Work Phone: 12-25-2021 09:56-0400 Body surface area Derived from formula 2.34 m2 Lois Taliwal Work Phone: [facility] Work Phone: 12-25-2021 09:56-0400 Body temperature 97.4 [degF] Lois Taliwal Work Phone: [facility] Work Phone: 12-25-2021 09:56-0400 Body weight 134.27 kg Lois Taliwal Work Phone: [facility] Work Phone: 12-25-2021 09:56-0400 Diastolic blood pressure 82 mm[Hg] Lois Taliwal Work Phone: [facility] Work Phone: 12-25-2021 09:56-0400 Heart rate 109 /min Lois Taliwal Work Phone: [facility] Work Phone: 12-25-2021 09:56-0400 Systolic blood pressure 138 mm[Hg] Lois Taliwal Work Phone: [facility] Work Phone: 11-27-2021 08:35-0400 Body mass index (BMI) [Ratio] 49.42 kg/m2 Lois Taliwal Work Phone: [facility] Work Phone: 11-27-2021 08:35-0400 Body surface area Derived from formula 2.34 m2 Lois Taliwal Work Phone: [facility] Work Phone: 11-27-2021 08:35-0400 Body temperature 97.5 [degF] Lois Taliwal Work Phone: [facility] Work Phone: 11-27-2021 08:35-0400 Body weight 134.72 kg Lois Taliwal Work Phone: [facility] [employer] [facility] Work Phone: 11-27-2021 08:35-0400 Diastolic blood pressure 72 mm[Hg] Lois Taliwal Work Phone: [facility] Center[facility] Work Phone: 11-27-2021 08:35-0400 Heart rate 88 /min Lois BabyWatchiwal Work Phone: [facility]Cho[facility] CenterUlt[facility] NetworkW[facility] Work Phone: 11-27-2021 08:35-0400 Systolic blood pressure 134 mm[Hg] Lois Taliwal Work Phone: [facility] NetworkCho[facility] CenterMicroSense SolutionsW[facility] Work Phone: 11-27-2021 08:35-0400 55 1 Lois BabyWatchiwal Work Phone: [facility] NetworkCho[facility] CenterUltimate Football NetworkW[facility] Work Phone: Comment on above: [facility] 10-30-2021 11:51-0400 Body mass index (BMI) [Ratio] 49.92 kg/m2 Lois Taliwal Work Phone: [facility] Work Phone: 10-30-2021 11:51-0400 Body surface area Derived from formula 2.35 m2 Lois BabyWatchiwal Work Phone: [facility] Work Phone: 10-30-2021 11:51-0400 Body temperature 97.4 [degF] Lois Taliwal Work Phone: [facility] Work Phone: 10-30-2021 11:51-0400 Body weight 136.08 kg Lois WootenStyleCasteral Work Phone: [facility] [employer]Qu[employer] [facility] HospitalUlt[facility] NetworkW[facility] Work Phone: 10-30-2021 11:51-0400 Diastolic blood pressure 74 mm[Hg] Lois Wooteniwal Work Phone: [facility] [employer] [facility] HospitalWell[facility] Work Phone: 10-30-2021 11:51-0400 Heart rate 83 /min Lois ApeniMEDal Work Phone: [facility] NetworkCho[facility] CenterUltimate Football NetworkW[facility] Work Phone: 10-30-2021 11:51-0400 Systolic blood pressure 128 mm[Hg] Lois Taliwal Work Phone: [facility] CenterUlt[facility] NetworkW[facility] Work Phone: 09-27-2021 09:44-0400 Body mass index (BMI) [Ratio] 49.42 kg/m2 Lois BabyWatchiwal Work Phone: [facility]Cho[facility] CenterUltimate [facility] NetworkW[facility] Work Phone: 09-27-2021 09:44-0400 Body surface area Derived from formula 2.34 m2 Lois Wooteniwal Work Phone: [facility] Work Phone: 09-27-2021 09:44-0400 Body temperature 97.6 [degF] Lois Taliwal Work Phone: [facility] NetworkCho[facility] CenterWell[facility] Work Phone: 09-27-2021 09:44-0400 Body weight 134.72 kg Lois Wooteniwal Work Phone: [facility] Work Phone: 09-27-2021 09:44-0400 Diastolic blood pressure 80 mm[Hg] Lois Taliwal Work Phone: [facility] Work Phone: 09-27-2021 09:44-0400 Heart rate 92 /min Lois Taliwal Work Phone: [facility] Work Phone: 09-27-2021 09:44-0400 Systolic blood pressure 128 mm[Hg] Lois Taliwal Work Phone: [facility] Work Phone: 09-11-2021 22:12-0400 Heart rate 98 /min Moose Ortega MD Work Phone: [facility] 09-11-2021 22:12-0400 Respiratory rate 18 /min Moose Ortega MD Work Phone: [facility] 09-11-2021 22:12-0400 SaO2% (BldA) [Mass fraction] 94 % Moose Ortega MD Work Phone: [facility] 09-11-2021 21:29-0400 Body height 165.1 cm Moose Ortega MD Work Phone: [facility] 09-11-2021 21:29-0400 Body mass index (BMI) [Ratio] 45.6 kg/m2 Moose Ortega MD Work Phone: [facility] 09-11-2021 21:29-0400 Body temperature 99.7 [degF] Moose Ortega MD Work Phone: [facility] 09-11-2021 21:29-0400 Body weight 124.29 kg Moose Ortega MD Work Phone: [facility] 09-11-2021 21:29-0400 Diastolic blood pressure 87 mm[Hg] Moose Ortega MD Work Phone: [facility] 09-11-2021 21:29-0400 Systolic blood pressure 146 mm[Hg] Moose Ortega MD Work Phone: [facility] 06-28-2021 09:05-0500 Body height 165.1 cm Lois Taliwal Work Phone: [employer] [facility] HospitalUlt[facility] NetworkW[facility] Work Phone: 06-28-2021 09:05-0500 Body mass index (BMI) [Ratio] 48.76 kg/m2 Lois Taliwal Work Phone: [employer] [facility] HospitalUlt[facility] NetworkW[facility] Work Phone: 06-28-2021 09:05-0500 Body surface area Derived from formula 2.33 m2 Lois BabyWatchiwal Work Phone: [employer] [facility] HospitalUlt[facility] NetworkW[facility] Work Phone: 06-28-2021 09:05-0500 Body temperature 98.1 [degF] Lois Taliwal Work Phone: [employer] [facility] HospitalUlt[facility] NetworkW[facility] Work Phone: 06-28-2021 09:05-0500 Body weight 132.9 kg Lois Taliwal Work Phone: [employer] [facility] HospitalUlt[facility] NetworkW[facility] Work Phone: 06-28-2021 09:05-0500 Diastolic blood pressure 78 mm[Hg] Lois Taliwal Work Phone: [employer] [facility] Work Phone: 06-28-2021 09:05-0500 Heart rate 82 /min Lois Taliwal Work Phone: [facility] [employer] [facility] Work Phone: 06-28-2021 09:05-0500 Systolic blood pressure 118 mm[Hg] Lois Taliwal Work Phone: [facility] [employer] [facility] Work Phone: 03-28-2021 08:27-0400 Body height 165.1 cm Melly J Marlene Work Phone: [facility] Work Phone: 03-28-2021 08:27-0400 Body mass index (BMI) [Ratio] 48.59 kg/m2 Melly J Marlene Work Phone: [facility] Work Phone: 03-28-2021 08:27-0400 Body surface area Derived from formula 2.32 m2 Melly J Marlene Work Phone: [facility] Work Phone: 03-28-2021 08:27-0400 Body temperature 97.4 [degF] Melly J Marlene Work Phone: [facility] Work Phone: 03-28-2021 08:27-0400 Body weight 132.45 kg Melly J Marlene Work Phone: [facility] Work Phone: 03-28-2021 08:27-0400 Diastolic blood pressure 74 mm[Hg] Melly J Marlene Work Phone: [facility] Work Phone: 03-28-2021 08:27-0400 Systolic blood pressure 110 mm[Hg] Melly J Marlene Work Phone: [facility] Work Phone: 03-07-2021 08:30-0400 Body height 165.1 cm Melly J Marlene Work Phone: [facility] Work Phone: 03-07-2021 08:30-0400 Body mass index (BMI) [Ratio] 48.11 kg/m2 Melly J Marlene Work Phone: [facility] Work Phone: 03-07-2021 08:30-0400 Body surface area Derived from formula 2.31 m2 Melly Rosario Work Phone: [facility] Work Phone: 03-07-2021 08:30-0400 Body temperature 97.7 [degF] Melly Rosario Work Phone: [facility] Work Phone: 03-07-2021 08:30-0400 Body weight 131.15 kg Melly Rosario Work Phone: [facility] Work Phone: 03-07-2021 08:30-0400 Diastolic blood pressure 78 mm[Hg] Melly Rosario Work Phone: [facility] Work Phone: 03-07-2021 08:30-0400 Heart rate 87 /min Melly Rosario Work Phone: [facility] Work Phone: 03-07-2021 08:30-0400 Respiratory rate 18 /min Melly Rosario Work Phone: [facility] Work Phone: 03-07-2021 08:30-0400 SaO2% (BldA) [Mass fraction] 98 % Melly Rosario Work Phone: [facility] Work Phone: 03-07-2021 08:30-0400 Systolic blood pressure 106 mm[Hg] Melly Rosario Work Phone: [facility] Work Phone: 02-27-2021 23:39-0400 Body height 165.1 cm Marlene Gomez MD Work Phone: [facility] Work Phone: 02-27-2021 23:39-0400 Body mass index (BMI) [Ratio] 47.43 kg/m2 Marlene Gomez MD Work Phone: [facility] Work Phone: 02-27-2021 23:39-0400 Body temperature 98.6 [degF] Marlene Gomez MD Work Phone: [facility] Work Phone: 02-27-2021 23:39-0400 Body weight 129.28 kg Marlene Gomez MD Work Phone: [facility] Work Phone: 02-27-2021 23:39-0400 Diastolic blood pressure 74 mm[Hg] Marlene Gomez MD Work Phone: [facility] Work Phone: 02-27-2021 23:39-0400 Heart rate 108 /min Marlene Gomez MD Work Phone: [facility] Work Phone: 02-27-2021 23:39-0400 Respiratory rate 18 /min Marlene Gomez MD Work Phone: [facility] Work Phone: 02-27-2021 23:39-0400 SaO2% (BldA) [Mass fraction] 99 % Marlene Gomez MD Work Phone: [facility] Work Phone: 02-27-2021 23:39-0400 Systolic blood pressure 120 mm[Hg] Marlene Gomez MD Work Phone: [facility] Work Phone: 02-01-2021 11:47-0400 Body height 165.1 cm Steph Villalba Work Phone: [facility] Work Phone: 02-01-2021 11:47-0400 Body mass index (BMI) [Ratio] 48.26 kg/m2 Steph Villalba Work Phone: [facility]olb[facility]ujq[facility] Work Phone: 02-01-2021 11:47-0400 Body surface area Derived from formula 2.32 m2 Steph Vega Nicholas Work Phone: SY-Badeqkcqhsabi-Yg [place] Work Phone: 02-01-2021 11:47-0400 Body weight 131.54 kg Steph Vega Nicholas Work Phone: PK-Svcrpxjohdyso-Vn [place] Work Phone: 02-01-2021 11:47-0400 Diastolic blood pressure 78 mm[Hg] Steph Vega Nicholas Work Phone: OM-Qsleplvytklru-Zk [place] Work Phone: 02-01-2021 11:47-0400 Heart rate 96 /min Steph Vega Villalba Work Phone: BO-Nsocobxxtqwgk-Ox [place] Work Phone: 02-01-2021 11:47-0400 SaO2% (BldA) [Mass fraction] 98 % Steph Leroy Villalba Work Phone: XN-Dgulkremnusei-Al [place] Work Phone: 02-01-2021 11:47-0400 Systolic blood pressure 112 mm[Hg] Steph Leroy Gary Villalba Work Phone: XQ-Gvmamxckwhtpm-Vo [place] Work Phone: 12-28-2020 16:02-0400 Body height 165.1 cm Steph Villalba Work Phone: [facility] [employer] Work Phone: 12-28-2020 16:02-0400 Body mass index (BMI) [Ratio] 48.32 kg/m2 Steph Villalba Work Phone: [facility] [address] Work Phone: 12-28-2020 16:02-0400 Body surface area Derived from formula 2.32 m2 Steph Villalba Work Phone: [facility] [address] Work Phone: 12-28-2020 16:02-0400 Body temperature 98.4 [degF] Steph Villalba Work Phone: [facility] [address] Work Phone: 12-28-2020 16:02-0400 Body weight 131.72 kg Steph Villalba Work Phone: [facility] [address] Work Phone: 12-28-2020 16:02-0400 Diastolic blood pressure 68 mm[Hg] Steph Villalba Work Phone: [facility] [address] Work Phone: 12-28-2020 16:02-0400 Heart rate 92 /min Steph Villalba Work Phone: [facility] [address] Work Phone: 12-28-2020 16:02-0400 SaO2% (BldA) [Mass fraction] 98 % Steph Villalba Work Phone: [facility] [address] Work Phone: 12-28-2020 16:02-0400 Systolic blood pressure 110 mm[Hg] Steph Villalba Work Phone: [facility] [address] Work Phone: 06-12-2020 11:49-0500 BMI (Body Mass Index) 43.1 kg/m2 Steph Nicholas [employer] Work Phone: 06-12-2020 11:49-0500 Body weight 117.48 kg Steph Nicholas [employer] Work Phone: 06-12-2020 11:49-0500 BP Diastolic 78 mm[Hg] Steph Nicholas [employer] Work Phone: 06-12-2020 11:49-0500 BP Systolic 118 mm[Hg] Steph Nicholas [employer] Work Phone: 06-12-2020 11:49-0500 BSA (Body Surface Area) 2.21 m2 Steph Villalba [employer] Work Phone: 06-12-2020 11:49-0500 Height 165.1 cm Steph [facility]alba [facility] Work Phone: 04-18-2020 11:10-0400 BMI (Body Mass Index) 44.93 kg/m2 Steph Villalba [facility] Work Phone: 04-18-2020 11:10-0400 Body Temperature 98 [degF] Steph Villalba [facility] Work Phone: 04-18-2020 11:10-0400 Body weight 122.47 kg Steph Villalba [facility] Work Phone: 04-18-2020 11:10-0400 BP Diastolic 87 mm[Hg] Steph Villalba [facility] Work Phone: Comment on above: Location: RUE; Position: Sitting 04-18-2020 11:10-0400 BP Systolic 115 mm[Hg] Steph Villalba [facility] Work Phone: Comment on above: Location: RUE; Position: Sitting 04-18-2020 11:10-0400 BSA (Body Surface Area) 2.25 m2 Steph Villalba [facility] Work Phone: 04-18-2020 11:10-0400 Pulse (Heart Rate) 100 /min [facility] Work Phone: 04-18-2020 11:10-0400 Pulse Oximetry 98 % Steph Villalba [facility] Work Phone: Comment on above: Source: 03-16-2020 20:34-0400 BP Diastolic 80 mm[Hg] Martín [facility] , [place] 03-16-2020 20:34-0400 BP Systolic 112 mm[Hg] Martín [facility] , [place] 03-16-2020 20:19-0400 Pulse (Heart Rate) 75 /min [facility], [place] 03-16-2020 20:19-0400 Pulse Oximetry 97 % [facility] , [place] 03-16-2020 20:19-0400 Respiratory Rate 16 /min Martín [facility], [place] 03-16-2020 18:20-0400 BMI (Body Mass Index) 40.61 kg/m2 Martín [facility], [place] 03-16-2020 18:20-0400 Body Temperature 98.8 [degF] Martín [facility], [place] 03-16-2020 18:20-0400 Body weight 124.74 kg Martín [facility] , [place] 02-24-2020 11:42-0400 BMI (Body Mass Index) 46.26 kg/m2 Steph Villalba [facility] Work Phone: 02-24-2020 11:42-0400 Body Temperature 98.2 [degF] [facility] Work Phone: Comment on above: Method: Oral 02-24-2020 11:42-0400 Body weight 126.1 kg Steph Villalba [facility] Work Phone: 02-24-2020 11:42-0400 BP Diastolic 78 mm[Hg] Steph Villalba [facility] Work Phone: Comment on above: Location: LUE; Position: Sitting 02-24-2020 11:42-0400 BP Systolic 146 mm[Hg] Steph Villalba [facility] Work Phone: Comment on above: Location: LUE; Position: Sitting 02-24-2020 11:42-0400 BSA (Body Surface Area) 2.28 m2 Steph Villalba [facility] Work Phone: 02-24-2020 11:42-0400 Pulse (Heart Rate) 86 /min Steph Villalba [facility] Work Phone: 02-24-2020 11:42-0400 Pulse Oximetry 98 % Steph Villalba [facility] Work Phone: 02-16-2020 00:58-0400 BP Diastolic 92 mm[Hg] Asim Serrano [facility], [place] 02-16-2020 00:58-0400 BP Systolic 141 mm[Hg] [facility] [place] 02-16-2020 00:58-0400 Pulse (Heart Rate) 87 /min Asim Saleem [facility], [place] 02-16-2020 00:58-0400 Pulse Oximetry 98 % Asim Saleem [facility], [place] 02-16-2020 00:58-0400 Respiratory Rate 16 /min [facility] [place] 02-15-2020 23:51-0400 BMI (Body Mass Index) 36.18 kg/m2 [facility] [place] 02-15-2020 23:51-0400 Body Temperature 98.29 [degF] Asim Serrano [facility], [place] 02-15-2020 23:51-0400 Body weight 111.13 kg [facility] [place] 02-15-2020 23:51-0400 Height 175.3 cm [facility] [place] 02-14-2020 11:13-0400 BMI (Body Mass Index) 46.1 kg/m2 Dedrick Jamieboris Mosher [facility] Work Phone: 02-14-2020 11:13-0400 Body weight 125.65 kg Dedrick Jamieboris Mosher [facility] Work Phone: 02-14-2020 11:13-0400 BP Diastolic 80 mm[Hg] Derdick Jamieboris Mosher [facility] Work Phone: 02-14-2020 11:13-0400 BP Systolic 130 mm[Hg] Dedrick Ayala Robert [facility] Work Phone: 02-14-2020 11:13-0400 BSA (Body Surface Area) 2.27 m2 Dedrick Dearing Piasuzy [facility] Work Phone: 02-14-2020 11:13-0400 Height 165.1 cm Dedrick Mosher [facility] Work Phone: 02-03-2020 10:48-0400 BMI (Body Mass Index) 46.17 kg/m2 Dedrick Mosher WQ-Rsrqowlenqvqz-Ar [place] Work Phone: 02-03-2020 10:48-0400 Body Temperature 98 [degF] Dedrick Mosher MG-Hfdspbllrxser-Al [place] Work Phone: Comment on above: Method: Oral 02-03-2020 10:48-0400 Body weight 125.85 kg Dedrick Mosher MX-Ogszrqttlbyxf-Hp [place] Work Phone: 02-03-2020 10:48-0400 BP Diastolic 90 mm[Hg] Dedrick Mosher FS-Kkogwxscgsdjf-Kl [place] Work Phone: Comment on above: Location: RUE; Position: Sitting 02-03-2020 10:48-0400 BP Systolic 120 mm[Hg] Dedrick Mosher WR-Zuwxryedmrrol-Ti [place] Work Phone: Comment on above: Location: RUE; Position: Sitting 02-03-2020 10:48-0400 BSA (Body Surface Area) 2.27 m2 Dedrick Mosher DW-Kbjbwccxhcotl-Kh [place] Work Phone: 02-03-2020 10:48-0400 Height 165.1 cm Dedrick Mosher NJ-Jbtyymzmqcnny-Xd [place] Work Phone: 02-03-2020 10:48-0400 Pulse (Heart Rate) 99 /min Dedrick Mosher ID-Odbnbmxnzkqdt-Gu [place] Work Phone: 02-03-2020 10:48-0400 Pulse Oximetry 97 % Dedrick Mosher GQ-Tnpypofelyqhg-Bt [place] Work Phone: 02-03-2020 10:48-0400 Respiratory Rate 20 /min Dedrick Mosher XA-Otucyahajmmlg-Pg [place] Work Phone: 01-29-2020 21:25-0400 BP Diastolic 81 mm[Hg] [facility] [place] [facility] [place] 01-29-2020 21:25-0400 BP Systolic 138 mm[Hg] Obi Carrero [facility] , [place] 01-29-2020 21:25-0400 Pulse (Heart Rate) 76 /min Obi Saleem [facility], [place] 01-29-2020 21:25-0400 Pulse Oximetry 96 % Obi Carrero [facility] , [place] 01-29-2020 21:25-0400 Respiratory Rate 16 /min Obi Carrero [facility], [place] 01-29-2020 20:17-0400 BMI (Body Mass Index) 42.4 kg/m2 Obi Carrero [facility], [place] 01-29-2020 20:17-0400 Body Temperature 98.4 [degF] Obi Carrero [facility], [place] 01-29-2020 20:17-0400 Body weight 112.04 kg Obi Carrero [facility] , [place] 01-29-2020 20:17-0400 Height 162.6 cm Obi Carrero [facility] , [place] 11-16-2019 21:36-0400 Body Temperature 98.2 [degF] [facility] [place] 11-16-2019 21:36-0400 BP Diastolic 109 mm[Hg] [facility] [place] 11-16-2019 21:36-0400 BP Systolic 154 mm[Hg] [facility] [place] 11-16-2019 21:36-0400 Pulse (Heart Rate) 91 /min [facility] [place] [place] 11-16-2019 21:36-0400 Pulse Oximetry 97 % [facility] [place] 11-16-2019 21:36-0400 Respiratory Rate 20 /min [facility] [place] 07-20-2019 09:23-0500 Diastolic blood pressure 70 mm[Hg] Rico Summers MD Work Phone: [facility] Work Phone: 07-20-2019 09:23-0500 Heart rate 92 /min Rico [facility] MD [facility]: [facility] Work Phone: 07-20-2019 09:23-0500 Systolic blood pressure 108 mm[Hg] Rico Summers MD Work Phone: [facility] Work Phone: 07-20-2019 08:09-0500 Body temperature 97.9 [degF] Rico Summers MD [facility]: [facility] Work Phone: 07-20-2019 08:09-0500 Respiratory rate 12 /min Rico Summers MD [facility] Phone: [facility] Work Phone: 07-20-2019 08:09-0500 SaO2% (BldA) [Mass fraction] 100 % Rico Summers MD Work Phone: [facility] Work Phone: 04-01-2019 09:39-0400 BP Diastolic 103 mm[Hg] [employer] [place] 04-01-2019 09:39-0400 BP Systolic 164 mm[Hg] Seun [employer] [place] 04-01-2019 09:28-0400 Body Temperature 98.6 [degF] Seun [employer] [place] 04-01-2019 09:28-0400 Body weight 117.94 kg Seun [employer] [facility] [place] 04-01-2019 09:28-0400 Pulse (Heart Rate) 101 /min Seun [employer] [facility] [place] 04-01-2019 09:28-0400 Pulse Oximetry 99 % Seun [employer] [place] 04-01-2019 09:28-0400 Respiratory Rate 18 /min Seun [employer] [place] Encounters Encounter Date Encounter Type Care Provider Facility Start: 12-15-2024 ambulatory No Primary Car e Physician Facility:[facility] [place] [place] Start: 12-15-2024 Non-patient / Non-visit Dr. Vonnie PALACIOS -[facility] Start: 12-15-2024 End: 12-15-2024 ambulatory Seun Cullen Facility:[facility] Start: 12-15-2024 End: 12-15-2024 Evaluation and management of inpatient Dr. Martín Kilgore DO -Progressive Care Unit Work Phone: Start: 12-15-2024 End: 12-15-[address] Richard Dan DO Work Phone: [facility] Work Phone: Start: 06-04-2024 End: 06-04-2024 Emergency department patient visit Mohsen Soto MD Work Phone: [facility] ED Comment on above: Acute cough (Primary Dx) Start: 02-19-2024 End: 02-19-2024 Subsequent hospital visit by physician [facility] Work Phone: Radiology Comment on above: Acute cough [R05.1] Start: 02-19-2024 End: 02-19-2024 ambulatory BUTCH TALIWAL Facility:[facility] Start: 02-19-2024 End: 02-19-2024 Patient encounter procedure Debbie Cordova APRN.CNP Work Phone: [facility] Care Comment on above: Acute cough (Primary Dx); Viral URI with cough Start: 11-20-2023 Telephone encounter Erwin Dominguez MD Work Phone: [facility] Clinical Communication Comment on above: Test Scheduling Start: 11-17-2023 End: 11-17-2023 ambulatory RICHIE JUAREZANDT Not Available Start: 10-14-2023 End: 10-14-2023 Subsequent hospital visit by physician Erwin Dominguez MD Work Phone: [facility] Comment on above: Canceled (Other: Can celed via Interface) Start: 10-14-2023 End: 10-14-2023 ambulatory ERWIN DOMINGUEZ [facility] Start: 09-10-2023 End: 09-10-2023 ambulatory RICHIE S WEEZRAANDT Not Available Start: 09-03-2023 End: 09-04-2023 ambulatory LOIS [facility] Start: 09-03-2023 End: 09-03-2023 Subsequent hospital visit by physician [facility] Comment on above: Migraine with aura, not intractable, without status migrainosus Start: 09-02-2023 End: 09-02-2023 ambulatory [facility] Start: 08-29-2023 End: 08-29-2023 Subsequent hospital visit by physician [facility] Us Exam Room 1 [facility] US Comment on above: Arrived Start: 08-29-2023 End: 08-29-2023 Emergency department patient visit Madelaine Gutierrez MD Work Phone: [facility] ED Comment on above: Ureteral stone with hydronephrosis (Primary Dx) Start: 08-12-2023 Bamboo flowsheet Richie Gallegos Stefanie balbuena SAND TECHNICIAN Work Phone: [facility] Start: 08-12-2023 Bamboo flowsheet Richie Gallegos Stefanie balbuena SAND TECHNICIAN Work Phone: [facility] Start: 08-12-2023 Telephone encounter Richie Gallegos Murphyezrarhona SAND TECHNICIAN Work Phone: [facility] Start: 08-12-2023 End: 08-12-2023 ambulatory RICHIE SHAHCyndie Not Available Start: 08-12-2023 End: 08-12-2023 Office outpatient visit 25 minutes Richie Leger SAND TECHNICIAN Work Phone: [facility] Comment on above: Morbid obesity with body mass index (BMI) of 50.0 to 59.9 in adult (CMS/HCC) (Primary Dx); Migraine with aura and without status migrainosus, not intractable (CMS/HCC) Start: 07-29-2023 End: 07-29-2023 ambulatory RANDOLPH VILLALBA Not Available Start: 07-24-2023 End: 07-24-2023 Emergency department patient visit Glenn Garrett DO Work Phone: [facility] ED Comment on above: Other migraine witho ut status migrainosus, not intractable (Primary Dx) Start: 07-03-2023 End: 07-04-2023 ambulatory [facility] Start: 07-03-2023 End: 07-04-2023 ambulatory [facility] Ambulatory Start: 07-03-2023 End: 07-03-2023 Office outpatient visit 40 minutes Lois Alberts MD Work Phone: [facility] Comment on above: Sinus congestion (Pr imary Dx); Acute cough; Pharyngitis, unspecified etiology; SOB (shortness of breath); Bipolar depression (CMS/HCC); Mild intermittent asthma without complication; Morbid obesity with BMI of 50.0-59.9, adult (CMS/HCC) Start: 06-21-2023 End: 06-21-2023 ambulatory MELLY ROSARIO Facility:[facility] Start: 05-05-2023 End: 05-05-2023 Subsequent hospital visit by physician [facility] Xr Portable [facility] Radiology Comment on above: Arrived Start: 05-05-2023 End: 05-05-2023 Emergency department patient visit Glenn Lr MD Work Phone: [facility] ED Comment on above: Hand sprain, left, i nitial encounter (Primary Dx) Start: 04-02-2023 End: 04-03-2023 ambulatory [facility] Ambulatory Start: 04-02-2023 End: 04-02-2023 Office outpatient visit 25 minutes Lois Alberts MD Work Phone: [employer] Comment on above: Routine adult health maintenance; Encounter for annual general medical examination without abnormal findings in adult; Vitamin D deficiency; Vitamin B 12 deficiency; Controlled type 2 diabetes mellitus with hyperglycemia, without long-term current use of insulin (CMS/HCC); Mixed hyperlipidemia; Insomnia, persistent; HTN (hypertension), benign; Seasonal allergies; Radicular pain; Type 2 diabetes mellitus with hyperglycemia, without long-term current use of insulin (CMS/HCC); 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 Dedrick Angeles [facility] Facility:[id number] Start: 12-30-2022 End: 12-31-2022 ambulatory [facility] Start: 12-30-2022 End: 12-31-2022 Encounter for general adult medical examination without abnormal findings [facility] Start: 12-30-2022 End: 12-30-2022 ambulatory [facility] Ambulatory Start: 12-30-2022 End: 12-30-2022 Encounter for general adult medical examination without abnormal findings [facility] Ambulatory Start: 12-30-2022 End: 12-30-2022 Patient encounter procedure Lois Alberts MD Work Phone: [facility] Work Phone: Start: 12-30-2022 End: 12-30-2022 Periodic preventive med est patient 40-64yrs Lois Alberts MD Work Phone: [facility] Comment on above: Encounter for annual general medical examination without abnormal findings in adult (Primary Dx); Morbid obesity with BMI of 50.0-59.9, adult (CMS/HCC); HTN (hypertension), benign; Mixed hyperlipidemia; IZABELA on CPAP; Vitamin D deficiency; Vitamin B 12 deficiency; Arthralgia, unspecified joint; Generalized anxiety disorder; Type 2 diabetes mellitus with hyperglycemia, without long-term current use of insulin (CMS/HCC); Bipolar depression (CMS/[facility]); Acute conjunctivitis of both eyes, unspecified acute conjunctivitis type Start: 12-04-2022 End: 12-04-2022 Emergency department patient visit Nicanor Rosa DO Work Phone: [facility] ED Comment on above: Acute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 Provider: Lois Alberts, Status: Pen, Time: 8:30 AM [facility] Work Phone: Start: 02-28-2022 Influenza vaccination INFLUENZ A (Season Ended) [facility] Start: 02-25-2022 Nursing evaluation o f patient and report NURSEVST, Provider: NURSE VISIT,CPMG, Status: Pen, Time: 8:45 AM [facility] Work Phone: Start: 02-01-2022 FUV, Provider: Dedrick Weston, Status: Pen, Time: 8:30 AM FUV, Provider: Dedrick Weston, Status: Pen, Time: 8:30 AM [facility] Work Phone: Start: 01-24-2022 EPV, Provider: Lois Alberts, Status: Pen, Time: 9:30 AM EPV, Provider: Lois Alberts, Status: Pen, Time: 9:30 AM [facility] Work Phone: Start: 01-16-2022 EPV, Provider: Lois Alberts, Status: Pen, Time: 10:15 AM EPV, Provider: Lois Alberts, Status: Pen, Time: 10:15 AM [facility] Work Phone: Start: 01-01-2022 Patient encounter procedure ANNUAL, Provider: Alva Constantino, Status: Pen, Time: 10:00 AM [facility] Work Phone: Start: 12-25-2021 EPV, Provider: Lois Alberts, Status: Pen, Time: 9:45 AM EPV, Provider: Lois Alberts, Status: Pen, Time: 9:45 AM [facility] Work Phone: Start: 12-11-2021 Patient encounter procedure ANNUAL, Provider: Alva Constantino, Status: Pen, Time: 9:00 AM [facility] Work Phone: Start: 11-27-2021 EPV, Provider: Lois Alberts, Status: Pen, Time: 8:45 AM EPV, Provider: Lois Alberts, Status: Pen, Time: 8:45 AM [facility] Work Phone: Start: 10-31-2021 FUV, Provider: Lois Alberts, Status: Pen, Time: 10:45 AM FUV, Provider: Lois Alberts, Status: Pen, Time: 10:45 AM [facility] Work Phone: Start: 09-27-2021 FUV, Provider: Lois Alberts, Status: Pen, Time: 9:30 AM FUV, Provider: Lois Alberts, Status: Pen, Time: 9:30 AM [facility] Work Phone: Start: 07-12-2021 COVID-19 VACCINE (4 - Booster for Moderna series) COVID-19 VACCINE (4 - Booster for Moderna series) [facility] Start: 07-12-2021 COVID-19 Vaccine (4 - Moderna series) COVID-19 Vaccine (4 - Moderna series) [facility] Start: 06-30-2021 DEPRESSION ASSESSMENT DEPRESSION ASS [facility] Start: 06-27-2021 FUV, Provider: Melly Rosario, Status: Pen, Time: 8:00 AM FUV, Provider: Melly Rosario, Status: Pen, Time: 8:00 AM [facility] Work Phone: Start: 03-28-2021 FUV, Provider: Melly Rosario, Status: Pen, Time: 8:15 AM FUV, Provider: Melly Rosario, Status: Pen, Time: 8:15 AM [facility] Work Phone: Start: 03-16-2021 Creatinine measurement Creatinine mo [facility] Start: 03-16-2021 Diabetes: Estimated Glomerular Filtration Rate for Kidney Health Diabetes: Estimated Glomerular Filtration Rate for Kidney Health [facility] Start: 03-16-2021 Potassium monitoring Potassium monit [facility] Start: 03-07-2021 FUV, Provider: Melly Rosario, Status: Pen, Time: 8:30 AM FUV, Provider: Melly Rosario, Status: Pen, Time: 8:30 AM [facility] Work Phone: Start: 02-28-2021 Influenza vaccination [facility] Work Phone: Start: 02-15-2021 [facility] [place] Start: 02-15-2021 Potassium monitoring Potassium monit [facility] [place] Start: 02-07-2021 COVID-19 Vaccine (3 - Booster for Moderna series) COVID-19 Vaccine (3 - Booster for Moderna series) [facility] Start: 02-05-2021 FUV, Provider: Dedrick Weston, Status: Pen, Time: 1:45 PM FUV, Provider: Dedrick Weston, Status: Pen, Time: 1:45 PM [facility] [address] Work Phone: Start: 01-29-2021 NPV, Provider: Oneil Marie, Status: Pen, Time: 3:30 PM NPV, Provider: Oneil Marie, Status: Pen, Time: 3:30 PM [facility] [employer] Phone: Start: 2020 Mammography MAMMOGRAM [facility] Start: 2020 Screening for malign ant neoplasm of breast Mammogram [facility] Start: 09-28-2020 DTaP/Tdap/Td Vaccine s (3 - Td or Tdap) DTaP/Tdap/Td Vaccines (3 - Td or Tdap) [facility] Start: 07-20-2020 Creat[place] Start: 07-20-2020 Potassium monitoring [place] monit [place] Start: 02-29-2020 Influenza vaccination [place], [place] Start: 02-28-2019 Influenza vaccination Flu vaccine (# 1) [place], [place] Start: 01-18-2019 Varicella vaccination [facility] Start: 2010 HPV TESTING HPV TESTING [facility] Start: 2010 Screening for malign ant neoplasm of cervix [facility] Start: 2001 PAP TESTING PAP TESTING [facility] Start: 2001 Screening for malign ant neoplasm of cervix [facility] Start: 10-10-1999 Hepatitis B Vaccine (1 of 3 - 19+ 3-dose series) Hepatitis B Vaccine (1 of 3 - 19+ 3-dose series) [facility] Start: 10-10-1999 Hepatitis B Vaccines (1 of 3 - 19+ 3-dose series) Hepatitis B Vaccines (1 of 3 - 19+ 3-dose series) [facility] Start: 10-10-1999 Urine microalbumin profile DTAP,TDAP,TD (1 - Tdap) [facility] Start: 1998 Depression Screening Depression Scre ening [facility] Start: 1998 Diabetes: Urine Albumin-Creatinine Ratio for Kidney Health Diabetes: Urine Albumin-Creatinine Ratio for Kidney Health [facility] Start: 1998 HEPATITIS C SCREENING HEPATITIS C [facility] Start: 1998 Hepatitis C screening Hepatitis C [facility] Start: 1998 HIV SCREENING HIV SCREENING [facility] Start: 1998 HIV screening HIV Screening [facility] Start: 1996 COVID-19 Vaccine (1) COVID-19 Vaccin e (1) [facility] Work Phone: Start: 1992 Adult depression screening assessment DEPRESSION SCREENING [facility] Start: 1990 Diabetic foot examination Diabetes: Foot Exam [facility] Start: 1990 Glaucoma screening Diabetes: R etinopathy Screening [facility] Start: 1990 Preventive dental service Diabetes: Dental Exam [facility] Start: 1980 Cyanocobalamin vitam in b- Vitamin B-12 [facility] Start: 1980 Hemoglobin A1c measurement Diabetes: Hemoglobin A1C [facility] Start: 1980 HEPATITIS B (1 of 3 - 3-dose series) HEPATITIS B (1 of 3 - 3-dose series) [facility] Start: 1980 Hepatitis B Vaccines (1 of 3 - 3-dose series) Hepatitis B Vaccines (1 of 3 - 3-dose series) [facility] Start: 1980 HIV screening HIV Screening [facility] Start: 1980 Lipid panel Lipid Panel [facility] Start: 1980 Thyroid stimulating hormone measurement TSH Level [facility] Start: 1980 Yearly Adult Physical Yearly Adult P [facility] Amphetamines [Presen ce] in Urine by Screen method >1000 ng/mL [facility] End: 07-20-2019 Bacteria identified in Urine by Culture Urine Culture Microbiology STAT One Time for 1 Occurrences starting 07/20/2019 until 07/20/2019 [facility] Work Phone: Comment on above: One Time for 1 Occur rences starting 07/20/2019 until 07/20/2019 Bacteria identified in Urine by Culture Urine Culture Microbiology STAT 07/20/2019 8:49 AM EST [facility] Work Phone: Benzodiazepine measurement, urine [facility] Cocaine measurement, urine [facility] COVID & INFLUENZA A/ B & RSV NAAT, ROUTINE COVID & INFLUENZA A/B & RSV NAAT, ROUTINE Microbiology Routine Viral URI with cough 02/19/2024 4:35 PM EDT [facility] Work Phone: End: 02-28-2021 COVID-19 COVID-19 Lab Routine One Time for 1 Occurrences starting 02/28/2021 until 02/28/2021 [facility] Work Phone: Comment on above: One Time for 1 Occur rences starting 02/28/2021 until 02/28/2021 COVID-19 COVID-19 Lab STA T 02/27/2021 11:58 PM EDT [employer] Work Phone: [email or web address] [Presence] in Urine by Screen method [facility] Hemoglobin A1c/Hemoglobin.total in Blood [facility] Influenza virus A an d B RNA [Identifier] in Unspecified specimen by JOSE with probe detection Influenza A, and B PCR Lab Routine Sinus congestion Acute cough 07/03/2023 3:07 PM EST [facility] Work Phone: Influenza virus A an d B RNA and SARS-CoV-2 (COVID-19) N gene panel - Respiratory specimen by JOSE with probe detection COVID WITH FLUA+B, ROUTINE Microbiology Routine SOB (shortness of breath) Ordered: 04/16/2022 [facility] Work Phone: Comment on above: Ordered: 04/16/2022 End: 12-15-2022 LUNG DIFFUSION CAPACITY (DLCO) LUNG DIFFUSION CAPACITY (DLCO) PFT Routine Mild intermittent asthma without complication 1 Occurrences starting 11/15/2021 until 12/15/2022 [facility] Comment on above: 1 Occurrences starti ng 11/15/2021 until 12/15/2022 LUNG DIFFUSION CAPAC ITY (DLCO) LUNG DIFFUSION CAPACITY (DLCO) PFT Routine Mild intermittent asthma without complication 12/11/2021 4:48 PM EDT [facility] End: 12-15-2022 LUNG VOLUMES LUNG VOLUMES PFT Routine Mild intermittent asthma without complication 1 Occurrences starting 11/15/2021 until 12/15/2022 [facility] Comment on above: 1 Occurrences starti ng 11/15/2021 until 12/15/2022 Methadone measuremen t, urine [facility] OUTSIDE PROCEDURE SCAN OUTSIDE P ROCEDURE SCAN Procedures Ordered: 10/13/2023 [facility] Comment on above: Ordered: 10/13/2023 Patient referral [facility] Work Phone: Phencyclidine [Presence] in Urine [facility] Respiratory syncytia l virus RNA [Presence] in Respiratory specimen by JOSE with probe detection RSV PCR Lab Routine Sinus congestion Acute cough Pharyngitis, unspecified etiology 07/03/2023 3:07 PM EST [facility] Work Phone: SARS-CoV-2 (COVID-19 ) RNA [Presence] in Respiratory specimen by JOSE with probe detection Sars-CoV-2 PCR, Symptomatic Lab Routine Sinus congestion Acute cough 07/03/2023 3:07 PM EST [facility] Work Phone: End: 12-15-2022 SPIROMETRY - BASELINE AND POST DILATOR SPIROMETRY - BASELINE AND POST DILATOR PFT Routine Mild intermittent asthma without complication 1 Occurrences starting 11/15/2021 until 12/15/2022 [facility] Comment on above: 1 Occurrences starti ng 11/15/2021 until 12/15/2022 End: 02-16-2020 Troponin x1 Troponin x1 Lab STAT One Time for 1 Occurrences starting 02/16/2020 until 02/16/2020 [facility] Comment on above: One Time for 1 Occur rences starting 02/16/2020 until 02/16/2020 Troponin x1 Troponin x1 Lab STAT 02/16/2020 12:09 AM EDT [facility] 3D Urinalysis Urinalysis Lab S TAT 07/20/2019 8:[address] [facility] Work Phone: Urine cannabinoid measurement [facility] Urine opiate measurement [facility] NEGATED: Highlighted row has been ruled out! Planned Goals not documented [facility]egxgdow[facility]oyx-Kx [place] Work Phone: Immunizations Immunization Date Immunization Notes Care Provider Anna esposito 04-05-2023 Influenza, injectabl e, Madin Sciota Canine Kidney, preservative free, quadrivalent Lois Alberts MD Work Phone: [facility] Work Phone: 04-05-2023 influenza, seasonal, injectable Lois Alberts MD Work Phone: [facility] Work Phone: 04-05-2023 influenza virus vacc ine, unspecified formulation Debbie Cordova APRN.CNP Work Phone: [facility] 03-23-2022 influenza, injectabl e, quadrivalent, preservative free Lois Alberts Work Phone: [facility] Work Phone: 03-23-2022 influenza, seasonal, injectable Lois Alberts MD Work Phone: [facility] Work Phone: 03-23-2022 influenza virus vacc ine, unspecified formulation Lois Alberts MD Work Phone: [facility] Work Phone: 10-01-2021 pneumococcal vaccine , unspecified formulation Lois Alberts MD Work Phone: [facility] Work Phone: 10-01-2021 Prevnar 20 0.5 ML Intramuscular Suspension Prefilled Syringe Lois Alberts Work Phone: [facility] Work Phone: 05-17-2021 Moderna COVID-19 Vac cine 100 MCG/0.5ML Intramuscular Suspension Lois Alberts Work Phone: [facility] 02-17-2021 Influenza, injectabl e, Madin Ashleigh Canine Kidney, preservative free, quadrivalent Melly Rosario Work Phone: [facility] 09-07-2020 Moderna COVID-19 Vac cine 100 MCG/0.5ML Intramuscular Suspension Steph Villalba Work Phone: [facility] 08-11-2020 Moderna COVID-19 Vac cine 100 MCG/0.5ML Intramuscular Suspension Steph Villalba Work Phone: [facility] Work Phone: Comment on above: Series: 03-30-2020 tetanus toxoid, redu orestes diphtheria toxoid, and acellular pertussis vaccine, adsorbed Steph Villalba Work Phone: [facility] Work Phone: Comment on above: Series: 02-29-2020 influenza virus vacc ine, unspecified formulation Steph Villalba Work Phone: [facility] Work Phone: Comment on above: Series: 02-29-2020 influenza, seasonal, injectable Lois Alberts MD Work Phone: [facility] Work Phone: 02-19-2020 tetanus toxoid, redu orestes diphtheria toxoid, and acellular pertussis vaccine, adsorbed Steph Villalba Work Phone: [facility] 02-12-2020 influenza, injectabl e, quadrivalent, preservative free Steph Villalba Work Phone: [facility] Work Phone: 02-20-2019 influenza, injectabl e, quadrivalent, preservative free Steph Villalba Work Phone: [facility] Work Phone: 12-21-2018 measles, mumps and rubella virus vaccine Steph Villalba Work Phone: [facility] 12-21-2018 pneumococcal polysaccharide vaccine, 23 valent Steph Villalba Work Phone: [facility] Work Phone: 12-21-2018 pneumococcal vaccine , unspecified formulation Lois Alberts MD Work Phone: [facility] Work Phone: 03-31-2018 influenza, injectabl e, quadrivalent, contains preservative Steph Villalba Work Phone: [facility] Work Phone: 02-11-2017 influenza, injectabl e, quadrivalent, preservative free Steph Villalba Work Phone: [facility] Work Phone: 03-10-2015 influenza, injectabl e, quadrivalent, preservative free Steph Villalba Work Phone: [facility] Work Phone: Payers Date Payer Category Payer Self-pay 2024 Unknown [id number] 2023 Commercial Managed [facility] [id number] 2023 Unknown [id number] 2022 Unknown 2018 Medicaid [place] [id number] 2018-Present [phone] [address] [place] [address] Medicaid [id number] 2018 Medicaid [id number]. [id number] 2014 Unknown [id number] 1980 Unknown [id number] 2.16.840.1.713341.3.579.2. 1069 1980 Unknown [id number] 2.16.840.1.921426.3.579.2. 356 1980 Unknown [id number] 2.16.840.1.610324.3.579.2. 356 1980 Unknown [id number] 2.16.840.1.562999.3.579.2. 356 1980 Unknown [id number] 2.16.840.1.697410.3.579.2. 356 1980 Unknown [id number] 2.16.840.1.195803.3.579.2. 356 1980 Unknown [id number] 2.16.840.1.654675.3.579.2. 356 1980 Unknown [id number] 2.16.840.1.778991.3.579.2. 1980 Unknown [id number] 2.16.840.1.674810.3.579.2. 1241 1980 Unknown [id number] 2.16.840.1.826954.3.579.2. 1243 1980 Unknown [id number] 2.16.840.1.527847.3.579.2. 1243 1980 Unknown [id number] 2.16.840.1.866513.3.579.2. 1243 1980 Unknown [id number] 2.16.840.1.370752.3.579.2. 1243 1980 Unknown [id number] 2.16.840.1.735640.3.579.2. 1244 1980 Unknown [id number] 2.16.840.1.525370.3.579.2. 1245 1980 Unknown [id number] 2.16.840.1.250646.3.579.2. 1259 1980 Unknown [id number] 2.16.840.1.502098.3.579.2. 1259 1980 Unknown [id number] 2.16.840.1.079310.3.579.2. 1259 1980 Unknown [id number] 2.16.840.1.090340.3.579.2. 1259 Unknown [id number] 2.16.840.1.916078.3.579.2. 462 Unknown [id number] 2.16.840.1.982571.3.579.2. 462 Unknown [id number] 2.16.840.1.082329.3.579.2. 462 Social History Date Type Detail Facility Start: 11-16-2019 End: 12-15-2024 Tobacco smoking status NHIS Never smoker [place] Start: 11-16-2019 End: 02-19-2024 Alcohol intake [facility]finding[facility] Start: 04-01-2019 End: 02-16-2021 History SDOH Alcohol Frequency 1 [place], [place] Start: 1980 Sex Assigned At Not on file [place], [place] Exposure to SARS-CoV -2 (event) Unable to assess [place] Start: 01-29-2020 End: 04-29-2022 Tobacco use and exposure Never used [place] Start: 12-01-2021 End: 09-03-2023 Exposure to SARS-CoV-2 (event) Not sure [place] Start: 04-01-2019 End: 06-04-2024 Alcohol intake Never [place] Start: 12-04-2022 End: 06-04-2024 Caffeine use Caffeine use [facility] [address] Work Phone: How often to you hav e a drink containing alcohol? Never [facility] How many standard drinks containing alcohol do you have on a typical day? Patient does not drink [facility] Start: 12-30-2022 End: 06-04-2024 Alcohol intake Ex-drinker (finding) [facility] Work Phone: Start: 12-30-2022 Alcohol Comment Caffeine: > 4 cups/day soda/pop, energy drinks [facility] Start: 01-28-2022 Sex Female (finding) [facility] Start: 1980 Sex Assigned At Female W [facility] NEGATED: Highlighted row - - [facility] [place] Work Phone: NEGATED: Highlighted rowStart: ERLINF History of tobacco use Passive smoker [facility] Work Phone: NEGATED: Highlighted row Not [facility] Medical Equipment Procedure Code Equipment Code Equipment Origin al Text Equipment Identifier Dates fluorescein 1 MG ophthalmic strip 1 strip [id number] Start: 12-04-2022 End: 12-04-2022 Goals Date Patient Goal Desired Activity /State Functional Status Date Assessment Result Facility 12-15-2024 Functional status Ambulates;Up ad gianfranco [facility] Work Phone: NEGATED: Highlighted row Functional performance Functional status health issues are not documented Disease [facility] [place] Work Phone: Mental Status Date Assessment Result Facility 12-15-2024 Cognitive function Voice/Name [facility] Work Phone: 12-14-2024 Cognitive function Voice/Name [facility] Work Phone: NEGATED: Highlighted row Cognitive function [Interpretation] Cognitive status health issues are not documented Disease [facility] Work Phone: Clinical Notes 12-28-2020 to 12-15-2024 Note Date & Type Note Facility 12-15-2024 Note [facility] Medical Records Department [address] [place] [address] Discharge Summary 12/15/24 1705 MR#: [id number] Acct: [id number] Name: JACOB CELIS Rep #: [id number] : 1980 44 From: Seun Cullen MD PCP: Care Physician,No Primary Status:DIS JERI Location: [place] [address] Providers Date of Admission: 12/15/24 Primary Care Physician: No Primary Care Phys Reason For Visit: HYPERTENSIVE EMERGENCY CHEST PAIN WITH EXERTION Diagnosis Discharge Diagnosis (1) Hypertensive emergency without congestive heart failure: Status: Acute Code(s): I16.1 - Hypertensive emergency (2) Chest pain on exertion: Status: Acute Code(s): R07.9 - Chest pain, unspecified (3) Hyperglycemia due to type 2 diabetes mellitus: Status: Acute Code(s): E11.65 - Type 2 diabetes mellitus with hyperglycemia Qualifiers: Diabetes mellitus long-term insulin use: 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 Qualified Code(s): E11.65 - Type 2 diabetes mellitus with hyperglycemia (4) Medical non-compliance: Status: Acute Code(s): Z91.199 - Patient's noncompliance with other medical treatment and regimen due to unspecified reason (5) Morbid obesity with BMI of 45.0-49.9, adult: Status: Acute Code(s): E66.01 - Morbid (severe) obesity due to excess calories; Z68.42 - Body mass index [BMI] 45.0-49.9, adult Medications at Discharge Home Medications atorvastatin 20 mg tablet (Lipitor) 20 mg PO DAILY #30 tabs 12/15/24 losartan 50 mg tablet 50 mg PO DAILY #30 tabs 12/15/24 metformin 500 mg tablet,extended release 24 hr 500 mg PO BID 30 days #60 tabs 12/15/24 Hospital Course Operations None Procedures 2-D Echocardiogram and Nuclear stress test Summary of Care Provided Minutes Spent on Discharge: 32 Hospital Course: Per HPI: JACOB CELIS, is a 44 F with a past medical history of essential hypertension; currently untreated, DM-2; uncontrolled with hyperglycemia and morbid obesity; with BMI of 49 this admission who presents to [facility] ER complaining of chest pain and elevated blood pressure. Ms. Celis reports her symptoms began 3 days prior to admission with chest pain that began with exertion and improved with rest. She states she ran out of her blood pressure medication 10 months ago due to insurance reasons - but she states she now has insurance. She also informed the ER physician that she has not seen her doctor in approximately 8 months. She denies any recent sick contacts, significant travel history or history of blood clots. There was no reported fever, chills, changes in vision, discharge from eyes, shortness of breath, cough, wheezing, abdominal pain, nausea, vomiting, diarrhea, constipation, dysuria, hematuria, headache, paresthesias, focal neurologic deficits or rash. In the ER she was noted to have a highly elevated blood pressure of 222/116 mmHg present on admission consistent with suspected Hypertensive Emergency complicated by complaints of Chest Pain; made worse with exertion that improved after sublingual nitroglycerin compounded by Hyperglycemia of 532 mg/dL present on admission consistent with uncontrolled DM-2 and she was then admitted to the PCU under observation status for ongoing care for stay that is expected to be less than 2 midnights. Hospital Course: 1. Hypertensive urgency with chest pain/type 2 diabetes???41-year-old female presented to the hospital with hypertension and chest pain. She was concerned because of the chest pain when she found that her blood pressure was in the 200s which presented to the hospital. No signs of emergency as she has no evidence of endorgan damage. Initially elected to give her lisinopril however she has a history of a rash to lisinopril therefore we transition to losartan 50 mg. Stress test and echocardiogram are unremarkable and normal, EF was 60% with PASP of 30 mmHg and the stress test was nonischemic. She was also found to have an A1c of 11 and states that she used to be on multiple diabetic medications however she discontinued these when she lost Medicaid coverage because she makes too much but she was not making enough to afford her medications over the month. Given that her lipid panel was also elevated will start her on Lipitor 20 mg p.o. daily as well as metformin 500 mg extended release twice daily and I will have her follow-up with her primary care doctor as an outpatient. I discussed with her that all 3 medications that I gave her are on the $4 list at [facility]. She will likely need more diabetic medication however I am afraid that by overloading her on discharge with pills that it we will just exacerbate noncompliant tendencies. I recommend she follow-up with the PCP in 3 to 5 days. Blood pressure on discharge was 142/89 and her blood sugar on discharge was 300 and she did receive insulin coverage. Physical Exam Narrative General: Afsaneh (more content not included)... [facility] 12-15-2024 Discharge summary Note Date/Time December 15, 2024 11:52am [facility] Medical Records Department [address] [place] [address] Instructions for Home/Discharge Instructions 12/15/24 1150 MR#: [id number] Acct: [id number] Name: JACOB CELIS Rep #:[id number] : 1980 44 From: Seun almazan MD PCP: Care Physician,No Primary Status :ADM JERI Discharge Instructions Diet Discharge Diet: Low fat / Low cholesterol, 1600 Calorie Control Diet and Carb Control Diet DC O2, CPAP, BIPAP needs Home O2 Discharge instructions: No Dressing / Incision Discharge Activity: Return to Normal Activity Dressing / Incision Call your doctor if you observe: Fever of 101 or Higher, Shortness of breath, Dizziness, Fainting spells, Swelling in the ankles, Chest pain and Increased palpitations (irregular heartbeat) Follow Up Care Test Results: Test results from this visit will be discussed in further detail at your follow-up appointment, if applicable. Discharge Plan Admission Admit Date/Time: 12/15/24 01:31 Attending Provider: Seun Cullen Primary Care Provider: Sonido Physician,No Primary Consulting Providers: Martín Kilgore Discharge Orders/Prescriptions Prescriptions: New metformin 500 mg Tablet Extended Release 24 Hr 500 mg PO BID 30 Days Qty: 60 0RF losartan 50 mg tablet 50 mg PO DAILY Qty: 30 0RF atorvastatin [Lipitor] 20 mg tablet 20 mg PO DAILY Qty: 30 0RF Referrals / Follow Up: Care Physician,No Primary [Primary Care Provider] - Marlene Bonds DO [Med Staff - Sanitation Director] - Within 1 Week Disposition Disposition (needs filled in before D/C Order can be placed): Home, Self Care 12/15/24 1443<Electronically signed by Seun Cullen MD>Seun Cullen MD CC: Dr. Martín Kilgore DO; No Primary Care Physician ~ Signed [facility] Work Phone: 1(685) 475-589506-18-2025 Discharge summary [facility] Medical Records Department [address] [place] [address] Instructions for Home/Discharge Instructions 12/15/24 1150 MR#: [id number] Acct: [id number] Name: JACOB CELIS Rep #:[id number] : 1980 44 From: Seun almazan MD PCP: Care Physician,No Primary Status :ADM JERI Discharge Instructions Diet Discharge Diet: Low fat / Low cholesterol, 1600 Calorie Control Diet and Carb Control Diet DC O2, CPAP, BIPAP needs Home O2 Discharge instructions: No Dressing / Incision Discharge Activity: Return to Normal Activity Dressing / Incision Call your doctor if you observe: Fever of 101 or Higher, Shortness of breath, Dizziness, Fainting spells, Swelling in the ankles, Chest pain and Increased palpitations (irregular heartbeat) Follow Up Care Test Results: Test results from this visit will be discussed in further detail at your follow- up appointment, if applicable. Discharge Plan Admission Admit Date/Time: 12/15/24 01:31 Attending Provider: Seun Cullen Primary Care Provider: Care Physician,No Primary Consulting Providers: Martín Kilgore Discharge Orders/Prescriptions Prescriptions: New metformin 500 mg Tablet Extended Release 24 Hr 500 mg PO BID 30 Days Qty: 60 0RF losartan 50 mg tablet 50 mg PO DAILY Qty: 30 0RF atorvastatin [Lipitor] 20 mg tablet 20 mg PO DAILY Qty: 30 0RF Referrals / Follow Up: Care Physician,No Primary [Primary Care Provider] - Marlene Bonds DO [Med Staff - Sanitation Director] - Within 1 Week Disposition Disposition (needs filled in before D/C Order can be placed): Home, Self Care 12/15/24 1443Seun Cullen MD CC: Dr. Martín Kilgore DO; No Primary Care Physician ~ Signed [facility]06-18-2025 History and physical note Author Martín Parkinson [facility] Note Date/Time December 15, 2024 6:44 am [facility] Medical Records Department [address] [place] [address] H&P Exam - Hospitalist 12/15/24 0109 MR#: [id number] Acct: [id number] Name: JACOB CELIS Rep #:[id number] : 1980 44 From: Martín Richard DO PCP: Care Physician,No Primary Status :ADM JERI Location: [place] [address] HPI - General General Date of Admission: 12/15/24 Date of Service: 12/15/24 Chief Complaint: Chest Pain and Elevated Blood Pressure. HPI Narrative JACOB CELIS, is a 44 F with a past medical history of essential hypertension; currently untreated, DM-2; uncontrolled with hyperglycemia and morbid obesity; with BMI of 49 this admission who presents to [facility] ER complaining of chest pain and elevated blood pressure. Ms. Celis reports her symptoms began ~3 days prior to admission with chest pain that began with exertion and improved with rest. She states she ran out of her blood pressure medication ~10 months ago due to insurance reasons - but she states she now has insurance. She also informed the ER physician that she has not seen her doctor in approximately 8 months. She denies any recent sick contacts, significant travel history or history of blood clots. There was no reported fever, chills, changes in vision, discharge from eyes, shortness of breath, cough, wheezing, abdominal pain, nausea, vomiting, diarrhea, constipation, dysuria, hematuria, headache, paresthesias, focal neurologic deficits or rash. In the ER she was noted to have a highly elevated blood pressure of 222/116 mmHgpresent on admission consistent with suspected Hypertensive Emergency complicated by complaints of Chest Pain; made worse with exertion that improved after sublingual nitroglycerin compounded by Hyperglycemia of 532 mg/dL present on admission consistent with uncontrolled DM-2 and she was then admitted to the PCU under observation status for ongoing care for stay that is expected to be less than 2 midnights. [facility] Medical History Prediabetes Hypertension Home Medications ?Medication ?Instructions ?Recorded ?Last Taken ?Type NK 12/14/24 Unknown History Allergy/AdvReac Type Severity Reaction Status Date / Time No Known Allergies Allergy Verified 12/14/24 20:32 Family History no significant family his Social History Smoking Status: Never smoker ROS ROS Narrative Review of Systems: Constitutional: Patient denies fever or chills. Eyes: Patient denies changes in vision or discharge from eyes. ENT: Patient denies runny nose, sore throat or ear pain. Resp: Patient denies shortness of breath, cough or wheezing. CV: Patient admits to chest pain that is substernal and nonradiating. She also admits to elevated blood pressure as per HPI. She denies palpitations, heart racing or lower extremity edema. GI: Patient denies abdominal pain, nausea, vomiting, diarrhea or constipation. : Patient denies dysuria, hematuria or urinary frequency. MSK: Patient denies arthralgias or myalgias. Skin: Patient denies rash, abscess, wounds or jaundice. Psych: Patient denies symptoms of uncontrolled depression or anxiety. Neuro: Patient denies headache, paresthesias or focal neurologic deficits. Allergy: Patient denies lip swelling, tongue swelling or urticaria. Hematology: Patient denies easy bleeding or easy bruisability. Endocrinology: Patient admits to hyperglycemia with polyuria and polydipsia but she denies polyphagia or heat/cold intolerance. 14 point ROS otherwise negative except for positives noted above in HPI. Vital Signs Vital Signs Vital Signs: 12/14/24 20:31 12/14/24 20:44 12/14/24 21:03 Temperature 97.5 F L Temperature Source Temporal Pulse Rate 112 H Respiratory Rate 24 H Respiratory Effort Short of Breath Blood Pressure 222/116 H Blood Pressure Mean 151 Pulse Ox 99 98 Oxygen Delivery Method Room Air Room Air 12/14/24 21:04 12/14/24 22:00 12/14/24 23:00 Temperature Temperature Source Pulse Rate 107 H 104 H 105 H Respiratory Rate 35 H 32 H 35 H Respiratory Effort Blood Pressure 204/120 H 167/103 H 140/96 H Blood Pressure Mean 148 124 110 Pulse Ox 98 95 97 Oxygen Delivery Method Room Air Room Air 12/14/24 23:13 12/15/24 00:00 12/15/24 00:00 Temperature Temperature Source Pulse Rate 94 102 H Respiratory Rate 29 H 35 H Respiratory Effort Blood Pressure 140/96 H 132/77 H 132/77 H Blood Pressure Mean 90 95 Pulse Ox 94 96 Oxygen Delivery Method Room Air 12/15/24 00:49 12/15/24 01:00 Temperature 97.8 F Temperature Source Pulse Rate 103 H 102 H Respiratory Rate 30 H 35 H Respiratory Effort Blood Pressure 143/93 H 150/86 H Blood Pressure Mean 109 107 Pulse Ox 97 97 Oxygen Delivery Method Weight Weight: 294 lb 3.2 oz Body Mass Index (BMI) 48.9 Physical Exam Const alert, oriented x3, no apparent distress and healthy appearing Constitutional Narrative: Patient is morbidly obese. General Appearance: cooperative HEENT normocephalic, head/scalp atraumatic, hearing grossly normal bilaterally and moist oral mucous membranes HEENT Narrative: Patient has several missing teeth including both central incisors, lateral incisor, canine and 1st and 2nd premolars of the Right maxilla. Eyes PERRL, EOMs intact bilaterally and conjunctivae normal Neck no lymphadenopathy and supple Resp normal respiratory effort, no retractions, no use of accessory muscles and clearto auscultation bilaterally Cardio regular rate and regular rhythm GI normal to inspection, nondistended, normoactive bowel sounds, soft to palpation,non-tender and non-distended GI Narrative: Morbidly obese. Extremity normal to inspection, full ROM and no clubbing, cyanosis or edema Skin Skin Narrative: Patient has evidence of rash, abscess, wounds or jaundice. Neuro oriented x3, CN's II-XII intact bilaterally, moves all extremities and no focal motor deficits Sensorium / Orientation: awake, alert, oriented to person, oriented to place andoriented to time Speech: speech normal Psych affect normal Results Medical Records Data Attestation: I reviewed the patient's medical records Lab / Micro Data Attestation: I reviewed the patient's lab results. 12/14/24 20:58 12/14/24 20:58 Labs: Laboratory Results - last 24 hr 12/14/24 20:58: WBC 11.1 H, RBC 5.08, Hgb 14.9, Hct 43.5, MCV 85.6, MCH 29.3, MCHC 34.3, RDW Std Deviation 41.9, RDW Coeff of [place] 13.5, Plt Count 264, MPV 10.0, Immature Gran % (Auto) 0.500, Neut % (Auto) 68.9, Lymph % (Auto) 24.3, [place] % (Auto) 5.0, Eos % (Auto) 0.5, Baso % (Auto) 0.8, Absolute Neuts (auto) 7.7, Absolute Lymphs (auto) 2.71, Nucleated RBC % 0, Sodium 130 L, Potassium 4.2, Chloride 94 L, Carbon Dioxide 21.3, Anion Gap 14, BUN 10, Creatinine 0.71, Estim Creat Clear Calc 139.80, Est GFR (MDRD) Non-Af 108, BUN/Creatinine Ratio 13.7, Glucose 532 H*, Calcium 9.0, Troponin T High Sens < 6, NT pro BNP II < 36 12/14/24 23:15: D-Dimer Quant (PE/DVT) 0.27, Troponin T Hi Sens 2 Hr < 6 12/15/24 00:19: POC Glucose 345 H Imaging Radiology Impression Chest X-Ray 12/14/24 21:11 IMPRESSION: No focal consolidations. Reading Location: [facility] Assessment & Plan Assessment/Plan (1) Hypertensive emergency without congestive heart failure: (2) Chest pain on exertion: (3) Hyperglycemia due to type 2 diabetes mellitus: QUALIFIERS: Diabetes mellitus longwall headgate operator insulin use: 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 Qualified Code(s): E11.65 - Type 2 diabetes mellitus with hyperglycemia (4) Medical non-compliance: (5) Morbid obesity with BMI of 45.0-49.9, adult: PLAN: Plan 1. Highly elevated blood pressure of 222/116 mmHg present on admission consistent with suspected Hypertensive Emergency - Admit to PCU under observation status. Blood pressure in the ~150 mmHg systolic range after SL NTG. Give hydralazine IV prn for systolic blood pressure > 160 mmHg. 2. Chest Pain made worse with exertion that improved after sublingual nitroglycerin complicating #1 - Serialize troponin. Check Lexiscan NST to evaluate for ischemia. Check echocardiogram to evaluate LVEF. D-dimer in normal range at 0.27 present on admission. 3. Hyperglycemia of 532 mg/dL present on admission consistent with uncontrolledDM-2 compounding #1 & #2 - Check HgbA1c to confirm suspicion. ADA/cardiac diet after NST. FSBS q. AC/HS plus SSI. Finally, we will consult clinical dietitiansees patient on rounds in a.m. to help augment diabetic education and insulin training with help appreciated in advance. 4. Medical noncompliance adding to the medical complexity of #1 - #3 - Patient will be encouraged take her medications keep her follow-up appointments as recommended. We will consult case management to help with discharge planning and also to help patient obtain her medications to prevent serial readmission without appreciated in advance. 5. Morbid (class III) Obesity; with BMI of 49 this admission adding to the burden of disease outlined from #1 - #4 - Weight loss will be recommended. Check TSH. This complicates her case and may hamper recovery. 6. DVT prophylaxis - Enoxaparin 40 mg sq BID. Total time: Approximately (but not less than) 70 minutes. Charges/Coding Visit Charges OBSV E&M: 06735 Observ/hosp same date L2 12/15/24 0644 <Electronically signed by Martín Kilgore DO> Cosigner Signature (if applicable): CC: Dr. Martín Kilgore DO; No Primary Care Physician~ Signed [facility] Work Phone: 1(555) 827-398706-18-2025 History and physical note [facility] Medical Records Department [address] [place] [id number] H&P Exam - Hospitalist 12/15/24 0109 MR#: [id number] Acct: [id number] Name: JACOB CELIS Rep #:[id number] : 1980 44 From: Martín Richard DO PCP: Care Physician,No Primary Status :ADM JERI Location: [place] [address] HPI - General General Date of Admission: 12/15/24 Date of Service: 12/15/24 Chief Complaint: Chest Pain and Elevated Blood Pressure. HPI Narrative JACOB CELIS, is a 44 F with a past medical history of essential hypertension; currently untreated, DM-2; uncontrolled with hyperglycemia and morbid obesity; with BMI of 49 this admission who presentsto [facility] complaining of chest pain and elevated blood pressure. Ms. Celis reports her symptoms began ~3 days prior to admission with chest pain that began with exertion and improved with rest. She states she ran out of her blood pressure medication ~10 months ago due to insurance reasons - but she states she now has insurance. She also informed the ER physician that she has not seen her doctor in approximately 8 months. She denies any recent sick contacts, significant travel history or history of blood clots. There was no reported fever, chills, changes in vision, discharge from eyes, shortness of breath, cough, wheezing, abdominal pain, nausea, vomiting, diarrhea,constipation, dysuria, hematuria, headache, paresthesias, focal neurologic deficits or rash. In theER she was noted to have a highly elevated blood pressure of 222/116 mmHgpresent on admission consistent with suspected Hypertensive Emergency complicated by complaints of Chest Pain; made worse withexertion that improved after sublingual nitroglycerin compounded by Hyperglycemia of 532 mg/dL present on admission consistent with uncontrolled DM-2 and she was then admitted to the PCU under observation status for ongoing care for stay that is expected to be less than 2 midnights. [facility] Medical History Prediabetes Hypertension Home Medications ?Medication ?Instructions ?Recorded ?Last Taken ?Type NK 12/14/24 Unknown History Allergy/AdvReac Type Severity Reaction Status Date / Time No Known Allergies Allergy Verified 12/14/24 20:32 Family History no significant family his Social History Smoking Status: Never smoker ROS ROS Narrative Review of Systems: Constitutional: Patient denies fever or chills. Eyes: Patient denies changes in vision or discharge from eyes. ENT: Patient denies runny nose, sore throat or ear pain. Resp: Patient denies shortness of breath, cough or wheezing. CV: Patient admits to chest pain that is substernal and nonradiating. She also admits to elevated blood pressure as per HPI. She denies palpitations, heart racing or lower extremity edema. GI: Patient denies abdominal pain, nausea, vomiting, diarrhea or constipation. : Patient denies dysuria, hematuria or urinary frequency. MSK: Patient denies arthralgias or myalgias. Skin: Patient denies rash, abscess, wounds or jaundice. Psych: Patient denies symptoms of uncontrolled depression or anxiety. Neuro: Patient denies headache, paresthesias or focal neurologic deficits. Allergy: Patient denies lip swelling, tongue swelling or urticaria. Hematology: Patient denies easy bleeding or easy bruisability. Endocrinology: Patient admits to hyperglycemia with polyuria and polydipsia but she denies polyphagia or heat/cold intolerance. 14 point ROS otherwise negative except for positives noted above in HPI. Vital Signs Vital Signs Vital Signs: 12/14/24 20:31 12/14/24 20:44 12/14/24 21:03 Temperature 97.5 F L Temperature Source Temporal Pulse Rate 112 H Respiratory Rate 24 H Respiratory Effort Short of Breath Blood Pressure 222/116 H Blood Pressure Mean 151 Pulse Ox 99 98 Oxygen Delivery Method Room Air Room Air 12/14/24 21:04 12/14/24 22:00 12/14/24 23:00 Temperature Temperature Source Pulse Rate 107 H 104 H 105 H Respiratory Rate 35 H 32 H 35 H Respiratory Effort Blood Pressure 204/120 H 167/103 H 140/96 H Blood Pressure Mean 148 124 110 Pulse Ox 98 95 97 Oxygen Delivery Method Room Air Room Air 12/14/24 23:13 12/15/24 00:00 12/15/24 00:00 Temperature Temperature Source Pulse Rate 94 102 H Respiratory Rate 29 H 35 H Respiratory Effort Blood Pressure 140/96 H 132/77 H 132/77 H Blood Pressure Mean 90 95 Pulse Ox 94 96 Oxygen Delivery Method Room Air 12/15/24 00:49 12/15/24 01:00 Temperature 97.8 F Temperature Source Pulse Rate 103 H 102 H Respiratory Rate 30 H 35 H Respiratory Effort Blood Pressure 143/93 H 150/86 H Blood Pressure Mean 109 107 Pulse Ox 97 97 Oxygen Delivery Method Weight Weight: 294 lb 3.2 oz Body Mass Index (BMI) 48.9 Physical Exam Const alert, oriented x3, no apparent distress and healthy appearing Constitutional Narrative: Patient is morbidly obese. General Appearance: cooperative HEENT normocephalic, head/scalp atraumatic, hearing grossly normal bilaterally and moist oral mucous membranes HEENT Narrative: Patient has several missing teeth including both central incisors, lateral incisor, canine and 1st and 2nd premolars of the Right maxilla. Eyes PERRL, EOMs intact bilaterally and conjunctivae normal Neck no lymphadenopathy and supple Resp normal respiratory effort, no retractions, no use of accessory muscles and clearto auscultation bilaterally Cardio regular rate and regular rhythm GI normal to inspection, nondistended, normoactive bowel sounds, soft to palpation,non-tender and non-distended GI Narrative: Morbidly obese. Extremity normal to inspection, full ROM and no clubbing, cyanosis or edema Skin Skin Narrative: Patient has evidence of rash, abscess, wounds or jaundice. Neuro oriented x3, CN's II-XII intact bilaterally, moves all extremities and no focal motor deficits Sensorium / Orientation: awake, alert, oriented to person, oriented to place andoriented to time Speech: speech normal Psych affect normal Results Medical Records Data Attestation: I reviewed the patient's medical records Lab / Micro Data Attestation: I reviewed the patient's lab results. 12/14/24 20:58 12/14/24 20:58 Labs: Laboratory Results - last 24 hr 12/14/24 20:58: WBC 11.1 H, RBC 5.08, Hgb 14.9, Hct 43.5, MCV 85.6, MCH 29.3, MCHC 34.3, RDW Std Deviation 41.9, RDW Coeff of [place]iz[place] 13.5, Plt Count 264, MPV 10.0, Immature Gran % (Auto) 0.500, Neut % (Auto) 68.9, Lymph % (Auto) 24.3, [place] % (Auto) 5.0, Eos % (Auto) 0.5, Baso % (Auto) 0.8, Absolute Neuts (auto) 7.7, Absolute Lymphs (auto) 2.71, Nucleated RBC % 0, Sodium 130 L, Potassium 4.2, Chloride 94 L, Carbon Dioxide 21.3, Anion Gap 14, BUN 10, Creatinine 0.71, Estim Creat Clear Calc 139.80, Est GFR (MDRD) Non-Af 108, BUN/Creatinine Ratio 13.7, Glucose 532 H*, Calcium 9.0, Troponin T High Sens < 6, NT pro BNP II < 36 12/14/24 23:15: D-Dimer Quant (PE/DVT) 0.27, Troponin T Hi Sens 2 Hr < 6 12/15/24 00:19: POC Glucose 345 H Imaging Radiology Impression Chest X-Ray 12/14/24 21:11 IMPRESSION: No focal consolidations. Reading Location: [facility] Assessment & Plan Assessment/Plan (1) Hypertensive emergency without congestive heart failure: (2) Chest pain on exertion: (3) Hyperglycemia due to type 2 diabetes mellitus: QUALIFIERS: Diabetes mellitus longwall headgate operator insulin use: 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 Qualified Code(s): E11.65 - Type 2 diabetes mellitus with hyperglycemia (4) Medical non-compliance: (5) Morbid obesity with BMI of 45.0-49.9, adult: PLAN: Plan 1. Highly elevated blood pressure of 222/116 mmHg present on admission consistent with suspected Hypertensive Emergency - Admit to PCU under observation status. Blood pressure in the ~150 mmHg systolic range after SL NTG. Give hydralazine IV prn for systolic blood pressure > 160 mmHg. 2. Chest Pain made worse with exertion that improved after sublingual nitroglycerin complicating #1- Serialize troponin. Check Lexiscan NST to evaluate for ischemia. Check echocardiogram to evaluateLVEF. D-dimer in normal range at 0.27 present on admission. 3. Hyperglycemia of 532 mg/dL present on admission consistent with uncontrolledDM-2 compounding #1 & #2 - Check HgbA1c to confirm suspicion. ADA/cardiac diet after NST. FSBS q. AC/HS plus SSI. Finally, we will consult clinical dietitiansees patient on rounds in a.m. to help augment diabetic educ ation and insulin training with help appreciated in advance. 4. Medical noncompliance adding to the medical complexity of #1 - #3 - Patient will be encouraged take her medications keep her follow-up appointments as recommended. We will consult case management to help with discharge planning and also to help patient obtain her medications to prevent serial readmission without appreciated in advance. 5. Morbid (class III) Obesity; with BMI of 49 this admission adding to the burden of disease outlined from #1 - #4 - Weight loss will be recommended. Check TSH. This complicates her case and may hamper recovery. 6. DVT prophylaxis - Enoxaparin 40 mg sq BID. Total time: Approximately (but not less than) 70 minutes. Charges/Coding Visit Charges OBSV E&M: 80669 Observ/hosp same date L2 12/15/24 0644 Cosigner Signature (if applicable): CC: Dr. Martín Kilgore, DO; No Primary Care Physician~ Signed [facility]06-18-2025 Discharge summary Author Richard Dan [facility] Note Date/Time December 15, 2024 2:15 am [facility] Medical Records Department [address] [place] [address] Emergency Department Summary 12/14/24 MR#: [id number] Acct: [id number] Name: JACOB CELIS Rep #:[id number] : 1980 44 From: Richard Dan DO PCP: Care Physician,No Primary Status :REG ER Location: ED ADDENDUM by Dr. Marian Arriaga DO on 12/15/24 at 0215 Patient signed out to me pending delta high-sensitivity troponin and D-dimer. Patient's vital signs improved on the emergency room. She did receive 1 sublingual nitroglycerin with resolution of her chest pain. Delta high-sensitivity troponin continues to be negative and her D-dimer is normal so low suspicion for PE. She did walk to the bathroom and states her chest pain returned a little bit but then when she sat back down that resolved. Given her hyperglycemia, hypertension upon arrival and exertional chest pain relieved with rest/nitroglycerin I do think she would benefit from admission. Case discussed with hospitalist, Dr. Cooper for admission. Patient agreeable. 12/15/24 0215<Electronically signed by Marian Arriaga DO> Cosigner Signature (if applicable): cc: No Primary Care Physician ~* Signed ADDENDUM by Dr. Richard Dan DO on 12/14/24 at 2331 Went back and reevaluate the patient after nitroglycerin and she states that this significantly helped her chest pain. 12/14/24 233<Electronically signed by Richard Dan DO> Cosigner Signature (if applicable): cc: No Primary Care Physician ~* Signed HPI History of Present Illness Chief Complaint: Chest Pain Narrative Narrative: Patient is a 44-year-old female with past medical history of prediabetes, hypertension who presents to the emergency department chief complaint of chest pain. Patient states that she has had chest pain that has been progressive worsening for the last 3 days. States that her pain is worse with exertion and gets better with rest. Patient states that she has been out of her blood pressure medication for several months according to triage this was 10 months and this issecondary to insurance reasons. Patient denies any recent sick contacts denies any recent travel history denies any history of blood clots. [facility] Medical History Prediabetes Hypertension Home Medications ?Medication ?Instructions ?Recorded ?Last Taken ?Type NK 12/14/24 Unknown History Allergy/AdvReac Type Severity Reaction Status Date / Time No Known Allergies Allergy Verified 12/14/24 20:32 Family History no significant family his Social History Smoking Status: Never smoker ROS ROS ED ROS Narrative Constitutional: Denies headache, lightness, dizziness, fevers, chills Eyes: Denies change in vision double vision blurry vision Cardiovascular: Claims chest pain as noted above denies palpitations Respiratory: Denies coughing wheezing shortness of breath Abdomen: Denies abdominal pain nausea vomit diarrhea : Denies urinary symptoms Neurological: Denies numbness, wheeze, tingling Musculoskeletal: Denies back pain Skin: Denies rashes or lesions EXAM Physical Exam Narrative Exam Narrative: General: Patient lying in bed rest comfortably did not appear to be acute distress Head: Atraumatic, normocephalic Eyes: PERRL bilaterally, EOMI bilateral, no conjunctival injection noted Neck: Supple, trach midline Cardiovascular: Patient tachycardic with regular rhythm no murmurs gallops rubs noted Respiratory: There are auscultation bilaterally Abdomen: Soft, nondistended, no tenderness to palpation Extremities: +5/5 strength noted in the bilateral upper and lower EXTR, radial pulses +2/4 in the bilateral extremities, no pedal edema on exam Neurological: Commands and that she was at [facility] year is 2024 Skin: Warm, dry, intact no rashes or lesions noted Const Vital Signs: 12/14/24 20:31 12/14/24 20:44 12/14/24 21:03 Temperature 97.5 F L Temperature Source Temporal Pulse Rate 112 H Respiratory Rate 24 H Respiratory Effort Short of Breath Blood Pressure 222/116 H Blood Pressure Mean 151 Pulse Ox 99 98 Oxygen Delivery Method Room Air Room Air 12/14/24 21:04 12/14/24 22:00 12/14/24 23:00 Temperature Temperature Source Pulse Rate 107 H 104 H 105 H Respiratory Rate 35 H 32 H 35 H Respiratory Effort Blood Pressure 204/120 H 167/103 H 140/96 H Blood Pressure Mean 148 124 110 Pulse Ox 98 95 97 Oxygen Delivery Method Room Air Room Air 12/14/24 23:13 Temperature Temperature Source Pulse Rate Respiratory Rate Respiratory Effort Blood Pressure 140/96 H Blood Pressure Mean Pulse Ox Oxygen Delivery Method MDM MDM MDM Narrative Medical decision making narrative: Patient is a 44-year-old female who presented to the emergency department chief complaint chest pain. On the differential diagnose includes but limited to stable angina, ACS, pneumonia, pneumothorax, hypertensive emergency, pulmonary embolism. Once workup is obtained reviewed she will be reevaluated. Patient CBC was reviewed which showed white blood count 11,000, hemoglobin 14.9,platelet count of 264. Patient sodium is 130, potassium normal 4.2, creatinine was 0.71. Patient's glucose was 532 she will be given 15 units of subcutaneous insulin, troponin was less than 6, delta troponin pending, proBNP was less than 36. Patient's EKG was reviewed showed sinus tachycardia with a rate of 109 beats per minutes. Patient's chest x-ray reviewed by myself and by radiology showed no acute cardiopulmonary processes. Given the patient's abnormal vital signs with tachycardia and tachypnea with a largely unremarkable workup will add on a D-dimer as well. Patient case will be signed out to overnight provider to follow-up on results and make ultimate disposition see addendum for further details. Lab Data Labs: Laboratory Results - last 24 hr 12/14/24 20:58 WBC 11.1 H RBC 5.08 Hgb 14.9 Hct 43.5 MCV 85.6 MCH 29.3 MCHC 34.3 RDW Std Deviation 41.9 RDW Coeff of Riz[place] 13.5 Plt Count 264 MPV 10.0 Immature Gran % (Auto) 0.500 Neut % (Auto) 68.9 Lymph % (Auto) 24.3 [place] % (Auto) 5.0 Eos % (Auto) 0.5 Baso % (Auto) 0.8 Absolute Neuts (auto) 7.7 Absolute Lymphs (auto) 2.71 Nucleated RBC % 0 Sodium 130 L Potassium 4.2 Chloride 94 L Carbon Dioxide 21.3 Anion Gap 14 BUN 10 Creatinine 0.71 Estim Creat Clear Calc 139.80 Est GFR (MDRD) Non-Af 108 BUN/Creatinine Ratio 13.7 Glucose 532 H* Calcium 9.0 Troponin T High Sens < 6 NT pro BNP II < 36 Radiography Diagnostic Testing: Clinical Impression(s) from Imaging Studies Chest X-Ray 12/14/24 21:11 IMPRESSION: No focal consolidations. Reading Location: [facility] Discharge Plan Triage Chief Complaint: Chest Pain ED Provider: Richard Dan Dx/Rx/DC Orders Prescriptions: No Action NK Primary Care Provider: Care Physician,No Primary Referrals: Care Physician,No Primary [Primary Care Provider] - Print Language: Swazi What to do if you have Problems For any increased pain, shortness of breath, bleeding, nausea or vomiting, chestpain, or any unexpected problems, contact your Primary Care Provider. Call [facility] ([phone]) or report to the closest Emergency Room. Call 911 if necessary. 12/14/242328 <Electronically signed by Richard Dan DO> Cosigner Signature (if applicable): CC: No Primary Care Physician ~ Signed [facility] Work Phone: 1(888) 863-921206-18-2025 Evaluation note* Diagnosis Onset Date Resolution Status Admit Date Chest pain on exertion acute [facility] 2024 1:31am Hyperglycemia due to type 2 diabetes mellitus acute December 15 1:31am Hypertensive emergency witho ut congestive heart failure acute December 152024 1:31am Medical non-compliance acute [facility] 2024 1:31am Morbid obesity with BMI of 45.0-49.9, adult acute December 15, 2024 1:31am [facility] Work Phone: 1(932) 596-384606-18-2025 Discharge summary [facility] Medical Records Department [address] [place] [address] Emergency Department Summary 12/14/24 MR#: [id number] Acct: [id number] Name: JACOB CELIS Rep #:[id number] : 1980 44 From: Richard Dan DO PCP: Care Physician,No Primary Status :REG ER Location: ED ADDENDUM by Dr. Marian Arriaga DO on 12/15/24 at 0215 Patient signed out to me pending delta high-sensitivity troponin and D-dimer. Patient's vital signsimproved on the emergency room. She did receive 1 sublingual nitroglycerin with resolution of her chest pain. Delta high-sensitivity troponin continues to be negative and her D-dimer is normal so low suspicionfor PE. She did walk to the bathroom and states her chest pain returned a little bit but then when she sat back down that resolved. Given her hyperglycemia, hypertension upon arrival and exertional chest pain relieved with rest/nitroglycerin I do think she would benefit from admission. Case discussed with hospitalist, Dr. Cooper for admission. Patient agreeable. 12/15/24 0215 Cosigner Signature (if applicable): cc: No Primary Care Physician ~* Signed ADDENDUM by Dr. Richard Dan DO on 12/14/24 at 2331 Went back and reevaluate the patient after nitroglycerin and she states that this significantly helped her chest pain. 12/14/24 2331 Cosigner Signature (if applicable): cc: No Primary Care Physician ~* Signed HPI History of Present Illness Chief Complaint: Chest Pain Narrative Narrative: Patient is a 44-year-old female with past medical history of prediabetes, hypertension who presentsto the emergency department chief complaint of chest pain. Patient states that she has had chest pain that has been progressive worsening for the last 3 days. States that her pain is worse with exertion and gets better with rest. Patient states that she has been out of her blood pressure medicationfor several months according to triage this was 10 months and this issecondary to insurance reasons. Patient denies any recent sick contacts denies any recent travel history denies any history of blood clots. [facility] Medical History Prediabetes Hypertension Home Medications ?Medication ?Instructions ?Recorded ?Last Taken ?Type NK 12/14/24 Unknown History Allergy/AdvReac Type Severity Reaction Status Date / Time No Known Allergies Allergy Verified 12/14/24 20:32 Family History no significant family his Social History Smoking Status: Never smoker ROS ROS ED ROS Narrative Constitutional: Denies headache, lightness, dizziness, fevers, chills Eyes: Denies change in vision double vision blurry vision Cardiovascular: Claims chest pain as noted above denies palpitations Respiratory: Denies coughing wheezing shortness of breath Abdomen: Denies abdominal pain nausea vomit diarrhea : Denies urinary symptoms Neurological: Denies numbness, wheeze, tingling Musculoskeletal: Denies back pain Skin: Denies rashes or lesions EXAM Physical Exam Narrative Exam Narrative: General: Patient lying in bed rest comfortably did not appear to be acute distress Head: Atraumatic, normocephalic Eyes: PERRL bilaterally, EOMI bilateral, no conjunctival injection noted Neck: Supple, trach midline Cardiovascular: Patient tachycardic with regular rhythm no murmurs gallops rubs noted Respiratory: There are auscultation bilaterally Abdomen: Soft, nondistended, no tenderness to palpation Extremities: +5/5 strength noted in the bilateral upper and lower EXTR, radial pulses +2/4 in the bilateral extremities, no pedal edema on exam Neurological: Commands and that she was at [facility] year is 2024 Skin: Warm, dry, intact no rashes or lesions noted Const Vital Signs: 12/14/24 20:31 12/14/24 20:44 12/14/24 21:03 Temperature 97.5 F L Temperature Source Temporal Pulse Rate 112 H Respiratory Rate 24 H Respiratory Effort Short of Breath Blood Pressure 222/116 H Blood Pressure Mean 151 Pulse Ox 99 98 Oxygen Delivery Method Room Air Room Air 12/14/24 21:04 12/14/24 22:00 12/14/24 23:00 Temperature Temperature Source Pulse Rate 107 H 104 H 105 H Respiratory Rate 35 H 32 H 35 H Respiratory Effort Blood Pressure 204/120 H 167/103 H 140/96 H Blood Pressure Mean 148 124 110 Pulse Ox 98 95 97 Oxygen Delivery Method Room Air Room Air 12/14/24 23:13 Temperature Temperature Source Pulse Rate Respiratory Rate Respiratory Effort Blood Pressure 140/96 H Blood Pressure Mean Pulse Ox Oxygen Delivery Method MDM MDM MDM Narrative Medical decision making narrative: Patient is a 44-year-old female who presented to the emergency department chief complaint chest pain. On the differential diagnose includes but limited to stable angina, ACS, pneumonia, pneumothorax,hypertensive emergency, pulmonary embolism. Once workup is obtained reviewed she will be reevaluated. Patient CBC was reviewed which showed white blood count 11,000, hemoglobin 14.9,platelet count of 264. Patient sodium is 130, potassium normal 4.2, creatinine was 0.71. Patient's glucose was 532 she will be given 15 units of subcutaneous insulin, troponin was less than 6, delta troponin pending, proBNP was less than 36. Patient's EKG was reviewed showed sinus tachycardia with a rate of 109 beats per minutes. Patient's chest x-ray reviewed by melissaelf and by radiology showed no acute cardiopulmonary processes. Given the patient's abnormal vital signs with tachycardia and tachypnea with a largely unremarkableworkup will add on a D-dimer as well. Patient case will be signed out to overnight provider to follow-up on results and make ultimate disposition see addendum for further details. Lab Data Labs: Laboratory Results - last 24 hr 12/14/24 20:58 WBC 11.1 H RBC 5.08 Hgb 14.9 Hct 43.5 MCV 85.6 MCH 29.3 MCHC 34.3 RDW Std Deviation 41.9 RDW Coeff of [place]iz[place] 13.5 Plt Count 264 MPV 10.0 Immature Gran % (Auto) 0.500 Neut % (Auto) 68.9 Lymph % (Auto) 24.3 [place] % (Auto) 5.0 Eos % (Auto) 0.5 Baso % (Auto) 0.8 Absolute Neuts (auto) 7.7 Absolute Lymphs (auto) 2.71 Nucleated RBC % 0 Sodium 130 L Potassium 4.2 Chloride 94 L Carbon Dioxide 21.3 Anion Gap 14 BUN 10 Creatinine 0.71 Estim Creat Clear Calc 139.80 Est GFR (MDRD) Non-Af 108 BUN/Creatinine Ratio 13.7 Glucose 532 H* Calcium 9.0 Troponin T High Sens < 6 NT pro BNP II < 36 Radiography Diagnostic Testing: Clinical Impression(s) from Imaging Studies Chest X-Ray 12/14/24 21:11 IMPRESSION: No focal consolidations. Reading Location: [facility] Discharge Plan Triage Chief Complaint: Chest Pain ED Provider: Richard Dan Dx/Rx/DC Orders Prescriptions: No Action NK Primary Care Provider: Care Physician,No Primary Referrals: Care Physician,No Primary [Primary Care Provider] - Print Language: Swazi What to do if you have Problems For any increased pain, shortness of breath, bleeding, nausea or vomiting, chestpain, or any unexpected problems, contact your Primary Care Provider. Call [facility] ([phone]) or report tothe closest Emergency Room. Call 911 if necessary. 12/14/24 3836 Cosigner Signature (if applicable): CC: No Primary Care Physician ~ Signed [facility]06-17-2025 Radiology Diagnostic study note [facility] Imaging Services [address] [place] [address] Chest PA and Lateral MR#: [id number] Acct: [id number] Name: JACOB CELIS Rep #: [id number] : 1980 F 44 From: Violeta Huizar MD PCP: Care Physician,No Primary Status: REG ER Study:Chest PA and Lateral Date of Exam: 12/14/24 Exam# [id number] Ordering Dr: Cyndie Dan DO PROCEDURE: CHEST PA AND LATERAL 12/14/2024 REASON FOR EXAM: CHEST PAIN TECHNIQUE: CHEST PA AND LATERAL COMPARISON: None FINDINGS: No focal consolidations. No pleural effusion or pneumothorax. Cardiac silhouette is within normal limits in size. No acute fractures. RAD/Chest PA and Lateral IMPRESSION: No focal consolidations. Reading Location: [facility] CC: Dr. Richard Dan DO; No Primary Care Physician ~ Mobile Ui/Ux Designer: Signed [facility]06-17-2025 Discharge summary Author Richard Dan [facility] Note Date/Time December 15, 2024 2:15 am [facility] Medical Records Department [address] [place] [address] Emergency Department Summary 12/14/24 MR#: [id number] Acct: [id number] Name: JACOB CELIS Rep #:[id number] : 1980 44 From: Richard Dan DO PCP: Care Physician,No Primary Status :REG ER Location: ED ADDENDUM by Dr. Marian Arriaga DO on 12/15/24 at 0215 Patient signed out to me pending delta high-sensitivity troponin and D-dimer. Patient's vital signs improved on the emergency room. She did receive 1 sublingual nitroglycerin with resolution of her chest pain. Delta high-sensitivity troponin continues to be negative and her D-dimer is normal so low suspicion for PE. She did walk to the bathroom and states her chest pain returned a little bit but then when she sat back down that resolved. Given her hyperglycemia, hypertension upon arrival and exertional chest pain relieved with rest/nitroglycerin I do think she would benefit from admission. Case discussed with hospitalist, Dr. Cooper for admission. Patient agreeable. 12/15/24 0215<Electronically signed by Marian Arriaga DO> Cosigner Signature (if applicable): cc: No Primary Care Physician ~* Signed ADDENDUM by Dr. Richard Dan DO on 12/14/24 at 2331 Went back and reevaluate the patient after nitroglycerin and she states that this significantly helped her chest pain. 12/14/24 2331<Electronically signed by Richard Dan DO> Cosigner Signature (if applicable): cc: No Primary Care Physician ~* Signed HPI History of Present Illness Chief Complaint: Chest Pain Narrative Narrative: Patient is a 44-year-old female with past medical history of prediabetes, hypertension who presents to the emergency department chief complaint of chest pain. Patient states that she has had chest pain that has been progressive worsening for the last 3 days. States that her pain is worse with exertion and gets better with rest. Patient states that she has been out of her blood pressure medication for several months according to triage this was 10 months and this issecondary to insurance reasons. Patient denies any recent sick contacts denies any recent travel history denies any history of blood clots. [facility] Medical History Prediabetes Hypertension Home Medications ?Medication ?Instructions ?Recorded ?Last Taken ?Type NK 12/14/24 Unknown History Allergy/AdvReac Type Severity Reaction Status Date / Time No Known Allergies Allergy Verified 12/14/24 20:32 Family History no significant family his Social History Smoking Status: Never smoker ROS ROS ED ROS Narrative Constitutional: Denies headache, lightness, dizziness, fevers, chills Eyes: Denies change in vision double vision blurry vision Cardiovascular: Claims chest pain as noted above denies palpitations Respiratory: Denies coughing wheezing shortness of breath Abdomen: Denies abdominal pain nausea vomit diarrhea : Denies urinary symptoms Neurological: Denies numbness, wheeze, tingling Musculoskeletal: Denies back pain Skin: Denies rashes or lesions EXAM Physical Exam Narrative Exam Narrative: General: Patient lying in bed rest comfortably did not appear to be acute distress Head: Atraumatic, normocephalic Eyes: PERRL bilaterally, EOMI bilateral, no conjunctival injection noted Neck: Supple, trach midline Cardiovascular: Patient tachycardic with regular rhythm no murmurs gallops rubs noted Respiratory: There are auscultation bilaterally Abdomen: Soft, nondistended, no tenderness to palpation Extremities: +5/5 strength noted in the bilateral upper and lower EXTR, radial pulses +2/4 in the bilateral extremities, no pedal edema on exam Neurological: Commands and that she was at [facility] year is 2024 Skin: Warm, dry, intact no rashes or lesions noted Const Vital Signs: 12/14/24 20:31 12/14/24 20:44 12/14/24 21:03 Temperature 97.5 F L Temperature Source Temporal Pulse Rate 112 H Respiratory Rate 24 H Respiratory Effort Short of Breath Blood Pressure 222/116 H Blood Pressure Mean 151 Pulse Ox 99 98 Oxygen Delivery Method Room Air Room Air 12/14/24 21:04 12/14/24 22:00 12/14/24 23:00 Temperature Temperature Source Pulse Rate 107 H 104 H 105 H Respiratory Rate 35 H 32 H 35 H Respiratory Effort Blood Pressure 204/120 H 167/103 H 140/96 H Blood Pressure Mean 148 124 110 Pulse Ox 98 95 97 Oxygen Delivery Method Room Air Room Air 12/14/24 23:13 Temperature Temperature Source Pulse Rate Respiratory Rate Respiratory Effort Blood Pressure 140/96 H Blood Pressure Mean Pulse Ox Oxygen Delivery Method MDM MDM MDM Narrative Medical decision making narrative: Patient is a 44-year-old female who presented to the emergency department chief complaint chest pain. On the differential diagnose includes but limited to stable angina, ACS, pneumonia, pneumothorax, hypertensive emergency, pulmonary embolism. Once workup is obtained reviewed she will be reevaluated. Patient CBC was reviewed which showed white blood count 11,000, hemoglobin 14.9,platelet count of 264. Patient sodium is 130, potassium normal 4.2, creatinine was 0.71. Patient's glucose was 532 she will be given 15 units of subcutaneous insulin, troponin was less than 6, delta troponin pending, proBNP was less than 36. Patient's EKG was reviewed showed sinus tachycardia with a rate of 109 beats per minutes. Patient's chest x-ray reviewed by myself and by radiology showed no acute cardiopulmonary processes. Given the patient's abnormal vital signs with tachycardia and tachypnea with a largely unremarkable workup will add on a D-dimer as well. Patient case will be signed out to overnight provider to follow-up on results and make ultimate disposition see addendum for further details. Lab Data Labs: Laboratory Results - last 24 hr 12/14/24 20:58 WBC 11.1 H RBC 5.08 Hgb 14.9 Hct 43.5 MCV 85.6 MCH 29.3 MCHC 34.3 RDW Std Deviation 41.9 RDW Coeff of [place] 13.5 Plt Count 264 MPV 10.0 Immature Gran % (Auto) 0.500 Neut % (Auto) 68.9 Lymph % (Auto) 24.3 [place] % (Auto) 5.0 Eos % (Auto) 0.5 Baso % (Auto) 0.8 Absolute Neuts (auto) 7.7 Absolute Lymphs (auto) 2.71 Nucleated RBC % 0 Sodium 130 L Potassium 4.2 Chloride 94 L Carbon Dioxide 21.3 Anion Gap 14 BUN 10 Creatinine 0.71 Estim Creat Clear Calc 139.80 Est GFR (MDRD) Non-Af 108 BUN/Creatinine Ratio 13.7 Glucose 532 H* Calcium 9.0 Troponin T High Sens < 6 NT pro BNP II < 36 Radiography Diagnostic Testing: Clinical Impression(s) from Imaging Studies Chest X-Ray 12/14/24 21:11 IMPRESSION: No focal consolidations. Reading Location: [facility] Discharge Plan Triage Chief Complaint: Chest Pain ED Provider: Richard Dan Dx/Rx/DC Orders Prescriptions: No Action NK Primary Care Provider: Care Physician,No Primary Referrals: Care Physician,No Primary [Primary Care Provider] - Print Language: Swazi What to do if you have Problems For any increased pain, shortness of breath, bleeding, nausea or vomiting, chestpain, or any unexpected problems, contact your Primary Care Provider. Call [facility] ([phone]) or report to the closest Emergency Room. Call 911 if necessary. 12/14/24 4948 <Electronically signed by Richard Dan DO> Cosigner Signature (if applicable): CC: No Primary Care Physician ~ Signed [facility] Work Phone: [phone]) 522-337812-06-2024 Emergency department Note* Mohsen Soto MD - 06/04/2024 4:02 AM EST [facility] ED EMERGENCY DEPARTMENT ENCOUNTER Pt Name: Jacob Celis Birthdate 1980 Date of evaluation: 06/04/2024 Provider: Mohsen Soto MD CHIEF COMPLAINT Chief Complaint Patient presents with Cough Sore Throat HISTORY OF PRESENT ILLNESS (Location/Symptom, Timing/Onset,Context/Setting, Quality, Duration, Modifying Factors, Severity) Note limiting factors. Jacob Celis is a 43 y.o. female who presents to the emergency department with sore throat cough. Patient denies chest pain. Patient reports having symptoms for about a week. Family has pneumonia. Daughter has pneumonia. At work tonight she felt a little short of breath. No chest pain. Started sore throat. No other complaints. Comes in to be seen. She does have a history of asthma. No recent travel HPI Historian is the patient Nurse's notes for past medical history, surgical history, social history were reviewed. Medicationsand allergies reviewed. PAST MEDICAL HISTORY Past Medical History: Diagnosis Date Anxiety Asthma Bipolar 1 disorder (HCC) CHF (congestive heart failure) (HCC) Depression GERD (gastroesophageal reflux disease) Hyperlipidemia Hypertension Insomnia Restless leg syndrome Seasonal allergies Thyroid cancer (HCC) Thyroid disease SURGICALHISTORY Past Surgical History: Procedure Laterality Date THYROIDECTOMY TONSILLECTOMY (HISTORICAL) CURRENT MEDICATIONS Previous Medications ALLOPURINOL (ZYLOPRIM) 100 MG TABLET Take 100 mg by mouth in the morning. ATORVASTATIN (LIPITOR) 20 MG TABLET Take 20 mg by mouth daily. BUDESONIDE-FORMOTEROL (SYMBICORT) 160-4.5 MCG/ACT INHALER Inhale 2 puffs daily. BUSPIRONE (BUSPAR) 10 MG TABLET Take 10 mg by mouth 2 times daily. CARIPRAZINE HCL 1.5 MG CAPSULE Take 1.5 capsules by mouth Nightly. CHOLECALCIFEROL (VITAMIN D-3) 50 MCG (1999) CAPSULE Take 1 capsule by mouth daily. DAPAGLIFLOZIN-METFORMIN ER (XIGDUO XR) 10-500 MG Take 1 tablet by mouth in the morning. DICLOFENAC (VOLTAREN) 75 MG EC TABLET Take 1 tablet (75 mg) by mouth 2 times daily as needed (pain). Do not crush, chew, or split. GABAPENTIN (NEURONTIN) 100 MG CAPSULE Take 1 capsule by mouth in the morning and 1 capsule in the evening. 1 in the AM, 3 in the PM. LORATADINE (CLARITIN) 10 MG TABLET Take 10 mg by mouth daily. METOPROLOL SUCCINATE XL (TOPROL-XL) 100 MG 24 HR TABLET Take 100 mg by mouth in the morning. MONTELUKAST (SINGULAIR) 10 MG TABLET Take 10 mg by mouth daily. MONTELUKAST (SINGULAIR) 10 MG TABLET Take 10 mg by mouth. PROMETHAZINE (PHENERGAN) 25 MG TABLET Take 1 tablet (25 mg) by mouth every 6 hours as needed for nausea or vomiting. RIMEGEPANT SULFATE (NURTEC) 75 MG TABLET DISPERSIBLE Take 1 tablet daily as needed for onset of migraine. Max 1 dose in 24 hours orally as directed for 30 days TOPIRAMATE 50 MG TABLET Take 50 mg by mouth in the morning and 50 mg in the evening. VALSARTAN-HYDROCHLOROTHIAZIDE (DIOVAN-HCT) 160-12.5 MG TABLET Take 1 tablet by mouth in the morning. Lisinopril and Onion FAMILY HISTORY No family history on file. SOCIAL HISTORY Social History Socioeconomic History Marital status: Tobacco Use Smoking status: Never Smokeless tobacco: Never Vaping Use Vaping status: Never Used Substance and Sexual Activity Alcohol use: Not Currently Drug use: Never SCREENINGS PHYSICAL EXAM (up to 7 for level 4, 8 or more for level 5) @EDTRIAGEVSS@ Appropriate PPE including n 95, gown, gloves, goggles where worn when appropriate with this patient. Physical Exam Vital signs reviewed general: Alert and oriented 3 head: Atraumatic eyes: Equal round reactive to light and accommodating, pupils are equal, round and reactive to light and accommodation oropharynx: Clear and well hydrated neck: Supple heart: Regular rate and rhythm, no murmurs tachycardia now lungs: Coarse breath sounds but good air exchange abdomen: Soft nontender, positive bowel sounds, no peritoneal findings. Extremities: Moving all fours, no tenderness. Normal capillary refill. Skin: No rash or lesions -to the exposed skin neurologically: Alert and oriented 3, no focal deficit DIAGNOSTIC RESULTS RADIOLOGY: Interpretation per the Radiologist below, if availableat the time of this note: No orders to display ED BEDSIDE ULTRASOUND: Performed by ED Physician - none LABS: Labs Reviewed - No data to display All other labs were within normal range or not returned as of thisdictation. EMERGENCYDEPARTMENT COURSE and DIFFERENTIAL DIAGNOSIS/MDM: Vitals: Vitals: 06/04/24 0404 06/04/24 0429 BP: (!) 160/96 BP Location: Left arm Patient Position: Sitting Pulse: (!) 112 95 Resp: 24 20 Temp: 36.7 C (98.1 F) TempSrc: Oral SpO2: 98% Weight: 98 kg (216 lb) Height: 1.651 m (5' 5) Medical Decision Making EMERGENCY DEPARTMENT COURSE and DIFFERENTIAL DIAGNOSIS/MDM: Vitals: Vitals: 06/04/24 0404 06/04/249 BP: (!) 160/96 BP Location: Left arm Patient Position: Sitting Pulse: (!) 112 95 Resp: 24 20 Temp: 36.7 C (98.1 F) TempSrc: Oral SpO2: 98% Weight: 98 kg (216 lb) Height: 1.651 m (5' 5) The patient presented with a chief complaint of cough sore throat. The differential diagnosis associated with this patient's presentation includes pneumonia COVID influenza RSV bronchospasm viral illness CHF ACS. Our workup consisted of ordering/reviewing none. I had extensive discussion with the nohemi muñoz. Do not believe x-ray or blood work is needed and I believe she does warrant treatment for pneumonia given current situation where there is a fair amount of mycoplasma pneumonia. I think it is unlikely this is CHF or active ACS. Patient agrees this plan. Will give her Zithromax 1 dose here and also prednisone here then sent home on Zithromax prednisone. Continue her inhaler. Follow with herdoctor in 1 week. Off work for 1 day. Diagnoses as of 06/04/24 0435 Acute cough Diagnostics considered but not indicated based on history, physical, testing: Chest x-ray and bloodwork however not clinically needed based on history and physical External records reviewed: Outpatient records reviewed she is seen urgent care 02/19/2024 for cough she seen neurology for migraines with visit for that 09/11/2023. Radiologic diagnostics interpreted by me: film images such as CT, Ultrasound and MRI are read by the radiologist. Plain radiographic images are visualized and preliminarily interpreted by the emergency physician with the below findings: none Discussions with other clinicians: none Chronic conditions impacting care: Asthma depression bipolar thyroid disease hypertension CHF Social determinants of health affecting care: none Shared decision making: Patient agrees to treatment plan ED Medications managed: Medications predniSONE (Deltasone) tablet 60 mg (has no administration in time range) azithromycin (Zithromax) tablet 500 mg (has no administration in time range) Prescription drugs prescribed: Zithromax prednisone PROCEDURES: Unless otherwise noted below, none Procedures IMPRESSION 1. Acute cough DISPOSITION/PLAN DISPOSITION Discharge 06/04/2024 04:33:26 AM PATIENT REFERRED TO: Lois Alberts MD [address] [place] [address] In 1 week DISCHARGE MEDICATIONS: New Prescriptions AZITHROMYCIN (ZITHROMAX Z-KRISTIN) 250 MG TABLET Take 1 tablet (250 mg) by mouth daily for 5 days. [id number] mg day 1 and then 250 mg day 2 through 5 PREDNISONE (DELTASONE) 20 MG TABLET Take 2 tablets (40 mg) by mouth daily for 5 days. Start tomorrow in the a.m. @[facility]([id number]:LAST:1)@ (Comment: Please notethis report has been produced using speech recognition software and may contain errors related to that system including errors in grammar, punctuation, and spelling, as well as words and phrases that may be inappropriate.If there is any questions or concerns please feel free tocontact the dictating provider for clarification). Mohsen Soto MD (electronically signed) Attending Emergency Physician Mohsen Soto MD 06/04/24 0435 * Mojgan Soto RN - 06/04/2024 4:02 AM EST Patient arrived ambulatory to room 2 without difficulty. Patient complains of non productive cough for over a week and states she was coughing so hard tonight at work she couldn't catch her breath. Patient also has sore throat. Patient denies fever or chest pain . Patient has been taking day quil with no relief. Respirations even and unlabored. documented in this encounterSumma [id number] Emergency department Triage note* Mojgan Soto RN - 06/04/2024 4:02 AM EST Patient arrived ambulatory to room 2 without difficulty. Patient complains of non productive cough for over a week and states she was coughing so hard tonight at work she couldn't catch her breath. Patient also has sore throat. Patient denies fever or chest pain . Patient has been taking day quil with no relief. Respirations even and unlabored. [id number] Phys[facility] Emergency department Note* Mohsen Soto MD - 06/04/2024 4:02 AM EST [facility] ED EMERGENCY DEPARTMENT ENCOUNTER Pt Name: Jacob Celis Birthdate 1980 Date of evaluation: 06/04/2024 Provider: Mohsen Soto MD CHIEF COMPLAINT Chief Complaint Patient presents with Cough Sore Throat HISTORY OF PRESENT ILLNESS (Location/Symptom, Timing/Onset,Context/Setting, Quality, Duration, Modifying Factors, Severity) Note limiting factors. Jacob Ceils is a 43 y.o. female who presents to the emergency department with sore throat cough. Patient denies chest pain. Patient reports having symptoms for about a week. Family has pneumonia. Daughter has pneumonia. At work tonight she felt a little short of breath. No chest pain. Started sore throat. No other complaints. Comes in to be seen. She does have a history of asthma. No recent travel HPI Historian is the patient Nurse's notes for past medical history, surgical history, social history were reviewed. Medicationsand allergies reviewed. PAST MEDICAL HISTORY Past Medical History: Diagnosis Date Anxiety Asthma Bipolar 1 disorder (HCC) CHF (congestive heart failure) (HCC) Depression GERD (gastroesophageal reflux disease) Hyperlipidemia Hypertension Insomnia Restless leg syndrome Seasonal allergies Thyroid cancer (HCC) Thyroid disease SURGICALHISTORY Past Surgical History: Procedure Laterality Date THYROIDECTOMY TONSILLECTOMY (HISTORICAL) CURRENT MEDICATIONS Previous Medications ALLOPURINOL (ZYLOPRIM) 100 MG TABLET Take 100 mg by mouth in the morning. ATORVASTATIN (LIPITOR) 20 MG TABLET Take 20 mg by mouth daily. BUDESONIDE-FORMOTEROL (SYMBICORT) 160-4.5 MCG/ACT INHALER Inhale 2 puffs daily. BUSPIRONE (BUSPAR) 10 MG TABLET Take 10 mg by mouth 2 times daily. CARIPRAZINE HCL 1.5 MG CAPSULE Take 1.5 capsules by mouth Nightly. CHOLECALCIFEROL (VITAMIN D-3) 50 MCG (2000 UT) CAPSULE Take 1 capsule by mouth daily. DAPAGLIFLOZIN-METFORMIN ER (XIGDUO XR) 10-500 MG Take 1 tablet by mouth in the morning. DICLOFENAC (VOLTAREN) 75 MG EC TABLET Take 1 tablet (75 mg) by mouth 2 times daily as needed (pain). Do not crush, chew, or split. GABAPENTIN (NEURONTIN) 100 MG CAPSULE Take 1 capsule by mouth in the morning and 1 capsule in the evening. 1 in the AM, 3 in the PM. LORATADINE (CLARITIN) 10 MG TABLET Take 10 mg by mouth daily. METOPROLOL SUCCINATE XL (TOPROL-XL) 100 MG 24 HR TABLET Take 100 mg by mouth in the morning. MONTELUKAST (SINGULAIR) 10 MG TABLET Take 10 mg by mouth daily. MONTELUKAST (SINGULAIR) 10 MG TABLET Take 10 mg by mouth. PROMETHAZINE (PHENERGAN) 25 MG TABLET Take 1 tablet (25 mg) by mouth every 6 hours as needed for nausea or vomiting. RIMEGEPANT SULFATE (NURTEC) 75 MG TABLET DISPERSIBLE Take 1 tablet daily as needed for onset of migraine. Max 1 dose in 24 hours orally as directed for 30 days TOPIRAMATE 50 MG TABLET Take 50 mg by mouth in the morning and 50 mg in the evening. VALSARTAN-HYDROCHLOROTHIAZIDE (DIOVAN-HCT) 160-12.5 MG TABLET Take 1 tablet by mouth in the morning. Lisinopril and Onion FAMILY HISTORY No family history on file. SOCIAL HISTORY Social History Socioeconomic History Marital status: Tobacco Use Smoking status: Never Smokeless tobacco: Never Vaping Use Vaping status: Never Used Substance and Sexual Activity Alcohol use: Not Currently Drug use: Never SCREENINGS PHYSICAL EXAM (up to 7 for level 4, 8 or more for level 5) @EDTRIAGEVSS@ Appropriate PPE including n 95, gown, gloves, goggles where worn when appropriate with this patient. Physical Exam Vital signs reviewed general: Alert and oriented 3 head: Atraumatic eyes: Equal round reactive to light and accommodating, pupils are equal, round and reactive to light and accommodation oropharynx: Clear and well hydrated neck: Supple heart: Regular rate and rhythm, no murmurs tachycardia now lungs: Coarse breath sounds but good air exchange abdomen: Soft nontender, positive bowel sounds, no peritoneal findings. Extremities: Moving all fours, no tenderness. Normal capillary refill. Skin: No rash or lesions -to the exposed skin neurologically: Alert and oriented 3, no focal deficit DIAGNOSTIC RESULTS RADIOLOGY: Interpretation per the Radiologist below, if availableat the time of this note: No orders to display ED BEDSIDE ULTRASOUND: Performed by ED Physician - none LABS: Labs Reviewed - No data to display All other labs were within normal range or not returned as of thisdictation. EMERGENCYDEPARTMENT COURSE and DIFFERENTIAL DIAGNOSIS/MDM: Vitals: Vitals: 06/04/24 0404 06/04/24 0429 BP: (!) 160/96 BP Location: Left arm Patient Position: Sitting Pulse: (!) 112 95 Resp: 24 20 Temp: 36.7 C (98.1 F) TempSrc: Oral SpO2: 98% Weight: 98 kg (216 lb) Height: 1.651 m (5' 5) Medical Decision Making EMERGENCY DEPARTMENT COURSE and DIFFERENTIAL DIAGNOSIS/MDM: Vitals: Vitals: 06/04/24 0404 06/04/24 0429 BP: (!) 160/96 BP Location: Left arm Patient Position: Sitting Pulse: (!) 112 95 Resp: 24 20 Temp: 36.7 C (98.1 F) TempSrc: Oral SpO2: 98% Weight: 98 kg (216 lb) Height: 1.651 m (5' 5) The patient presented with a chief complaint of cough sore throat. The differential diagnosis associated with this patient's presentation includes pneumonia COVID influenza RSV bronchospasm viral illness CHF ACS. Our workup consisted of ordering/reviewing none. I had extensive discussion with the nohemi muñoz. Do not believe x-ray or blood work is needed and I believe she does warrant treatment for pneumonia given current situation where there is a fair amount of mycoplasma pneumonia. I think it is unlikely this is CHF or active ACS. Patient agrees this plan. Will give her Zithromax 1 dose here and also prednisone here then sent home on Zithromax prednisone. Continue her inhaler. Follow with herdoctor in 1 week. Off work for 1 day. Diagnoses as of 06/04/24434 Acute cough Diagnostics considered but not indicated based on history, physical, testing: Chest x-ray and bloodwork however not clinically needed based on history and physical External records reviewed: Outpatient records reviewed she is seen urgent care 02/19/2024 for cough she seen neurology for migraines with visit for that 09/11/2023. Radiologic diagnostics interpreted by me: film images such as CT, Ultrasound and MRI are read by the radiologist. Plain radiographic images are visualized and preliminarily interpreted by the emergency physician with the below findings: none Discussions with other clinicians: none Chronic conditions impacting care: Asthma depression bipolar thyroid disease hypertension CHF Social determinants of health affecting care: none Shared decision making: Patient agrees to treatment plan ED Medications managed: Medications predniSONE (Deltasone) tablet 60 mg (has no administration in time range) azithromycin (Zithromax) tablet 500 mg (has no administration in time range) Prescription drugs prescribed: Zithromax prednisone PROCEDURES: Unless otherwise noted below, none Procedures IMPRESSION 1. Acute cough DISPOSITION/PLAN DISPOSITION Discharge 06/04/2024 04:33:26 AM PATIENT REFERRED TO: Lois Alberts MD [address] [facility] [address] [facility] [address] [facility] [address] In 1 week DISCHARGE MEDICATIONS: New Prescriptions AZITHROMYCIN (ZITHROMAX Z-KRISTIN) 250 MG TABLET Take 1 tablet (250 mg) by mouth daily for 5 days. [id number] mg day 1 and then 250 mg day 2 through 5 PREDNISONE (DELTASONE) 20 MG TABLET Take 2 tablets (40 mg) by mouth daily for 5 days. Start tomorrow in the a.m. @[facility]([id number]:LAST:1)@ (Comment: Please notethis report has been produced using speech recognition software and may contain errors related to that system including errors in grammar, punctuation, and spelling, as well as words and phrases that may be inappropriate.If there is any questions or concerns please feel free tocontact the dictating provider for clarification). Mohsen Soto MD (electronically signed) Attending Emergency Physician Mohsen Soto MD 06/04/24434 [facility] [id number] Instructions* Patient Instructions* Debbie Cordova APRN.POWER PLANT SUPERVISOR - 02/19/2024 4:37 PM EDT ASSESSMENT/PLAN: 1. Acute cough - ICD9: 786.2, ICD10: R05.1 (primary diagnosis) - XR CHEST 2V FRONTAL/LAT RESULT: Lines, tubes, and devices: None. Lungs and pleura: Low lung volumes. No consolidation. No pleural effusion or pneumothorax. Cardiomediastinal silhouette: Normal cardiomediastinal silhouette. Bones and soft tissues: Unremarkable. IMPRESSION: Low lung volumes. No acute radiographic abnormality. Mobile Ui/Ux Designer: MIGUEL Transcribe Date/Time: Feb 19 2024 4:23P Dictated by : BLAINE MURRIETA DO - BENZONATATE 100 MG CAPSULE 2. Viral URI with cough - ICD9: 465.9, ICD10: J06.9 - Discussed viral etiology and rationale for treatment. - Symptomatic treatment with prn analgesia - Supportive care with fluids and rest - COVID & INFLUENZA A/B & RSV NAAT, ROUTINE - Follow-up with your PCP in 3-5 days if symptoms have not improved or sooner if symptoms worsen - Discussed red flags and need for immediate medical evaluation if any occur. - Discussed supportive care treatment with fluids, rest and analgesia. - Discussed expected course of illness Debbie Cordova APRN.POWER PLANT SUPERVISOR documented in this encounterPromedica [facility]08-22-2024 History of Present illness Narrative* Royer Dunlap RT(R) - 02/19/2024 3:50 PM EDT Radiology Service Progress Note PATIENT NAME: Jacob Celis DATE OF SERVICE: February 19, 2024 TIME: 4:12 PM PATIENT IDENTITY VERIFICATION COMPLETED USING TWO (2) IDENTIFIERS: Name and Date of confirmedby patient verbally. FALL SCREENING: Has the patient had 2 falls in the last year or 1 fall with injury or currently using an Ambulatory Assistive Device (Walker, Cane, Wheelchair, Crutches, etc.)? No PATIENT GENDER DATA: Female. status: : No status: NO. PATIENT RELEVANT IMPLANT DATA REVIEWED: Yes PATIENT PRESENTS WITH AN IMPLANTABLE OR ATTACHED ANIMAL BREEDER: No RADIOLOGY DEPARTMENT: General X-ray: Exam(s) Completed: Chest X-Ray PERIPHERAL IV DATA: Not applicable SIGNED BY: RT Liane(Hernan) February 19, 2024 4:12 PM documented in this [facility]24 NoteHNO ID: [id number] Author: ROYER DUNLAP RT(R) Service: ? Author Type: Patient Registration Specialist Type: Progress Notes Filed: 02/19/2024 16:21 Note Text: Radiology Service Progress Note PATIENT NAME: Jacob Celis DATE OF SERVICE: February 19, 2024 TIME: 4:12 PM PATIENT IDENTITY VERIFICATION COMPLETED USING TWO (2) IDENTIFIERS: Name and Date of confirmed by patient verbally. FALL SCREENING: Has the patient had 2 falls in the last year or 1 fall with injury or currently using an Ambulatory Assistive Device (Walker, Cane, Wheelchair, Crutches, etc.)? No PATIENT GENDER DATA: Female. status: : No status: NO. PATIENT RELEVANT IMPLANT DATA REVIEWED: Yes PATIENT PRESENTS WITH AN IMPLANTABLE OR ATTACHED ANIMAL BREEDER: No RADIOLOGY DEPARTMENT: General X-ray: Exam(s) Completed: Chest X-Ray PERIPHERAL IV DATA: Not applicable SIGNED BY: LEANNA Rob) February 19, 2024 4:12 [facility]08-22-2024 NoteHNO ID: [id number] Author: DEBBIE CORDOVA APRN.[employer] Service: ? Author Type: Nurse Practitioner Type: Progress Notes Filed: 02/19/2024 16:37 Note Text: Subjective Cough Associated symptoms include chills, headaches, sore throat and myalgias. Jacob Celis is a 43 year old female who presents with cough and chest congestion for the past 10 days and yesterday developed fever, chills, body aches and headache. She has been taking Delsym and Tylenol severe cold and flu. She has been having burning in her chest with coughing. She denies any known sick contacts. Review of Systems Constitutional: Positive for chills, fever and malaise/fatigue. HENT: Positive for congestion and sore throat. Respiratory: Positive for cough and sputum production. Cardiovascular: Negative. Gastrointestinal: Negative for abdominal pain, diarrhea, nausea and vomiting. Musculoskeletal: Positive for myalgias. Neurological: Positive for headaches. BP 143/99 Pulse 120 Temp 37.9 ?C (100.3 ?F) Resp 24 Wt 134.9 kg (297 lb 6.4 oz) SpO2 97% BMI 49.49 kg/m? PAST MEDICAL HISTORY No date: Asthma No date: Bipolar 1 disorder (FORMERLY [facility]) No date: CHF (congestive heart failure) (FORMERLY [facility]) No date: Depression No date: GERD (gastroesophageal reflux disease) No date: HTN (hypertension) No date: Thyroid cancer (FORM[facility]LY [facility]) PAST SURGICAL HISTORY 2019: THYROIDECTOMY TOTAL/COMPLETE ALLERGIES Lisinopril MEDICATIONS spironolactone (ALDACTONE) 25 mg tablet Take 25 mg by mouth once daily. topiramate (TOPAMAX) 50 mg tablet Take 50 mg by mouth twice daily. omeprazole (PRILOSEC) 20 mg capsule Take 20 mg by mouth once daily. atorvastatin (LIPITOR) 20 mg tablet Take 20 mg by mouth daily at bedtime. orphenadrine ER (NORFLEX) 100 mg tablet Take 100 mg by mouth twice daily as needed. busPIRone (BUSPAR) 5 mg tablet Take 5 mg by mouth twice daily. VRAYLAR 1.5 mg capsule VITAMIN D2 1,250 mcg (50,000 unit) capsule Take 1 capsule by mouth one time a week. loratadine (CLARITIN) 10 mg tablet Take 10 mg by mouth once daily. hydrOXYzine pamoate (VISTARIL) 25 mg capsule take 1 capsule by mouth every morning and take 2 capsules by mouth every evening carvedilol (COREG) 3.125 mg tablet Take 3.125 mg by mouth twice daily with meals. montelukast (SINGULAIR) 10 mg tablet Take 10 mg by mouth daily at bedtime. rOPINIRole (REQUIP) 0.5 mg tablet take 1 tablet by mouth 1 TO 3 HOURS BEFORE BEDTIME Prvuzzltamzpxyf-Jpugsjxuh-RU (BROMFED DM) 2-30-10 mg/5 mL syrup Take 5-10 mL by mouth four times a day as needed. (Patient not taking: Reported on 02/19/2024) benzonatate (TESSALON PERLE) 100 mg capsule Take 1 capsule by mouth three times daily as needed. (Patient not taking: Reported on 02/19/2024) loperamide (IMODIUM A-D) 2 mg cap(s) Take 1 capsule by mouth four times daily as needed. (Patient not taking: Reported on 02/19/2024) ibuprofen (MOTRIN) 800 mg tablet Take 800 mg by mouth three times daily as needed. (Patient not taking: Reported on 02/19/2024) FAMILY HISTORY Problem Relation Age of Onset Colon Cancer No Family History Social History Tobacco Use Smoking status: Never Smokeless tobacco: Never Vaping Use Vaping status: Never Used Substance Use Topics Alcohol use: Never Drug use: Never Objective Physical Exam Vitals and nursing note reviewed. Constitutional: General: She is not in acute distress. Appearance: Normal appearance. She is obese. HENT: Nose: Nose normal. Mouth/Throat: Mouth: Mucous membranes are moist. Pharynx: Oropharynx is clear. Uvula midline. No oropharyngeal exudate or posterior oropharyngeal erythema. Cardiovascular: Rate and Rhythm: Normal rate and regular rhythm. Heart sounds: Normal heart sounds. Pulmonary: Effort: Pulmonary effort is normal. No respiratory distress. Breath sounds: Normal breath sounds. No wheezing or rales. Musculoskeletal: Cervical back: Neck supple. Lymphadenopathy: Cervical: No cervical adenopathy. Skin: General: Skin is warm and dry. Findings: No erythema or rash. Neurological: Mental Status: She is alert. ASSESSMENT/PLAN: 1. Acute cough - ICD9: 786.2, ICD10: R05.1 (primary diagnosis) - XR CHEST 2V FRONTAL/LAT RESULT: Lines, tubes, and devices: None. Lungs and pleura: Low lung volumes. No consolidation. No pleural effusion or pneumothorax. Cardiomediastinal silhouette: Normal cardiomediastinal silhouette. Bones and soft tissues: Unremarkable. IMPRESSION: Low lung volumes. No acute radiographic abnormality. Mobile Ui/Ux Designer: MIGUEL Transcribe Date/Time: Feb 19 2024 4:23P Dictated by : BLAINE MURRIETA DO - BENZONATATE 100 MG CAPSULE 2. Viral URI with cough - ICD9: 465.9, ICD10: J06.9 - Discussed viral etiology and rationale for treatment. - Symptomatic treatment with prn analgesia - Supportive care with fluids and rest - COVID AND INFLUENZA A/B AND RSV NAAT, ROUTINE - Follow-up with your PCP in 3-5 days if symptoms h (more content not included)...[facility]08-22-2024 History of Present illness Narrative* Debbie Cordova APRN.[facility] - 02/19/2024 3:36 PM EDT Subjective Cough Associated symptoms include chills, headaches, sore throat and myalgias. Jacob Celis is a 43 year old female who presents with cough and chest congestion for the past 10 days and yesterday developed fever, chills, body aches and headache. She has been taking Delsym and Tylenol severe cold and flu. She has been having burning in her chest with coughing. She denies any known sick contacts. Review of Systems Constitutional: Positive for chills, fever and malaise/fatigue. HENT: Positive for congestion and sore throat. Respiratory: Positive for cough and sputum production. Cardiovascular: Negative. Gastrointestinal: Negative for abdominal pain, diarrhea, nausea and vomiting. Musculoskeletal: Positive for myalgias. Neurological: Positive for headaches. BP 143/99 Pulse 120 Temp 37.9 C (100.3 F) Resp 24 Wt 134.9 kg (297 lb 6.4 oz) SpO2 97% BMI 49.49 kg/m PAST MEDICAL HISTORY No date: Asthma No date: Bipolar 1 disorder (FORMERLY [facility]) No date: CHF (congestive heart failure) (FORM[facility]LY [facility]) No date: Depression No date: GERD (gastroesophageal reflux disease) No date: HTN (hypertension) No date: Thyroid cancer (FORM[facility]) PAST SURGICAL HISTORY 2019: THYROIDECTOMY TOTAL/COMPLETE ALLERGIES Lisinopril MEDICATIONS spironolactone (ALDACTONE) 25 mg tablet Take 25 mg by mouth once daily. topiramate (TOPAMAX) 50 mg tablet Take 50 mg by mouth twice daily. omeprazole (PRILOSEC) 20 mg capsule Take 20 mg by mouth once daily. atorvastatin (LIPITOR) 20 mg tablet Take 20 mg by mouth daily at bedtime. orphenadrine ER (NORFLEX) 100 mg tablet Take 100 mg by mouth twice daily as needed. busPIRone (BUSPAR) 5 mg tablet Take 5 mg by mouth twice daily. VRAYLAR 1.5 mg capsule VITAMIN D2 1,250 mcg (50,000 unit) capsule Take 1 capsule by mouth one time a week. loratadine (CLARITIN) 10 mg tablet Take 10 mg by mouth once daily. hydrOXYzine pamoate (VISTARIL) 25 mg capsule take 1 capsule by mouth every morning and take 2 capsules by mouth every evening carvedilol (COREG) 3.125 mg tablet Take 3.125 mg by mouth twice daily with meals. montelukast (SINGULAIR) 10 mg tablet Take 10 mg by mouth daily at bedtime. rOPINIRole (REQUIP) 0.5 mg tablet take 1 tablet by mouth 1 TO 3 HOURS BEFORE BEDTIME Begkpazwydfpspu-Igsiqfkii-WZ (BROMFED DM) 2-30-10 mg/5 mL syrup Take 5-10 mL by mouth four times a day as needed. (Patient not taking: Reported on 02/19/2024) benzonatate (TESSALON PERLE) 100 mg capsule Take 1 capsule by mouth three times daily as needed. (Patient not taking: Reported on 02/19/2024) loperamide (IMODIUM A-D) 2 mg cap(s) Take 1 capsule by mouth four times daily as needed. (Patient not taking: Reported on 02/19/2024) ibuprofen (MOTRIN) 800 mg tablet Take 800 mg by mouth three times daily as needed. (Patient not taking: Reported on 02/19/2024) FAMILY HISTORY Problem Relation Age of Onset Colon Cancer No Family History Social History Tobacco Use Smoking status: Never Smokeless tobacco: Never Vaping Use Vaping status: Never Used Substance Use Topics Alcohol use: Never Drug use: Never Objective Physical Exam Vitals and nursing note reviewed. Constitutional: General: She is not in acute distress. Appearance: Normal appearance. She is obese. HENT: Nose: Nose normal. Mouth/Throat: Mouth: Mucous membranes are moist. Pharynx: Oropharynx is clear. Uvula midline. No oropharyngeal exudate or posterior oropharyngeal erythema. Cardiovascular: Rate and Rhythm: Normal rate and regular rhythm. Heart sounds: Normal heart sounds. Pulmonary: Effort: Pulmonary effort is normal. No respiratory distress. Breath sounds: Normal breath sounds. No wheezing or rales. Musculoskeletal: Cervical back: Neck supple. Lymphadenopathy: Cervical: No cervical adenopathy. Skin: General: Skin is warm and dry. Findings: No erythema or rash. Neurological: Mental Status: She is alert. ASSESSMENT/PLAN: 1. Acute cough - ICD9: 786.2, ICD10: R05.1 (primary diagnosis) - XR CHEST 2V FRONTAL/LAT RESULT: Lines, tubes, and devices: None. Lungs and pleura: Low lung volumes. No consolidation. No pleural effusion or pneumothorax. Cardiomediastinal silhouette: Normal cardiomediastinal silhouette. Bones and soft tissues: Unremarkable. IMPRESSION: Low lung volumes. No acute radiographic abnormality. Mobile Ui/Ux Designer: MIGUEL Transcribe Date/Time: Feb 19 2024 4:23P Dictated by : BLAINE MURRIETA DO - BENZONATATE 100 MG CAPSULE 2. Viral URI with cough - ICD9: 465.9, ICD10: J06.9 - Discussed viral etiology and rationale for treatment. - Symptomatic treatment with prn analgesia - Supportive care with fluids and rest - COVID & INFLUENZA A/B & RSV NAAT, ROUTINE - Follow-up with your PCP in 3-5 days if symptoms have not improved or sooner if symptoms worsen - Discussed red flags and need for immediate medical evaluation if any occur. - Discussed supportive care treatment with fluids, rest and analgesia. - Discussed expected course of illness Debbie Cordova APRN.[employer]PER[employer] documented in this encounterPromedica [facility]05-24-2024 Telephone encounter Note * Telephone Encounter - Martine Ortiz LPN - 11/21/2023 9:12 AM EDT Patient given Lilliam's message verbatim. Patient verbalized understanding and have no further questions or concerns at this time. [facility] [id number] Miscellaneous Notes* Telephone Encounter - Martine Ortiz LPN - 11/21/2023 9:12 AM EDT Patient given Lilliam's message verbatim. Patient verbalized understanding and have no further questions or concerns at this time. * Telephone Encounter - ELSI Hercules CNP - 11/21/2023 8:59 AM EDT Patient was supposed to have US / KUB for follow-up of kidney stones. If she does not wish to proceed with imaging that would be within her right. * Telephone Encounter - Deborah Graves RN - 11/20/2023 4:17 PM EDT We have been unable to reach your patient to schedule their testing. Test Name: US retroperitoneum and XR of abdomen 1st Attempt: 10/14/23, cancelled 2nd Attempt: 11/15/23, via Exec message 3rd Attempt: 11/20/23, spoke with patient and she is not longer having symptoms since the stone passed and declines test. She will call office to make sure she does not need it. Patient is also declining the XR of the abdomen documented in this [place] [id number] Telephone encounter Note* Telephone Encounter - ELSI Hercules CNP - 11/21/2023 8:59 AM EDT Patient was supposed to have US / KUB for follow-up of kidney stones. If she does not wish to proceed with imaging that would be within her right. [facility] [phone]) 976-472605-23-2024 Telephone encounter Note* Telephone Encounter - Deborah Graves RN - 11/20/2023 4:17 PM EDT We have been unable to reach your patient to schedule their testing. Test Name: US retroperitoneum and XR of abdomen 1st Attempt: 10/14/23, cancelled 2nd Attempt: 11/15/23, via Exec message 3rd Attempt: 11/20/23, spoke with patient and she is not longer having symptoms since the stone passed and declines test. She will call office to make sure she does not need it. Patient is also declining the XR of the abdomen [facility] [id number] Emergency department Note* Mirna Arce RN - 08/29/2023 9:56 AM EST To radiology via [employer] aware that patient has had sedating meds. Pt appears more comfortable but still with pain of 10. Mirna Arce RN 08/29/23 0956 [facility] [id number] Emergency department Note* Mirna Arce RN - 08/29/2023 9:56 AM EST To radiology via [employer] aware that patient has had sedating meds. Pt appears more comfortable but still with pain of 10. Mirna Arce RN 08/29/23 0956 * Mirna Arce RN - 08/29/2023 9:39 AM EST States has not had a period in 14 years and has had a tubal ligation and ablation and states could not be . Physician aware and okay to send to radiology. Pt aware that urine specimen needed and bedside commode in room. Pt up to BSC, feels like has to move bowels. Mirna Arce RN 08/29/23 0941 * Madelaine Gutierrez MD - 08/29/2023 9:05 AM EST EMERGENCY DEPARTMENT ENCOUNTER Pt Name: Jacob Celis Birthdate 1980 Date of evaluation: 08/29/2023 CHIEF COMPLAINT Chief Complaint Patient presents with Flank Pain HISTORY OF PRESENT ILLNESS HPI Jacob Celis is a 42 y.o. female who presents to the emergency department with left sided abdominal pain, she was at work when symptoms started pain is constant worsened. Associate nausea vomiting. Nodiarrhea no constipation no difficulty urinating no fever. No alcohol use recently. She has not taken any medications for relief. Pain gets worse with palpation. REVIEW OF SYSTEMS Review of Systems There is no problem list on file for this patient. CURRENT MEDICATIONS Previous Medications ALLOPURINOL (ZYLOPRIM) 100 MG TABLET Take 100 mg by mouth in the morning. ATORVASTATIN (LIPITOR) 20 MG TABLET Take 20 mg by mouth daily. BUDESONIDE-FORMOTEROL (SYMBICORT) 160-4.5 MCG/ACT INHALER Inhale 2 puffs daily. BUSPIRONE (BUSPAR) 10 MG TABLET Take 10 mg by mouth 2 times daily. CARIPRAZINE HCL 1.5 MG CAPSULE Take 1.5 capsules by mouth Nightly. CHOLECALCIFEROL (VITAMIN D-3) 50 MCG (2000 UT) CAPSULE Take 1 capsule by mouth daily. DAPAGLIFLOZIN-METFORMIN ER (XIGDUO XR) 10-500 MG Take 1 tablet by mouth in the morning. GABAPENTIN (NEURONTIN) 100 MG CAPSULE Take 1 capsule by mouth in the morning and 1 capsule in the evening. 1 in the AM, 3 in the PM. LORATADINE (CLARITIN) 10 MG TABLET Take 10 mg by mouth daily. METOPROLOL SUCCINATE XL (TOPROL-XL) 100 MG 24 HR TABLET Take 100 mg by mouth in the morning. MONTELUKAST (SINGULAIR) 10 MG TABLET Take 10 mg by mouth daily. MONTELUKAST (SINGULAIR) 10 MG TABLET Take 10 mg by mouth. RIMEGEPANT SULFATE (NURTEC) 75 MG TABLET DISPERSIBLE Take 1 tablet daily as needed for onset of migraine. Max 1 dose in 24 hours orally as directed for 30 days TOPIRAMATE 50 MG TABLET Take 50 mg by mouth in the morning and 50 mg in the evening. VALSARTAN-HYDROCHLOROTHIAZIDE (DIOVAN-HCT) 160-12.5 MG TABLET Take 1 tablet by mouth in the morning. ALLERGIES Lisinopril and Onion FAMILY HISTORY No family history on file. SOCIAL HISTORY Social History Socioeconomic History Marital status: Tobacco Use Smoking status: Never Smokeless tobacco: Never Vaping Use Vaping Use: Never used Substance and Sexual Activity Alcohol use: Not Currently Drug use: Never Social Determinants of Health Tobacco Use: Low Risk (08/29/2023) Patient History Smoking Tobacco Use: Never Smokeless Tobacco Use: Never Passive Exposure: Not on file Alcohol Use: Not At Risk (07/24/2023) AUDIT-C Frequency of Alcohol Consumption: Never Average Number of Drinks: Patient does not drink Frequency of Binge Drinking: Never Financial Resource Strain: Not on file Food Insecurity: Not on file Transportation Needs: Not on file Physical Activity: Not on file Stress: Not on file Social Connections: Not on file Intimate Partner Violence: Not on file Depression: Not on file Housing Stability: Not on file Utilities: Not on file PHYSICAL EXAM Vitals: 08/29/23 0911 BP: (!) 196/110 Pulse: 85 Resp: 18 Temp: 36.7 C (98.1 F) TempSrc: Oral SpO2: 100% Weight: (!) 137 kg (301 lb) Height: 1.651 m (5' 5) Physical Exam Vitals and nursing note reviewed. Constitutional: General: She is in acute distress. Appearance: She is obese. She is not toxic-appearing. Abdominal: General: Bowel sounds are decreased. Palpations: Abdomen is soft. Tenderness: There is abdominal tenderness in the epigastric area, left upper quadrant and left lower quadrant. There is left CVA tenderness. There is no guarding or rebound. Hernia: No hernia is present. Neurological: Mental Status: She is alert. Psychiatric: Attention and Perception: Perception normal. She is inattentive. Mood and Affect: Mood is anxious. SCREENINGS Medical decision making Medical Decision Making Problems Addressed: Ureteral stone with hydronephrosis: complicated acute illness or injury Amount and/or Complexity of Data Reviewed Labs: ordered. Radiology: ordered. Risk Prescription drug management. DIAGNOSTIC RESULTS Procedures/EKG: Physician EKG interpretation can be found in [facility] if done RADIOLOGY (Per Emergency Physician): Interpretation per the Radiologist below, if available at the time of this note: US pelvis transvaginal Final Result Very limited examination. Nabothian cysts in the cervix but no other abnormality appreciated. Ovaries are not identified Report Dictated on Electronically Signed By: Jaime Nix MD Electronically Signed Date/Time: 08/29/2023 10:[address] abdomen pelvis wo IV contrast Final Result Mild left hydronephrosis secondary to a 2 mm distal ureteral calculus. Hepatic steatosis. Report Dictated on Electronically Signed By: Fer Moraes MD Electronically Signed Date/Time: 08/29/2023 10:12 AM EST LABS: Labs Reviewed COMPLETE URINALYSIS - Abnormal Result Value Color, Urine Bath (*) Clarity, Urine Extra Turbid (*) pH, Urine 5.0 Leukocytes, Urine Negative Nitrite, Urine Negative Protein, Urine 100 (*) Glucose, Urine Normal Bilirubin, Urine Negative Ketones, Urine Negative Urobilinogen, Urine 2 (*) Blood, Urine 0.03 (*) Volume, Urine 8-12 mL RBC, Urine 0-2 WBC, Urine 0-2 Squamous Epithelial, Urine 0-2 Bacteria, Urine Few (*) Amorphous Urates, Urine Moderate (*) SPECIFIC GRAVITY OF URINE (NUMERIC) 1.033 (*) COMPLETE URINALYSIS WITH REFLEX TO CULTURE Narrative: The following orders were created for panel order Urinalysis complete with reflex to Culture. Procedure Abnormality Status --------- ------ Complete Urinalysis[[id number]] Abnormal Final result Please view results for these tests on the individual orders. HCG QUALITATIVE URINE HCG,URINE QUAL Negative Narrative: is the most common reason for HCG in urine, although choriocarcinoma, hydatidiform mole, and certain nontrophoblastic malignancies also result in detectable urinary HCG levels. Sensitivity = 20mIU/mL. Medications ordered: Medications cefOXitin (Mefoxin) 2,000 mg in dextrose 5 % 50 mL IVPB (has no administration in time range) sodium chloride 0.9 % bolus 500 mL (500 mL IntraVENous New Bag 08/29/23932) prochlorperazine (Compazine) injection 10 mg (10 mg IntraVENous Given 08/29/23 0933) fentaNYL (Sublimaze) injection 70 mcg (70 mcg IntraVENous Given 08/29/23 0934) HYDROmorphone (Dilaudid) injection 1.25 mg (1.25 mg IntraVENous Given 08/29/23 1039) ED Course as of 08/29/23 1043 FriAug 29, 2023 1033 Still having pain Iv dilaudid ordered [NM] ED Course User Index [NM] Madelaine Gutierrez MD Diagnoses as of 08/29/23 1043 Ureteral stone with hydronephrosis * No order type specified * MDM: 42 y.o. presented with complaint of abdominal pain The differential diagnosis considered: Bowel obstruction, bowel perforation, kidney stone, pelvic pathology, , UTI. Our workup consisted of ordering/reviewing: Orders Placed This Encounter Procedures CT abdomen pelvis wo IV contrast US pelvis transvaginal Urinalysis complete with reflex to Culture hCG, urine, qualitative Complete Urinalysis [facility] . Radiology: ct was reviewed and was independently interpreted by myself: 2mm stone distal left ureter, mild hydroureteronephrosis, no sbo,no perforation Symptoms likely from kidney stone. NO severe hydronephrosis on imaging, patient should be able to pass the kidney stone. Stone < 6mm, no severe infection, no SIRS on VS. patient without : acute renal failure, Bilateral obstruction, and Single kidney with obstruction. Diagnostic tests considered but not performed: cbc, as clinically no severe infection. REVAL: CRITICAL CARE TIME PROCEDURES: Procedures FINAL IMPRESSION 1. Ureteral stone with hydronephrosis DISPOSITION/PLAN DISPOSITION Discharge 08/29/2023 10:36:02 AM PATIENT REFERRED TO: Lois Alberts MD [address] [place] [address] [facility] [id number] In 4 days [facility] [address] [facility] [id number] I prescribed: New Prescriptions CEPHALEXIN (KEFLEX) 500 MG CAPSULE Take 1 capsule (500 mg) by mouth in the morning and 1 capsule (500 mg) at noon and 1 capsule (500 mg) in the evening and 1 capsule (500 mg) before bedtime. Do all this for 5 days. DICLOFENAC (VOLTAREN) 75 MG EC TABLET Take 1 tablet (75 mg) by mouth 2 times daily as needed (pain). Do not crush, chew, or split. HYDROCODONE-ACETAMINOPHEN (NORCO) 5-325 MG TABLET Take 1 tablet by mouth every 6 hours as needed (pain) for up to 5 days. PROMETHAZINE (PHENERGAN) 25 MG TABLET Take 1 tablet (25 mg) by mouth every 6 hours as needed for nausea or vomiting. (Comment: this report has been produced using speech recognition software and may contain errors related to that system including errors in grammar, punctuation, and spelling, as well as words and phrases that may be inappropriate) MADELAINE GUTIERREZ MD (electronically signed) Madelaine Gutierrez MD 08/29/23 1430 * Mirna Arce RN - 08/29/2023 9:05 AM EST To room 6 via EMS. C/o sudden onset of left flank pain with radiation to left lower belly about 3 hours ago. Also with vomiting. No dysuria or diarrhea. Restless in bed and moaning documented in this [facility]03-01-2024 Emergency department Note* Mirna Arce RN - 08/29/2023 9:39 AM EST States has not had a period in 14 years and has had a tubal ligation and ablation and states could not be . Physician aware and okay to send to radiology. Pt aware that urine specimen needed and bedside commode in room. Pt up to BSC, feels like has to move bowels. Mirna Arce RN 08/29/23 0941 [id number] Emergency department Triage note* Mirna Arce RN - 08/29/2023 9:05 AM EST To room 6 via EMS. C/o sudden onset of left flank pain with radiation to left lower belly about 3 hours ago. Also with vomiting. No dysuria or diarrhea. Restless in bed and moaning [place] [id number] Physician Emergency department Note* Madelaine Gutierrez MD - 08/29/2023 9:05 AM EST EMERGENCY DEPARTMENT ENCOUNTER Pt Name: Jacob Celis Birthdate 1980 Date of evaluation: 08/29/2023 CHIEF COMPLAINT Chief Complaint Patient presents with Flank Pain HISTORY OF PRESENT ILLNESS HPI Jacob Celis is a 42 y.o. female who presents to the emergency department with left sided abdominal pain, she was at work when symptoms started pain is constant worsened. Associate nausea vomiting. Nodiarrhea no constipation no difficulty urinating no fever. No alcohol use recently. She has not taken any medications for relief. Pain gets worse with palpation. REVIEW OF SYSTEMS Review of Systems There is no problem list on file for this patient. CURRENT MEDICATIONS Previous Medications ALLOPURINOL (ZYLOPRIM) 100 MG TABLET Take 100 mg by mouth in the morning. ATORVASTATIN (LIPITOR) 20 MG TABLET Take 20 mg by mouth daily. BUDESONIDE-FORMOTEROL (SYMBICORT) 160-4.5 MCG/ACT INHALER Inhale 2 puffs daily. BUSPIRONE (BUSPAR) 10 MG TABLET Take 10 mg by mouth 2 times daily. CARIPRAZINE HCL 1.5 MG CAPSULE Take 1.5 capsules by mouth Nightly. CHOLECALCIFEROL (VITAMIN D-3) 50 MCG (1999 UT) CAPSULE Take 1 capsule by mouth daily. DAPAGLIFLOZIN-METFORMIN ER (XIGDUO XR) 10-500 MG Take 1 tablet by mouth in the morning. GABAPENTIN (NEURONTIN) 100 MG CAPSULE Take 1 capsule by mouth in the morning and 1 capsule in the evening. 1 in the AM, 3 in the PM. LORATADINE (CLARITIN) 10 MG TABLET Take 10 mg by mouth daily. METOPROLOL SUCCINATE XL (TOPROL-XL) 100 MG 24 HR TABLET Take 100 mg by mouth in the morning. MONTELUKAST (SINGULAIR) 10 MG TABLET Take 10 mg by mouth daily. MONTELUKAST (SINGULAIR) 10 MG TABLET Take 10 mg by mouth. RIMEGEPANT SULFATE (NURTEC) 75 MG TABLET DISPERSIBLE Take 1 tablet daily as needed for onset of migraine. Max 1 dose in 24 hours orally as directed for 30 days TOPIRAMATE 50 MG TABLET Take 50 mg by mouth in the morning and 50 mg in the evening. VALSARTAN-HYDROCHLOROTHIAZIDE (DIOVAN-HCT) 160-12.5 MG TABLET Take 1 tablet by mouth in the morning. ALLERGIES Lisinopril and Onion FAMILY HISTORY No family history on file. SOCIAL HISTORY Social History Socioeconomic History Marital status: Tobacco Use Smoking status: Never Smokeless tobacco: Never Vaping Use Vaping Use: Never used Substance and Sexual Activity Alcohol use: Not Currently Drug use: Never Social Determinants of Health Tobacco Use: Low Risk (08/29/2023) Patient History Smoking Tobacco Use: Never Smokeless Tobacco Use: Never Passive Exposure: Not on file Alcohol Use: Not At Risk (07/24/2023) AUDIT-C Frequency of Alcohol Consumption: Never Average Number of Drinks: Patient does not drink Frequency of Binge Drinking: Never Financial Resource Strain: Not on file Food Insecurity: Not on file Transportation Needs: Not on file Physical Activity: Not on file Stress: Not on file Social Connections: Not on file Intimate Partner Violence: Not on file Depression: Not on file Housing Stability: Not on file Utilities: Not on file PHYSICAL EXAM Vitals: 08/29/23 0911 BP: (!) 196/110 Pulse: 85 Resp: 18 Temp: 36.7 C (98.1 F) TempSrc: Oral SpO2: 100% Weight: (!) 137 kg (301 lb) Height: 1.651 m (5' 5) Physical Exam Vitals and nursing note reviewed. Constitutional: General: She is in acute distress. Appearance: She is obese. She is not toxic-appearing. Abdominal: General: Bowel sounds are decreased. Palpations: Abdomen is soft. Tenderness: There is abdominal tenderness in the epigastric area, left upper quadrant and left lower quadrant. There is left CVA tenderness. There is no guarding or rebound. Hernia: No hernia is present. Neurological: Mental Status: She is alert. Psychiatric: Attention and Perception: Perception normal. She is inattentive. Mood and Affect: Mood is anxious. SCREENINGS Medical decision making Medical Decision Making Problems Addressed: Ureteral stone with hydronephrosis: complicated acute illness or injury Amount and/or Complexity of Data Reviewed Labs: ordered. Radiology: ordered. Risk Prescription drug management. DIAGNOSTIC RESULTS Procedures/EKG: Physician EKG interpretation can be found in [facility] if done RADIOLOGY (Per Emergency Physician): Interpretation per the Radiologist below, if available at the time of this note: US pelvis transvaginal Final Result Very limited examination. Nabothian cysts in the cervix but no other abnormality appreciated. Ovaries are not identified Report Dictated on Electronically Signed By: Jaime Nix MD Electronically Signed Date/Time: 08/29/2023 10:[address] abdomen pelvis wo IV contrast Final Result Mild left hydronephrosis secondary to a 2 mm distal ureteral calculus. Hepatic steatosis. Report Dictated on Electronically Signed By: Fer Moraes MD Electronically Signed Date/Time: 08/29/2023 10:12 AM EST LABS: Labs Reviewed COMPLETE URINALYSIS - Abnormal Result Value Color, Urine Bath (*) Clarity, Urine Extra Turbid (*) pH, Urine 5.0 Leukocytes, Urine Negative Nitrite, Urine Negative Protein, Urine 100 (*) Glucose, Urine Normal Bilirubin, Urine Negative Ketones, Urine Negative Urobilinogen, Urine 2 (*) Blood, Urine 0.03 (*) Volume, Urine 8-12 mL RBC, Urine 0-2 WBC, Urine 0-2 Squamous Epithelial, Urine 0-2 Bacteria, Urine Few (*) Amorphous Urates, Urine Moderate (*) SPECIFIC GRAVITY OF URINE (NUMERIC) 1.033 (*) COMPLETE URINALYSIS WITH REFLEX TO CULTURE Narrative: The following orders were created for panel order Urinalysis complete with reflex to Culture. Procedure Abnormality Status --------- ------ Complete Urinalysis[[id number]] Abnormal Final result Please view results for these tests on the individual orders. HCG QUALITATIVE URINE HCG,URINE QUAL Negative Narrative: is the most common reason for HCG in urine, although choriocarcinoma, hydatidiform mole, and certain nontrophoblastic malignancies also result in detectable urinary HCG levels. Sensitivity = 20mIU/mL. Medications ordered: Medications cefOXitin (Mefoxin) 2,000 mg in dextrose 5 % 50 mL IVPB (has no administration in time range) sodium chloride 0.9 % bolus 500 mL (500 mL IntraVENous New Bag 08/29/23932) prochlorperazine (Compazine) injection 10 mg (10 mg IntraVENous Given 08/29/23932) fentaNYL (Sublimaze) injection 70 mcg (70 mcg IntraVENous Given 08/29/23 0934) HYDROmorphone (Dilaudid) injection 1.25 mg (1.25 mg IntraVENous Given 08/29/23 1039) ED Course as of 08/29/23 1043 FriAug 29, 2023 1033 Still having pain Iv dilaudid ordered [NM] ED Course User Index [NM] Madelaine Gutierrez MD Diagnoses as of 08/29/23 1043 Ureteral stone with hydronephrosis * No order type specified * MDM: 42 y.o. presented with complaint of abdominal pain The differential diagnosis considered: Bowel obstruction, bowel perforation, kidney stone, pelvic pathology, , UTI. Our workup consisted of ordering/reviewing: Orders Placed This Encounter Procedures CT abdomen pelvis wo IV contrast US pelvis transvaginal Urinalysis complete with reflex to Culture hCG, urine, qualitative Complete Urinalysis [facility] . Radiology: ct was reviewed and was independently interpreted by myself: 2mm stone distal left ureter, mild hydroureteronephrosis, no sbo,no perforation Symptoms likely from kidney stone. NO severe hydronephrosis on imaging, patient should be able to pass the kidney stone. Stone < 6mm, no severe infection, no SIRS on VS. patient without : acute renal failure, Bilateral obstruction, and Single kidney with obstruction. Diagnostic tests considered but not performed: cbc, as clinically no severe infection. REVAL: CRITICAL CARE TIME PROCEDURES: Procedures FINAL IMPRESSION 1. Ureteral stone with hydronephrosis DISPOSITION/PLAN DISPOSITION Discharge 08/29/2023 10:36:02 AM PATIENT REFERRED TO: Lois Alberts MD [address] [facility] [address] [facility] [id number] In 4 days [facility] [address] [facility] [id number] I prescribed: New Prescriptions CEPHALEXIN (KEFLEX) 500 MG CAPSULE Take 1 capsule (500 mg) by mouth in the morning and 1 capsule (500 mg) at noon and 1 capsule (500 mg) in the evening and 1 capsule (500 mg) before bedtime. Do all this for 5 days. DICLOFENAC (VOLTAREN) 75 MG EC TABLET Take 1 tablet (75 mg) by mouth 2 times daily as needed (pain). Do not crush, chew, or split. HYDROCODONE-ACETAMINOPHEN (NORCO) 5-325 MG TABLET Take 1 tablet by mouth every 6 hours as needed (pain) for up to 5 days. PROMETHAZINE (PHENERGAN) 25 MG TABLET Take 1 tablet (25 mg) by mouth every 6 hours as needed for nausea or vomiting. (Comment: this report has been produced using speech recognition software and may contain errors related to that system including errors in grammar, punctuation, and spelling, as well as words and phrases that may be inappropriate) MADELAINE GUTIERREZ MD (electronically signed) Madelaine Gutierrez MD 08/29/23 1430 [id number] Telephone encounter Note* Telephone Encounter - Addie Blanton - 08/12/2023 1:47 PM EST Patient called [facility] about her Aimovig, it was approved through her insurance company, but [facility] will not release med, they say it needs a prior auth [id number] Miscellaneous Notes* Telephone Encounter - Addie Blanton - 08/12/2023 1:47 PM EST Patient called [facility] about her Aimovig, it was approved through her insurance company, but [facility] will not release med, they say it needs a prior auth documented in this encounterCross[facility] [id number] History of Present illness Narrative* Richie El Leger, VALE - 08/12/2023 9:00 AM EST CHIEF COMPLAINT: migraine HISTORY OF PRESENT ILLNESS: 42 year old female to follow up on migraines. 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 Going to schedule mri of brain. No change in migraines from last visit. Daily stress, seeing therapist. Last visit 07/29/23 NMF: Thurs started getting a headache, nurtec no help. Never as bad as this. ER thurs night, toradol there helped some over the weekend then worse again over the weekend. Denies trigger. More stress. Current Outpatient Medications on File Prior to Visit Medication Sig Dispense Refill albuterol HFA 90 mcg/act inhaler Inhale 1 puff every 4 (four) hours if needed. atorvastatin (Lipitor) 20 MG tablet Take 20 mg by mouth in the morning. busPIRone (Buspar) 5 MG tablet Take 10 mg by mouth in the morning and 10 mg before bedtime. Cariprazine HCl (Vraylar) 1.5 MG capsule 1 capsule. loratadine (Claritin) 10 MG tablet Take 10 mg by mouth 1 (one) time each day at the same time. montelukast (Singulair) 10 MG tablet Take 10 mg by mouth 1 (one) time each day at the same time. Rimegepant Sulfate (Nurtec) 75 MG tablet dispersible Take 1 tablet daily as needed for onset of migraine. Max 1 dose in 24 hours orally as directed for 30 days 8 tablet 6 SUMAtriptan (Imitrex) 100 MG tablet Take 1 tablet (100 mg) by mouth 1 (one) time if needed for migraine (october repeat x1) 9 tablet 2 topiramate (Topamax) 50 MG tablet Take 50 mg by mouth in the morning and 50 mg before bedtime. 60 tablet 5 valsartan-hydroCHLOROthiazide (Diovan-HCT) 160-12.5 MG tablet Take 1 tablet by mouth 1 (one) time each day at the same time. dapagliflozin-metFORMIN ER (Xigduo XR) 10-500 MG Take 1 tablet by mouth in the morning. Take with meals. [DISCONTINUED] erenumab (Aimovig) 70 MG/ML injection Inject 1 mL (70 mg) under the skin every 28 (twenty-eight) days 1 each 1 No current facility-administered medications on file prior to visit. Past Medical History: Diagnosis Date Asthma (CMS/HCC) Bipolar affective disorder, manic (CMS/HCC) bipolar manic depressant High cholesterol (CMS/HCC) Hypertension (CMS/HCC) Migraine (CMS/HCC) Panic attacks (CMS/HCC) Thyroid cancer (CMS/HCC) 2020 Past Surgical History: Procedure Laterality Date DILATION AND CURETTAGE 2003 THYROIDECTOMY thyroidectomy ( 3/4 removed) TONSILLECTOMY US GUIDED THYROID BIOPSY 04/17/2022 US GUIDED THYROID BIOPSY 04/17/2022 Family History Problem Relation Name Age of Onset Diabetes Mother Hypertension Mother Arthritis Mother Heart attack Mother Osteoporosis Mother Stroke Father passed from Hypertension Father Hyperlipidemia Father Diabetes Father Other (Agent orange) Father Liver disease Father Autism Son Von Willebrand disease Son Asthma Daughter ADD / ADHD Daughter Social History Tobacco Use Smoking status: Never Smokeless tobacco: Never Substance Use Topics Alcohol use: Never Comment: Caffeine: > 4 cups/day soda/pop, energy drinks ALLERGIES: Lipitor [atorvastatin] REVIEW OF SYSTEMS: General: Appetite change: denies. Chills: denies. Fever: denies. Allergy/Immunology: Unusual rection to medications, food, animals or insects reaction: denies. Ophthalmologic: Visual acuity change: denies. ENT: Decreased hearing: denies. Endocrine: Weight loss: denies. Respiratory: Cough: denies. Wheezing: denies. Cardiovascular: Chest pain: denies. Palpitations: denies. Gastrointestinal: Abdominal pain: denies. Difficulty swallowing: denies Hematology: Bleeding problems: denies. Genitourinary: Painful urination: denies. Musculoskeletal: Joint pain: denies. Joint edema: denies. Skin: Rash: denies. Neurologic: Ataxia: denies, Tremor: denies. Psychiatric Suicidal thoughts: denies. Also see HPI for elements of ROS documented therein and for details of positive findings, which shall supersede the foregoing. OBJECTIVE: Objective Vitals: 08/12/23 0851 BP: 124/80 Pulse: 100 SpO2: 95% Weight: 301 lb 8 oz Height: 5' 5 Body mass index is 50.17 kg/m . Examination: General Exam: pleasant, well nourished, well developed, in no acute distress Head: normocephalic, atraumatic Eyes: extraocular movement intact (EOMI), pupils equal, round, reactive to light, upper eyelids normal , lower eyelids normal Ears: no obvious hearing deficit Nose: Nares patent Neck/Throat: neck supple, full range of motion Oral Cavity: mucosa moist Skin: warm and dry Heart: no murmurs, regular rate and rhythm, S1, S2 normal Lungs: clear to auscultation bilaterally, good air movement, no wheezes, rales, rhonci, speaks in full sentences Chest: normal shape and expansion Abdomen: bowel sounds present, soft, nontender, nondistended, no guarding or rigidity Extremities: no edema, no cyanosis Musculoskeletal: no swelling or deformity Neurologic: nonfocal, alert and oriented, cognitive exam grossly normal, cranial nerves 2-12 grossly intact, motor strength 5/5 bilateral symmetrically, no drift, coordination intact, sensory exam intact, gait normal Psych: pleasant, cooperative, good eye contact, speech clear, judgement and insight good ASSESSMENT/PLAN: 1. Migraine with aura and without status migrainosus, not intractable ([facility]/HCC) Start aimovig 70 mg subcutaneous every month, continue topamax 50 mg bid, nurtec and imitrex prn Mri of brain: patient to schedule Increase activity/exercise, adequate fluid intake, decrease stress 2. Morbid obesity with body mass index (BMI) of 50.0 to 59.9 in adult ([facility]) Diet, exercise, and weight loss Pt has been fully educated on their diagnosis, treatment options, follow up plan, and return instructions. documented in this [facility]01-25-2024 Hospital Discharge instructions* Discharge Instructions* Glenn Garrett DO - 07/24/2023 10:13 PM EST Call your doctor and your neurologist in the morning to schedule follow up. Return to the ED for fever, for confusion, for symptoms that persist, change or worsen, or if any other problems arise. * Attachments The following attachments cannot be sent through Care Everywhere. * Migraines Discharge Instructions (Swazi) documented in this [facility]01-25-2024 Emergency department Note* Glenn Garrett DO - 07/24/2023 8:33 PM EST EMERGENCY DEPARTMENT ENCOUNTER Pt Name: Jacob Celis Birthdate 1980 Date of evaluation: 07/24/2023 ED Provider: Glenn Garrett DO CHIEF COMPLAINT Chief Complaint Patient presents with Migraine HISTORY OF PRESENT ILLNESS (Location/Symptom, Timing/Onset, Context/Setting, Quality, Duration, Modifying Factors, Severity) Note limiting factors. I wore appropriate PPE for the entirety of this encounter. HPI Jacob Celis is a 42 y.o. female who presents to the emergency department with a headache. Has a history of migraines and says that this is the same quality as her usual migraines but is more intense than usual. Took her rescue medications about 30 minutes after onset without much relief. Symptoms started at 130 and reached their peak at about 4:00. No fever or confusion. No numbness or weakness in the arms or legs. No other complaints. She does have photophobia which is typical for her. No nausea or vomiting. Nursing Notes were reviewed. REVIEW OF SYSTEMS All systems reviewed and negative except as noted above. PAST MEDICAL HISTORY Past Medical History: Diagnosis Date Anxiety Asthma Bipolar 1 disorder (HCC) CHF (congestive heart failure) (HCC) Depression GERD (gastroesophageal reflux disease) Hyperlipidemia Hypertension Insomnia Restless leg syndrome Seasonal allergies Thyroid cancer (HCC) Thyroid disease SURGICAL HISTORY Past Surgical History: Procedure Laterality Date THYROIDECTOMY TONSILLECTOMY (HISTORICAL) CURRENT MEDICATIONS Previous Medications ALLOPURINOL (ZYLOPRIM) 100 MG TABLET Take 100 mg by mouth in the morning. ATORVASTATIN (LIPITOR) 20 MG TABLET Take 20 mg by mouth daily. BUDESONIDE-FORMOTEROL (SYMBICORT) 160-4.5 MCG/ACT INHALER Inhale 2 puffs daily. BUSPIRONE (BUSPAR) 10 MG TABLET Take 10 mg by mouth 2 times daily. CARIPRAZINE HCL 1.5 MG CAPSULE Take 1.5 capsules by mouth Nightly. CHOLECALCIFEROL (VITAMIN D-3) 50 MCG (1999 UT) CAPSULE Take 1 capsule by mouth daily. DAPAGLIFLOZIN-METFORMIN ER (XIGDUO XR) 10-500 MG Take 1 tablet by mouth in the morning. GABAPENTIN (NEURONTIN) 100 MG CAPSULE Take 1 capsule by mouth in the morning and 1 capsule in the evening. 1 in the AM, 3 in the PM. LORATADINE (CLARITIN) 10 MG TABLET Take 10 mg by mouth daily. METOPROLOL SUCCINATE XL (TOPROL-XL) 100 MG 24 HR TABLET Take 100 mg by mouth in the morning. MONTELUKAST (SINGULAIR) 10 MG TABLET Take 10 mg by mouth daily. MONTELUKAST (SINGULAIR) 10 MG TABLET Take 10 mg by mouth. RIMEGEPANT SULFATE (NURTEC) 75 MG TABLET DISPERSIBLE Take 1 tablet daily as needed for onset of migraine. Max 1 dose in 24 hours orally as directed for 30 days TOPIRAMATE 50 MG TABLET Take 50 mg by mouth in the morning and 50 mg in the evening. VALSARTAN-HYDROCHLOROTHIAZIDE (DIOVAN-HCT) 160-12.5 MG TABLET Take 1 tablet by mouth in the morning. ALLERGIES Lisinopril and Onion FAMILY HISTORY No family history on file. SOCIAL HISTORY Social History Socioeconomic History Marital status: Tobacco Use Smoking status: Never Smokeless tobacco: Never Vaping Use Vaping Use: Never used Substance and Sexual Activity Alcohol use: Never Drug use: Never PHYSICAL EXAM ED Triage Vitals [07/24/232041] Temp Heart Rate Resp BP 36.8 C (98.2 F) 87 16 (!) 146/98 SpO2 Temp Source Heart Rate Source Patient Position 98 % Oral Monitor Sitting BP Location FiO2 (%) Right arm -- General: Well-developed, well-nourished patient lying in bed in a darkened room who appears non-toxic. Head: Atraumatic, normocephalic. Neck: Supple, no meningismus. Eyes: Sclera anicteric. ENT: Mucous membranes moist. Heart: Normal rate. Lungs: Normal respiratory pattern without conversational dyspnea or respiratory distress. Abdomen: Soft, non-tender, non-distended, no guarding or peritoneal signs. Neurologic: Awake and alert, normal speech and mental status. Moves all extremities with 5 out of 5strength. Light touch sensation intact and symmetrical x4. No focal deficits or lateralizing signs. Psychiatric: Mood and affect appropriate. Skin: Warm and dry, no appreciable rash. Musculoskeletal: No peripheral edema. No signs of DVT. DIAGNOSTIC RESULTS/EMERGENCY DEPARTMENT COURSE and DIFFERENTIAL DIAGNOSIS/MDM: Vitals: Vitals: 07/24/232041 BP: (!) 146/98 BP Location: Right arm Patient Position: Sitting Pulse: 87 Resp: 16 Temp: 36.8 C (98.2 F) TempSrc: Oral SpO2: 98% Weight: (!) 137 kg (301 lb) Height: 1.626 m (5' 4) Medical Decision Making Problems Addressed: Other migraine without status migrainosus, not intractable: complicated acute illness or injury Risk OTC drugs. Prescription drug management. Medications provided in the ED included those listed below. She had about a 50% reduction in pain these medications. I offered her more medication but she declined, is at a place that she feels like she can tolerate it and manage it at home and prefers to be discharged. Decadron administered to prophylax against bounce back headache and patient discharged with return precautions and instructions for outpatient follow-up. Medications dexAMETHasone (Decadron) injection 10 mg (has no administration in time range) prochlorperazine (Compazine) injection 10 mg (10 mg IntraVENous Given 07/24/232131) acetaminophen (Tylenol) tablet 1,000 mg (1,000 mg Oral Given 07/24/232131) ketorolac (Toradol) injection 9.9 mg (9.9 mg IntraVENous Given 07/24/232132) PROCEDURES: Unless otherwise noted below, none Procedures FINAL IMPRESSION 1. Other migraine without status migrainosus, not intractable PATIENT REFERRED TO: Lois Alberts MD [address] [place] [address] [facility] [id number] Schedule an appointment as soon as possible for a visit DISCHARGE MEDICATIONS: New Prescriptions No medications on file (Comment: Please note this report has been produced using speech recognition software and may contain errors related to that system including errors in grammar, punctuation, and spelling, as well as words and phrases that may be inappropriate. If there are any questions or concerns please feel freeto contact the dictating provider for clarification.) Glnen Garrett DO (electronically signed) Emergency Medicine Provider Glenn Garrett DO 07/24/232212 * Sergio Pickering RN - 07/24/2023 8:33 PM EST Pt to ER with complaint of migraine headache since 1:30pm today. Pt has hx of migraines and is seeing a neurologist for these. States she took her medications as prescribed and got no relief. Called her neurologist who advised pt to go to ER for treatment. Pt states she is light sensitive and has no appetite. Pt states she rested, lay in a dark room , took meds without relief. Pt ambulatory on arrival with steady gait. Alert and oriented x 4. Skin warm and dry. Respirations even and unlabored. Call light in reach documented in this [facility]01-25-2024 Emergency department Triage note* Sergio Pickering RN - 07/24/2023 8:33 PM EST Pt to ER with complaint of migraine headache since 1:30pm today. Pt has hx of migraines and is seeing a neurologist for these. States she took her medications as prescribed and got no relief. Called her neurologist who advised pt to go to ER for treatment. Pt states she is light sensitive and has no appetite. Pt states she rested, lay in a dark room , took meds without relief. Pt ambulatory on arrival with steady gait. Alert and oriented x 4. Skin warm and dry. Respirations even and unlabored. Call light in reach [id number] Physician Emergency department Note* Glenn Garrett DO - 07/24/2023 8:33 PM EST EMERGENCY DEPARTMENT ENCOUNTER Pt Name: Jacob Celis Birthdate 1980 Date of evaluation: 07/24/2023 ED Provider: Glenn Garrett DO CHIEF COMPLAINT Chief Complaint Patient presents with Migraine HISTORY OF PRESENT ILLNESS (Location/Symptom, Timing/Onset, Context/Setting, Quality, Duration, Modifying Factors, Severity) Note limiting factors. I wore appropriate PPE for the entirety of this encounter. HPI Jacob Celis is a 42 y.o. female who presents to the emergency department with a headache. Has a history of migraines and says that this is the same quality as her usual migraines but is more intense than usual. Took her rescue medications about 30 minutes after onset without much relief. Symptoms started at 130 and reached their peak at about 4:00. No fever or confusion. No numbness or weakness in the arms or legs. No other complaints. She does have photophobia which is typical for her. No nausea or vomiting. Nursing Notes were reviewed. REVIEW OF SYSTEMS All systems reviewed and negative except as noted above. PAST MEDICAL HISTORY Past Medical History: Diagnosis Date Anxiety Asthma Bipolar 1 disorder (HCC) CHF (congestive heart failure) (HCC) Depression GERD (gastroesophageal reflux disease) Hyperlipidemia Hypertension Insomnia Restless leg syndrome Seasonal allergies Thyroid cancer (HCC) Thyroid disease SURGICAL HISTORY Past Surgical History: Procedure Laterality Date THYROIDECTOMY TONSILLECTOMY (HISTORICAL) CURRENT MEDICATIONS Previous Medications ALLOPURINOL (ZYLOPRIM) 100 MG TABLET Take 100 mg by mouth in the morning. ATORVASTATIN (LIPITOR) 20 MG TABLET Take 20 mg by mouth daily. BUDESONIDE-FORMOTEROL (SYMBICORT) 160-4.5 MCG/ACT INHALER Inhale 2 puffs daily. BUSPIRONE (BUSPAR) 10 MG TABLET Take 10 mg by mouth 2 times daily. CARIPRAZINE HCL 1.5 MG CAPSULE Take 1.5 capsules by mouth Nightly. CHOLECALCIFEROL (VITAMIN D-3) 50 MCG (1999) CAPSULE Take 1 capsule by mouth daily. DAPAGLIFLOZIN-METFORMIN ER (XIGDUO XR) 10-500 MG Take 1 tablet by mouth in the morning. GABAPENTIN (NEURONTIN) 100 MG CAPSULE Take 1 capsule by mouth in the morning and 1 capsule in the evening. 1 in the AM, 3 in the PM. LORATADINE (CLARITIN) 10 MG TABLET Take 10 mg by mouth daily. METOPROLOL SUCCINATE XL (TOPROL-XL) 100 MG 24 HR TABLET Take 100 mg by mouth in the morning. MONTELUKAST (SINGULAIR) 10 MG TABLET Take 10 mg by mouth daily. MONTELUKAST (SINGULAIR) 10 MG TABLET Take 10 mg by mouth. RIMEGEPANT SULFATE (NURTEC) 75 MG TABLET DISPERSIBLE Take 1 tablet daily as needed for onset of migraine. Max 1 dose in 24 hours orally as directed for 30 days TOPIRAMATE 50 MG TABLET Take 50 mg by mouth in the morning and 50 mg in the evening. VALSARTAN-HYDROCHLOROTHIAZIDE (DIOVAN-HCT) 160-12.5 MG TABLET Take 1 tablet by mouth in the morning. ALLERGIES Lisinopril and Onion FAMILY HISTORY No family history on file. SOCIAL HISTORY Social History Socioeconomic History Marital status: Tobacco Use Smoking status: Never Smokeless tobacco: Never Vaping Use Vaping Use: Never used Substance and Sexual Activity Alcohol use: Never Drug use: Never PHYSICAL EXAM ED Triage Vitals [07/24/232041] Temp Heart Rate Resp BP 36.8 C (98.2 F) 87 16 (!) 146/98 SpO2 Temp Source Heart Rate Source Patient Position 98 % Oral Monitor Sitting BP Location FiO2 (%) Right arm -- General: Well-developed, well-nourished patient lying in bed in a darkened room who appears non-toxic. Head: Atraumatic, normocephalic. Neck: Supple, no meningismus. Eyes: Sclera anicteric. ENT: Mucous membranes moist. Heart: Normal rate. Lungs: Normal respiratory pattern without conversational dyspnea or respiratory distress. Abdomen: Soft, non-tender, non-distended, no guarding or peritoneal signs. Neurologic: Awake and alert, normal speech and mental status. Moves all extremities with 5 out of 5strength. Light touch sensation intact and symmetrical x4. No focal deficits or lateralizing signs. Psychiatric: Mood and affect appropriate. Skin: Warm and dry, no appreciable rash. Musculoskeletal: No peripheral edema. No signs of DVT. DIAGNOSTIC RESULTS/EMERGENCY DEPARTMENT COURSE and DIFFERENTIAL DIAGNOSIS/MDM: Vitals: Vitals: 07/24/232041 BP: (!) 146/98 BP Location: Right arm Patient Position: Sitting Pulse: 87 Resp: 16 Temp: 36.8 C (98.2 F) TempSrc: Oral SpO2: 98% Weight: (!) 137 kg (301 lb) Height: 1.626 m (5' 4) Medical Decision Making Problems Addressed: Other migraine without status migrainosus, not intractable: complicated acute illness or injury Risk OTC drugs. Prescription drug management. Medications provided in the ED included those listed below. She had about a 50% reduction in pain these medications. I offered her more medication but she declined, is at a place that she feels like she can tolerate it and manage it at home and prefers to be discharged. Decadron administered to prophylax against bounce back headache and patient discharged with return precautions and instructions for outpatient follow-up. Medications dexAMETHasone (Decadron) injection 10 mg (has no administration in time range) prochlorperazine (Compazine) injection 10 mg (10 mg IntraVENous Given 07/24/232131) acetaminophen (Tylenol) tablet 1,000 mg (1,000 mg Oral Given 07/24/232131) ketorolac (Toradol) injection 9.9 mg (9.9 mg IntraVENous Given 07/24/232132) PROCEDURES: Unless otherwise noted below, none Procedures FINAL IMPRESSION 1. Other migraine without status migrainosus, not intractable PATIENT REFERRED TO: Lois Alberts MD [address] [place] [address] Schedule an appointment as soon as possible for a visit DISCHARGE MEDICATIONS: New Prescriptions No medications on file (Comment: Please note this report has been produced using speech recognition software and may contain errors related to that system including errors in grammar, punctuation, and spelling, as well as words and phrases that may be inappropriate. If there are any questions or concerns please feel freeto contact the dictating provider for clarification.) Glenn Garrett DO (electronically signed) Emergency Medicine Provider Glenn Garrett DO 07/24/232212 [id number] History of Present illness Narrative* Lois Alberts MD - 07/03/2023 2:00 PM EST Subjective Patient ID: Jacob Celis is a 42 y.o. female who presents for Cough (2 weeks. Negative COVID 1.5 weeks ago). Today she is accompanied by alone. Cough This is a new problem. The current episode started 1 to 4 weeks ago. The problem has been graduallyworsening. The problem occurs constantly. The cough is Non- productive. Associated symptoms include chest pain and headaches. Pertinent negatives include no chills or fever. Review of Systems Constitutional: Negative for chills and fever. Respiratory: Positive for cough. Cardiovascular: Positive for chest pain. Neurological: Positive for headaches. Objective Blood Pressure (Abnormal) 140/94 Pulse 102 Weight 137 kg (301 lb 2 oz) Oxygen Saturation 94% Body Mass Index 50.11 kg/m BSA: 2.51 meters squared Growth percentiles: Facility age limit for growth %alexy is 20 years. Facility age limit for growth %alexy is 20 years. Physical Exam Vitals and nursing note reviewed. Constitutional: General: She is not in acute distress. Appearance: Normal appearance. She is normal weight. She is not ill-appearing. HENT: Head: Normocephalic. Right Ear: Tympanic membrane, ear canal and external ear normal. There is no impacted cerumen. Left Ear: Tympanic membrane, ear canal and external ear normal. There is no impacted cerumen. Nose: Congestion and rhinorrhea present. Mouth/Throat: Mouth: Mucous membranes are moist. Pharynx: Oropharynx is clear. Eyes: Extraocular Movements: Extraocular movements intact. Conjunctiva/sclera: Conjunctivae normal. Pupils: Pupils are equal, round, and reactive to light. Cardiovascular: Rate and Rhythm: Normal rate and regular rhythm. Pulses: Normal pulses. Heart sounds: Normal heart sounds. Pulmonary: Effort: Pulmonary effort is normal. No respiratory distress. Breath sounds: Wheezing and rhonchi present. Musculoskeletal: General: Normal range of motion. Cervical back: Normal range of motion and neck supple. No rigidity or tenderness. Right lower leg: No edema. Left lower leg: No edema. Lymphadenopathy: Cervical: No cervical adenopathy. Skin: General: Skin is warm and dry. Neurological: Mental Status: She is alert and oriented to person, place, and time. Psychiatric: Mood and Affect: Mood normal. Behavior: Behavior normal. Thought Content: Thought content normal. Judgment: Judgment normal. Assessment/Plan Problem List Items Addressed This Visit None Visit Diagnoses Diagnosis Codes Sinus congestion - Primary R09.81 Relevant Orders RSV PCR Sars-CoV-2 PCR, Symptomatic Influenza A, and B PCR Acute cough R05.1 Relevant Medications azithromycin (Zithromax) 250 mg tablet methylPREDNISolone (Medrol Dospak) 4 mg tablets pncjvxthzr-glcwfbec-edvilzdoot (Breztri Aerosphere) 160-9-4.8 mcg/actuation HFA aerosol inhaler Other Relevant Orders RSV PCR Sars-CoV-2 PCR, Symptomatic Influenza A, and B PCR Pharyngitis, unspecified etiology J02.9 Relevant Orders RSV PCR SOB (shortness of breath) R06.02 Relevant Medications ipratropium-albuteroL (Duo-Neb) 0.5-2.5 mg/3 mL nebulizer solution 3 mL (Completed) azithromycin (Zithromax) 250 mg tablet methylPREDNISolone (Medrol Dospak) 4 mg tablets crgmphlyic-fmxxqedl-toohhxjleu (Breztri Aerosphere) 160-9-4.8 mcg/actuation HFA aerosol inhaler Other Relevant Orders XR chest 2 views - Antibiotic sent to pharmacy - Continue inhalers as prescribed - Recommend you start flonase - Steroid sent to pharmacy - Advised patient to push fluids - patient to call if develops new or worsening symptoms F/U in 1 week Current Outpatient Medications Medication Sig Dispense Refill albuterol 90 mcg/actuation inhaler INHALE 1 TO 2 PUFFS EVERY 4 TO 6 HOURS NEEDED. allopurinol (Zyloprim) 100 mg tablet Take 1 tablet (100 mg) by mouth once daily. 90 tablet 1 atorvastatin (Lipitor) 20 mg tablet Take 1 tablet (20 mg) by mouth once daily at bedtime. 90 tablet1 busPIRone (Buspar) 10 mg tablet Take 1 tablet (10 mg) by mouth 2 times a day. cariprazine (Vraylar) 1.5 mg capsule Vraylar 1.5 MG Oral Capsule Refills: 0 Active cholecalciferol (Vitamin D3) 50 mcg (2,000 unit) capsule Take 1 capsule (50 mcg) by mouth once daily. 90 capsule 1 gabapentin (Neurontin) 100 mg capsule take 1 capsule by mouth every morning and 3 capsules every evening 360 capsule 0 hydrOXYzine pamoate (Vistaril) 25 mg capsule take 1 capsule by mouth at bedtime if needed loratadine (Claritin) 10 mg tablet Take 1 tablet (10 mg) by mouth once daily. 90 tablet 1 metoprolol succinate XL (Toprol-XL) 100 mg 24 hr tablet Take 1 tablet (100 mg) by mouth once daily.90 tablet 1 montelukast (Singulair) 10 mg tablet Take 1 tablet (10 mg) by mouth once daily at bedtime. 90 tablet 1 rimegepant (NURTEC) 75 mg tablet,disintegrating Nurtec 75 MG Oral Tablet Disintegrating Quantity: 8 Refills: 0 Start : 23-Nov-2020 Active topiramate (Topamax) 50 mg tablet Take 1 tablet (50 mg) by mouth 2 times a day. valsartan-hydrochlorothiazide (Diovan-HCT) 160-12.5 mg tablet Take 1 tablet by mouth once daily. 90tablet 1 azithromycin (Zithromax) 250 mg tablet Take 2 tablets (500 mg) by mouth once daily for 1 day, THEN 1 tablet (250 mg) once daily for 4 days. Take 2 tabs (500 mg) by mouth today, than 1 daily for 4 days.. 6 tablet 0 jxxjttsmky-lnvjdyjk-tvzuxixlaf (Breztri Aerosphere) 160-9-4.8 mcg/actuation HFA aerosol inhaler Inhale 2 puffs 2 times a day. 10.7 g 0 dapaglifloz propaned-metformin (Xigduo XR) 10-500 mg Take 1 tablet by mouth once daily. (Patient not taking: Reported on 07/03/2023) 90 tablet 1 methylPREDNISolone (Medrol Dospak) 4 mg tablets Take as directed on package. 21 tablet 0 No current facility-administered medications for this visit. documented in this [facility] Work Phone: 1(506) 489-703101-04-2024 Instructions* Patient Instructions* Lois Alberts MD - 07/03/2023 2:00 PM EST - Antibiotic sent to pharmacy - Continue inhalers as prescribed - Recommend you start flonase - Steroid sent to pharmacy - Advised patient to push fluids - patient to call if develops new or worsening symptoms F/U in 1 week for cough Current Outpatient Medications Medication Sig Dispense Refill albuterol 90 mcg/actuation inhaler INHALE 1 TO 2 PUFFS EVERY 4 TO 6 HOURS NEEDED. allopurinol (Zyloprim) 100 mg tablet Take 1 tablet (100 mg) by mouth once daily. 90 tablet 1 atorvastatin (Lipitor) 20 mg tablet Take 1 tablet (20 mg) by mouth once daily at bedtime. 90 tablet1 busPIRone (Buspar) 10 mg tablet Take 1 tablet (10 mg) by mouth 2 times a day. cariprazine (Vraylar) 1.5 mg capsule Vraylar 1.5 MG Oral Capsule Refills: 0 Active cholecalciferol (Vitamin D3) 50 mcg (2,000 unit) capsule Take 1 capsule (50 mcg) by mouth once daily. 90 capsule 1 gabapentin (Neurontin) 100 mg capsule take 1 capsule by mouth every morning and 3 capsules every evening 360 capsule 0 hydrOXYzine pamoate (Vistaril) 25 mg capsule take 1 capsule by mouth at bedtime if needed loratadine (Claritin) 10 mg tablet Take 1 tablet (10 mg) by mouth once daily. 90 tablet 1 metoprolol succinate XL (Toprol-XL) 100 mg 24 hr tablet Take 1 tablet (100 mg) by mouth once daily.90 tablet 1 montelukast (Singulair) 10 mg tablet Take 1 tablet (10 mg) by mouth once daily at bedtime. 90 tablet 1 rimegepant (NURTEC) 75 mg tablet,disintegrating Nurtec 75 MG Oral Tablet Disintegrating Quantity: 8 Refills: 0 Start : 23-Nov-2020 Active topiramate (Topamax) 50 mg tablet Take 1 tablet (50 mg) by mouth 2 times a day. valsartan-hydrochlorothiazide (Diovan-HCT) 160-12.5 mg tablet Take 1 tablet by mouth once daily. 90tablet 1 azithromycin (Zithromax) 250 mg tablet Take 2 tablets (500 mg) by mouth once daily for 1 day, THEN 1 tablet (250 mg) once daily for 4 days. Take 2 tabs (500 mg) by mouth today, than 1 daily for 4 days.. 6 tablet 0 qyiayvinah-iochnkcq-vtwkqmrbkn (Breztri Aerosphere) 160-9-4.8 mcg/actuation HFA aerosol inhaler Inhale 2 puffs 2 times a day. 10.7 g 0 dapaglifloz propaned-metformin (Xigduo XR) 10-500 mg Take 1 tablet by mouth once daily. (Patient not taking: Reported on 07/03/2023) 90 tablet 1 methylPREDNISolone (Medrol Dospak) 4 mg tablets Take as directed on package. 21 tablet 0 No current facility-administered medications for this visit. documented in this [facility] Work Phone: 1(270) 535-948512-23-2023 NoteHNO ID: [id number] Author: Krzysztof Moreno PA-C Service: ? Author Type: [employer] Director Type: Progress Notes Filed: 06/21/2023 9:13 AM Note Text: Subjective Jacob Celis is a 42 year old female with a past medical history of bipolar disorder and GERD who [facility] evaluation of fever, nasal congestion, sore throat, cough, and wheezing x 5 days. Patient states that she did have vomiting but it has resolved. She denies any known exposure to COVID-19, influenza, or RSV. She states that she has been taking DayQuil and NyQuil with minimal relief. She states that she had a negative home COVID-19 test when her symptoms started. Review of Systems Constitutional: Positive for fever. Negative for chills and diaphoresis. HENT: Positive for congestion and sore throat. Negative for ear pain. Eyes: Negative for discharge and redness. Respiratory: Positive for cough and wheezing. Skin: Negative for rash and wound. Neurological: Negative for weakness and headaches. All other systems reviewed and are negative. Objective BP 148/92 (BP Site: Right Arm, BP Position: Sitting, BP Cuff Size: Regular Adult) Pulse (!) 128 Temp 37.3 ?C (99.1 ?F) (Right Tympanic) Resp 18 Ht 165.1 cm (5' 5) Wt (!) 136.8 kg (301 lb 9.4 oz) SpO2 95% BMI 50.19 kg/m? Physical Exam Vitals reviewed. Constitutional: General: She is not in acute distress. Appearance: Normal appearance. She is normal weight. She is not ill-appearing or toxic-appearing. Comments: The patient appears to be non-toxic, in no acute distress, and resting comfortably on the table. HENT: Head: Normocephalic and atraumatic. Right Ear: Tympanic membrane, ear canal and external ear normal. Left Ear: Tympanic membrane, ear canal and external ear normal. Eyes: Extraocular Movements: Extraocular movements intact. Cardiovascular: Rate and Rhythm: Normal rate and regular rhythm. Heart sounds: Normal heart sounds. No murmur heard. No friction rub. No gallop. Pulmonary: Effort: Pulmonary effort is normal. No respiratory distress. Breath sounds: No wheezing. Musculoskeletal: General: Normal range of motion. Cervical back: Normal range of motion. Skin: General: Skin is warm and dry. Findings: No erythema or rash. Neurological: General: No focal deficit present. Mental Status: She is alert and oriented to person, place, and time. Mental status is at baseline. Psychiatric: Mood and Affect: Mood normal. Behavior: Behavior normal. Thought Content: Thought content normal. Assessment and Plan Lungs are clear to auscultation bilaterally. Suspect patient symptoms are due to bronchitis. Patient counseled regarding suspected diagnosis and given prescriptions for prednisone and Bromfed. Advised to follow-up with her primary care provider as needed for any new or worsening symptoms. ASSESSMENT/PLAN: 1. Bronchitis - ICD9: 490, ICD10: J40 (primary diagnosis) - PREDNISONE 20 MG TABLET - [id number] 2 MG-30 MG-10 MG/5 ML ORAL SYRUP 2. Sore throat - ICD9: 462, ICD10: J02.9 - Rapid Strep negative in the office today - STREP A MOLECULAR (POC) 3. Wheezing - ICD9: 786.07, ICD10: R06.2 4. Acute cough - ICD9: 786.2, ICD10: R05.1 Medical Decision Making: Problems: Low: Acute, uncomplicated illness or injury Risk: Minimal: Minimal risk from testing/treatment Moderate: Drug management Medical Decision Making Level: 3 - Low I spent a total of 20 minutes on the date of the service which included preparing to see the patient, [id number] patient care, completing clinical documentation, performing a medically appropriate examination, counseling and educating the patient/family/caregiver, and ordering medications, tests, or procedures. NOHEMI [facility]11-06-2023 Emergency department Note* Meghan Galvan RN - 05/05/2023 7:45 AM EST Pt ambulatory to ED3 with c/o left hand injury. the pt tripped on a sidewalk and fell withhand outstretched. She hit her head with no LOC. Pt also reports abrasion to left knee. Pain is base of left thumb into hand, and this morning while holding onto the steering wheel pain radiated intoher wrist and forearm. Pain at present is rated 4/10; increases to 7/10 when clenching her hand. Pt is A&Ox3, respirations even and unlabored, skin warm and dry, no distress noted. MSP's intact to LUE. * Glenn Lr MD - 05/05/2023 7:36 AM EST EMERGENCY DEPARTMENT ENCOUNTER Pt Name: Jacob Celis Birthdate 1980 Date of evaluation: 05/05/2023 ED Provider: Glenn Lr MD CHIEF COMPLAINT Chief Complaint Patient presents with Hand Injury HISTORY OF PRESENT ILLNESS (Location/Symptom, Timing/Onset, Context/Setting, Quality, Duration, Modifying Factors, Severity) Note limiting factors. I wore appropriate PPE for the entirety of this encounter. HPI Jacob Celis is a 42 y.o. who presents to the emergency department with chief complaint of left handinjury. Patient had a mechanical trip and fall this last 5 days ago she fell on her outstretched left hand and has pain to the left volar proximal hand area. She is right-handed. 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 Denies any pain elsewhere. She states she scraped her left forehead but did not lose consciousness she is not on blood thinners and she is feeling normal otherwise not confused. She states she also scraped her left knee but has been ambulating without difficulty on the left lower extremity. She did ice it on and Friday and took some Motrin and the swelling is gone down but not the pain. Nursing Notes were reviewed. Limitations to history: None Outside historians: None REVIEW OF SYSTEMS Review of Systems Constitutional: Negative for chills and fever. HENT: Negative for ear pain and sore throat. Eyes: Negative for pain and visual disturbance. Respiratory: Negative for cough and shortness of breath. Cardiovascular: Negative for chest pain and palpitations. Gastrointestinal: Negative for abdominal pain and vomiting. Genitourinary: Negative for dysuria and hematuria. Musculoskeletal: Positive for arthralgias and joint swelling. Negative for back pain. Skin: Negative for color change and rash. Neurological: Negative for seizures and syncope. All other systems reviewed and are negative. Pertinent positives and negatives as per HPI. PAST MEDICAL HISTORY Past Medical History: Diagnosis Date Anxiety Asthma Bipolar 1 disorder (HCC) CHF (congestive heart failure) (HCC) Depression GERD (gastroesophageal reflux disease) Hyperlipidemia Hypertension Insomnia Restless leg syndrome Seasonal allergies Thyroid cancer (HCC) Thyroid disease SURGICAL HISTORY Past Surgical History: Procedure Laterality Date THYROIDECTOMY TONSILLECTOMY (HISTORICAL) CURRENT MEDICATIONS Previous Medications ALLOPURINOL (ZYLOPRIM) 100 MG TABLET Take 100 mg by mouth in the morning. ATORVASTATIN (LIPITOR) 20 MG TABLET Take 20 mg by mouth daily. BUDESONIDE-FORMOTEROL (SYMBICORT) 160-4.5 MCG/ACT INHALER Inhale 2 puffs daily. BUSPIRONE (BUSPAR) 10 MG TABLET Take 10 mg by mouth 2 times daily. CARIPRAZINE HCL 1.5 MG CAPSULE Take 1.5 capsules by mouth Nightly. CHOLECALCIFEROL (VITAMIN D-3) 50 MCG (2000 UT) CAPSULE Take 1 capsule by mouth daily. DAPAGLIFLOZIN-METFORMIN ER (XIGDUO XR) 10-500 MG Take 1 tablet by mouth in the morning. GABAPENTIN (NEURONTIN) 100 MG CAPSULE Take 1 capsule by mouth in the morning and 1 capsule in the evening. 1 in the AM, 3 in the PM. LORATADINE (CLARITIN) 10 MG TABLET Take 10 mg by mouth daily. METOPROLOL SUCCINATE XL (TOPROL-XL) 100 MG 24 HR TABLET Take 100 mg by mouth in the morning. MONTELUKAST (SINGULAIR) 10 MG TABLET Take 10 mg by mouth daily. TOPIRAMATE 50 MG TABLET Take 50 mg by mouth in the morning and 50 mg in the evening. VALSARTAN-HYDROCHLOROTHIAZIDE (DIOVAN-HCT) 160-12.5 MG TABLET Take 1 tablet by mouth in the morning. ALLERGIES Patient has no known allergies. FAMILY HISTORY No family history on file. SOCIAL HISTORY Social History Socioeconomic History Marital status: Tobacco Use Smoking status: Never Smokeless tobacco: Never Substance and Sexual Activity Alcohol use: Never Drug use: Never SCREENINGS PHYSICAL EXAM ED Triage Vitals Temp Pulse Resp BP -- -- -- -- SpO2 Temp src Heart Rate Source Patient Position -- -- -- -- BP Location FiO2 (%) -- -- Physical Exam Vitals and nursing note reviewed. Constitutional: General: She is not in acute distress. Appearance: She is well-developed. She is not ill-appearing. HENT: Head: Normocephalic and atraumatic. Eyes: Conjunctiva/sclera: Conjunctivae normal. Cardiovascular: Rate and Rhythm: Normal rate. Pulmonary: Effort: Pulmonary effort is normal. No respiratory distress. Abdominal: Palpations: Abdomen is soft. Tenderness: There is no abdominal tenderness. Musculoskeletal: General: No swelling. Left wrist: No tenderness, bony tenderness or snuff box tenderness. Normal range of motion. Left hand: Swelling, tenderness and bony tenderness present. No deformity or lacerations. Normal range of motion. Normal strength. Normal sensation. There is no disruption of two-point discrimination. Normal capillary refill. Normal pulse. Cervical back: Normal and neck supple. No rigidity. Thoracic back: Normal. Lumbar back: Normal. Comments: Swelling and tenderness over the left proximal and thenar eminence Superficial abrasion to the left tibial plateau without swelling or tenderness Skin: General: Skin is warm and dry. Capillary Refill: Capillary refill takes less than 2 seconds. Neurological: General: No focal deficit present. Mental Status: She is alert and oriented to person, place, and time. Cranial Nerves: No cranial nerve deficit. Psychiatric: Mood and Affect: Mood normal. DIAGNOSTIC RESULTS Procedures/EKG: EKG was reviewed by myself. [facility] RAD[facility]OLOGY (Per Emergency Physician): X-ray of the left hand on my interpretation without acute bony abnormality Interpretation per the Radiologist below, if available at the time of this note: XR hand 3+ views left Final Result No acute osseous abnormality. Report Dictated on Electronically Signed By: Sherrie Graves MD Electronically Signed Date/Time: 05/05/2023 8:32 AM EST ED BEDSIDE ULTRASOUND: Performed by ED Physician - none LABS: Labs Reviewed - No data to display All other labs were within normal range or not returned as of this dictation. EMERGENCY DEPARTMENT COURSE and DIFFERENTIAL DIAGNOSIS/MDM: Vitals: Vitals: 05/05/23 0740 BP: (!) 160/103 Pulse: 103 Resp: 16 Temp: 36.8 C (98.2 F) TempSrc: Oral SpO2: 95% 42-year-old female presents with left hand pain after mechanical trip and fall onto outstretched hand. Differential includes contusion fracture sprain. Plan is for an x-ray. Diagnoses as of 05/05/23 0839 Hand sprain, left, initial encounter The patient presented with chief complaint of hand. The differential diagnosis associated with this patient's presentation includes above. Our workup consisted of ordering/reviewing: above. Diagnostic tests considered but not performed: ct head - hit head but no LOC, mild abrasion to leftforehead, normal gcs and neuro exam, not on anticoags Patient is in agreement with this plan. Prescription medications considered but not prescribed: narcotic Medications - No data to display REVAL: Patient notified of negative results and recommend RICE instructions provided with a wrist brace for support and outpatient follow-up return precautions given CRITICAL CARE TIME None CONSULTS: None PROCEDURES: Unless otherwise noted below, none Procedures Patients symptoms are consistent with sepsis, severe sepsis, or septic shock (If yes use .sepsiscoremeasure): no FINAL IMPRESSION 1. Hand sprain, left, initial encounter DISPOSITION Discharge 05/05/2023 08:35:53 AM PATIENT REFERRED TO: Lois Alberts MD [address] [place] [address] [facility] [address] Schedule an appointment as soon as possible for a visit As needed DISCHARGE MEDICATIONS: New Prescriptions No medications on file (Comment: Please note this report has been produced using speech recognition software and may contain errors related to that system including errors in grammar, punctuation, and spelling, as well as words and phrases that may be inappropriate. If there are any questions or concerns please feel freeto contact the dictating provider for clarification.) Glenn Lr MD (electronically signed) Emergency Medicine Provider Glenn Lr MD 05/05/23 0840 documented in this [facility]11-06-2023 Emergency department Triage note* Meghan Galvan RN - 05/05/2023 7:45 AM EST Pt ambulatory to ED3 with c/o left hand injury. the pt tripped on a sidewalk and fell withhand outstretched. She hit her head with no LOC. Pt also reports abrasion to left knee. Pain is base of left thumb into hand, and this morning while holding onto the steering wheel pain radiated intoher wrist and forearm. Pain at present is rated 4/10; increases to 7/10 when clenching her hand. Pt is A&Ox3, respirations even and unlabored, skin warm and dry, no distress noted. MSP's intact to LUE. [id number] Emergency department Note* Glenn Lr MD - 05/05/2023 7:36 AM EST EMERGENCY DEPARTMENT ENCOUNTER Pt Name: Jacob Celis Birthdate 1980 Date of evaluation: 05/05/2023 ED Provider: Glenn Lr MD CHIEF COMPLAINT Chief Complaint Patient presents with Hand Injury HISTORY OF PRESENT ILLNESS (Location/Symptom, Timing/Onset, Context/Setting, Quality, Duration, Modifying Factors, Severity) Note limiting factors. I wore appropriate PPE for the entirety of this encounter. HPI Jacob Celis is a 42 y.o. who presents to the emergency department with chief complaint of left handinjury. Patient had a mechanical trip and fall this last 5 days ago she fell on her outstretched left hand and has pain to the left volar proximal hand area. She is right-handed. 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 Denies any pain elsewhere. She states she scraped her left forehead but did not lose consciousness she is not on blood thinners and she is feeling normal otherwise not confused. She states she also scraped her left knee but has been ambulating without difficulty on the left lower extremity. She did ice it on and Friday and took some Motrin and the swelling is gone down but not the pain. Nursing Notes were reviewed. Limitations to history: None Outside historians: None REVIEW OF SYSTEMS Review of Systems Constitutional: Negative for chills and fever. HENT: Negative for ear pain and sore throat. Eyes: Negative for pain and visual disturbance. Respiratory: Negative for cough and shortness of breath. Cardiovascular: Negative for chest pain and palpitations. Gastrointestinal: Negative for abdominal pain and vomiting. Genitourinary: Negative for dysuria and hematuria. Musculoskeletal: Positive for arthralgias and joint swelling. Negative for back pain. Skin: Negative for color change and rash. Neurological: Negative for seizures and syncope. All other systems reviewed and are negative. Pertinent positives and negatives as per HPI. PAST MEDICAL HISTORY Past Medical History: Diagnosis Date Anxiety Asthma Bipolar 1 disorder (HCC) CHF (congestive heart failure) (HCC) Depression GERD (gastroesophageal reflux disease) Hyperlipidemia Hypertension Insomnia Restless leg syndrome Seasonal allergies Thyroid cancer (HCC) Thyroid disease SURGICAL HISTORY Past Surgical History: Procedure Laterality Date THYROIDECTOMY TONSILLECTOMY (HISTORICAL) CURRENT MEDICATIONS Previous Medications ALLOPURINOL (ZYLOPRIM) 100 MG TABLET Take 100 mg by mouth in the morning. ATORVASTATIN (LIPITOR) 20 MG TABLET Take 20 mg by mouth daily. BUDESONIDE-FORMOTEROL (SYMBICORT) 160-4.5 MCG/ACT INHALER Inhale 2 puffs daily. BUSPIRONE (BUSPAR) 10 MG TABLET Take 10 mg by mouth 2 times daily. CARIPRAZINE HCL 1.5 MG CAPSULE Take 1.5 capsules by mouth Nightly. CHOLECALCIFEROL (VITAMIN D-3) 50 MCG (1999) CAPSULE Take 1 capsule by mouth daily. DAPAGLIFLOZIN-METFORMIN ER (XIGDUO XR) 10-500 MG Take 1 tablet by mouth in the morning. GABAPENTIN (NEURONTIN) 100 MG CAPSULE Take 1 capsule by mouth in the morning and 1 capsule in the evening. 1 in the AM, 3 in the PM. LORATADINE (CLARITIN) 10 MG TABLET Take 10 mg by mouth daily. METOPROLOL SUCCINATE XL (TOPROL-XL) 100 MG 24 HR TABLET Take 100 mg by mouth in the morning. MONTELUKAST (SINGULAIR) 10 MG TABLET Take 10 mg by mouth daily. TOPIRAMATE 50 MG TABLET Take 50 mg by mouth in the morning and 50 mg in the evening. VALSARTAN-HYDROCHLOROTHIAZIDE (DIOVAN-HCT) 160-12.5 MG TABLET Take 1 tablet by mouth in the morning. ALLERGIES Patient has no known allergies. FAMILY HISTORY No family history on file. SOCIAL HISTORY Social History Socioeconomic History Marital status: Tobacco Use Smoking status: Never Smokeless tobacco: Never Substance and Sexual Activity Alcohol use: Never Drug use: Never SCREENINGS PHYSICAL EXAM ED Triage Vitals Temp Pulse Resp BP -- -- -- -- SpO2 Temp src Heart Rate Source Patient Position -- -- -- -- BP Location FiO2 (%) -- -- Physical Exam Vitals and nursing note reviewed. Constitutional: General: She is not in acute distress. Appearance: She is well-developed. She is not ill-appearing. HENT: Head: Normocephalic and atraumatic. Eyes: Conjunctiva/sclera: Conjunctivae normal. Cardiovascular: Rate and Rhythm: Normal rate. Pulmonary: Effort: Pulmonary effort is normal. No respiratory distress. Abdominal: Palpations: Abdomen is soft. Tenderness: There is no abdominal tenderness. Musculoskeletal: General: No swelling. Left wrist: No tenderness, bony tenderness or snuff box tenderness. Normal range of motion. Left hand: Swelling, tenderness and bony tenderness present. No deformity or lacerations. Normal range of motion. Normal strength. Normal sensation. There is no disruption of two-point discrimination. Normal capillary refill. Normal pulse. Cervical back: Normal and neck supple. No rigidity. Thoracic back: Normal. Lumbar back: Normal. Comments: Swelling and tenderness over the left proximal and thenar eminence Superficial abrasion to the left tibial plateau without swelling or tenderness Skin: General: Skin is warm and dry. Capillary Refill: Capillary refill takes less than 2 seconds. Neurological: General: No focal deficit present. Mental Status: She is alert and oriented to person, place, and time. Cranial Nerves: No cranial nerve deficit. Psychiatric: Mood and Affect: Mood normal. DIAGNOSTIC RESULTS Procedures/EKG: EKG was reviewed by myself. Physician EKG interpretation can be found in [facility] RADIOLOGY (Per Emergency Physician): X-ray of the left hand on my interpretation without acute bony abnormality Interpretation per the Radiologist below, if available at the time of this note: XR hand 3+ views left Final Result No acute osseous abnormality. Report Dictated on Electronically Signed By: Sherrei Graves MD Electronically Signed Date/Time: 05/05/2023 8:32 AM EST ED BEDSIDE ULTRASOUND: Performed by ED Physician - none LABS: Labs Reviewed - No data to display All other labs were within normal range or not returned as of this dictation. EMERGENCY DEPARTMENT COURSE and DIFFERENTIAL DIAGNOSIS/MDM: Vitals: Vitals: 05/05/23 0740 BP: (!) 160/103 Pulse: 103 Resp: 16 Temp: 36.8 C (98.2 F) TempSrc: Oral SpO2: 95% 42-year-old female presents with left hand pain after mechanical trip and fall onto outstretched hand. Differential includes contusion fracture sprain. Plan is for an x-ray. Diagnoses as of 05/05/23 0839 Hand sprain, left, initial encounter The patient presented with chief complaint of hand. The differential diagnosis associated with this patient's presentation includes above. Our workup consisted of ordering/reviewing: above. Diagnostic tests considered but not performed: ct head - hit head but no LOC, mild abrasion to leftforehead, normal gcs and neuro exam, not on anticoags Patient is in agreement with this plan. Prescription medications considered but not prescribed: narcotic Medications - No data to display REVAL: Patient notified of negative results and recommend RICE instructions provided with a wrist brace for support and outpatient follow-up return precautions given CRITICAL CARE TIME None CONSULTS: None PROCEDURES: Unless otherwise noted below, none Procedures Patients symptoms are consistent with sepsis, severe sepsis, or septic shock (If yes use .sepsiscoremeasure): no FINAL IMPRESSION 1. Hand sprain, left, initial encounter DISPOSITION Discharge 05/05/2023 08:35:53 AM PATIENT REFERRED TO: Lois Alberts MD [address] [facility] [address] [facility] [address] Schedule an appointment as soon as possible for a visit As needed DISCHARGE MEDICATIONS: New Prescriptions No medications on file (Comment: Please note this report has been produced using speech recognition software and may contain errors related to that system including errors in grammar, punctuation, and spelling, as well as words and phrases that may be inappropriate. If there are any questions or concerns please feel freeto contact the dictating provider for clarification.) Glenn Lr MD (electronically signed) Emergency Medicine Provider Glenn Lr MD 05/05/23 0840 [facility]10-04-2023 History of Present illness Narrative* Lois Alberts MD - 04/02/2023 10:40 AM EDT Subjective Patient ID: Jacob Celis is a 42 y.o. female who presents for Diabetes (3 month follow up ). Today she is accompanied by alone. Diabetes Jacob Celis is a 41 y.o. female with a PMH of hypertension, hyperlipidemia, Type 2 diabetes mellitus, IZABELA, GERD, RLS, anxiety, depression, Vitamin B12 and Vitamin D deficiencies who presents with concerns regarding her weight and medication refills. She reports she has lost a little bit of a weight but weight loss is slow and minimal. She is using her CPAP daily. Review of Systems All other systems reviewed and are negative. Current Outpatient Medications Medication Sig Dispense Refill albuterol 90 mcg/actuation inhaler INHALE 1 TO 2 PUFFS EVERY 4 TO 6 HOURS NEEDED. atorvastatin (Lipitor) 20 mg tablet Take 1 tablet (20 mg) by mouth once daily at bedtime. 90 tablet1 busPIRone (Buspar) 10 mg tablet Take 1 tablet (10 mg) by mouth 2 times a day. cariprazine (Vraylar) 1.5 mg capsule Vraylar 1.5 MG Oral Capsule Refills: 0 Active hydrOXYzine pamoate (Vistaril) 25 mg capsule take 1 capsule by mouth at bedtime if needed montelukast (Singulair) 10 mg tablet Take 1 tablet (10 mg) by mouth once daily at bedtime. 90 tablet 1 rimegepant (NURTEC) 75 mg tablet,disintegrating Nurtec 75 MG Oral Tablet Disintegrating Quantity: 8 Refills: 0 Start : 23-Nov-2020 Active topiramate (Topamax) 50 mg tablet Take 1 tablet (50 mg) by mouth 2 times a day. allopurinol (Zyloprim) 100 mg tablet Take 1 tablet (100 mg) by mouth once daily. 90 tablet 1 cholecalciferol (Vitamin D3) 50 mcg (2,000 unit) capsule Take 1 capsule (50 mcg) by mouth once daily. 90 capsule 1 dapaglifloz propaned-metformin (Xigduo XR) 10-500 mg Take 1 tablet by mouth once daily. 90 tablet 1 gabapentin (Neurontin) 100 mg capsule take 1 capsule by mouth every morning and 3 capsules every evening 360 capsule 0 loratadine (Claritin) 10 mg tablet Take 1 tablet (10 mg) by mouth once daily. 90 tablet 1 metoprolol succinate XL (Toprol-XL) 100 mg 24 hr tablet Take 1 tablet (100 mg) by mouth once daily.90 tablet 1 valsartan-hydrochlorothiazide (Diovan-HCT) 160-12.5 mg tablet Take 1 tablet by mouth once daily. 90tablet 1 No current facility-administered medications for this visit. Hypertension ROS: taking medications as instructed, no medication side effects noted, no TIA's, no chest pain on exertion, no dyspnea on exertion, and no swelling of ankles. New concerns: none. Objective: Blood Pressure 118/85 Pulse 105 Temperature 36.8 C (98.2 F) Respiration 16 Height 1.651 m (5' 5) Weight 137 kg (301 lb) Last Menstrual Period (LMP Unknown) Oxygen Saturation 97% BodyMass Index 50.09 kg/m Objective Blood Pressure 118/85 Pulse 105 Temperature 36.8 C (98.2 F) Respiration 16 Height 1.651 m (5' 5) Weight 137 kg (301 lb) Last Menstrual Period (LMP Unknown) Oxygen Saturation 97% BodyMass Index 50.09 kg/m BSA: 2.51 meters squared Growth percentiles: Facility age limit for growth %alexy is 20 years. Facility age limit for growth %alexy is 20 years. Physical Exam Vitals and nursing note reviewed. Constitutional: General: She is not in acute distress. Appearance: Normal appearance. She is normal weight. She is not ill-appearing or toxic-appearing. HENT: Head: Normocephalic. Right Ear: Tympanic membrane, ear canal and external ear normal. There is no impacted cerumen. Left Ear: Tympanic membrane, ear canal and external ear normal. There is no impacted cerumen. Nose: Nose normal. No congestion or rhinorrhea. Mouth/Throat: Mouth: Mucous membranes are moist. Pharynx: Oropharynx is clear. No oropharyngeal exudate or posterior oropharyngeal erythema. Eyes: General: No scleral icterus. Right eye: No discharge. Left eye: No discharge. Extraocular Movements: Extraocular movements intact. Conjunctiva/sclera: Conjunctivae normal. Pupils: Pupils are equal, round, and reactive to light. Neck: Vascular: No carotid bruit. Cardiovascular: Rate and Rhythm: Normal rate and regular rhythm. Pulses: Normal pulses. Heart sounds: Normal heart sounds. No murmur heard. No gallop. Pulmonary: Effort: No respiratory distress. Breath sounds: No wheezing or rhonchi. Chest: Chest wall: No tenderness. Abdominal: General: Abdomen is flat. Bowel sounds are normal. Palpations: Abdomen is soft. There is no mass. Tenderness: There is no abdominal tenderness. There is no guarding or rebound. Hernia: No hernia is present. Musculoskeletal: General: No swelling or tenderness. Normal range of motion. Cervical back: Normal range of motion. No rigidity or tenderness. Right lower leg: No edema. Left lower leg: No edema. Lymphadenopathy: Cervical: No cervical adenopathy. Skin: General: Skin is warm and dry. Coloration: Skin is not pale. Findings: No bruising, erythema or rash. Neurological: General: No focal deficit present. Mental Status: She is alert and oriented to person, place, and time. Sensory: No sensory deficit. Coordination: Coordination normal. Gait: Gait normal. Deep Tendon Reflexes: Reflexes normal. Psychiatric: Mood and Affect: Mood normal. Behavior: Behavior normal. Thought Content: Thought content normal. Judgment: Judgment normal. Assessment/Plan Problem List Items Addressed This Visit ICD-10-CM HTN (hypertension), benign I10 Relevant Medications valsartan-hydrochlorothiazide (Diovan-HCT) 160-12.5 mg tablet metoprolol succinate XL (Toprol-XL) 100 mg 24 hr tablet Hyperlipidemia E78.5 Relevant Orders Lipid Panel CBC and Auto Differential TSH with reflex to Free T4 if abnormal Insomnia, persistent G47.00 Relevant Orders TSH with reflex to Free T4 if abnormal Seasonal allergies J30.2 Relevant Medications loratadine (Claritin) 10 mg tablet Vitamin D deficiency E55.9 Relevant Medications cholecalciferol (Vitamin D3) 50 mcg (2,000 unit) capsule Other Relevant Orders Vitamin D 25-Hydroxy,Total (for eval of Vitamin D levels) 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 Relevant Medications allopurinol (Zyloprim) 100 mg tablet Other Visit Diagnoses Diagnosis Codes Routine adult health maintenance Z00.00 Encounter for annual general medical examination without abnormal findings in adult Z00.00 Relevant Orders Lipid Panel CBC and Auto Differential Vitamin B 12 deficiency E53.8 Relevant Orders Vitamin B12 Controlled type 2 diabetes mellitus with hyperglycemia, without long-term current use of insulin ([facility]) E11.65 Relevant Medications dapaglifloz propaned-metformin (Xigduo XR) 10-500 mg Other Relevant Orders POCT glycosylated hemoglobin (Hb A1C) manually resulted (Completed) Vitamin B12 CBC and Auto Differential Comprehensive Metabolic Panel Radicular pain M54.10 Relevant Medications gabapentin (Neurontin) 100 mg capsule Type 2 diabetes mellitus with hyperglycemia, without long-term current use of insulin ([facility]) E11.65 Relevant Medications dapaglifloz propaned-metformin (Xigduo XR) 10-500 mg 1. Continue current medications. Start Xigduo which was sent into the pharmacy. Continue diet and exercise Follow-up in 3 months for diabetes and hypertension. Obesity with BMI and comorbidities as noted above. 1. Discussed proper diet (low fat, low sodium, high fiber) with patient. 2. Discussed need for regular exercise (3 times per week, 20 minutes per session) with patient. Patient is using her CPAP nightly and benefiting from using her CPAP nightly. Patient reports that they wear this machine for approximately 8 hours nightly. Patient's symptoms have reduced and the patient has noted less tiredness less headache and less sleepiness during the day. Dear Ms. Celis: To help you more effectively manage your high blood pressure, we would like to remind you of the following preventive measures you can take at home: 1) Eat right: Your diet should be rich in fruits, vegetables, potassium, and low-fat dairy products. You should also reduce your intake of sodium and fats, particularly saturated fats. 2) Maintain a healthy weight: Try to achieve and maintain a healthy weight. If you are unsure what this means for you, please contact our clinic. 3) Exercise: Try to get at least 30 minutes of aerobic exercise every day. 4) Moderate your alcohol consumption: Limit your alcohol intake to one drink per day. 5) Monitor your blood pressure: You should check your blood pressure regularly. Notify our clinic if your blood pressure readings are consistently higher than recommended. We have included a personalized hypertension report card on the following page that lists your mostrecent blood pressure readings and lab results, along with your ideal values. If you have any questions or concerns about these instructions, your results, or your improving health, please don't hesitate to call. Thank you for including us as members of your health care team. [email or web address] Sincerely, Lois Alberts MD [facility] Hypertension Report Card for Jacob Celis April 05, 2023: Below is a summary of recent tests related to your hypertension that can help you manage your health. Blood Pressure: Normal blood pressure values are 120/80 or lower. Your blood pressure values should be less than 140/90. If your readings at home are consistently higher than this, please contact me. Your most recent blood pressure readings at our clinic were: BP Readings from Last 3 Encounters: 04/02/23 118/85 12/30/22 128/70 10/08/22 124/84 Creatinine: High blood pressure can cause a loss of kidney function. Creatinine is a measure of this kidney function. Your most recent creatinine levels were: Creatinine (mg/dL) Date Value 12/30/2022 0.63 07/22/2022 0.80 09/27/2021 0.57 Potassium: Potassium is an electrolyte in your blood that can be affected by blood pressure treatment. Your most recent potassium levels were: Potassium (mmol/L) Date Value 12/30/2022 4.1 07/22/2022 3.9 09/27/2021 4.1 documented in this [facility] Work Phone: 1(337) 971-556610-04-2023 Instructions* Patient Instructions* Lois Alberts MD - 04/02/2023 10:40 AM EDT 1. Continue current medications. Start Xigduo which was sent into the pharmacy. Continue diet and exercise Follow-up in 3 months for diabetes and hypertension. Obesity with BMI and comorbidities as noted above. 1. Discussed proper diet (low fat, low sodium, high fiber) with patient. 2. Discussed need for regular exercise (3 times per week, 20 minutes per session) with patient. Dear Ms. Celis: To help you more effectively manage your high blood pressure, we would like to remind you of the following preventive measures you can take at home: 1) Eat right: Your diet should be rich in fruits, vegetables, potassium, and low-fat dairy products. You should also reduce your intake of sodium and fats, particularly saturated fats. 2) Maintain a healthy weight: Try to achieve and maintain a healthy weight. If you are unsure what this means for you, please contact our clinic. 3) Exercise: Try to get at least 30 minutes of aerobic exercise every day. 4) Moderate your alcohol consumption: Limit your alcohol intake to one drink per day. 5) Monitor your blood pressure: You should check your blood pressure regularly. Notify our clinic if your blood pressure readings are consistently higher than recommended. We have included a personalized hypertension report card on the following page that lists your mostrecent blood pressure readings and lab results, along with your ideal values. If you have any questions or concerns about these instructions, your results, or your improving health, please don't hesitate to call. Thank you for including us as members of your health care team. [email or web address] Sincerely, Lois Alberts MD [facility] Hypertension Report Card for Jacob Celis April 05, 2023: Below is a summary of recent tests related to your hypertension that can help you manage your health. Blood Pressure: Normal blood pressure values are 120/80 or lower. Your blood pressure values should be less than 140/90. If your readings at home are consistently higher than this, please contact me. Your most recent blood pressure readings at our clinic were: BP Readings from Last 3 Encounters: 04/02/23 118/85 12/30/22 128/70 10/08/22 124/84 Creatinine: High blood pressure can cause a loss of kidney function. Creatinine is a measure of this kidney function. Your most recent creatinine levels were: Creatinine (mg/dL) Date Value 12/30/2022 0.63 07/22/2022 0.80 09/27/2021 0.57 Potassium: Potassium is an electrolyte in your blood that can be affected by blood pressure treatment. Your most recent potassium levels were: Potassium (mmol/L) Date Value 12/30/2022 4.1 07/22/2022 3.9 09/27/2021 4.1 Patient is using her CPAP nightly and benefiting from using her CPAP nightly. Patient reports that they wear this machine for approximately 8 hours nightly. Patient's symptoms have reduced and the patient has noted less tiredness less headache and less sleepiness during the day. [facility] Work Phone: [phone] 400-568407-03-2023 Evaluation + Plan note* Assessment & Plan Note - Lois Alberts MD - 12/30/2022 8:10 AM EDTAssociated Problem(s): HTN (hypertension), benign Feeling good and have no complaints [facility] Work Phone: [phone] Miscellaneous Notes* Assessment & Plan Note - Lois Alberts MD - 12/30/2022 8:10 AM EDTAssociated Problem(s): HTN (hypertension), benign Feeling good and have no complaints * Assessment & Plan Note - Lois Alberts MD - 12/30/2022 8:09 AM EDTAssociated Problem(s): Morbid obesity with BMI of 50.0-59.9, adult (CMS/HCC) Trying to workout and exercise * Assessment & Plan Note - Lois Alberts MD - 12/30/2022 8:09 AM EDTAssociated Problem(s): Bipolar depression (CMS/HCC) Stable but continues to have pain [facility] Work Phone: [phone] Evaluation + Plan note* Assessment & Plan Note - Lois Alberts MD - 12/30/2022 8:09 AM EDTAssociated Problem(s): Morbid obesity with BMI of 50.0-59.9, adult (CMS/HCC) Trying to workout and exercise [facility] Work Phone: [phone] Evaluation + Plan note* Assessment & Plan Note - Lois Alberts MD - 12/30/2022 8:09 AM EDTAssociated Problem(s): Bipolar depression (CMS/HCC) Stable but continues to have pain [facility] Work Phone: [phone] History of Present illness Narrative* Lois Alberts MD - 12/30/2022 7:40 AM EDT Subjective Patient ID: Jacob Celis is a 42 y.o. female who presents for Follow-up ([facility] for pink eye 2 weeks ago) and Annual Exam. Today she is accompanied by alone. [facility] Adult Physical Patient here for a comprehensive physical exam.The patient reports problems - was in the ER a few weeks ago due to conjunctivitis. Feelinbg much beter and has no concerns Do you take any herbs or supplements that were not prescribed by a doctor? no Are you taking calcium supplements? no Are you taking aspirin daily? no History: LMP: 2009 Menopause at 13 years Last pap date: 2020 Abnormal pap? no : 2 Para: 2 Review of Systems Constitutional: Negative for activity change, appetite change, chills, diaphoresis, fatigue, fever and unexpected weight change. HENT: Negative for congestion, dental problem, drooling, ear discharge, ear pain, facial swelling, hearing loss, nosebleeds, postnasal drip, rhinorrhea, sinus pressure, sinus pain, sneezing, sore throat, tinnitus, trouble swallowing and voice change. Eyes: Negative for pain, discharge, redness, itching and visual disturbance. Respiratory: Negative for cough, chest tightness, shortness of breath and wheezing. Cardiovascular: Negative for chest pain, palpitations and leg swelling. Gastrointestinal: Negative for abdominal pain, blood in stool, constipation, diarrhea, nausea and vomiting. Endocrine: Negative for cold intolerance, heat intolerance, polydipsia, polyphagia and polyuria. Genitourinary: Negative for decreased urine volume, dysuria, flank pain, frequency, hematuria and urgency. Musculoskeletal: Negative for arthralgias, back pain, gait problem, joint swelling, myalgias and neck stiffness. Skin: Negative for color change, pallor, rash and wound. Neurological: Negative for dizziness. Hematological: Negative for adenopathy. Does not bruise/bleed easily. Psychiatric/Behavioral: Negative for agitation, behavioral problems and sleep disturbance. The patient is not nervous/anxious. Objective Blood Pressure 128/70 Pulse (Abnormal) 114 Temperature 36.4 C (97.6 F) Respiration 16 Height 1.651 m (5' 5) Weight 137 kg (303 lb) Oxygen Saturation 96% Body Mass Index 50.42 kg/m BSA: 2.51 meters squared Growth percentiles: Facility age limit for growth %alexy is 20 years. Facility age limit for growth %alexy is 20 years. Physical Exam Vitals and nursing note reviewed. Constitutional: General: She is not in acute distress. Appearance: Normal appearance. She is normal weight. She is not ill-appearing. HENT: Head: Normocephalic. Right Ear: Tympanic membrane, ear canal and external ear normal. Left Ear: Tympanic membrane, ear canal and external ear normal. Nose: Nose normal. No rhinorrhea. Mouth/Throat: Mouth: Mucous membranes are moist. Pharynx: Oropharynx is clear. Eyes: Extraocular Movements: Extraocular movements intact. Conjunctiva/sclera: Conjunctivae normal. Pupils: Pupils are equal, round, and reactive to light. Cardiovascular: Rate and Rhythm: Normal rate and regular rhythm. Pulses: Normal pulses. Heart sounds: Normal heart sounds. Pulmonary: Effort: Pulmonary effort is normal. No respiratory distress. Breath sounds: Normal breath sounds. No wheezing. Abdominal: General: Abdomen is flat. Bowel sounds are normal. Palpations: Abdomen is soft. Tenderness: There is no abdominal tenderness. There is no guarding or rebound. Hernia: No hernia is present. Musculoskeletal: General: Normal range of motion. Cervical back: Normal range of motion and neck supple. No rigidity or tenderness. Right lower leg: No edema. Left lower leg: No edema. Lymphadenopathy: Cervical: No cervical adenopathy. Skin: General: Skin is warm and dry. Capillary Refill: Capillary refill takes more than 3 seconds. Neurological: General: No focal deficit present. Mental Status: She is alert and oriented to person, place, and time. Sensory: No sensory deficit. Motor: No weakness. Coordination: Coordination normal. Psychiatric: Mood and Affect: Mood normal. Behavior: Behavior normal. Thought Content: Thought content normal. Judgment: Judgment normal. Assessment/Plan Problem List Items Addressed This Visit Bipolar depression (CMS/HCC) Stable but continues to have pain Generalized anxiety disorder Relevant Orders Magnesium TSH with reflex to Free T4 if abnormal HTN (hypertension), benign Feeling good and have no complaints Hyperlipidemia IZABELA on CPAP Vitamin D deficiency Relevant Orders Vitamin D, Total Morbid obesity with BMI of 50.0-59.9, adult (CMS/HCC) Trying to workout and exercise Relevant Orders Insulin, Random Other Visit Diagnoses Encounter for annual general medical examination without abnormal findings in adult - Primary Relevant Orders Lipid Panel CBC and Auto Differential Comprehensive Metabolic Panel Vitamin B 12 deficiency Relevant Orders Vitamin B12 Arthralgia, unspecified joint Relevant Orders Uric Acid Type 2 diabetes mellitus with hyperglycemia, without long-term current use of insulin ([facility]) Relevant Orders POCT glycosylated hemoglobin (Hb A1C) manually resulted (Completed) Insulin, Random Acute conjunctivitis of both eyes, unspecified acute conjunctivitis type Current Outpatient Medications Medication Sig Dispense Refill albuterol 90 mcg/actuation inhaler INHALE 1 TO 2 PUFFS EVERY 4 TO 6 HOURS NEEDED. allopurinol (Zyloprim) 100 mg tablet Take 1 tablet (100 mg) by mouth once daily. 90 tablet 1 atorvastatin (Lipitor) 20 mg tablet Take 1 tablet (20 mg) by mouth once daily at bedtime. 90 tablet1 busPIRone (Buspar) 5 mg tablet Take 1 tablet (5 mg) by mouth 2 times a day. cariprazine (Vraylar) 1.5 mg capsule Vraylar 1.5 MG Oral Capsule Refills: 0 Active cholecalciferol (Vitamin D3) 50 mcg (2,000 unit) capsule take 1 capsule by mouth once daily 90 capsule 1 dapagliflozin-metformin (Xigduo XR) 10-500 mg Take 1 tablet by mouth once daily. 90 tablet 0 gabapentin (Neurontin) 100 mg capsule take 1 capsule by mouth every morning and 3 capsules every evening 360 capsule 0 loratadine (Claritin) 10 mg tablet Take 1 tablet (10 mg) by mouth once daily. 90 tablet 1 metoprolol succinate XL (Toprol-XL) 100 mg 24 hr tablet Take 1 tablet (100 mg) by mouth once daily.90 tablet 1 montelukast (Singulair) 10 mg tablet Take 1 tablet (10 mg) by mouth once daily at bedtime. 90 tablet 1 rimegepant (NURTEC) 75 mg tablet,disintegrating Nurtec 75 MG Oral Tablet Disintegrating Quantity: 8 Refills: 0 Start : 23-Nov-2020 Active topiramate (Topamax) 50 mg tablet Take 1 tablet (50 mg) by mouth 2 times a day. valsartan-hydrochlorothiazide (Diovan-HCT) 160-12.5 mg tablet Take 1 tablet by mouth once daily. 90tablet 1 No current facility-administered medications for this visit. Continue current medications A1c today was 6.6 Call with any concerns Warm compresses to the eye 3-4 times a day for 10 mins F/U as scheduled Call endo and see if you are able to get any of the injectables for diabetes Patient is using her CPAP nightly and benefiting from using her CPAP nightly. Patient reports that they wear this machine for approximately 8 hours nightly. Patient's symptoms have reduced and the patient has noted less tiredness less headache and less sleepiness during the day. [facility] Work Phone: [phone] Instructions* Patient Instructions* Lois Alberts MD - 12/30/2022 7:40 AM EDT Continue current medications A1c today Call with any concerns Warm compresses to the eye 3-4 times a day for 10 mins F/U as scheduled Call endo and see if you are able to get any of the injectables for diabetes Patient is using her CPAP nightly and benefiting from using her CPAP nightly. Patient reports that they wear this machine for approximately 8 hours nightly. Patient's symptoms have reduced and the patient has noted less tiredness less headache and less sleepiness during the day. [facility] Work Phone: [phone]) [phone] Emergency department Note* Demetrice Moralez RN - 12/04/2022 11:15 PM EDT Discharge instructions, follow up care, and pain management discussed with patient. All questions answered, there are no further questions at this time. RN provided patient with printed paper prescription. Patient ambulated off the unit with daughter at discharge independently. Demetrice Moralez RN 12/04/22 0117 [id number] Emergency department Note* Demetrice Moralez RN - 12/04/2022 11:15 PM EDT Discharge instructions, follow up care, and pain management discussed with patient. All questions answered, there are no further questions at this time. RN provided patient with printed paper prescription. Patient ambulated off the unit with daughter at discharge independently. Demetrice Moralez RN 12/04/22 2316 * Nicanor Rosa DO - 12/04/2022 10:37 PM EDT Emergency Department Encounter [facility] ED Patient: Jacob Celis : 1980 Date of Evaluation: 12/04/2022 ED Provider: Nicanor Rosa DO Chief Complaint Chief Complaint Patient presents with Sore Throat Eye Drainage Patient awoke this morning with a sore throat, and around 1 pm eye was red, irritated with thick green drainage [place] Jacob Celis is a 42 y.o. female who presents to the emergency department complaining of sore throat. Patient woke up this morning had a sore throat. Throughout the day she also noticed irritation of her right eye with tearing and purulent drainage. Family at home has similar symptoms. Denies fevers, chills, chest pain, shortness of breath, cough. Additional history obtained from : n/a Barriers to obtaining history from patient: n/a ROS: Review of Systems completed as follows: (Bold = positive, Not bold = negative) GENERAL: fevers, chills, malaise ENT: runny nose, congestion, sore throat, ear pain, eye pain NEURO: weakness, numbness of tingling, headache CARDIOVASCULAR: chest pain, syncope PULMONARY: shortness of breath, cough, wheezing GASTROINTESTINAL: nausea, vomiting, abdominal pain, diarrhea, constipation, MUSCULOSKELETAL: pain GENITAL/URINARY: dysuria, hematuria, increased urinary frequency, hesitancy, flank pain SKIN: rash, lesions, wound Past History Past Medical History: Diagnosis Date Asthma Bipolar 1 disorder (HCC) CHF (congestive heart failure) (CMS/HCC) (HCC) Depression GERD (gastroesophageal reflux disease) Hyperlipidemia Hypertension Insomnia Restless leg syndrome Thyroid cancer (HCC) Thyroid disease Past Surgical History: Procedure Laterality Date THYROIDECTOMY TONSILLECTOMY (HISTORICAL) Social History Socioeconomic History Marital status: Tobacco Use Smoking status: Never Smokeless tobacco: Never Substance and Sexual Activity Alcohol use: Never Drug use: Never I have reviewed the history above as provided by nursing notes. Medications/Allergies Discharge Medication List as of 12/04/2022 11:06 PM CONTINUE these medications which have NOT CHANGED Details allopurinol (Zyloprim) 100 MG tablet Take 100 mg by mouth in the morning., Starting Fri07/25/2022, Historical Med atorvastatin (Lipitor) 20 MG tablet Take 20 mg by mouth daily., Starting Fri10/08/2022, Historical Med cholecalciferol (Vitamin D-3) 50 MCG (1999) capsule Take 1 capsule by mouth daily., Starting Fri10/08/2022, Historical Med dapagliflozin-metFORMIN ER (Xigduo XR) 10-500 MG Take 1 tablet by mouth in the morning., Starting Fri07/25/2022, Until Fri01/06/2023, Historical Med gabapentin (Neurontin) 100 MG capsule Take 1 capsule by mouth in the morning and 1 capsule in the evening. 1 in the AM, 3 in the PM., Starting Fri09/27/2021, Historical Med metoprolol succinate XL (Toprol-XL) 100 MG 24 hr tablet Take 100 mg by mouth in the morning., Starting Fri10/08/2022, Historical Med montelukast (Singulair) 10 MG tablet Take 10 mg by mouth daily., Starting Fri10/08/2022, HistoricalMed topiramate 50 MG tablet Take 50 mg by mouth in the morning and 50 mg in the evening., Starting Fri10/08/2022, Historical Med valsartan-hydroCHLOROthiazide (Diovan-HCT) 160-12.5 MG tablet Take 1 tablet by mouth in the morning., Starting Fri12/25/2021, Historical Med budesonide-formoterol (Symbicort) 160-4.5 MCG/ACT inhaler Inhale 2 puffs daily., Historical Med Cariprazine HCl 1.5 MG capsule Take 1.5 capsules by mouth daily., Historical Med No Known Allergies I have reviewed the history above as provided by nursing notes. Physical Exam ED Triage Vitals [12/04/22 2251] Temp Heart Rate Resp BP 36.7 C (98 F) (!) 116 16 (!) 159/105 SpO2 Temp src Heart Rate Source Patient Position 97 % -- Monitor -- BP Location FiO2 (%) -- -- GENERAL: The patient appears nourished and normally developed. Vital signs as documented. EYES: PERRL. Conjunctival injection of the right eye. No visible foreign body. Fluorescein stain reveals no uptake to suggest corneal or conjunctival abrasion. No scleral icterus or orbital trauma noted. HEENT: Posterior pharyngeal erythema without edema or exudate. Mucous membranes moist. Nares patentwithout copious rhinorrhea. LUNGS: Lungs are clear to auscultation, without any respiratory distress. CARDIAC: Rhythm is regular. No murmur appreciated ABDOMEN: Nontender, soft, with no obvious masses, and no peritoneal signs. EXTREMITIES: Non edematous, with no obvious deformities. SKIN: Good color, with no significant rashes. No pallor. NEURO: No obvious neurological deficits, normal sensation and strength bilaterally. Diagnostics Labs: No results found for this or any previous visit. Radiographs: No orders to display EMERGENCY DEPARTMENT COURSE and DIFFERENTIAL DIAGNOSIS/MDM: Vitals: Vitals: 12/04/22 2251 12/04/22 2309 BP: (!) 159/105 Pulse: (!) 116 98 Resp: 16 Temp: 36.7 C (98 F) SpO2: 97% Weight: (!) 137 kg (301 lb) Height: 1.651 m (5' 5) The patient presented with a chief complaint of sore throat and eye pain. Vital signs reviewed. Exam concerning for conjunctivitis. Less likely corneal abrasion which was not appreciated on fluorescein exam. Also considered foreign body which was not visualized. Low suspicion for glaucoma as patient reports normal vision with her glasses. Given the purulent drainage from the right eye we will treat with tobramycin. Patient also has findings of pharyngitis on exam. Low suspicion for strep pharyngitis. I will treat with Decadron. Patient given a dose of Toradol. She initially was tachycardic but this improved with treatment. Suspect viral pharyngitis and I will recommend that she take TylenolMotrin and drink plenty of fluids. Recommend she follow-up with her primary care doctor. Diagnoses as of 12/05/22 0004 Acute bacterial conjunctivitis of right eye Viral pharyngitis Diagnostic tests considered but not performed: Considered strep testing but patient has no evidence of strep pharyngitis on exam and has low centor criteria. ED Medications managed: Medications tetracaine (Altacaine) 0.5 % ophthalmic solution 1-2 drop (1 drop Right Eye Given 12/04/222299) fluorescein 1 MG ophthalmic strip 1 strip (1 strip Right Eye Given 12/04/225) dexAMETHasone (Decadron) tablet 8 mg (8 mg Oral Given 12/04/222299) ketorolac (Toradol) injection 30 mg (30 mg IntraMUSCular Given 12/04/222299) tobramycin (Tobrex) 0.3 % ophthalmic solution 1 drop (1 drop Right Eye Given 12/04/222312) Prescription drugs considered: Considered antibiotics but patient does not have obvious signs of this. She was discharged with ophthalmic antibiotics for conjunctivitis Patients symptoms are consistent with sepsis, severe sepsis or septic shock (if yes, use .sepsiscoremeasure) - no Final Impression 1. Acute bacterial conjunctivitis of right eye 2. Viral pharyngitis DISPOSITION discharge Comment: Please note this report has been produced using speech recognition software and may contain errors related to that system including errors in grammar, punctuation, and spelling, as well as words and phrases that may be inappropriate. If there are any questions or concerns please feel free to contact the dictating provider for clarification. Nicanor Rosa DO [employer] Nicanor Rosa DO 12/05/22 0004 * Demetrice Moralez RN - 12/04/2022 10:37 PM EDT Patient ambulatory to room 6 presenting with c/o of sore throat and irritated right eye. Patient awoke this morning with a sore throat, and around 1 pm her right eye became red, swollen, and had thick green drainage. No visual changes. Patient has not taken any over the counter medications. Patienttook a home COVID test and it was negative. Vital signs are stable, call light in reach, patient isafebrile. Daughter at bedside. documented in this [facility]06-07-[facility] Hospital Discharge instructions* Discharge Instructions* Nicanor Rosa DO - 12/04/2022 11:05 PM EDT Please use the eyedrops as discussed. Wash your hands frequently to avoid spreading to your other eye or other family members. Drink plenty of fluids and take Tylenol Motrin for pain as needed. documented in this encounterSK[facility] [id number] Emergency department Triage note* Demetrice Moralez RN - 12/04/2022 10:37 PM EDT Patient ambulatory to room 6 presenting with c/o of sore throat and irritated right eye. Patient awoke this morning with a sore throat, and around 1 pm her right eye became red, swollen, and had thick green drainage. No visual changes. Patient has not taken any over the counter medications. Patienttook a home COVID test and it was negative. Vital signs are stable, call light in reach, patient isafebrile. Daughter at bedside. [id number] Physician Emergency department Note* Nicanor Rosa DO - 12/04/2022 10:37 PM EDT Emergency Department Encounter [facility] ED Patient: Jacob Celis : 1980 Date of Evaluation: 12/04/2022 ED Provider: Nicanor Rosa DO Chief Complaint Chief Complaint Patient presents with Sore Throat Eye Drainage Patient awoke this morning with a sore throat, and around 1 pm eye was red, irritated with thick green drainage DENISSE Celis is a 42 y.o. female who presents to the emergency department complaining of sore throat. Patient woke up this morning had a sore throat. Throughout the day she also noticed irritation of her right eye with tearing and purulent drainage. Family at home has similar symptoms. Denies fevers, chills, chest pain, shortness of breath, cough. Additional history obtained from : n/a Barriers to obtaining history from patient: n/a ROS: Review of Systems completed as follows: (Bold = positive, Not bold = negative) GENERAL: fevers, chills, malaise ENT: runny nose, congestion, sore throat, ear pain, eye pain NEURO: weakness, numbness of tingling, headache CARDIOVASCULAR: chest pain, syncope PULMONARY: shortness of breath, cough, wheezing GASTROINTESTINAL: nausea, vomiting, abdominal pain, diarrhea, constipation, MUSCULOSKELETAL: pain GENITAL/URINARY: dysuria, hematuria, increased urinary frequency, hesitancy, flank pain SKIN: rash, lesions, wound Past History Past Medical History: Diagnosis Date Asthma Bipolar 1 disorder (HCC) CHF (congestive heart failure) (CMS/HCC) (HCC) Depression GERD (gastroesophageal reflux disease) Hyperlipidemia Hypertension Insomnia Restless leg syndrome Thyroid cancer (HCC) Thyroid disease Past Surgical History: Procedure Laterality Date THYROIDECTOMY TONSILLECTOMY (HISTORICAL) Social History Socioeconomic History Marital status: Tobacco Use Smoking status: Never Smokeless tobacco: Never Substance and Sexual Activity Alcohol use: Never Drug use: Never I have reviewed the history above as provided by nursing notes. Medications/Allergies Discharge Medication List as of 12/04/2022 11:06 PM CONTINUE these medications which have NOT CHANGED Details allopurinol (Zyloprim) 100 MG tablet Take 100 mg by mouth in the morning., Starting Fri07/25/2022, Historical Med atorvastatin (Lipitor) 20 MG tablet Take 20 mg by mouth daily., Starting Fri10/08/2022, Historical Med cholecalciferol (Vitamin D-3) 50 MCG (1999) capsule Take 1 capsule by mouth daily., Starting Fri10/08/2022, Historical Med dapagliflozin-metFORMIN ER (Xigduo XR) 10-500 MG Take 1 tablet by mouth in the morning., Starting Fri07/25/2022, Until Fri01/06/2023, Historical Med gabapentin (Neurontin) 100 MG capsule Take 1 capsule by mouth in the morning and 1 capsule in the evening. 1 in the AM, 3 in the PM., Starting Fri09/27/2021, Historical Med metoprolol succinate XL (Toprol-XL) 100 MG 24 hr tablet Take 100 mg by mouth in the morning., Starting Fri10/08/2022, Historical Med montelukast (Singulair) 10 MG tablet Take 10 mg by mouth daily., Starting Fri10/08/2022, HistoricalMed topiramate 50 MG tablet Take 50 mg by mouth in the morning and 50 mg in the evening., Starting Fri10/08/2022, Historical Med valsartan-hydroCHLOROthiazide (Diovan-HCT) 160-12.5 MG tablet Take 1 tablet by mouth in the morning., Starting Fri12/25/2021, Historical Med budesonide-formoterol (Symbicort) 160-4.5 MCG/ACT inhaler Inhale 2 puffs daily., Historical Med Cariprazine HCl 1.5 MG capsule Take 1.5 capsules by mouth daily., Historical Med No Known Allergies I have reviewed the history above as provided by nursing notes. Physical Exam ED Triage Vitals [12/04/222250] Temp Heart Rate Resp BP 36.7 C (98 F) (!) 116 16 (!) 159/105 SpO2 Temp src Heart Rate Source Patient Position 97 % -- Monitor -- BP Location FiO2 (%) -- -- GENERAL: The patient appears nourished and normally developed. Vital signs as documented. EYES: PERRL. Conjunctival injection of the right eye. No visible foreign body. Fluorescein stain reveals no uptake to suggest corneal or conjunctival abrasion. No scleral icterus or orbital trauma noted. HEENT: Posterior pharyngeal erythema without edema or exudate. Mucous membranes moist. Nares patentwithout copious rhinorrhea. LUNGS: Lungs are clear to auscultation, without any respiratory distress. CARDIAC: Rhythm is regular. No murmur appreciated ABDOMEN: Nontender, soft, with no obvious masses, and no peritoneal signs. EXTREMITIES: Non edematous, with no obvious deformities. SKIN: Good color, with no significant rashes. No pallor. NEURO: No obvious neurological deficits, normal sensation and strength bilaterally. Diagnostics Labs: No results found for this or any previous visit. Radiographs: No orders to display EMERGENCY DEPARTMENT COURSE and DIFFERENTIAL DIAGNOSIS/MDM: Vitals: Vitals: 12/04/22 2251 12/04/22 2309 BP: (!) 159/105 Pulse: (!) 116 98 Resp: 16 Temp: 36.7 C (98 F) SpO2: 97% Weight: (!) 137 kg (301 lb) Height: 1.651 m (5' 5) The patient presented with a chief complaint of sore throat and eye pain. Vital signs reviewed. Exam concerning for conjunctivitis. Less likely corneal abrasion which was not appreciated on fluorescein exam. Also considered foreign body which was not visualized. Low suspicion for glaucoma as patient reports normal vision with her glasses. Given the purulent drainage from the right eye we will treat with tobramycin. Patient also has findings of pharyngitis on exam. Low suspicion for strep pharyngitis. I will treat with Decadron. Patient given a dose of Toradol. She initially was tachycardic but this improved with treatment. Suspect viral pharyngitis and I will recommend that she take TylenolMotrin and drink plenty of fluids. Recommend she follow-up with her primary care doctor. Diagnoses as of 12/05/22 0004 Acute bacterial conjunctivitis of right eye Viral pharyngitis Diagnostic tests considered but not performed: Considered strep testing but patient has no evidence of strep pharyngitis on exam and has low centor criteria. ED Medications managed: Medications tetracaine (Altacaine) 0.5 % ophthalmic solution 1-2 drop (1 drop Right Eye Given 12/04/22 2300) fluorescein 1 MG ophthalmic strip 1 strip (1 strip Right Eye Given 12/04/22 2255) dexAMETHasone (Decadron) tablet 8 mg (8 mg Oral Given 12/04/22 2300) ketorolac (Toradol) injection 30 mg (30 mg IntraMUSCular Given 12/04/22 2300) tobramycin (Tobrex) 0.3 % ophthalmic solution 1 drop (1 drop Right Eye Given 12/04/22 2313) Prescription drugs considered: Considered antibiotics but patient does not have obvious signs of this. She was discharged with ophthalmic antibiotics for conjunctivitis Patients symptoms are consistent with sepsis, severe sepsis or septic shock (if yes, use .sepsiscoremeasure) - no Final Impression 1. Acute bacterial conjunctivitis of right eye 2. Viral pharyngitis DISPOSITION discharge Comment: Please note this report has been produced using speech recognition software and may contain errors related to that system including errors in grammar, punctuation, and spelling, as well as words and phrases that may be inappropriate. If there are any questions or concerns please feel free to contact the dictating provider for clarification. Nicanro Rosa DO [employer] Nicanor Rosa DO 12/05/22 0004 [id number] Chief complaint Narrative - Reported* follow up on medications. * An interactive audio and video telecommunication system which permits real time communications between the patient (at the originating site) and provider (at the distant site) was utilized to providethis telehealth service. * Verbal consent was requested and obtained from JACOB CELIS on this date, 06/06/2022 08:20 AM , for a telehealth visit. [facility] Work Phone: 1(987) 714-183310-18-2022 Instructions* Patient Instructions* Meghan Abbott APRN.CNP - 04/16/2022 10:26 AM EDT HOME INSTRUCTIONS FOR MANAGEMENT OF DIARRHEA NON-PHARMACOLOGICAL MEASURES 1. Drink plenty of fluids -- 2-3 quarts daily as tolerated, sipping throughout the day. (Gatorade, bouillon, soups, etc.) 2. Try nutritious low fiber foods: bananas, rice, applesauce, toast, yogurt, noodles, white bread, skinned chicken or turkey, and fish. 3. Avoid foods such as: ~ [place], fatty or fried foods ~ Raw vegetables and fruits ~ Strong spices ~ Whole grain cereals & breads, and nuts ~ Gas forming foods & beverages (beans, cabbage, carbonated drinks) 4. Limit foods or beverages with caffeine (such as coffee, strong tea, & sodas) and extremely hot or cold beverages. PHARMACOLOGICAL MEASURES 1. Take Imodium 1 tablet after each loose stool. Do not exceed 8 tablets in 24 hours. documented [facility] History of Present illness Narrative* Meghan Abbott APRN.CNP - 04/16/2022 10:05 AM EDT This note was created using NoteWriter. Subjective Jacob Celis is a 41 year old female. HPI by patient: Jacob is a 41 yo female presenting to the office with the complaint of sore throat and diarrhea Started approximately last night Associated symptoms include gas or bubbling in stomach, then started having diarrhea. Also feeling SOB but reports she gets that anytime she has an upset stomach. Denies fever or chills Vaccinated for influenza: no Covid Immunization Dates Overdue - COVID-19 VACCINE (4 - Booster for Moderna series) Overdue since 07/12/2021 05/17/2021 Imm Admin: COVID-19 original vaccine, full dose, monovalent (MODERNA) 09/07/2020 Imm Admin: COVID-19 original vaccine, full dose, monovalent (MODERNA) 08/11/2020 Imm Admin: COVID-19 original vaccine, full dose, monovalent (MODERNA) Personal history of Covid: yes Flu/RSV contacts: no Strep contacts: no Sick contacts: no Covid + contacts: no Travel in the last 14 days: no Smoking history/second hand smoke: no OTC nothing No antibiotic use in the last 60 days. ALLERGIES No Known Allergies Family History Reviewed Including Cardiac Diseases, Psychiatric Diseases, & Substance Abuse Problem: Colon Cancer Relation: No Family History Age of Onset: (Not Specified) Social History Tobacco Use Smoking status: Never Smokeless tobacco: Never Vaping Use Vaping Use: Never used Alcohol use: Never Drug use: Never Review of Systems Constitutional: Negative for chills and fever. HENT: Negative for congestion, ear pain, rhinorrhea and sore throat. Respiratory: Positive for shortness of breath. Negative for cough. Cardiovascular: Negative for chest pain. Gastrointestinal: Positive for diarrhea. Allergic/Immunologic: Negative for immunocompromised state. Hematological: Negative for adenopathy. Objective There were no vitals taken for this visit. Physical Exam Vitals and nursing note reviewed. HENT: Right Ear: Tympanic membrane and ear canal normal. Left Ear: Tympanic membrane and ear canal normal. Nose: Nose normal. No congestion or rhinorrhea. Mouth/Throat: Pharynx: Uvula midline. No oropharyngeal exudate or posterior oropharyngeal erythema. Cardiovascular: Rate and Rhythm: Normal rate and regular rhythm. Heart sounds: Normal heart sounds. Pulmonary: Effort: Pulmonary effort is normal. Breath sounds: Normal breath sounds. Abdominal: General: Bowel sounds are normal. Lymphadenopathy: Cervical: No cervical adenopathy. Skin: General: Skin is warm and dry. Neurological: Mental Status: She is alert and oriented to person, place, and time. Assessment and Plan ASSESSMENT/PLAN: 1. SOB (shortness of breath) - ICD9: 786.05, ICD10: R06.02 (primary diagnosis) - COVID WITH FLUA+B, ROUTINE - Hx of asthma, using inhalers as needed 2. Diarrhea, unspecified type - ICD9: 787.91, ICD10: R19.7 - LOPERAMIDE 2 MG CAPSULE Meghan Abbott APRN.CNP Medical Decision Making: Problems: Moderate: New problem with uncertain prognosis Data: Unique test(s) ordered: 1 Risk: Moderate: Drug management Medical Decision Making Level: 4 - Moderate This patient encounter involved the screening or treatment of novel coronavirus infection (COVID-19). documented in this encounterProm[facility]06-14-[facility]22 NoteHNO ID: [id number] Author: Mana Mendoza RRT Service: ? Author Type: Registered Resp Therapist Type: Progress Notes Filed: 12/11/2021 5:42 PM Note Text: PULM FUNCTION SMARTBLOCK: Provider: Doctor Elizabeth Assisting Tech: Maan Mendoza RRT Spirometry w/BD: 1 DLCO: 1 LV - Box: 1 System: [id number] [facility]06-14-2022 History of Present illness Narrative* aMna Mendoza RRT - 12/11/2021 5:40 PM EDT PULM FUNCTION SMARTBLOCK: Provider: Doctor Elizabeth Assisting Tech: Mana Mendoza RRT Spirometry w/BD: 1 DLCO: 1 LV - Box: 1 System: [id number] Lois Alberts documented in this encounterProm[facility]03-[facility] Hospital Discharge instructions* Instructions* Moose Ortega MD - 09/11/2021 Use Tylenol as we discussed. 1000 mg every 4-6 hours. You can alternate this every 3 hours with ibuprofen 600 mg as we discussed. * Attachments The following attachments cannot be sent through Care Everywhere. * URI (Upper Respiratory Infection) ([place]) [facility] Work Phone: 1(736) 279-867108-31-2021 Hospital Discharge instructions* Discharge Instr - REJI* Marlene Gomez MD - 02/27/2021 11:28 PM EDT Continuity of Care Form Patient Name: Jacob Celis : 1980 Admit date: 02/27/2021 Discharge date: Code Status Order: No Order Advance Directives: Admitting Physician: No admitting provider for patient encounter. PCP: MARLENE HUI DO Discharging Nurse: Discharging Hospital Unit/Room#: 08/01 Discharging Unit Phone Number: Emergency Contact: No emergency contact information on file. Past Surgical History: Past Surgical History: Procedure Laterality Date THYROIDECTOMY TONSILLECTOMY Immunization History: There is no immunization history on file for this patient. Active Problems: There is no problem list on file for this patient. Isolation/Infection: Isolation No Isolation Patient Infection Status Infection Onset Added Last Indicated Last Indicated By Review Planned Expiration Resolved Resolved By COVID-19 Rule Out 02/27/21 02/27/21 02/27/21 COVID-19 (Ordered) 03/06/21 03/13/21 Nurse Assessment: Last Vital Signs: BP 120/74 Pulse 108 Temp 98.6 F (37 C) (Oral) Resp 18 Ht 5' 5 (1.651 m) Wt 129.3 kg (285 lb) SpO2 99% BMI 47.43 kg/m Last documented pain score (0-10 scale): Pain Level: 4 Last Weight: Wt Readings from Last 1 Encounters: 02/27/21 129.3 kg (285 lb) Mental Status: {IP PT MENTAL STATUS:} IV Access: { REJI IV ACCESS:375516207} Nursing Mobility/ADLs: Walking {P DME ADLs:629079711} Transfer {P DME ADLs:266678656} Bathing {CHP DME ADLs:489746472} Dressing {P DME ADLs:891651365} Toileting {CHP DME ADLs:490339856} Feeding {CHP DME ADLs:186125099} Route Rider Supervisor {P DME ADLs:957228194} Med Delivery { REJI MED Delivery:523024003} Wound Care Documentation and Therapy: Elimination: Continence: Bowel: {YES / NO:} Bladder: {YES / NO:} Urinary Catheter: {Urinary Catheter:756896050} Colostomy/Ileostomy/Ileal Conduit: {YES / NO:} Date of Last BM: No intake or output data in the 24 hours ending 02/27/212346 No intake/output data recorded. Safety Concerns: { REJI Safety Concerns:912829869} Impairments/Disabilities: { REJI Impairments/Disabilities:619313195} Nutrition Therapy: Current Nutrition Therapy: {[facility] Diet List:766695400} Routes of Feeding: {[facility] DME Other Feedings:253671645} Liquids: {[facility] liquid thickness:74894} Daily Fluid Restriction: {[facility] DME Yes amt example:536035232} Last Modified Barium Swallow with Video (Video Swallowing Test): {Done Not Done Date:} Treatments at the Time of Hospital Discharge: Respiratory Treatments: Oxygen Therapy: {Therapy; copd oxygen:99170} Ventilator: {[facility] Vent List:268206475} Rehab Therapies: {THERAPEUTIC INTERVENTION:9666971784} Weight Bearing Status/Restrictions: {[facility] Weight Bearin} Other Medical Equipment (for information only, NOT a DME order): {EQUIPMENT:976685020} Other Treatments: Patient's personal belongings (please select all that are sent with patient): {[facility] DME Belongings:084398276} RN SIGNATURE: {Esignature:559820055} CASE MANAGEMENT/SOCIAL WORK SECTION Inpatient Status Date: Readmission Risk Assessment Score: Readmission Risk Risk of Unplanned Readmission: 0 Discharging to Facility/ Agency Name: Address: Phone: Fax: Dialysis Facility (if applicable) Name: Address: Dialysis Schedule: Phone: Fax: Rn Clinician/Public Service Representative signature: {Esignature:228334008} PHYSICIAN SECTION Prognosis: {Prognosis:8334802259} Condition at Discharge: { Patient Condition:629079204} Rehab Potential (if transferring to Rehab): {Prognosis:5381768968} Recommended Labs or Other Treatments After Discharge: Physician Certification: I certify the above information and transfer of Jacob Celis is necessary for the continuing treatment of the diagnosis listed and that she requires {Admit to Appropriate Level of Care:69915} for {GREATER/LESS:805601500} 30 days. Update Admission H&P: {CHP DME Changes in HandP:505769726} PHYSICIAN SIGNATURE: {Esignature:792004351} * Attachments The following attachments cannot be sent through Care Everywhere. * URI (Upper Respiratory Infection): Viral (Swazi) * Asthma: General Info (Swazi) documented in this encounterSUM[facility] Work Phone: 1([phone]) 799-407807-01-2021 History of Present illness Narrative* new to me. Followup from December appt with Prev PCP . Pt states she sees PCP every couple months. Increase in Lisinopril and co- worker( Pharmacist) advised it may be from Lisinopril . * HTN * 3 yrs * was very high , and her goal is 100-120/ < 100 * On multiple medications . * GERD * worsening sxs, night sxs . choking at night . * saw GI, per PCP advice * Asthma ,since childhood * maintenance inhaler , and prn rescue * Allergies * year round on oral claritin , singulair * Bipolar disorder, has a provider/ Psychiatrist who prescribes med * Chronic back pain, from 3 disks that herniated * on rx Ibuprofen twice a day * IZABELA, on CPAP * HL * adherent to lipid lowering therapy * Chronic Migraines * has a specialist for this, and he rxs maintenance and breakthru med * RLS * sxs controlled w [facility] med [facility] Work Phone: Evaluation note* Diagnosis Exacerbation of asthma, unspecified asthma severity, unspecified whether persistent- Primary Viral URI with cough Acute upper respiratory infections of unspecified site documented in this encounter [facility] Work Phone: Evaluation note* Diagnosis Upper respiratory tract infection, unspecified type- Primary documented in this encounter [facility] Work Phone: Evaluation note* Diagnosis Nausea- Primary Nausea alone Diarrhea, unspecified type Hypokalemia Hypopotassemia documented in this encounter [facility] Work Phone: Evaluation note* Diagnosis Mild intermittent asthma without complication- Primary Unspecified asthma documented in this encounter [facility] note* Diagnosis Mild intermittent asthma without complication Unspecified asthma documented in this encounter [facility] note* Diagnosis SOB (shortness of breath)- Primary Shortness of breath Diarrhea, unspecified type documented in this encounter [facility] note* Diagnosis Acute bacterial conjunctivitis of right eye- Primary Viral pharyngitis Acute pharyngitis documented in this encounter [facility] note* Diagnosis Encounter for annual general medical examination without abnormal findings in adult- Primary Morbid obesity with BMI of 50.0-59.9, adult ([facility]) HTN (hypertension), benign Essential hypertension, benign Mixed hyperlipidemia IZABELA on CPAP Vitamin D deficiency Vitamin B 12 deficiency Other B-complex deficiencies Arthralgia, unspecified joint Generalized anxiety disorder Type 2 diabetes mellitus with hyperglycemia, without long-term current use of insulin ([facility]) Bipolar depression ([facility]) Bipolar I disorder, most recent episode (or current) depressed, unspecified Acute conjunctivitis of both eyes, unspecified acute conjunctivitis type documented in this encounter [facility] Work Phone: Evaluation note* Diagnosis Routine adult health maintenance Encounter for annual general medical examination without abnormal findings in adult Vitamin D deficiency Vitamin B 12 deficiency Other B-complex deficiencies Controlled type 2 diabetes mellitus with hyperglycemia, without long-term current use of insulin ([facility]) Mixed hyperlipidemia Insomnia, persistent HTN (hypertension), benign Essential hypertension, benign Seasonal allergies Allergic rhinitis, cause unspecified Radicular pain Unspecified neuralgia, neuritis, and radiculitis Type 2 diabetes mellitus with hyperglycemia, without long-term current use of insulin ([facility]) 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 documented in this encounter [facility] Work Phone: Evaluation note* Diagnosis Hand sprain, left, initial encounter- Primary documented in this encounter [facility] note* Diagnosis Sinus congestion- Primary Other diseases of nasal cavity and sinuses Acute cough Pharyngitis, unspecified etiology SOB (shortness of breath) Shortness of breath Bipolar depression ([facility]) Bipolar I disorder, most recent episode (or current) depressed, unspecified Mild intermittent asthma without complication Morbid obesity with BMI of 50.0-59.9, adult ([facility]) documented in this encounter [facility] Work Phone: Evaluation note* Diagnosis Other migraine without status migrainosus, not intractable- Primary [facility]* Diagnosis Morbid obesity with body mass index (BMI) of 50.0 to 59.9 in adult ([facility])- Primary Migraine with aura and without status migrainosus, not intractable ([facility]) [facility]* Diagnosis Ureteral stone with hydronephrosis- Primary [facility]* Diagnosis Migraine with aura, not intractable, without status migrainosus documented in this encounter [facility] Work Phone: Evaluation note* Diagnosis Acute cough- Primary Viral URI with cough Acute upper respiratory infections of unspecified site Acute cough [facility]* Diagnosis Acute cough documented in this encounter [facility] note* Diagnosis Acute cough- Primary [facility]* Diagnosis Onset Date Resolution Status Admit Date Chest pain on exertion acute 2024 1:31am Hyperglycemia due to type 2 diabetes mellitus acute December 15 1:31am Hypertensive emergency witho ut congestive heart failure acute December 152024 1:31am Medical non-compliance acute 2024 1:31am Morbid obesity with BMI of 45.0-49.9, adult acute December 15, 2024 1:31am [facility] Work Phone: History of Present illness Narrative* Patient identified by name. Reviewed available PMhx, PSHx, FMHx, meds and allergies - chart updatedas needed. * Getting cough with change in position * Has hx of thyroid cancer (left and isthmus) - does have small nodule on right side they have been watching * Endo wanted her to be evaluated * Some trouble swallowing solid foods * Denies GERD sxs - is on omeprazole * No previous EGD * Some pain with swallowing * Also has severe cough when tries to eat - solids or liquids * Cough when laying down * Uses CPAP at night [facility] [address] Work Phone: History of Present illness Narrative* Follow up * Last visit notes and plan reviewed * Cough * -resolved , off CHASE I * GERD * - better on PPI at 40 mg QD * - Endoscopy planned in a month or so . * +++++++++ * Additional PMHX reviewed * IZABELA * -on CPAP ,wears consistently * Hx Thyroid Cancer , with current Nodule * - no bx , pt states Endo is watching * TIGRE * - stable for last 2 yrs - symbicort. rare use of rescue * HTN * - on 3 meds .not sure why she is on Sprionolactone * RLS * - on med, works well, cannot sleep otherwise. Also has sleep issues related to shift work * Bipolar Deprssion * -has Psychologist she sese * Migraines * - sees specialist for this. * Pruritis, right palm, chronic intermittent, s aw 2 derms, no dxis. takes oral med prn [facility] Work Phone: History of Present illness Narrative* former PCP was Dr Villalba * Sees Endo for thyroid cancer and nodule and Endo is watching * Neurology - chronic migraines - Dr Randolph Villalba. under control * Sees Psych- for bipolar and it is under control * Has asthma which is controlled * This is a 40 year old female presents for follow-up of hypertension. * Patient denies symptoms including headaches, dizziness, vision changes, syncope, chest pain, palpitations, dyspnea, and edema. Medications are being taken as directed and tolerated well without side effects. Blood pressure is monitored outside the office and is at goal. The patient reports adherence to a low salt diet and is getting regular exercise. * This is a 40 year old female here for follow-up of hyperlipidemia. * The patient denies symptoms including myalgias, arthralgias, chest pain, palpitations, dyspnea, edema, claudication, unilateral weakness, or paresthesias. Medications are taken as directed and tolerated well without side effects. The patient is adherent to a low fat, low cholesterol diet and gets routine exercise. * Has borderline A1c and was not sure if needed medications so needs rechecked. * All other systems have been reviewed and are negative for complaint as noted in HPI. [facility] Work Phone: History of Present illness Narrative* This is a 40 year old female here for symptoms of cough. * Nasal congestion: Y * Nasal drainage: Y * Sore throat: Y * Swollen glands: Negative * Cough: Yes * Productive: N * Color: mild * Blood in cough phlegm: Negative * Wheezing: Negative * Shortness of breath: Negative * Chest pain: Negative * Heartburn: Negative * Belching: Negative * Fever: 102F * Recent out of country travel: Negative * She went to the [facility] ER in [place] last night. She was told to take Tylenol and it helped * Fever is better to 99.0 * All other systems have been reviewed and are negative for complaint as noted in HPI. [facility] Work Phone: History of Present illness Narrative* Sees Endo for thyroid cancer and nodule and Endo is watching * Neurology - chronic migraines - Dr Randolph Villalba. under control * Sees Psych- for bipolar and it is under control * Has asthma which is controlled * This is a 40 year old female presents for follow-up of hypertension. * Patient denies symptoms including headaches, dizziness, vision changes, syncope, chest pain, palpitations, dyspnea, and edema. Medications are being taken as directed and tolerated well without side effects. Blood pressure is monitored outside the office and is at goal. The patient reports adherence to a low salt diet and is getting regular exercise. * This is a 40 year old female here for follow-up of hyperlipidemia. * The patient denies symptoms including myalgias, arthralgias, chest pain, palpitations, dyspnea, edema, claudication, unilateral weakness, or paresthesias. Medications are taken as directed and tolerated well without side effects. The patient is adherent to a low fat, low cholesterol diet and gets routine exercise. * Has borderline A1c and was not sure if needed medications so needs rechecked. * All other systems have been reviewed and are negative for complaint as noted in HPI. [facility] Work Phone: History of Present illness Narrative* Sees Endo for thyroid cancer and nodule and Endo is watching * Neurology - chronic migraines - Dr Randolph Villalba. under control * Sees Psych- for bipolar and it is under control * Has asthma which is controlled * This is a 40 year old female presents for follow-up of hypertension. * Patient denies symptoms including headaches, dizziness, vision changes, syncope, chest pain, palpitations, dyspnea, and edema. Medications are being taken as directed and tolerated well without side effects. Blood pressure is monitored outside the office and is at goal. The patient reports adherence to a low salt diet and is getting regular exercise. * This is a 40 year old female here for follow-up of hyperlipidemia. * The patient denies symptoms including myalgias, arthralgias, chest pain, palpitations, dyspnea, edema, claudication, unilateral weakness, or paresthesias. Medications are taken as directed and tolerated well without side effects. The patient is adherent to a low fat, low cholesterol diet and gets routine exercise. * Has borderline A1c and was not sure if needed medications so needs rechecked. * Back is feeling much better * PT is not helping and is done * Is doing the PT at home and seeing the chiropractor once a month. * Gabapentin is helping. * All other systems have been reviewed and are negative for complaint as noted in HPI. -[facility] Work Phone: History of Present illness Narrative* Sees Endo for thyroid cancer and nodule and Endo is watching * Neurology - chronic migraines - Dr Randolph Villalba. under control * Sees Psych- for bipolar and it is under control * Has asthma which is controlled * This is a 40 year old female presents for follow-up of hypertension. * Patient denies symptoms including headaches, dizziness, vision changes, syncope, chest pain, palpitations, dyspnea, and edema. Medications are being taken as directed and tolerated well without side effects. Blood pressure is monitored outside the office and is at goal. The patient reports adherence to a low salt diet and is getting regular exercise. * This is a 40 year old female here for follow-up of hyperlipidemia. * The patient denies symptoms including myalgias, arthralgias, chest pain, palpitations, dyspnea, edema, claudication, unilateral weakness, or paresthesias. Medications are taken as directed and tolerated well without side effects. The patient is adherent to a low fat, low cholesterol diet and gets routine exercise. * Has borderline A1c and was not sure if needed medications so needs rechecked. * Back is feeling much better * PT is not helping and is done * Is doing the PT at home and seeing the chiropractor once a month. * Gabapentin is helping. * All other systems have been reviewed and are negative for complaint as noted in HPI. [facility] Work Phone: History of Present illness Narrative* Sees Endo for thyroid cancer and nodule and Endo is watching * Neurology - chronic migraines - Dr Randolph Villalba. under control * Sees Psych- for bipolar and it is under control * Has asthma which is controlled * This is a 40 year old female presents for follow-up of hypertension. * Patient denies symptoms including headaches, dizziness, vision changes, syncope, chest pain, palpitations, dyspnea, and edema. Medications are being taken as directed and tolerated well without side effects. Blood pressure is monitored outside the office and is at goal. The patient reports adherence to a low salt diet and is getting regular exercise. * This is a 40 year old female here for follow-up of hyperlipidemia. * The patient denies symptoms including myalgias, arthralgias, chest pain, palpitations, dyspnea, edema, claudication, unilateral weakness, or paresthesias. Medications are taken as directed and tolerated well without side effects. The patient is adherent to a low fat, low cholesterol diet and gets routine exercise. * Has borderline A1c and was not sure if needed medications so needs rechecked. * Back is feeling much better * PT is not helping and is done * Is doing the PT at home and seeing the chiropractor once a month. * Gabapentin is helping. * All other systems have been reviewed and are negative for complaint as noted in HPI. -[facility] Work Phone: History of Present illness Narrative* I have personally reviewed the OARRS report for JACOB CELIS. I have considered the risks of abuse, dependence, addiction and diversion. * Is the patient prescribed a combination of a benzodiazepine and opioid? No. * Controlled Substance Agreement: * I have printed this form and reviewed each line item with the patient and the patient has verbalized understanding. * Date of the last Controlled Substance Agreement: 11/27/2021 * Sees Endo for thyroid cancer and nodule and Endo is watching * Neurology - chronic migraines - Dr Randolph Villalba. under control * Sees Psych- for bipolar and it is under control * Has asthma which is controlled * This is a 40 year old female presents for follow-up of hypertension. * Patient denies symptoms including headaches, dizziness, vision changes, syncope, chest pain, palpitations, dyspnea, and edema. Medications are being taken as directed and tolerated well without side effects. Blood pressure is monitored outside the office and is at goal. The patient reports adherence to a low salt diet and is getting regular exercise. * This is a 40 year old female here for follow-up of hyperlipidemia. * The patient denies symptoms including myalgias, arthralgias, chest pain, palpitations, dyspnea, edema, claudication, unilateral weakness, or paresthesias. Medications are taken as directed and tolerated well without side effects. The patient is adherent to a low fat, low cholesterol diet and gets routine exercise. * Has borderline A1c and was not sure if needed medications so needs rechecked. * Back is feeling much better * PT is not helping and is done * Is doing the PT at home and seeing the chiropractor once a month. * Gabapentin is helping. * Had an ablation 12 years ago and has not had a period since then. She has been struggling with her weight. * All other systems have been reviewed and are negative for complaint as noted in HPI. -[facility] Work Phone: History of Present illness Narrative* Sees Endo for thyroid cancer and nodule and Endo is watching * Neurology - chronic migraines - Dr Randolph Villalba. under control * Sees Psych- for bipolar and it is under control * Has asthma which is controlled * This is a 40 year old female presents for follow-up of hypertension. * Patient denies symptoms including headaches, dizziness, vision changes, syncope, chest pain, palpitations, dyspnea, and edema. Medications are being taken as directed and tolerated well without side effects. Blood pressure is monitored outside the office and is at goal. The patient reports adherence to a low salt diet and is getting regular exercise. * This is a 40 year old female here for follow-up of hyperlipidemia. * The patient denies symptoms including myalgias, arthralgias, chest pain, palpitations, dyspnea, edema, claudication, unilateral weakness, or paresthesias. Medications are taken as directed and tolerated well without side effects. The patient is adherent to a low fat, low cholesterol diet and gets routine exercise. * Has borderline A1c and was not sure if needed medications so needs rechecked. * Back is feeling much better * PT is not helping and is done * Is doing the PT at home and seeing the chiropractor once a month. * Gabapentin is helping. * Had an ablation 12 years ago and has not had a period since then. She has been struggling with her weight. * All other systems have been reviewed and are negative for complaint as noted in HPI. [facility] Work Phone: History of Present illness Narrative* Sees Endo for thyroid cancer and nodule and Endo is watching * Neurology - chronic migraines - Dr Randolph Villalba. under control * Sees Psych- for bipolar and it is under control * Has asthma which is controlled * This is a 40 year old female presents for follow-up of hypertension. * Patient denies symptoms including headaches, dizziness, vision changes, syncope, chest pain, palpitations, dyspnea, and edema. Medications are being taken as directed and tolerated well without side effects. Blood pressure is monitored outside the office and is at goal. The patient reports adherence to a low salt diet and is getting regular exercise. * This is a 40 year old female here for follow-up of hyperlipidemia. * The patient denies symptoms including myalgias, arthralgias, chest pain, palpitations, dyspnea, edema, claudication, unilateral weakness, or paresthesias. Medications are taken as directed and tolerated well without side effects. The patient is adherent to a low fat, low cholesterol diet and gets routine exercise. * Has borderline A1c and was not sure if needed medications so needs rechecked. * Back is feeling much better * PT is not helping and is done * Is doing the PT at home and seeing the chiropractor once a month. * Gabapentin is helping. * Had an ablation 12 years ago and has not had a period since then. She has been struggling with her weight. * All other systems have been reviewed and are negative for complaint as noted in HPI. [facility] Work Phone: History of Present illness Narrative* CC: Here for well woman exam. * HPI: presents for annual well woman exam. * G5P 2 * She has the following concerns; Hx of tubal and ablation. No periods since then. * ROOM MANAGER HISTORY: * Menstrual cycles are infrequent since her ablation. * Declines STD testing. She is not sexually active. * PAP history- No history of abnormal PAP testing. Last PAP was 2019 * Next PAP due after 2023. * mammogram- needs an order. * Health Maintenance: * Diet and exercise- BMI 48. * She follows with a PCP. * She feels safe at home. * Medical history- per list, reviewed with patient * Surgical history- per list, reviewed with patient * Family history- No family history of breast, ovarian, or uterine cancer. No family history of coloncancer. * Social History: * Denies smoking, drug or alcohol abuse. * Reviewed current allergies and medication list. [facility] Work Phone: History of Present illness Narrative* This is a 41 year old female presents for follow-up of hypertension. * Patient denies symptoms including headaches, dizziness, vision changes, syncope, chest pain, palpitations, dyspnea, and edema. Medications are being taken as directed and tolerated well without side effects. Blood pressure is monitored outside the office and is at goal. The patient reports adherence to a low salt diet and is getting regular exercise. * This is a 41 year old female here for follow-up of hyperlipidemia. * The patient denies symptoms including myalgias, arthralgias, chest pain, palpitations, dyspnea, edema, claudication, unilateral weakness, or paresthesias. Medications are taken as directed and tolerated well without side effects. The patient is adherent to a low fat, low cholesterol diet and gets routine exercise. * Has high insulin levels and is doing well. She has more energy. * Has not lost any weight. [employer] Work Phone: History of Present illness Narrative* Ms. Celis is a 41-year-old female who presents for follow up. * The patient states that she was discovered to have a palpable thyroid nodule on routine examinationby her primary care physician. She had a thyroid ultrasound which revealed a 2 cm lesion on the right side. This led to a biopsy that revealed a follicular lesion of unknown significance. The patient underwent a right lobectomy. Surgical pathology revealed papillary thyroid cancer measuring 2.5 cm. * Thyroid function tests were obtained on September 27, 2021 which revealed a TSH of 1.65. * The patient had a thyroid ultrasound on January 18, 2020 which revealed a 1.2 x 0.9 x 0.9 left thyroidnodule, TIRADS-3. * Repeat thyroid ultrasound from January 08, 2021 revealed a 1 cm left thyroid nodule, TIRADS-3. * A repeat ultrasound was obtained on January 08, 2021 which revealed: * RIGHT LOBE: * The right lobe of the thyroid is surgically absent. There is no * abnormal mass in the surgical bed. * LEFT LOBE: * The left lobe of the thyroid measures 5.2 cm x 1.9 cm x 2.0 cm. The * left lobe of the thyroid is heterogeneous in echotexture and * demonstrates two nodules. * Within the lower thyroid lobe there is a nodule with the following * features: * Size: 9.2 x 5.4 x 7.6 mm * Composition: Solid or almost completely solid (2) * Echogenicity: Hypoechoic (2) * Shape: Vqwhd-[id number]-[id number] (0) * Margin: Ill-defined (0) * Echogenic Foci: None or Large comet-tail artifacts (0) * The total score of this nodule is 4 corresponding to a TI-RADS * category 4; Moderately suspicious. FNA is recommended if >1.5cm, * Follow up if >1.0cm in 1, 2, 3, and 5 years.. * Within the mid thyroid lobe there is a nodule with the following * features: * Size: 12.4 x 6.6 x 8.6 mm, similar in size compared to prior * accounting for differences in measuring technique. * Composition: Solid or almost completely solid (2) * Echogenicity: Hyperechoic or isoechoic (1) * Shape: Oelrg-axiv-vvis (0) * Margin: Ill-defined (0) * Echogenic Foci: None or Large comet-tail artifacts (0) * The total score of this nodule is 3 corresponding to a TI-RADS * category 3; Mildly suspicious. FNA is recommended if >2.5cm, Follow * up if >1.5cm in 1, 3, and 5 years.. * ISTHMUS: * The isthmus measures approximately 3.1 mm and is homogeneous in * echotexture.. * There is a 10.3 x 5.5 x 8.9 mm hypoechoic nodule, questionably * increased in size compared to prior (previously measuring 6.1 x 4.3 x * 6.9 mm). * Composition: Solid or almost completely solid (2) * Echogenicity: Hyperechoic or isoechoic (1) * Shape: Irjwn-tcii-epzi (0) * Margin: Ill-defined (0) * Echogenic Foci: None or Large comet-tail artifacts (0) * The total score of this nodule is 3 corresponding to a TI-RADS * category 3; Mildly suspicious. FNA is recommended if >2.5cm, Follow * up if >1.5cm in 1, 3, and 5 years.. * CERVICAL LYMPH NODES: * No cervical lymph adenopathy is present. * She has been having a cough for five months. This is worse upon lying down. She is to see GI on 02/20 * Metorprolol was added as heart rate has been elevated. * can be short of breath at times * She had COVID-19 in September 2021. She has been more short of breath ever since. * prednisdone for five days * Symptoms are as listed below: * Energy levels - good * Sleep - good quality with CPAP; 6-7 hours; disrupted by nocutira x 1 * Temperature intolerances - nies * Hot flashes - admits * no menses in 12 years; had ablation when daughter was born tue to menorrhagia * Bowel movements - twice daily * Hair changes - chronically thin * Denies sweats * Palpitations- denies * Tremors - admits at times with exertion ; works 7:30pm to 7am * Skin changes - more dry * Strength - diminished * Mood- no changes; had three nervous breakdowns in 7 years * Weight changes - gained * LMP 12 years ago; had tubal ligation and ablation six weeks later due to menorrhagia; she has two children * Night sweats [facility] Work Phone: History of Present illness Narrative* Ms. Celis is a 41-year-old female who presents for follow up. * The patient states that she was discovered to have a palpable thyroid nodule on routine examinationby her primary care physician. She had a thyroid ultrasound which revealed a 2 cm lesion on the right side. This led to a biopsy that revealed a follicular lesion of unknown significance. The patient underwent a right lobectomy. Surgical pathology revealed papillary thyroid cancer measuring 2.5 cm. * Thyroid function tests were obtained on September 27, 2021 which revealed a TSH of 1.65. * The patient had a thyroid ultrasound on January 08, 2021 which revealed: * RIGHT LOBE: * The right lobe of the thyroid is surgically absent. There is no abnormal mass in the surgical bed. * LEFT LOBE: * The left lobe of the thyroid measures 5.2 cm x 1.9 cm x 2.0 cm. The left lobe of the thyroid is heterogeneous in echotexture and demonstrates two nodules. * Within the lower thyroid lobe there is a nodule with the following * features: * Size: 9.2 x 5.4 x 7.6 mm * Composition: Solid or almost completely solid (2) * Echogenicity: Hypoechoic (2) * Shape: Hbgyx-dqxr-urkb (0) * Margin: Ill-defined (0) * Echogenic Foci: None or Large comet-tail artifacts (0) * The total score of this nodule is 4 corresponding to a TI-RADS * category 4; Moderately suspicious. FNA is recommended if >1.5cm, * Follow up if >1.0cm in 1, 2, 3, and 5 years.. * Within the mid thyroid lobe there is a nodule with the following features: * Size: 12.4 x 6.6 x 8.6 mm, similar in size compared to prior * accounting for differences in measuring technique. * Composition: Solid or almost completely solid (2) * Echogenicity: Hyperechoic or isoechoic (1) * Shape: Dryta-vhvp-ckvz (0) * Margin: Ill-defined (0) * Echogenic Foci: None or Large comet-tail artifacts (0) * The total score of this nodule is 3 corresponding to a TI-RADS * category 3; Mildly suspicious. FNA is recommended if >2.5cm, Follow * up if >1.5cm in 1, 3, and 5 years.. * ISTHMUS: * The isthmus measures approximately 3.1 mm and is homogeneous in * echotexture.. * There is a 10.3 x 5.5 x 8.9 mm hypoechoic nodule, questionably increased in size compared to prior (previously measuring 6.1 x 4.3 x 6.9 mm). * Composition: Solid or almost completely solid (2) * Echogenicity: Hyperechoic or isoechoic (1) * Shape: Nfgjo-cpnf-rwke (0) * Margin: Ill-defined (0) * Echogenic Foci: None or Large comet-tail artifacts (0) * The total score of this nodule is 3 corresponding to a TI-RADS category 3; Mildly suspicious. FNA is recommended if >2.5cm, Follow up if >1.5cm in 1, 3, and 5 years.. * CERVICAL LYMPH NODES: * No cervical lymph adenopathy is present. * She has been having a cough for five months. This is worse upon lying down. She is to see GI on 02/20 * Metoprolol was added as heart rate has been elevated. She can have dyspnea at times. She can have dyspnea at times. * She had COVID-19 in September 2021. She has been more short of breath ever since. She was on prednisonefor five days * Symptoms are as listed below: * Energy levels - good * Sleep - good quality with CPAP; 6-7 hours; disrupted by nocturia x 1 * Temperature intolerances - denies * Hot flashes - admits; no menses in 12 years; had ablation when daughter was born due to menorrhagia * Bowel movements - twice daily * Hair changes - chronically thin * Denies sweats * Palpitations- denies * Tremors - admits at times with exertion ; works 7:30pm to 7am * Skin changes - more dry * Mood- no changes; had three nervous breakdowns in 7 years * Weight changes - gained * LMP 12 years ago; had tubal ligation and ablation six weeks later due to menorrhagia; she has two children * Night sweats [facility] Work Phone: History of Present illness Narrative* This is a 41 year old female presents for follow-up of hypertension. * Patient denies symptoms including headaches, dizziness, vision changes, syncope, chest pain, palpitations, dyspnea, and edema. Medications are being taken as directed and tolerated well without side effects. Blood pressure is monitored outside the office and is at goal. The patient reports adherence to a low salt diet and is getting regular exercise. * This is a 41 year old female here for follow-up of hyperlipidemia. * The patient denies symptoms including myalgias, arthralgias, chest pain, palpitations, dyspnea, edema, claudication, unilateral weakness, or paresthesias. Medications are taken as directed and tolerated well without side effects. The patient is adherent to a low fat, low cholesterol diet and gets routine exercise. * Has high insulin levels and is doing well. She has more energy. * Has not lost any weight. * She went to the endo and her thyroid nodule is slightly bigger and she will be getting a biopsy. [employer] Work Phone: History of Present illness Narrative* This is a 41 year old female presents for follow-up of hypertension. * Patient denies symptoms including headaches, dizziness, vision changes, syncope, chest pain, palpitations, dyspnea, and edema. Medications are being taken as directed and tolerated well without side effects. Blood pressure is monitored outside the office and is at goal. The patient reports adherence to a low salt diet and is getting regular exercise. * This is a 41 year old female here for follow-up of hyperlipidemia. * The patient denies symptoms including myalgias, arthralgias, chest pain, palpitations, dyspnea, edema, claudication, unilateral weakness, or paresthesias. Medications are taken as directed and tolerated well without side effects. The patient is adherent to a low fat, low cholesterol diet and gets routine exercise. * Has high insulin levels and is doing well. She has more energy. * Has not lost any weight. * She went to the endo and her thyroid nodule is slightly bigger and she will be getting a biopsy. [employer] Work Phone: History of Present illness Narrative* The last health maintenance visit was 1 year(s) ago. there are no concerns today. The patient's health since the last visit is described as good. There are no interval changes in the patient's PMH, PSH, and current medications. There are no interval changes in the patient's social and family history. She has regular dental visits. She denies vision problems. She denies hearing loss. Immunizationsstatus: up to date. * Lifestyle: She consumes a diverse and healthy diet. She does not have any weight concerns. She exercises regularly. She does not use tobacco. She denies alcohol use. * Reproductive health: she reports normal menses. * Cervical cancer screening: cancer screening reviewed and current. * Breast cancer screening: cancer screening reviewed and current. [facility] Work Phone: History of Present illness Narrative* The last health maintenance visit was 1 year(s) ago. there are no concerns today. The patient's health since the last visit is described as good. There are no interval changes in the patient's PMH, PSH, and current medications. There are no interval changes in the patient's social and family history. She has regular dental visits. She denies vision problems. She denies hearing loss. Immunizationsstatus: up to date. * Lifestyle: She consumes a diverse and healthy diet. She does not have any weight concerns. She exercises regularly. She does not use tobacco. She denies alcohol use. * Reproductive health: she reports normal menses. * Cervical cancer screening: cancer screening reviewed and current. * Breast cancer screening: cancer screening reviewed and current. * This is a 41 year old female presents for follow-up of hypertension. * Patient denies symptoms including headaches, dizziness, vision changes, syncope, chest pain, palpitations, dyspnea, and edema. Medications are being taken as directed and tolerated well without side effects. Blood pressure is monitored outside the office and is at goal. The patient reports adherence to a low salt diet and is getting regular exercise. * This is a 41 year old female here for follow-up of hyperlipidemia. * The patient denies symptoms including myalgias, arthralgias, chest pain, palpitations, dyspnea, edema, claudication, unilateral weakness, or paresthesias. Medications are taken as directed and tolerated well without side effects. The patient is adherent to a low fat, low cholesterol diet and gets routine exercise. * Has high insulin levels and is doing well. She has more energy. * Has not lost any weight. * She went to the [facility] [place] and her thyroid nodule is slightly bigger and she will be getting a biopsy. [facility] Work Phone: History of Present illness Narrative* Ms. Celis is a 42-year-old female who presents for follow up. * The patient states that she was discovered to have a palpable thyroid nodule on routine examinationby her primary care physician. She had a thyroid ultrasound which revealed a 2 cm lesion on the right side. This led to a biopsy that revealed a follicular lesion of unknown significance. The patient underwent a right lobectomy. Surgical pathology revealed papillary thyroid cancer measuring 2.5 cm. * Thyroid function tests were obtained on December 30, 2022 which revealed a TSH of 3.16. * The patient had a thyroid ultrasound on January 08, 2021 which revealed: * RIGHT LOBE: * The right lobe of the thyroid is surgically absent. There is no abnormal mass in the surgical bed. * LEFT LOBE: * The left lobe of the thyroid measures 5.2 cm x 1.9 cm x 2.0 cm. The left lobe of the thyroid is heterogeneous in echotexture and demonstrates two nodules. * Within the lower thyroid lobe there is a nodule with the following * features: * Size: 9.2 x 5.4 x 7.6 mm * Composition: Solid or almost completely solid (2) * Echogenicity: Hypoechoic (2) * Shape: Jfqwe-fefo-rxnm (0) * Margin: Ill-defined (0) * Echogenic Foci: None or Large comet-tail artifacts (0) * The total score of this nodule is 4 corresponding to a TI-RADS * category 4; Moderately suspicious. FNA is recommended if >1.5cm, * Follow up if >1.0cm in 1, 2, 3, and 5 years.. * Within the mid thyroid lobe there is a nodule with the following features: * Size: 12.4 x 6.6 x 8.6 mm, similar in size compared to prior * accounting for differences in measuring technique. * Composition: Solid or almost completely solid (2) * Echogenicity: Hyperechoic or isoechoic (1) * Shape: Juzmz-ibhd-faht (0) * Margin: Ill-defined (0) * Echogenic Foci: None or Large comet-tail artifacts (0) * The total score of this nodule is 3 corresponding to a TI-RADS * category 3; Mildly suspicious. FNA is recommended if >2.5cm, Follow * up if >1.5cm in 1, 3, and 5 years.. * ISTHMUS: * The isthmus measures approximately 3.1 mm and is homogeneous in * echotexture.. * There is a 10.3 x 5.5 x 8.9 mm hypoechoic nodule, questionably increased in size compared to prior (previously measuring 6.1 x 4.3 x 6.9 mm). * Composition: Solid or almost completely solid (2) * Echogenicity: Hyperechoic or isoechoic (1) * Shape: Ojfai-gxup-brib (0) * Margin: Ill-defined (0) * Echogenic Foci: None or Large comet-tail artifacts (0) * The total score of this nodule is 3 corresponding to a TI-RADS category 3; Mildly suspicious. FNA is recommended if >2.5cm, Follow up if >1.5cm in 1, 3, and 5 years.. * CERVICAL LYMPH NODES: * No cervical lymph adenopathy is present. * A repeat thyroid ultrasound was obtained on February 11, 2022 which revealed: * RIGHT LOBE: * Surgically absent. * LEFT LOBE: * 6.0 x 1.7 x 2.1 cm in sagittal, AP, and transverse dimensions. Previously described TI-RADS 3 nodule within the midpole is not significantly, measuring approximately 1.5 cm in size. Previously described TI-RADS 4 nodule within the inferior pole is not significantly measuring approximately 1.1 cm insize. There is a TI-RADS 4 nodule within the inferior pole which measures 1.0 cm in size which was not imaged on the previous study. * ISTHMUS: * 5 mm in thickness without a discrete nodule. * IMPRESSION: * Status post right thyroidectomy. Thyroid nodules on the left, measuring up to 1.5 cm and grading upto TI-RADS 4. * She underwent a FNAB of left thyroid nodule on April 17, 2022. Surgical pathology benign. * Symptoms are as listed below: * Energy levels - good; she works night shifts, 7 on and 7 off. * Sleep - good quality with CPAP; 6 hours * Temperature intolerances - denies * Bowel movements - regular * Palpitations- denies * Tremors - eats on meal per day if stressed; she is trying to get custody of her children * Mood- she has had a few anxiety attacks; trying to get custody of her children * Weight changes - gained LMP 13 years ago; had tubal ligation and ablation six weeks later due to menorrhagia; she has two children * Her PCP was asking if she can go on injectables for her weight and increasing A1C values [id number] Work Phone: Hospital Discharge instructions* Attachments The following attachments cannot be sent through Care Everywhere. * Diarrhea ([place]) documented in this [facility] Work Phone: Hospital Discharge instructions* Attachments The following attachments cannot be sent through Care Everywhere. * Sprain Discharge Instructions ([place]) documented in this [facility] Discharge instructions* Attachments The following attachments cannot be sent through Care Everywhere. * Kidney Stone, Adult ED ([place]) documented in this [facility] Discharge instructions* Attachments The following attachments cannot be sent through Care Everywhere. * Cough Discharge Instructions, [facility] Outpatient Procedure (Routine) - Authorized Specialty Diagnoses / Procedures Referred By Contac t Referred To [facility] [place] Diagnoses Mild intermittent asthma without complication Procedures LUNG DIFFUSION CAPACITY (DLCO) DIFFUSING CAPACITY [facility], Provider NON-STAFF PROVIDER Respiratory [address] [address] Referral ID Status Reason Start Date Expiration Date Visits Requested Visits Authorized [id number] Authorized Auto-Generat ed Referral 11/15/2021 12/15/2022 1 1 * Outpatient Procedure (Routine) - Authorized Specialty Diagnoses / Procedures Referred By Contac t Referred To [facility] [place] Diagnoses Mild intermittent asthma without complication Procedures LUNG VOLUMES PLETHYSMOGRAPHY LUNG VOLUMES W/WO AIRWAY RESIST [facility], Provider NON-STAFF PROVIDER Respiratory [facility] [place] [address] Referral ID Status Reason Start Date Expiration Date Visits Requested Visits Authorized [id number] Authorized Auto-Generat ed Referral 11/15/2021 06/29/2022 1 1 * Outpatient Procedure (Routine) - Authorized Specialty Diagnoses / Procedures Referred By Contac t Referred To [facility] [place] Diagnoses Mild intermittent asthma without complication Procedures SPIROMETRY - BASELINE AND POST DILATOR BRNCDILAT RSPSE SPMTRY PRE&POST-BRNCDILAT ADMN [facility], Provider NON-STAFF PROVIDER Respiratory [place] [address] [place] [address] Referral ID Status Reason Start Date Expiration Date Visits Requested Visits Authorized [id number] Authorized Auto-Generat ed Referral 11/15/2021 12/15/2022 1 1 [facility] for referral (narrative)* Consultation (Urgent) - Pending Review Specialty Diagnoses / Procedures Referred By Wilbur garcia Referred To Contact Urology Diagnoses Ureteral stone with hydronephrosis Procedures NV OFFICE/OUTPATIENT NEW HIGH MDM 60 MINUTES Madelaine Gutierrez MD [address] [place] [address] [facility] [address] [place] [address] Referral ID Status Reason Start Date Expiration Date Visits Requested Visits Authorized [id number] Pending Review Specialty Services Required 08/29/2023 08/28/2024 [address] [facility] for referral (narrative)No reason for referral information availableWCincinnati [facility] Work Phone: Summary Purpose Family History No Family History Records Found Grandmother Name Dates Details Family history of cardiac di sorder(V17.49, Z82.49) Status:Active Family history of cerebrovas cular accident (CVA)(V17.1, Z82.3) Status:Active Family history of High serum cholestanol(790.99, R79.89) Status:Active great grandmother Name Dates Details Family history of cardiac di sorder(V17.49, Z82.49) Status:Active Family history of cerebrovas cular accident (CVA)(V17.1, Z82.3) Status:Active Family history of High serum cholestanol(790.99, R79.89) Status:Active aunt Name Dates Details Family history of Seizures(7 80.39, R56.9) Status:Active Family history of thyroid di sease(V18.19, Z83.49) Status:Active Family history of osteoporos is(V17.81, Z82.62) Status:Active Mother Name Dates Details Family history of diabetes m ellitus(V18.0, Z83.3) Status:Active Family history of cardiac di sorder(V17.49, Z82.49) Status:Active Family history of cerebrovas cular accident (CVA)(V17.1, Z82.3) Status:Active Family history of High serum cholestanol(790.99, R79.89) Status:Active Family history of chronic ob structive pulmonary disease(V17.6, Z82.5) Status:Active Family history of glaucoma(V 19.11, Z83.511) Status:Active Father Name Dates Details Family history of kidney dis ease(V18.69, Z84.1) Status:Active Family history of cardiac di sorder(V17.49, Z82.49) Status:Active Family history of cerebrovas cular accident (CVA)(V17.1, Z82.3) Status:Active Family history of High serum cholestanol(790.99, R79.89) Status:Active Family history of chronic ob structive pulmonary disease(V17.6, Z82.5) Status:Active Family history of glaucoma(V 19.11, Z83.511) Status:Active Grandmother Name Dates Details Family history of cardiac di sorder(V17.49, Z82.49) Status:Active Family history of cerebrovas cular accident (CVA)(V17.1, Z82.3) Status:Active Family history of High serum cholestanol(790.99, R79.89) Status:Active great grandmother Name Dates Details Family history of cardiac di sorder(V17.49, Z82.49) Status:Active Family history of cerebrovas cular accident (CVA)(V17.1, Z82.3) Status:Active Family history of High serum cholestanol(790.99, R79.89) Status:Active aunt Name Dates Details Family history of Seizures(7 80.39, R56.9) Status:Active Family history of thyroid di sease(V18.19, Z83.49) Status:Active Family history of osteoporos is(V17.81, Z82.62) Status:Active Mother Name Dates Details Family history of diabetes juan antonio evansitus(V18.0, Z83.3) Status:Active Family history of cardiac di sorder(V17.49, Z82.49) Status:Active Family history of cerebrovas cular accident (CVA)(V17.1, Z82.3) Status:Active Family history of High serum cholestanol(790.99, R79.89) Status:Active Family history of chronic ob structive pulmonary disease(V17.6, Z82.5) Status:Active Family history of glaucoma(V 19.11, Z83.511) Status:Active Father Name Dates Details Family history of kidney dis ease(V18.69, Z84.1) Status:Active Family history of cardiac di sorder(V17.49, Z82.49) Status:Active Family history of cerebrovas cular accident (CVA)(V17.1, Z82.3) Status:Active Family history of High serum cholestanol(790.99, R79.89) Status:Active Family history of chronic ob structive pulmonary disease(V17.6, Z82.5) Status:Active Family history of glaucoma(V 19.11, Z83.511) Status:Active Grandmother Name Dates Details Family history of cardiac di sorder(V17.49, Z82.49) Status:Active Family history of cerebrovas cular accident (CVA)(V17.1, Z82.3) Status:Active Family history of High serum cholestanol(790.99, R79.89) Status:Active great grandmother Name Dates Details Family history of cardiac di sorder(V17.49, Z82.49) Status:Active Family history of cerebrovas cular accident (CVA)(V17.1, Z82.3) Status:Active Family history of High serum cholestanol(790.99, R79.89) Status:Active aunt Name Dates Details Family history of Seizures(7 80.39, R56.9) Status:Active Family history of thyroid di sease(V18.19, Z83.49) Status:Active Family history of osteoporos is(V17.81, Z82.62) Status:Active Mother Name Dates Details Family history of diabetes m brynn(V18.0, Z83.3) Status:Active Family history of cardiac di sorder(V17.49, Z82.49) Status:Active Family history of cerebrovas cular accident (CVA)(V17.1, Z82.3) Status:Active Family history of High serum cholestanol(790.99, R79.89) Status:Active Family history of chronic ob structive pulmonary disease(V17.6, Z82.5) Status:Active Family history of glaucoma(V 19.11, Z83.511) Status:Active Father Name Dates Details Family history of kidney dis ease(V18.69, Z84.1) Status:Active Family history of cardiac di sorder(V17.49, Z82.49) Status:Active Family history of cerebrovas cular accident (CVA)(V17.1, Z82.3) Status:Active Family history of High serum cholestanol(790.99, R79.89) Status:Active Family history of chronic ob structive pulmonary disease(V17.6, Z82.5) Status:Active Family history of glaucoma(V 19.11, Z83.511) Status:Active Grandmother Name Dates Details Family history of cardiac di sorder(V17.49, Z82.49) Status:Active Family history of cerebrovas cular accident (CVA)(V17.1, Z82.3) Status:Active Family history of High serum cholestanol(790.99, R79.89) Status:Active great grandmother Name Dates Details Family history of cardiac di sorder(V17.49, Z82.49) Status:Active Family history of cerebrovas cular accident (CVA)(V17.1, Z82.3) Status:Active Family history of High serum cholestanol(790.99, R79.89) Status:Active aunt Name Dates Details Family history of Seizures(7 80.39, R56.9) Status:Active Family history of thyroid di sease(V18.19, Z83.49) Status:Active Family history of osteoporos is(V17.81, Z82.62) Status:Active Mother Name Dates Details Family history of diabetes juan antonio swain(V18.0, Z83.3) Status:Active Family history of cardiac di sorder(V17.49, Z82.49) Status:Active Family history of cerebrovas cular accident (CVA)(V17.1, Z82.3) Status:Active Family history of High serum cholestanol(790.99, R79.89) Status:Active Family history of chronic ob structive pulmonary disease(V17.6, Z82.5) Status:Active Family history of glaucoma(V 19.11, Z83.511) Status:Active Father Name Dates Details Family history of kidney dis ease(V18.69, Z84.1) Status:Active Family history of cardiac di sorder(V17.49, Z82.49) Status:Active Family history of cerebrovas cular accident (CVA)(V17.1, Z82.3) Status:Active Family history of High serum cholestanol(790.99, R79.89) Status:Active Family history of chronic ob structive pulmonary disease(V17.6, Z82.5) Status:Active Family history of glaucoma(V 19.11, Z83.511) Status:Active Grandmother Name Dates Details Family history of cardiac di sorder(V17.49, Z82.49) Status:Active Family history of cerebrovas cular accident (CVA)(V17.1, Z82.3) Status:Active Family history of High serum cholestanol(790.99, R79.89) Status:Active great grandmother Name Dates Details Family history of cardiac di sorder(V17.49, Z82.49) Status:Active Family history of cerebrovas cular accident (CVA)(V17.1, Z82.3) Status:Active Family history of High serum cholestanol(790.99, R79.89) Status:Active aunt Name Dates Details Family history of Seizures(7 80.39, R56.9) Status:Active Family history of thyroid di sease(V18.19, Z83.49) Status:Active Family history of osteoporos is(V17.81, Z82.62) Status:Active Mother Name Dates Details Family history of diabetes m ellitus(V18.0, Z83.3) Status:Active Family history of cardiac di sorder(V17.49, Z82.49) Status:Active Family history of cerebrovas cular accident (CVA)(V17.1, Z82.3) Status:Active Family history of High serum cholestanol(790.99, R79.89) Status:Active Family history of chronic ob structive pulmonary disease(V17.6, Z82.5) Status:Active Family history of glaucoma(V 19.11, Z83.511) Status:Active Father Name Dates Details Family history of kidney dis ease(V18.69, Z84.1) Status:Active Family history of cardiac di sorder(V17.49, Z82.49) Status:Active Family history of cerebrovas cular accident (CVA)(V17.1, Z82.3) Status:Active Family history of High serum cholestanol(790.99, R79.89) Status:Active Family history of chronic ob structive pulmonary disease(V17.6, Z82.5) Status:Active Family history of glaucoma(V 19.11, Z83.511) Status:Active Unknown Family Member Name Dates Details Family history of diabetes m ellitus: Mother(V18.0, Z83.3) Status:Active Family history of kidney dis ease: Father(V18.69, Z84.1) Status:Active Family history of cardiac di sorder: Mother, Father, Maternal Grandmother, Maternal Great Grandmother(V17.49, Z82.49) Status:Active Family history of cerebrovas cular accident (CVA): Mother, Father, Maternal Grandmother, Maternal Great Grandmother(V17.1, Z82.3) Status:Active High serum cholestanol: Moth er, Father, Maternal Grandmother, Maternal Great Grandmother Status:Active Family history of chronic ob structive pulmonary disease: Mother, Father(V17.6, Z82.5) Status:Active Seizures: Aunt Status:Active Family history of thyroid di sease: Aunt(V18.19, Z83.49) Status:Active Family history of osteoporos is: Aunt(V17.81, Z82.62) Status:Active Family history of glaucoma: Mother, Father(V19.11, Z83.511) Status:Active Unknown Family Member Name Dates Details Family history of diabetes m ellitus: Mother(V18.0, Z83.3) Status:Active Family history of kidney dis ease: Father(V18.69, Z84.1) Status:Active Family history of cardiac di sorder: Mother, Father, Maternal Grandmother, Maternal Great Grandmother(V17.49, Z82.49) Status:Active Family history of cerebrovas cular accident (CVA): Mother, Father, Maternal Grandmother, Maternal Great Grandmother(V17.1, Z82.3) Status:Active High serum cholestanol: Moth er, Father, Maternal Grandmother, Maternal Great Grandmother Status:Active Family history of chronic ob structive pulmonary disease: Mother, Father(V17.6, Z82.5) Status:Active Seizures: Aunt Status:Active Family history of thyroid di sease: Aunt(V18.19, Z83.49) Status:Active Family history of osteoporos is: Aunt(V17.81, Z82.62) Status:Active Family history of glaucoma: Mother, Father(V19.11, Z83.511) Status:Active Unknown Family Member Name Dates Details Family history of diabetes m ellitus: Mother(V18.0, Z83.3) Status:Active Family history of kidney dis ease: Father(V18.69, Z84.1) Status:Active Family history of cardiac di sorder: Mother, Father, Maternal Grandmother, Maternal Great Grandmother(V17.49, Z82.49) Status:Active Family history of cerebrovas cular accident (CVA): Mother, Father, Maternal Grandmother, Maternal Great Grandmother(V17.1, Z82.3) Status:Active High serum cholestanol: Moth er, Father, Maternal Grandmother, Maternal Great Grandmother Status:Active Family history of chronic ob structive pulmonary disease: Mother, Father(V17.6, Z82.5) Status:Active Seizures: Aunt Status:Active Family history of thyroid di sease: Aunt(V18.19, Z83.49) Status:Active Family history of osteoporos is: Aunt(V17.81, Z82.62) Status:Active Family history of glaucoma: Mother, Father(V19.11, Z83.511) Status:Active Unknown Family Member Name Dates Details Family history of diabetes m ellitus: Mother(V18.0, Z83.3) Status:Active Family history of kidney dis ease: Father(V18.69, Z84.1) Status:Active Family history of cardiac di sorder: Mother, Father, Maternal Grandmother, Maternal Great Grandmother(V17.49, Z82.49) Status:Active Family history of cerebrovas cular accident (CVA): Mother, Father, Maternal Grandmother, Maternal Great Grandmother(V17.1, Z82.3) Status:Active High serum cholestanol: Moth er, Father, Maternal Grandmother, Maternal Great Grandmother Status:Active Family history of chronic ob structive pulmonary disease: Mother, Father(V17.6, Z82.5) Status:Active Seizures: Aunt Status:Active Family history of thyroid di sease: Aunt(V18.19, Z83.49) Status:Active Family history of osteoporos is: Aunt(V17.81, Z82.62) Status:Active Family history of glaucoma: Mother, Father(V19.11, Z83.511) Status:Active Unknown Family Member Name Dates Details Family history of diabetes m ellitus: Mother(V18.0, Z83.3) Status:Active Family history of kidney dis ease: Father(V18.69, Z84.1) Status:Active Family history of cardiac di sorder: Mother, Father, Maternal Grandmother, Maternal Great Grandmother(V17.49, Z82.49) Status:Active Family history of cerebrovas cular accident (CVA): Mother, Father, Maternal Grandmother, Maternal Great Grandmother(V17.1, Z82.3) Status:Active High serum cholestanol: Moth er, Father, Maternal Grandmother, Maternal Great Grandmother Status:Active Family history of chronic ob structive pulmonary disease: Mother, Father(V17.6, Z82.5) Status:Active Seizures: Aunt Status:Active Family history of thyroid di sease: Aunt(V18.19, Z83.49) Status:Active Family history of osteoporos is: Aunt(V17.81, Z82.62) Status:Active Family history of glaucoma: Mother, Father(V19.11, Z83.511) Status:Active Unknown Family Member Name Dates Details Family history of diabetes m ellitus: Mother(V18.0, Z83.3) Status:Active Family history of kidney dis ease: Father(V18.69, Z84.1) Status:Active Family history of cardiac di sorder: Mother, Father, Maternal Grandmother, Maternal Great Grandmother(V17.49, Z82.49) Status:Active Family history of glaucoma: Mother, Father(V19.11, Z83.511) Status:Active Family history of osteoporos is: Aunt(V17.81, Z82.62) Status:Active Family history of thyroid di sease: Aunt(V18.19, Z83.49) Status:Active Seizures: Aunt Status:Active Family history of chronic ob structive pulmonary disease: Mother, Father(V17.6, Z82.5) Status:Active High serum cholestanol: Moth er, Father, Maternal Grandmother, Maternal Great Grandmother Status:Active Family history of cerebrovas cular accident (CVA): Mother, Father, Maternal Grandmother, Maternal Great Grandmother(V17.1, Z82.3) Status:Active Unknown Family Member Name Dates Details Family history of diabetes m ellitus: Mother(V18.0, Z83.3) Status:Active Family history of kidney dis ease: Father(V18.69, Z84.1) Status:Active Family history of cardiac di sorder: Mother, Father, Maternal Grandmother, Maternal Great Grandmother(V17.49, Z82.49) Status:Active Family history of cerebrovas cular accident (CVA): Mother, Father, Maternal Grandmother, Maternal Great Grandmother(V17.1, Z82.3) Status:Active High serum cholestanol: Moth er, Father, Maternal Grandmother, Maternal Great Grandmother Status:Active Family history of chronic ob structive pulmonary disease: Mother, Father(V17.6, Z82.5) Status:Active Seizures: Aunt Status:Active Family history of thyroid di sease: Aunt(V18.19, Z83.49) Status:Active Family history of osteoporos is: Aunt(V17.81, Z82.62) Status:Active Family history of glaucoma: Mother, Father(V19.11, Z83.511) Status:Active Unknown Family Member Name Dates Details Family history of diabetes m ellitus: Mother(V18.0, Z83.3) Status:Active Family history of kidney dis ease: Father(V18.69, Z84.1) Status:Active Family history of cardiac di sorder: Mother, Father, Maternal Grandmother, Maternal Great Grandmother(V17.49, Z82.49) Status:Active Family history of cerebrovas cular accident (CVA): Mother, Father, Maternal Grandmother, Maternal Great Grandmother(V17.1, Z82.3) Status:Active High serum cholestanol: Moth er, Father, Maternal Grandmother, Maternal Great Grandmother Status:Active Family history of chronic ob structive pulmonary disease: Mother, Father(V17.6, Z82.5) Status:Active Seizures: Aunt Status:Active Family history of thyroid di sease: Aunt(V18.19, Z83.49) Status:Active Family history of osteoporos is: Aunt(V17.81, Z82.62) Status:Active Family history of glaucoma: Mother, Father(V19.11, Z83.511) Status:Active Unknown Family Member Name Dates Details Family history of diabetes m ellitus: Mother(V18.0, Z83.3) Status:Active Family history of kidney dis ease: Father(V18.69, Z84.1) Status:Active Family history of cardiac di sorder: Mother, Father, Maternal Grandmother, Maternal Great Grandmother(V17.49, Z82.49) Status:Active Family history of cerebrovas cular accident (CVA): Mother, Father, Maternal Grandmother, Maternal Great Grandmother(V17.1, Z82.3) Status:Active High serum cholestanol: Moth er, Father, Maternal Grandmother, Maternal Great Grandmother Status:Active Family history of chronic ob structive pulmonary disease: Mother, Father(V17.6, Z82.5) Status:Active Seizures: Aunt Status:Active Family history of thyroid di sease: Aunt(V18.19, Z83.49) Status:Active Family history of osteoporos is: Aunt(V17.81, Z82.62) Status:Active Family history of glaucoma: Mother, Father(V19.11, Z83.511) Status:Active Unknown Family Member Name Dates Details Family history of diabetes m ellitus: Mother(V18.0, Z83.3) Status:Active Family history of kidney dis ease: Father(V18.69, Z84.1) Status:Active Family history of cardiac di sorder: Mother, Father, Maternal Grandmother, Maternal Great Grandmother(V17.49, Z82.49) Status:Active Family history of cerebrovas cular accident (CVA): Mother, Father, Maternal Grandmother, Maternal Great Grandmother(V17.1, Z82.3) Status:Active High serum cholestanol: Moth er, Father, Maternal Grandmother, Maternal Great Grandmother Status:Active Family history of chronic ob structive pulmonary disease: Mother, Father(V17.6, Z82.5) Status:Active Seizures: Aunt Status:Active Family history of thyroid di sease: Aunt(V18.19, Z83.49) Status:Active Family history of osteoporos is: Aunt(V17.81, Z82.62) Status:Active Family history of glaucoma: Mother, Father(V19.11, Z83.511) Status:Active Unknown Family Member Name Dates Details Family history of diabetes m ellitus: Mother(V18.0, Z83.3) Status:Active Family history of kidney dis ease: Father(V18.69, Z84.1) Status:Active Family history of cardiac di sorder: Mother, Father, Maternal Grandmother, Maternal Great Grandmother(V17.49, Z82.49) Status:Active Family history of cerebrovas cular accident (CVA): Mother, Father, Maternal Grandmother, Maternal Great Grandmother(V17.1, Z82.3) Status:Active High serum cholestanol: Moth er, Father, Maternal Grandmother, Maternal Great Grandmother Status:Active Family history of chronic ob structive pulmonary disease: Mother, Father(V17.6, Z82.5) Status:Active Seizures: Aunt Status:Active Family history of thyroid di sease: Aunt(V18.19, Z83.49) Status:Active Family history of osteoporos is: Aunt(V17.81, Z82.62) Status:Active Family history of glaucoma: Mother, Father(V19.11, Z83.511) Status:Active Unknown Family Member Name Dates Details Family history of diabetes m ellitus: Mother(V18.0, Z83.3) Status:Active Family history of kidney dis ease: Father(V18.69, Z84.1) Status:Active Family history of cardiac di sorder: Mother, Father, Maternal Grandmother, Maternal Great Grandmother(V17.49, Z82.49) Status:Active Family history of cerebrovas cular accident (CVA): Mother, Father, Maternal Grandmother, Maternal Great Grandmother(V17.1, Z82.3) Status:Active High serum cholestanol: Moth er, Father, Maternal Grandmother, Maternal Great Grandmother Status:Active Family history of chronic ob structive pulmonary disease: Mother, Father(V17.6, Z82.5) Status:Active Seizures: Aunt Status:Active Family history of thyroid di sease: Aunt(V18.19, Z83.49) Status:Active Family history of osteoporos is: Aunt(V17.81, Z82.62) Status:Active Family history of glaucoma: Mother, Father(V19.11, Z83.511) Status:Active Unknown Family Member Name Dates Details Family history of diabetes m ellitus: Mother(V18.0, Z83.3) Status:Active Family history of kidney dis ease: Father(V18.69, Z84.1) Status:Active Family history of cardiac di sorder: Mother, Father, Maternal Grandmother, Maternal Great Grandmother(V17.49, Z82.49) Status:Active Family history of cerebrovas cular accident (CVA): Mother, Father, Maternal Grandmother, Maternal Great Grandmother(V17.1, Z82.3) Status:Active High serum cholestanol: Moth er, Father, Maternal Grandmother, Maternal Great Grandmother Status:Active Family history of chronic ob structive pulmonary disease: Mother, Father(V17.6, Z82.5) Status:Active Seizures: Aunt Status:Active Family history of thyroid di sease: Aunt(V18.19, Z83.49) Status:Active Family history of osteoporos is: Aunt(V17.81, Z82.62) Status:Active Family history of glaucoma: Mother, Father(V19.11, Z83.511) Status:Active Unknown Family Member Name Dates Details Family history of diabetes m ellitus: Mother(V18.0, Z83.3) Status:Active Family history of kidney dis ease: Father(V18.69, Z84.1) Status:Active Family history of cardiac di sorder: Mother, Father, Maternal Grandmother, Maternal Great Grandmother(V17.49, Z82.49) Status:Active Family history of cerebrovas cular accident (CVA): Mother, Father, Maternal Grandmother, Maternal Great Grandmother(V17.1, Z82.3) Status:Active High serum cholestanol: Moth er, Father, Maternal Grandmother, Maternal Great Grandmother Status:Active Family history of chronic ob structive pulmonary disease: Mother, Father(V17.6, Z82.5) Status:Active Seizures: Aunt Status:Active Family history of thyroid di sease: Aunt(V18.19, Z83.49) Status:Active Family history of osteoporos is: Aunt(V17.81, Z82.62) Status:Active Family history of glaucoma: Mother, Father(V19.11, Z83.511) Status:Active Unknown Family Member Name Dates Details Family history of diabetes m ellitus: Mother(V18.0, Z83.3) Status:Active Family history of kidney dis ease: Father(V18.69, Z84.1) Status:Active Family history of cardiac di sorder: Mother, Father, Maternal Grandmother, Maternal Great Grandmother(V17.49, Z82.49) Status:Active Family history of cerebrovas cular accident (CVA): Mother, Father, Maternal Grandmother, Maternal Great Grandmother(V17.1, Z82.3) Status:Active High serum cholestanol: Moth er, Father, Maternal Grandmother, Maternal Great Grandmother Status:Active Family history of chronic ob structive pulmonary disease: Mother, Father(V17.6, Z82.5) Status:Active Seizures: Aunt Status:Active Family history of thyroid di sease: Aunt(V18.19, Z83.49) Status:Active Family history of osteoporos is: Aunt(V17.81, Z82.62) Status:Active Family history of glaucoma: Mother, Father(V19.11, Z83.511) Status:Active Unknown Family Member Name Dates Details Family history of diabetes m ellitus: Mother(V18.0, Z83.3) Status:Active Family history of kidney dis ease: Father(V18.69, Z84.1) Status:Active Family history of cardiac di sorder: Mother, Father, Maternal Grandmother, Maternal Great Grandmother(V17.49, Z82.49) Status:Active Family history of cerebrovas cular accident (CVA): Mother, Father, Maternal Grandmother, Maternal Great Grandmother(V17.1, Z82.3) Status:Active High serum cholestanol: Moth er, Father, Maternal Grandmother, Maternal Great Grandmother Status:Active Family history of chronic ob structive pulmonary disease: Mother, Father(V17.6, Z82.5) Status:Active Seizures: Aunt Status:Active Family history of thyroid di sease: Aunt(V18.19, Z83.49) Status:Active Family history of osteoporos is: Aunt(V17.81, Z82.62) Status:Active Family history of glaucoma: Mother, Father(V19.11, Z83.511) Status:Active Unknown Family Member Name Dates Details Family history of diabetes m ellitus: Mother(V18.0, Z83.3) Status:Active Family history of kidney dis ease: Father(V18.69, Z84.1) Status:Active Family history of cerebrovas cular accident (CVA): Mother, Father, Maternal Grandmother, Maternal Great Grandmother(V17.1, Z82.3) Status:Active Family history of cardiac di sorder: Mother, Father, Maternal Grandmother, Maternal Great Grandmother(V17.49, Z82.49) Status:Active High serum cholestanol: Moth er, Father, Maternal Grandmother, Maternal Great Grandmother Status:Active Family history of chronic ob structive pulmonary disease: Mother, Father(V17.6, Z82.5) Status:Active Seizures: Aunt Status:Active Family history of thyroid di sease: Aunt(V18.19, Z83.49) Status:Active Family history of osteoporos is: Aunt(V17.81, Z82.62) Status:Active Family history of glaucoma: Mother, Father(V19.11, Z83.511) Status:Active Unknown Family Member Name Dates Details Family history of diabetes m ellitus: Mother(V18.0, Z83.3) Status:Active Family history of kidney dis ease: Father(V18.69, Z84.1) Status:Active Family history of cerebrovas cular accident (CVA): Mother, Father, Maternal Grandmother, Maternal Great Grandmother(V17.1, Z82.3) Status:Active Family history of cardiac di sorder: Mother, Father, Maternal Grandmother, Maternal Great Grandmother(V17.49, Z82.49) Status:Active High serum cholestanol: Moth er, Father, Maternal Grandmother, Maternal Great Grandmother Status:Active Family history of chronic ob structive pulmonary disease: Mother, Father(V17.6, Z82.5) Status:Active Seizures: Aunt Status:Active Family history of thyroid di sease: Aunt(V18.19, Z83.49) Status:Active Family history of osteoporos is: Aunt(V17.81, Z82.62) Status:Active Family history of glaucoma: Mother, Father(V19.11, Z83.511) Status:Active Unknown Family Member Name Dates Details Family history of diabetes m ellitus: Mother(V18.0, Z83.3) Status:Active Family history of kidney dis ease: Father(V18.69, Z84.1) Status:Active Family history of cardiac di sorder: Mother, Father, Maternal Grandmother, Maternal Great Grandmother(V17.49, Z82.49) Status:Active Family history of cerebrovas cular accident (CVA): Mother, Father, Maternal Grandmother, Maternal Great Grandmother(V17.1, Z82.3) Status:Active High serum cholestanol: Moth er, Father, Maternal Grandmother, Maternal Great Grandmother Status:Active Family history of chronic ob structive pulmonary disease: Mother, Father(V17.6, Z82.5) Status:Active Seizures: Aunt Status:Active Family history of thyroid di sease: Aunt(V18.19, Z83.49) Status:Active Family history of osteoporos is: Aunt(V17.81, Z82.62) Status:Active Family history of glaucoma: Mother, Father(V19.11, Z83.511) Status:Active Unknown Family Member Name Dates Details Family history of diabetes m ellitus: Mother(V18.0, Z83.3) Status:Active Family history of kidney dis ease: Father(V18.69, Z84.1) Status:Active Family history of cerebrovas cular accident (CVA): Mother, Father, Maternal Grandmother, Maternal Great Grandmother(V17.1, Z82.3) Status:Active Family history of cardiac di sorder: Mother, Father, Maternal Grandmother, Maternal Great Grandmother(V17.49, Z82.49) Status:Active High serum cholestanol: Moth er, Father, Maternal Grandmother, Maternal Great Grandmother Status:Active Family history of chronic ob structive pulmonary disease: Mother, Father(V17.6, Z82.5) Status:Active Seizures: Aunt Status:Active Family history of thyroid di sease: Aunt(V18.19, Z83.49) Status:Active Family history of osteoporos is: Aunt(V17.81, Z82.62) Status:Active Family history of glaucoma: Mother, Father(V19.11, Z83.511) Status:Active Unknown Family Member Name Dates Details Family history of diabetes m ellitus: Mother(V18.0, Z83.3) Status:Active Family history of kidney dis ease: Father(V18.69, Z84.1) Status:Active Family history of cerebrovas cular accident (CVA): Mother, Father, Maternal Grandmother, Maternal Great Grandmother(V17.1, Z82.3) Status:Active Family history of cardiac di sorder: Mother, Father, Maternal Grandmother, Maternal Great Grandmother(V17.49, Z82.49) Status:Active High serum cholestanol: Moth er, Father, Maternal Grandmother, Maternal Great Grandmother Status:Active Family history of chronic ob structive pulmonary disease: Mother, Father(V17.6, Z82.5) Status:Active Seizures: Aunt Status:Active Family history of thyroid di sease: Aunt(V18.19, Z83.49) Status:Active Family history of osteoporos is: Aunt(V17.81, Z82.62) Status:Active Family history of glaucoma: Mother, Father(V19.11, Z83.511) Status:Active Unknown Family Member Name Dates Details Family history of diabetes m ellitus: Mother(V18.0, Z83.3) Status:Active Family history of kidney dis ease: Father(V18.69, Z84.1) Status:Active Family history of cardiac di sorder: Mother, Father, Maternal Grandmother, Maternal Great Grandmother(V17.49, Z82.49) Status:Active Family history of cerebrovas cular accident (CVA): Mother, Father, Maternal Grandmother, Maternal Great Grandmother(V17.1, Z82.3) Status:Active High serum cholestanol: Moth er, Father, Maternal Grandmother, Maternal Great Grandmother Status:Active Family history of chronic ob structive pulmonary disease: Mother, Father(V17.6, Z82.5) Status:Active Seizures: Aunt Status:Active Family history of thyroid di sease: Aunt(V18.19, Z83.49) Status:Active Family history of osteoporos is: Aunt(V17.81, Z82.62) Status:Active Family history of glaucoma: Mother, Father(V19.11, Z83.511) Status:Active Unknown Family Member Name Dates Details Family history of diabetes m ellitus: Mother(V18.0, Z83.3) Status:Active Family history of kidney dis ease: Father(V18.69, Z84.1) Status:Active Family history of cardiac di sorder: Mother, Father, Maternal Grandmother, Maternal Great Grandmother(V17.49, Z82.49) Status:Active Family history of cerebrovas cular accident (CVA): Mother, Father, Maternal Grandmother, Maternal Great Grandmother(V17.1, Z82.3) Status:Active High serum cholestanol: Moth er, Father, Maternal Grandmother, Maternal Great Grandmother Status:Active Family history of chronic ob structive pulmonary disease: Mother, Father(V17.6, Z82.5) Status:Active Seizures: Aunt Status:Active Family history of thyroid di sease: Aunt(V18.19, Z83.49) Status:Active Family history of osteoporos is: Aunt(V17.81, Z82.62) Status:Active Family history of glaucoma: Mother, Father(V19.11, Z83.511) Status:Active Unknown Family Member Name Dates Details Family history of cardiac di sorder: Mother, Father, Maternal Grandmother, Maternal Great Grandmother(V17.49, Z82.49) Status:Active Family history of cerebrovas cular accident (CVA): Mother, Father, Maternal Grandmother, Maternal Great Grandmother(V17.1, Z82.3) Status:Active High serum cholestanol: Moth er, Father, Maternal Grandmother, Maternal Great Grandmother Status:Active Family history of chronic ob structive pulmonary disease: Mother, Father(V17.6, Z82.5) Status:Active Seizures: Aunt Status:Active Family history of thyroid di sease: Aunt(V18.19, Z83.49) Status:Active Family history of osteoporos is: Aunt(V17.81, Z82.62) Status:Active Family history of glaucoma: Mother, Father(V19.11, Z83.511) Status:Active Family history of kidney dis ease: Father(V18.69, Z84.1) Status:Active Family history of diabetes m ellitus: Mother(V18.0, Z83.3) Status:Active Unknown Family Member Name Dates Details Family history of diabetes m ellitus: Mother(V18.0, Z83.3) Status:Active Family history of kidney dis ease: Father(V18.69, Z84.1) Status:Active Family history of cardiac di sorder: Mother, Father, Maternal Grandmother, Maternal Great Grandmother(V17.49, Z82.49) Status:Active Family history of cerebrovas cular accident (CVA): Mother, Father, Maternal Grandmother, Maternal Great Grandmother(V17.1, Z82.3) Status:Active High serum cholestanol: Moth er, Father, Maternal Grandmother, Maternal Great Grandmother Status:Active Family history of chronic ob structive pulmonary disease: Mother, Father(V17.6, Z82.5) Status:Active Seizures: Aunt Status:Active Family history of thyroid di sease: Aunt(V18.19, Z83.49) Status:Active Family history of osteoporos is: Aunt(V17.81, Z82.62) Status:Active Family history of glaucoma: Mother, Father(V19.11, Z83.511) Status:Active Unknown Family Member Name Dates Details Family history of diabetes m ellitus: Mother(V18.0, Z83.3) Status:Active Family history of kidney dis ease: Father(V18.69, Z84.1) Status:Active Family history of cardiac di sorder: Mother, Father, Maternal Grandmother, Maternal Great Grandmother(V17.49, Z82.49) Status:Active Family history of cerebrovas cular accident (CVA): Mother, Father, Maternal Grandmother, Maternal Great Grandmother(V17.1, Z82.3) Status:Active High serum cholestanol: Moth er, Father, Maternal Grandmother, Maternal Great Grandmother Status:Active Family history of chronic ob structive pulmonary disease: Mother, Father(V17.6, Z82.5) Status:Active Seizures: Aunt Status:Active Family history of thyroid di sease: Aunt(V18.19, Z83.49) Status:Active Family history of osteoporos is: Aunt(V17.81, Z82.62) Status:Active Family history of glaucoma: Mother, Father(V19.11, Z83.511) Status:Active Unknown Family Member Name Dates Details Family history of diabetes m ellitus: Mother(V18.0, Z83.3) Status:Active Family history of kidney dis ease: Father(V18.69, Z84.1) Status:Active Family history of cardiac di sorder: Mother, Father, Maternal Grandmother, Maternal Great Grandmother(V17.49, Z82.49) Status:Active Family history of cerebrovas cular accident (CVA): Mother, Father, Maternal Grandmother, Maternal Great Grandmother(V17.1, Z82.3) Status:Active High serum cholestanol: Moth er, Father, Maternal Grandmother, Maternal Great Grandmother Status:Active Family history of chronic ob structive pulmonary disease: Mother, Father(V17.6, Z82.5) Status:Active Seizures: Aunt Status:Active Family history of thyroid di sease: Aunt(V18.19, Z83.49) Status:Active Family history of osteoporos is: Aunt(V17.81, Z82.62) Status:Active Family history of glaucoma: Mother, Father(V19.11, Z83.511) Status:Active Unknown Family Member Name Dates Details Family history of diabetes m ellitus: Mother(V18.0, Z83.3) Status:Active Family history of kidney dis ease: Father(V18.69, Z84.1) Status:Active Family history of cardiac di sorder: Mother, Father, Maternal Grandmother, Maternal Great Grandmother(V17.49, Z82.49) Status:Active Family history of cerebrovas cular accident (CVA): Mother, Father, Maternal Grandmother, Maternal Great Grandmother(V17.1, Z82.3) Status:Active High serum cholestanol: Moth er, Father, Maternal Grandmother, Maternal Great Grandmother Status:Active Family history of chronic ob structive pulmonary disease: Mother, Father(V17.6, Z82.5) Status:Active Seizures: Aunt Status:Active Family history of thyroid di sease: Aunt(V18.19, Z83.49) Status:Active Family history of osteoporos is: Aunt(V17.81, Z82.62) Status:Active Family history of glaucoma: Mother, Father(V19.11, Z83.511) Status:Active Unknown Family Member Name Dates Details Family history of diabetes m ellitus: Mother(V18.0, Z83.3) Status:Active Family history of kidney dis ease: Father(V18.69, Z84.1) Status:Active Family history of cardiac di sorder: Mother, Father, Maternal Grandmother, Maternal Great Grandmother(V17.49, Z82.49) Status:Active Family history of cerebrovas cular accident (CVA): Mother, Father, Maternal Grandmother, Maternal Great Grandmother(V17.1, Z82.3) Status:Active High serum cholestanol: Moth er, Father, Maternal Grandmother, Maternal Great Grandmother Status:Active Family history of chronic ob structive pulmonary disease: Mother, Father(V17.6, Z82.5) Status:Active Seizures: Aunt Status:Active Family history of thyroid di sease: Aunt(V18.19, Z83.49) Status:Active Family history of osteoporos is: Aunt(V17.81, Z82.62) Status:Active Family history of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 dose, If oral and IV narcotics ordered, use oral first and only use IV if oral is ineffective or cannot take oral. Do Not give oral and IV within 1 hour of each other unless specifically ordered. 0934 (Given - Provid er: Mirna Arce RN) HYDROmorphone (Dilaudid) injection 1.25 mg (COMPLETED) 1.25 mg, IntraVENous, Once, On Fri08/29/23 at 1035, For 1 dose, If oral and IV narcotics ordered, use oral first and only use IV if oral is ineffective or cannot take oral. Do Not give oral and IV within 1 hour of each other unless specifically ordered. 1039 (Given - Provid er: Mirna Arce RN) prochlorperazine (Compazine) injection 10 mg (COMPLETED) 10 mg, IntraVENous, Once, On Fri08/29/23 at 0930, For 1 dose 0933 (Given - Provid er: Mirna Arce RN) sodium chloride 0.9 % bolus 500 mL (COMPLETED) 500 mL, IntraVENous, at 500 mL/hr, Administer over 1 Hours, Once, On Fri08/29/23 at 0930, For 1 dose 0933 (New Bag - Prov ider: Mirna Arce RN)1033 (Stopped - Provider: Mirna Arce RN - Comment: only about 400cc in) Scheduled Medication Order 06/02/2024 06/03/2024 06/04/2024 azithromycin (Zithromax) tablet 500 mg (COMPLETED) 500 mg, Oral, Once, On Fri06/04/24 at 0435, For 1 dose, Suspected Indication (Select all that apply): Pneumonia (CAP) 0442 (Given - Provid er: Mojgan Soto RN) predniSONE (Deltasone) tablet 60 mg (COMPLETED) 60 mg, Oral, Once, On Fri06/04/24 at 0435, For 1 dose 0442 (Given - Provid er: Mojgan Soto RN) Care Teams (unrecognized sec tion and content) Team Status: Active Member Role Status Dates No Primary Care Physician Primary Care Provider Active Team Status: Inactive Member Role Status Dates Dr. Richard Dan DO Emergency Provider Active Start: December 15, 2024 End: December 15, 2024 No Primary Care Physician Primary Care Provider Active Start: December 15, 2024 End: December 15, 2024 Dr. Martín Kilgore DO Admit Provider Active Start: December 15, 2024 End: December 15, 2024 Dr. Martín Kilgore DO Other Provider Active Start: December 15, 2024 End: December 15, 2024 Dr. Seun Cullen MD Attending Provider Active Start: December 15, 2024 End: December 15, 2024 Team Status: Active Member Role Status Dates No Primary Care Physician Primary Care Provider Active Start: December 15, 2024 Dr. Ton Marin MD Attending Provider Active S tart: December 15, 2024 Curriculum Advisory Teacher Relationship Specialty Start Date End Date Marlene Hui DO [address] [place] [id number] PCP - General 04/01/19 Curriculum Advisory Teacher Relationship Specialty Start Date End Date Melly Rosario MD PCP - General Family Practice 01/09/21 Curriculum Advisory Teacher Relationship Specialty Start Date End Date Melly Rosario MD PCP - General Family Practice 01/09/21 Curriculum Advisory Teacher Relationship Specialty Start Date End Date Melly Rosario MD PCP - General Family Medicine 01/09/21 Curriculum Advisory Teacher Relationship Specialty Start Date End Date Lois Alberts MD [facility] [address] [address] PCP - General 09/11/21 Curriculum Advisory Teacher Relationship Specialty Start Date End Date Lois Alberts MD [address] [place] [address] PCP - General 06/28/21 Lois Alberts MD [address] [place] [address] PCP - [place] PCP 06/30/22 Lois Alberts MD [address] [place] [address] PCP - [facility] Medicaid PCP 09/28/22 Curriculum Advisory Teacher Relationship Specialty Start Date End Date Lois Alberts MD [address] [place] [address] PCP - General 06/28/21 Lois Alberts MD [address] [place] [address] PCP - [place] PCP 06/30/22 Lois Alberts MD [address] [place] [address] PCP - [facility] PCP 09/28/22 Curriculum Advisory Teacher Relationship Specialty Start Date End Date Lois Alberts MD [address] [place] [address] PCP - General 09/11/21 Curriculum Advisory Teacher Relationship Specialty Start Date End Date Lois Alberts MD [address] [place] [address] PCP - General 09/11/21 Curriculum Advisory Teacher Relationship Specialty Start Date End Date Lois Alberts MD [address] [place] [address] PCP - General 06/28/21 Lois Alberts MD [address] [place] [address] PCP - [place] PCP 06/30/22 Lois Alberts MD [address] [place] [address] PCP - [facility] Medicaid PCP 09/28/22 Curriculum Advisory Teacher Relationship Specialty Start Date End Date Lois Alberts MD [address] [place] [address] PCP - General 09/11/21 Curriculum Advisory Teacher Relationship Specialty Start Date End Date Steph Villalba MD [address] [place] [address] PCP - General Family Medicine 12/26/22 Curriculum Advisory Teacher Relationship Specialty Start Date End Date Steph Villalba MD [address] [place], [place] [id number] PCP - General Family Medicine 12/26/22 Curriculum Advisory Teacher Relationship Specialty Start Date End Date Steph Villalba MD [address] [place], [place] [id number] PCP - General Family Medicine 12/26/22 Curriculum Advisory Teacher Relationship Specialty Start Date End Date Lois Alberts MD [address] [place] [address] PCP - General 09/11/21 Curriculum Advisory Teacher Relationship Specialty Start Date End Date Lois Alberts MD [address] [place] [address] PCP - General 09/11/21 Curriculum Advisory Teacher Relationship Specialty Start Date End Date Lois Alberts MD [address] [place] [id number] PCP - General 06/28/21 Lois Alberts MD [address] [place] [address] PCP - [employer] PCP 06/30/22 Lois Alberts MD [address] [place] [address] PCP - [facility] Medicaid PCP 09/28/22 Curriculum Advisory Teacher Relationship Specialty Start Date End Date Lois Alberts MD [address] [place] [address] PCP - General 09/11/21 Erwin Dominguez MD [address] [facility] [address] [place] [address] Surgeon Urology 09/02/23 Curriculum Advisory Teacher Relationship Specialty Start Date End Date Lois Alberts MD [address] [place] [address] PCP - General 09/11/21 Erwin Dominguez MD [address] [facility] [address] [place] [address] Surgeon Urology 09/02/23 Curriculum Advisory Teacher Relationship Specialty Start Date End Date Butch Alberts V [address] [place] [address] PCP - General Orthopedics 02/19/24 Curriculum Advisory Teacher Relationship Specialty Start Date End Date Butch Alberts V [address] [place] [address] PCP - General Orthopedics 02/19/24 Curriculum Advisory Teacher Relationship Specialty Start Date End Date Lois Alberts MD [address] [place] [address] PCP - General 09/11/21 Erwni Dominguez MD [address] [address] Surgeon Urology 09/02/23 Team Status: Active Member Role Status Dates Dr. Richard Dan DO Emergency Provider Active Start: December 15, 2024 No Primary Care Physician Primary Care Provider Active Start: December 15, 2024 Dr. Martín Kilgore DO Admit Provider Active Start: December 15, 2024 Dr. Martín Kilgore DO Attending Provider Active Start: December 15, 2024 Source Comments (unrecognize d section and content) In the event this informatio n is protected by the Federal Confidentiality of Alcohol and Drug Abuse Patient Records regulations: The Federal rules restrict any use of the information to criminally investigate or prosecute any alcohol or drug abuse patient.[facility] the event this information is protected by the Federal Confidentiality of Alcohol and Drug Abuse Patient Records regulations: The Federal rules restrict any use of the information to criminally investigate or prosecute any alcohol or drug abuse patient.[facility] the event this information is protected by the Federal Confidentiality of Alcohol and Drug Abuse Patient Records regulations: The Federal rules restrict any use of the information to criminally investigate or prosecute any alcohol or drug abuse patient.[facility] the event this information is protected by the Federal Confidentiality of Alcohol and Drug Abuse Patient Records regulations: The Federal rules restrict any use of the information to criminally investigate or prosecute any alcohol or drug abuse patient.[facility] the event this information is protected by the Federal Confidentiality of Alcohol and Drug Abuse Patient Records regulations: The Federal rules restrict any use of the information to criminally investigate or prosecute any alcohol or drug abuse patient.[facility] Goals (unrecognized section and content) Goals may be documented in a n alternate section FOR RECORDS PERTAINING TO PATIENTS WHO ARE OR HAVE BEEN ENROLLED IN A CHEMICAL DEPENDENCY/SUBSTANCEABUSE PROGRAM, SOME INFORMATION MAY BE OMITTED. This clinical summary was aggregated from multiple sources. Caution should be exercised in using it in the provision of clinical care. This summary normalizes information from multiple sources, and as a consequence, information in this document may materially change the coding, format and clinical context of patient data. In addition, data may be omitted in some cases. CLINICAL DECISIONS SHOULD BE BASED ON THE PRIMARY CLINICAL RECORDS. [employer] [facility]. provides no warranty or guarantee of the accuracy or completeness of information in this document.
[2025-02-19 14:07] VITALS: BP 145/74; PULSE 91; RESP 18; TEMP 37.1; O2SAT 95
== END 2025-02-19 14:08 | disposition home or self-care (01) ==
PROVIDERS: Emergency Provider Emergency Medicine; PCP Nurse Practitioner Family; Visit Provider Emergency Medicine
DX: M79.671 Pain in right foot (principal); E11.42 Type 2 diabetes mellitus with diabetic polyneuropathy; I10 Essential (primary) hypertension; M79.672 Pain in left foot
CPT/HCPCS: 73630; 99282